=== PATIENT | female | born 1960 | race Caucasian/White ===

== ENCOUNTER 2024-05-11 17:15 | Emergency (ER) | payer OTHER, SELFPAY ==
[2024-05-11 17:25] VITALS: BP 200/100; PULSE 85; TEMP 36.8; O2SAT 99; BMI 28.8
--- NOTE | 2024-05-11 17:49 | ECG_ITS ---
[facility] Test Date: 2024-05-11 Pat Name: ALISON FERRELL Department: Room: - Gender: Female [employer]: : 1960 Requested By: [id number] Order Number: [id number] Reading MD: AMPARO MOSELEY Measurements Intervals Kennedy Rate: 79 P: 37 VT: 134 QRS: 75 QRSD: 88 T: 23 QT: 382 QTc: 416 Interpretive Statements 1100 Sinus rhythm 9110 normal ECG Compared to ECG 04/27/2022 09:40:12 No significant changes Electronically Signed On 05-12-2024 6:53:20 EST by AMPARO MOSELEY
--- NOTE | 2024-05-11 18:03 | PC.NURSE ---
pt placed on steroid and valacyclovir 1 week ago for possible shingles. pt states she never had a rash, just felt a burning sensation on L upper back and into shoulder/chest area. pt also feels it going down her arm and into her neck. pt states she took 1 dose of each medication and was out of it so she stopped them. 1 year ago she also stopped all of her other regular medications for unknown reason. today was found to have high BP at , so she was sent to [facility]. got bloodwork from [place] but was in [place] for 2 hrs so she left and came to this ER.
--- NOTE | 2024-05-11 18:27 | CT_ITS ---
The [address] [address] Patient Name: ALISON FERRELL MRN: [id number] date: 1960 Sex: F Assigned Patient Location: ED.MAIN Current Patient Location: ED.MAIN Accession/Order Number: [id number] Exam Date: 05/11/2024 18:46 Report Date: 05/11/2024 20:11 At the request of: KRYSTA CANADA Procedure: CT head/brain wo con EXAM: CT head/brain wo con HISTORY: confusion COMPARISON: Head CT 07/03/2015 TECHNIQUE: CT head noncontrast. Axial scans with reformatted coronal sagittal images. Individualized radiation dose reduction used for this exam FINDINGS: No hemorrhage mass or acute edema seen. 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 Normal-size ventricles stable without mass effect or shift. No fracture or suspicious bone lesion. No extra-axial collection or hematoma. Visualized mastoid, middle ear cavities and sinuses clear. CT/CT head/brain wo con IMPRESSION: Stable head CT without evidence of new or acute appearing abnormality. Electronically authenticated by: CHRISTIANA CLARKE Date: 05/11/2024 20:11
--- NOTE | 2024-05-11 18:37 | ED.GENADUL1 ---
HPI HPI - General Adult General Chief complaint: Chest Pain Stated complaint: blood pressure Time Seen by Provider: 05/11/24 17:38 Source: patient Mode of arrival: walk-in Limitations: no limitations History of Present Illness HPI narrative: Patient is a 63-year-old female who is presenting to with patient's daughter, granddaughter, and eventually son who has multiple concerns and complaints. Patient is complaining of left-sided shoulder, neck, left-sided headache pain for the past 3 weeks. Patient had this pain initially 3 weeks ago, patient went to go see Dr. Pacheco Olvera her PCP. The pain had only been for couple days at that time, patient was sent home with prednisone and Valtrex. Patient only took the medication 1 time, thought that she was having a side effect because she was confused and disoriented and did not feel like herself, so she stopped taking the medication. Patient just went into a group home approximately 2 to 3 weeks ago. Patient lives at home by herself. Patient has been having confusion going on for the past 4 to 6 months. Patient has been having intermittent left-sided chest pain. Patient blood pressure has been elevated since her is going into a group home. Patient did have a history of anxiety depression, she used to take medication for that but does not any longer. Patient was having some left-sided chest pain, she went to the urgent care today. Because of patient's blood pressure and chest pain they sent her to the ER. Patient then went to [facility] and checked in for chest pain and elevated blood pressure. Patient was taken to triage room, had EKG, lab work, and eventually had a chest x-ray done. Patient was uncertain of the results, waited a few hours in the ER waiting room, was upset by this, I called her children, and her children brought her to [facility]. Patient has no strokelike signs or symptoms. No significant headache. No syncope. Patient does not have any chest pain or shortness of breath at this time. No abdominal pain, nausea or vomiting. All systems are negative except as noted/marked. All systems reviewed and otherwise negative. Nurses note and vital signs reviewed and patient is not hypoxic. General: The patient appears well and in no apparent distress. Patient is resting comfortably on cart. Patient is not toxic, lethargic, or listless Skin: Warm, dry, no pallor noted. There is no rash noted. No petechiae, purpura. Head: Normocephalic, atraumatic; patient does have moderate tenderness to palpation to left upper trapezius muscles, left cervical muscle tissue. Patient has evidence of mild torticollis to the left. Patient has no meningeal signs or symptoms, no nuchal rigidity. Patient has limited range of motion of sidebending rotation secondary to left sided muscle skeletal pain. No abscess, no lymphadenopathy. No redness or signs of cellulitis or infection. Eye: Normal conjunctiva, no drainage, EOMI. PERRL Ears, Nose, Mouth, and Throat: oral mucosa is moist. Nares patent. Mouth without vesicles. Cardiovascular: Regular Rate and Rhythm, no murmur, gallop, rub Respiratory: Patient is in no distress, no accessory muscle use, lungs are clear to auscultation, no wheezing, rales or rhonchi Back: non-tender, no CVA tenderness bilaterally to percussion. No CT LS midline pain GI: no tenderness to palpation, no masses appreciated. No rebound, guarding, or rigidity noted. No distention Musculoskeletal: Patient has full range of motion of all of the extremities, no motor, sensory, or focal neurological deficits Neurological: A&O x4, normal speech Psychiatric: Cooperative; Patient is not suicidal homicidal. Related Data Previous Rx's ?Medication ?Instructions ?Recorded meclizine 25 mg chewable tablet 25 mg PO TID PRN dizziness or 05/11/24 (Antivert) vertigo; anxiety #7 tabs methocarbamol 500 mg tablet 500 mg PO Q8H PRN muscle pain #10 05/11/24 tabs Allergies Allergy/AdvReac Type Severity Reaction Status Date / Time acetaminophen (From Vicodin) Allergy Severe Hallucinati Verified 05/11/24 17:47 ng hydrocodone (From Vicodin) Allergy Severe Hallucinati Verified 05/11/24 17:47 ng oxycodone (From Percocet) Allergy Severe Hallucinati Verified 05/11/24 17:47 ng Penicillins AdvReac Intermediate Rash Verified 05/11/24 17:47 Opioid HPI Opioid Management Most Recent Opioid Data: No Data to Display PFSH PFSH Social History Little interest or pleasure in doing things: not at all Feeling down, depressed, or hopeless: not at all Exam Constitutional Vital Signs, click to edit/add: Last Vital Signs Temp 98.2 F 05/11/24 17:25 Pulse 85 05/11/24 17:25 Resp 18 05/11/24 17:25 BP 192/104 H 05/11/24 18:45 Pulse Ox 99 05/11/24 17:25 O2 Del Method Room Air 05/11/24 17:25 Course Vital Signs Vital signs: Vital Signs Temperature 98.2 F 05/11/24 17:25 Pulse Rate 85 05/11/24 17:25 Respiratory Rate 18 05/11/24 17:25 Blood Pressure 200/100 H 05/11/24 17:25 Pulse Oximetry 99 05/11/24 17:25 Oxygen Delivery Method Room Air 05/11/24 17:25 Temperature 98.2 F 05/11/24 17:25 Pulse Rate 85 05/11/24 17:25 Respiratory Rate 18 05/11/24 17:25 Blood Pressure 192/104 H 05/11/24 18:45 Pulse Oximetry 99 05/11/24 17:25 Oxygen Delivery Method Room Air 05/11/24 17:25 Medical Decision Making MDM Narrative Medical decision making narrative: Patient is lab work was reviewed from Don Ojeda from today. Patient white blood cell count was 8.5, H&H was 14/40, platelets 355. Patient's BMP shows no significant findings, patient's troponin was 9.6. Patient had repeat troponin, repeat EKG. Also a CT of the head was done as well. Patient daughter, granddaughter and son are at bedside. It is noted that patient has not taken any of her medication for over a year, including blood pressure medication, diabetic medication, anxiety depression medication, her cholesterol medication. Patient decided 1 year ago to stop taking all her medications. Patient is now agreeing that she will start taking her medications today. I spent 20 to 25 minutes during patient's HPI and physical exam speaking of all the social situation surrounding this patient. We discussed depression anxiety and stress. We discussed confusion for 6 months. We discussed elevated blood pressure and hypertension. We did not discuss initially the fact that she stopped taking her medication on her own 1 year ago of diabetes, cholesterol, blood pressure medication. After I found this out from triage nurse Shirley GRAY, I then went back and asked the patient and she did admit to stop taking the medication 1 year ago, and daughter and son at bedside were not exactly aware of this as well. Compliance with medication was discussed. We had discussed creating a blood pressure log, where she will check her blood pressure twice a day for the next 1 to 2 weeks and then show her blood pressure readings to Dr. Olvera. Patient will be sent home with a prescription for Vistaril to help with some mild insomnia along with some anxiety at home. Patient most likely will need daily medication for depression/anxiety/stress that will need to be prescribed from Dr. Olvera. Patient and daughter and son at bedside agree with this. Patient has had confusion in the past 6 months. We have discussed different etiologies of vascular dementia versus aging dementia versus alcohol dementia. Patient denies drinking alcohol daily at home. Patient will call Dr. Olvera tomorrow and make an appointment to follow-up. Patient daughter and granddaughter were extremely thankful for the lengthy time. 1900 Patient is transition to Dr. Lange to follow-up on CT reading and final disposition. Most of the patient's discharge has been done by myself. ECG Data Attestation: I personally reviewed and interpreted this ECG as follows: (EKG interpretation. Normal sinus rhythm at 79 beats a minute. Normal axis deviation. No acute ST elevation, no acute ectopy. Q waves noted diffusely. QTc of 416.) Discharge Plan Discharge Patient Disposition: Still a Patient
[2024-05-11] MEDS: KETOROLAC TROMETHAMINE 30 MG/ML VIAL 15 MG IVP (18:39)
[2024-05-11] MEDS: ORPHENADRINE 60 MG/ 2 ML VIAL IM (18:40)
[2024-05-11 18:45] VITALS: BP 192/104
[2024-05-11 19:40] LABS: Troponin I High Sensitivity 14.6 pg/mL (4.0-51.3)
--- NOTE | 2024-05-11 20:22 | ED_ITS ---
HPI HPI - General Adult General Chief complaint: Chest Pain Stated complaint: blood pressure Time Seen by Provider: 05/11/24 17:38 Source: patient Mode of arrival: walk-in Limitations: no limitations History of Present Illness HPI narrative: 63-year-old female presented to the emergency department and was initially seen by Dr. Sandoval and signed out to me after discussing the case with him thoroughly. Please see his full history and physical exam. Related Data Previous Rx's ?Medication ?Instructions ?Recorded meclizine 25 mg chewable tablet 25 mg PO TID PRN dizziness or 05/11/24 (Antivert) vertigo; anxiety #7 tabs methocarbamol 500 mg tablet 500 mg PO Q8H PRN muscle pain #10 05/11/24 tabs Allergies Allergy/AdvReac Type Severity Reaction Status Date / Time acetaminophen (From Vicodin) Allergy Severe Hallucinati Verified 05/11/24 17:47 ng hydrocodone (From Vicodin) Allergy Severe Hallucinati Verified 05/11/24 17:47 ng oxycodone (From Percocet) Allergy Severe Hallucinati Verified 05/11/24 17:47 ng Penicillins AdvReac Intermediate Rash Verified 05/11/24 17:47 Opioid HPI Opioid Management Most Recent Opioid Data: No Data to Display PFSH PFSH Social History Little interest or pleasure in doing things: not at all Feeling down, depressed, or hopeless: not at all Exam Constitutional Vital Signs, click to edit/add: Last Vital Signs Temp 98.2 F 05/11/24 17:25 Pulse 85 05/11/24 17:25 Resp 18 05/11/24 17:25 BP 192/104 H 05/11/24 18:45 Pulse Ox 99 05/11/24 17:25 O2 Del Method Room Air 05/11/24 17:25 Course Vital Signs Vital signs: Vital Signs Temperature 98.2 F 05/11/24 17:25 Pulse Rate 85 05/11/24 17:25 Respiratory Rate 18 05/11/24 17:25 Blood Pressure 200/100 H 05/11/24 17:25 Pulse Oximetry 99 05/11/24 17:25 Oxygen Delivery Method Room Air 05/11/24 17:25 Temperature 98.2 F 05/11/24 17:25 Pulse Rate 85 05/11/24 17:25 Respiratory Rate 18 05/11/24 17:25 Blood Pressure 192/104 H 05/11/24 18:45 Pulse Oximetry 99 05/11/24 17:25 Oxygen Delivery Method Room Air 05/11/24 17:25 Medical Decision Making MDM Narrative Medical decision making narrative: Her workup is negative including CT of the brain. She had blood testing performed at another hospital earlier today which was reviewed and found to be normal. She has her medications and will resume them and will call her family doctor for follow-up appointment. Treatment diagnosis and follow-up were discussed with the patient. Differential Diagnosis Differential Diagnosis: Hypertension, noncompliant Lab Data Labs: Lab Results 05/11/24 Range/Units 18:53 Troponin I High Sens 14.6 (4.0-51.3) pg/mL Discharge Plan Discharge Chief Complaint: Chest Pain Clinical Impression: Strain of cervical portion of left trapezius muscle, Hypertension, Medication refill, Headache, tension-type Patient Disposition: Home, Self-Care Time of Disposition Decision: 20:20 Condition: Good Mode of Transportation: Private Vehicle Prescriptions / Home Meds: New meclizine [Antivert] 25 mg tablet,chewable 25 mg PO TID PRN (Reason: dizziness or vertigo; anxiety) Qty: 7 0RF methocarbamol 500 mg tablet 500 mg PO Q8H PRN (Reason: muscle pain) Qty: 10 0RF Print Language: Danish Instructions: Cervical Strain (DC), Muscle Strain (ED), Tension Headache (ED), Hypertension (ED) Additional Instructions: Start use ice 20 minutes on, 20 minutes off. Perform the 8 cervical stretching exercises that I showed you, 3 sets of 10 each, 240 exercises. Do these 4-5 times a day. Start taking medication as prescribed. Start creating a blood pressure log, taking your blood pressure twice a day, record the date and time, and then show them to Dr. Pacheco Olvera for 1 to 2 weeks so we can adjust medication as needed. Start taking your medication as prescribed. You do not need to return back to the ER if your blood pressure is less than 200/100 if you are not having any significant headache, chest pain, shortness of breath, or any other significant or acute problems. Referrals: Physician,Non-Staff, MD [Primary Care Provider] - 1 week
[2024-05-11 20:39] VITALS: BP 188/77; PULSE 74; O2SAT 95
== END 2024-05-11 20:42 | disposition home or self-care (01) ==
PROVIDERS: Emergency Medicine; Emergency Provider Emergency Medicine
DX: S16.1XXA Strain of muscle, fascia and tendon at neck level, initial encounter (principal); I10 Essential (primary) hypertension; G44.209 Tension-type headache, unspecified, not intractable; Z76.0 Encounter for issue of repeat prescription; R07.9 Chest pain, unspecified; X58.XXXA Exposure to other specified factors, initial encounter; Z91.148 Patient's other noncompliance with medication regimen for other reason; G47.00 Insomnia, unspecified; R41.0 Disorientation, unspecified; T50.916A Underdosing of multiple unspecified drugs, medicaments and biological substances, initial encounter
CPT/HCPCS: 36415; 70450; 84484; 93005; 96372; 96374; 99285; J1885; J2360

== ENCOUNTER 2025-04-07 15:29 | Emergency (ER) | payer MEDICARE, SELFPAY ==
[2025-04-07 15:32] VITALS: BP 207/89; PULSE 77; TEMP 37; O2SAT 98; BMI 23.8
--- NOTE | 2025-04-07 15:49 | XR_ITS ---
The [address] [address] Patient Name: ALISON FERRELL MRN: [id number] date: 1960 Sex: F Assigned Patient Location: ER Current Patient Location: ER Accession/Order Number: [id number] Exam Date: 04/07/2025 16:19 Report Date: 04/07/2025 16:38 At the request of: MAYELIN LAGUNAS MD Procedure: XR chest 1V Plain film chest Single view HISTORY: Confusion COMPARISON: None FINDINGS: SUPPORT DEVICES: None POSTSURGICAL CHANGES: None HEART: Within normal limits PULMONARY COLEEN: Within normal limits MEDIASTINUM: Unremarkable LUNGS AND PLEURA: No acute lung process, pleural effusion or pneumothorax identified. BONY STRUCTURES: Intact ADDITIONAL FINDINGS None XR/XR chest 1V IMPRESSION: No acute process. Impression dictated by: Will Grey M.D. 04/07/2025 4:38 PM Dictation Location: [place] [address] Electronically authenticated by: [id number] Y Date: 04/07/2025 16:38
--- NOTE | 2025-04-07 15:49 | ED_ITS ---
HPI HPI - General Adult General Chief complaint: Altered Mental Status Stated complaint: UTI SYMPTOMS Time Seen by Provider: 04/07/25 15:37 Source: patient and family Mode of arrival: walk-in Limitations: no limitations History of Present Illness HPI narrative: 64-year-old female presents to the emergency department for confusion. Seems to be gone today and her granddaughters gives some of the history. They report that they were talking to her on the phone today and the patient seemed to stop midsentence and slurred some words. The patient does not want to be here and came only at their urging. She does not seem to have any complaints. Significantly, her on March 20, 2018 days ago. Related Data Home Medications ?Medication ?Instructions ?Recorded ?Confirmed duloxetine 60 mg capsule,delayed 60 mg PO DAILY 04/07/25 release lisinopril 20 mg tablet 20 mg PO DAILY 04/07/2503/20 Allergies Allergy/AdvReac Type Severity Reaction Status Date / Time acetaminophen (From Vicodin) Allergy Severe Hallucinati Verified 04/07/25 15:32 ng hydrocodone (From Vicodin) Allergy Severe Hallucinati Verified 04/07/25 15:32 ng oxycodone (From Percocet) Allergy Severe Hallucinati Verified 04/07/25 15:32 ng Penicillins AdvReac Intermediate Rash Verified 04/07/25 15:32 Review of Systems ROS Narrative A ten point review of systems is negative except as noted above. PFSH PFSH Social History Little interest or pleasure in doing things: not at all Feeling down, depressed, or hopeless: not at all Exam Narrative Exam Narrative: Nurses note and vital signs reviewed General:The patient appears in no apparent distress. Patient is resting comfortably on cart. Skin:Warm, dry, no pallor noted.There is no rash noted. Head:Normocephalic, atraumatic Eye: Normal conjunctiva, no drainage, EOMI. PERRL Ears, Nose, Mouth, and Throat: oral mucosa is moist. Nares patent. Cardiovascular:Regular Rate and Rhythm Respiratory:Patient is in no distress, no accessory muscle use, lungs are clear to auscultation, no wheezing, rales or rhonchi Back:non-tender GI: Soft and nontender Musculoskeletal: The patient has no evidence of calf tenderness, no pitting edema, symmetrical pulses noted bilaterally Neurological:A&O x4, normal speech; upper lower extremity strength 5 out of 5 and symmetric Psychiatric:Cooperative Constitutional Vital Signs, click to edit/add: Last Vital Signs Temp 98.6 F 04/07/25 15:32 Pulse 77 04/07/25 15:32 Resp 18 04/07/25 15:32 BP 190/90 H 04/07/25 16:02 Pulse Ox 98 04/07/25 15:32 O2 Del Method Room Air 04/07/25 15:32 Course Vital Signs Vital signs: Vital Signs Temperature 98.6 F 04/07/25 15:32 Pulse Rate 77 04/07/25 15:32 Respiratory Rate 18 04/07/25 15:32 Blood Pressure 207/89 H 04/07/25 15:32 Pulse Oximetry 98 04/07/25 15:32 Oxygen Delivery Method Room Air 04/07/25 15:32 Temperature 98.6 F 04/07/25 15:32 Pulse Rate 77 04/07/25 15:32 Respiratory Rate 18 04/07/25 15:32 Blood Pressure 190/90 H 04/07/25 16:02 Pulse Oximetry 98 04/07/25 15:32 Oxygen Delivery Method Room Air 04/07/25 15:32 Medical Decision Making MDM Narrative Medical decision making narrative: Her workup here is negative. I suspect that her symptoms are due to situational anxiety second to her passing away less than 3 weeks ago. At this point I do not clinically suspect a stroke and she is able to be discharged home. Treatment diagnosis and follow-up were discussed with the patient and her family. Differential Diagnosis Differential Diagnosis: Situational anxiety, stroke, UTI, dehydration Lab Data Lab results reviewed: Yes I reviewed the patient's lab results Labs: Lab Results 04/07/25 04/07/25 Range/Units 16:15 16:40 WBC 7.7 (4.0-11.0) 10^3/uL RBC 4.19 L (4.20-5.40) 10^6/uL Hgb 12.7 (12.0-16.0) g/dL Hct 38.8 (36.0-48.0) % MCV 92.6 (81.0-99.0) fL MCH 30.3 (26.7-34.0) pg MCHC 32.7 (29.9-35.2) g/dL RDW 12.8 (11.0-15.0) % Plt Count 307 (150-450) 10^3/uL MPV 9.2 L (9.5-13.5) fL Neut % (Auto) 60.1 (43.0-75.0) % Lymph % (Auto) 28.0 (20.5-60.0) % [place] % (Auto) 10.0 (1.7-12.0) % Eos % (Auto) 1.0 (0.9-7.0) % Baso % (Auto) 0.5 (0.2-2.0) % Neut # (Auto) 4.6 (1.4-6.5) 10^3/uL Lymph # (Auto) 2.2 (1.2-3.8) 10^3/uL [place] # (Auto) 0.8 (0.3-0.8) 10^3/uL Eos # (Auto) 0.1 (0.0-0.7) 10^3/uL Baso # (Auto) 0.0 (0.0-0.1) 10^3/uL Abs Immat Gran (auto) 0.03 (0.00-0.03) 10^3/uL Imm/Tot Granulo (auto) 0.4 (0.0-0.5) % Sodium 140 (136-145) mmol/L Potassium 3.9 (3.5-5.1) mmol/L Chloride 104 (98-107) mmol/L Carbon Dioxide 31.2 (21.0-32.0) mmol/L Anion Gap 8.7 BUN 18.0 (7.0-18.0) mg/dL Creatinine 1.03 H (0.55-1.02) mg/dL Est GFR ( Amer) >60 (>=60 mL/min/1.73m^2) Est GFR (Non-Af Amer) 54 L (>=60 mL/min/1.73m^2) BUN/Creatinine Ratio 17.5 Glucose 111 H (74-106) mg/dL Calcium 9.3 (8.5-10.1) mg/dL Urine Color Lt. yellow (YELLOW) Urine Clarity Clear (CLEAR) Urine pH 6.5 (5.0-9.0) Ur Specific [place] 1.015 (1.005-1.025) Urine Protein Negative (NEG/TRACE) mg/dL Urine Glucose (UA) Negative (NEGATIVE) mg/dL Urine Ketones Negative (NEGATIVE) mg/dL Urine Occult Blood Trace-i (NEGATIVE) Urine Nitrite Negative (NEGATIVE) Urine Bilirubin Negative (NEGATIVE) Urine Urobilinogen 0.2 (0.2-1.0) EU/dL Ur Leukocyte Esterase Small A (NEGATIVE) Urine RBC 2-5 A (0-2) #/HPF Urine WBC 2-5 A (NONE SEEN) #/HPF Ur Squamous Epith Cells Rare (NONE/RARE) #/LPF Ur Transition Epith Cell Rare A (NONE SEEN) #/LPF Urine Crystals None seen (None Seen) #/HPF Urine Bacteria Trace A (NONE SEEN) #/HPF Urine Casts None seen (NONE SEEN) #/LPF Urine Mucus None seen (NONE SEEN) Ur Culture Indicated? [place] [place] scan - head: Radiologist's impression: ITS Impressions Chest X-Ray 04/07/25 15:49 IMPRESSION: No acute process. Impression dictated by: Will Grey M.D. 04/07/2025 4:38 PM Dictation Location: [employer] Electronically authenticated by: [id number] Y Date: 04/07/2025 16:[address] 04/07/25 15:49 IMPRESSION: No acute findings. Impression dictated by: Will Grey M.D. 04/07/2025 4:39 PM Dictation Location: [employer] Electronically authenticated by: [id number] Y Date: 04/07/2025 16:39 ECG Data Attestation: I personally reviewed and interpreted this ECG as follows: (EKG on my interpretation shows sinus rhythm with a rate of 77 and no acute change) Discharge Plan Discharge Chief Complaint: Altered Mental Status Clinical Impression: Situational anxiety, Altered mental status Patient Disposition: Home, Self-Care Time of Disposition Decision: 17:25 Condition: Good Mode of Transportation: Private Vehicle Prescriptions / Home Meds: No Action duloxetine 60 mg capsule,delayed release(DR/EC) 60 mg PO DAILY lisinopril 20 mg tablet 20 mg PO DAILY Print Language: Setswana Instructions: Altered Mental Status (ED), Anxiety (ED) Referrals: Physician,Non-Staff, MD [Primary Care Provider] - 1 week
--- NOTE | 2025-04-07 15:49 | ECG_ITS ---
The [facility] Test Date: 2025-04-07 Pat Name: ALISON FERRELL Department: Room: - Gender: Female Rn Recruitment: : 1960 Requested By: Order Number: [id number] Reading MD: ROXANA MARIO M.D. Measurements Intervals [place] Rate: 77 P: 52 CO: 148 QRS: 59 QRSD: 82 T: 54 QT: 376 QTc: 407 Interpretive Statements 1100 Sinus rhythm 9110 normal ECG Compared to ECG 05/11/2024 17:49:07 No significant changes Electronically Signed On 04-08-2025 6:03:47 EST by ROXANA MARIO M.D.
--- NOTE | 2025-04-07 15:49 | CT_ITS ---
The [address] [address] Patient Name: ALISON FERRELL MRN: [id number] date: 1960 Sex: F Assigned Patient Location: ER Current Patient Location: ER Accession/Order Number: [id number] Exam Date: 04/07/2025 16:19 Report Date: 04/07/2025 16:39 At the request of: MAYELIN LAGUNAS MD Procedure: CT head/brain wo con Unenhanced head CT TECHNIQUE: Contiguous axial imaging of the head. The CT exam was performed using one or more the following dose reduction techniques: Automated exposure control, adjustment of the MA and/or Kv according to patient size, or use of the iterative reconstruction technique. COMPARISON: 05/11/2024 HISTORY: Confusion VENTRICLES: Within normal limits ATROPHY: Similar mild atrophy BRAIN PARENCHYMA: Decreased density of the white matter is most consistent with chronic small vessel disease. HEMORRHAGE: None HERNIATION: No mass effect or herniation INFARCTION: No recent vascular distribution infarction is seen. EXTRA-AXIAL FLUID COLLECTIONS None MIDBRAIN: Unremarkable TRINY: Unremarkable MEDULLA: Unremarkable SINUSES: Unremarkable ORBITS: Grossly unremarkable MASTOIDS: Unremarkable BONY STRUCTURES Intact ADDITIONAL FINDINGS: CT/CT head/brain wo con IMPRESSION: No acute findings. Impression dictated by: Will Grey M.D. 04/07/2025 4:39 PM Dictation Location: [place] [address] Electronically authenticated by: [id number] Y Date: 04/07/2025 16:39
--- OUTSIDE RECORDS SUMMARY | 2025-04-07 15:49 | XMS_ITS | Clinical Summary ---
Author Organization [facility] Address [address], [address] [place] [address] Care Team Providers Care Screen Handler Name Role Phone Stacie Olvera MD Primary Care Provider Allergies Active AllergyReactionsCriticalityNoted DhunZtzbbuorNmnrbngjzuog35/14/2016 Povidone Fucydl9607/03/20151712[place]baica17/14/6567Irxbkxgn89/14/2016Penicillins 07/03/2015Sulfa Dgjmehajlts00/14/2016Adhesive Tape07/03/2015 Medications MedicationSigDispense QuantityRefillsLast FilledStart DateEnd DateStatus lisinopril (PRINIVIL;ZESTRIL) 20 MG tablet Take 20 mg by mouth dailyActive nadolol (CORGARD) 40 MG tablet Take 20 mg by mouth dailyActive gabapentin (NEURONTIN) 100 MG capsule Take 100 mg by mouth dailyActive Glatiramer Acetate 40 MG/ML SOSY Inject 40 mg into the skin three times a weekActive metFORMIN (GLUCOPHAGE) 1000 MG tablet Take 1,000 mg by mouth dailyActive pravastatin (PRAVACHOL) 80 MG tablet Take 80 mg by mouth dailyActive gabapentin (NEURONTIN) 300 MG capsule Take 300 mg by mouth nightlyActive Social History Tobacco UseTypesPacks/DayYears UsedDateSmoking Tobacco: NeverCommentsNo Sex and Gender InformationValueDate RecordedSex Assigned at BirthNot on file Legal WctRynhfw95/11/2013 10:08 PM ESTGender IdentityNot on fileSexual OrientationNot on file Last Filed Vital Signs Vital SignReadingTime TakenCommentsBlood Ekoggukm638/76006/20/2019 8:06 AM EST Dttcp5619 8:06 AM NCAQldpbdgahqh28.7 ??C (98.1 ??F)07/03/2015 9:26 PM ESTRespiratory Gqwv389307/03/2015 11:47 PM ESTOxygen Crnqhcovcy60%07/03/2015 11:47 PM ESTInhaled Oxygen Concentration--Weight--Height--Body Mass Index-- Plan of Treatment Not on file Insurance Care Teams Team MemberRelationshipSpecialtyStart DateEnd Date Stacie Olvera MD [facility] - [facility]
--- OUTSIDE RECORDS SUMMARY | 2025-04-07 15:49 | XMS_ITS | Clinical Summary ---
Author Organization [facility] Address [address] [place] [address] Care Team Providers Care Farm Operations Manager Name Role Phone Stacie Olvera MD Primary Care Provider + [phone] Allergies Active AllergyReactionsCriticalityNoted DateCommentsPovidone-Uwvzhe6903/09/2008 Dpxtynj7503/09/20081952Hwxlobgi82/27/9340WedxndkvkmtEszk01/21/2008Sulfa (Sulfonamide Antibiotics)Rash03/09/2008 Medications MedicationSigDispense QuantityRefillsLast FilledStart DateEnd DateStatus aspirin(ECOTRIN LOW STRENGTH 81 MG TAB) Take one(1) tablet daily. 0 ctive NADOLOL 20 MG TAB 1/2 po qd 0 ctive HYDROCHLOROTHIAZIDE 25 MG TAB Take one(1) tablet daily. 0 ctive AMANTADINE 100 MG TAB Take 1/2 tablet twice daily. 0 ctive gabapentin(NEURONTIN 100 MG CAP) Take one(1) capsule bid 0 ctive glatiramer acetate(COPAXONE 20 MG SUB-Q KIT) Inject one syringe under the skin daily.ctive lisinopril 20 mg ORAL tablet Take one(1) tablet daily.ctive Family History Medical HistoryRelationCommentsCancerOtherDiabetesOtherHeartOthermultiple sclerosis [Other]No Family HistoryRelationStatusCommentsOther Social History Tobacco UseTypesPacks/DayYears UsedDateSmoking Tobacco: NeverAlcohol UseStandard Drinks/WeekCommentsNo0 (1 standard drink = 0.6 oz pure alcohol)Area Deprivation IndexAnswerDate RecordedNational Score (1-100), lower number is lower riskNot on file04/25/2020State Score (1-10), lower number is lower riskNot on file 12/07/2020Data from: https://www.[email or web address].[email or web address]/. Last address used for calculationNot on file04/25/2020CommentsNoSex and Gender InformationValueDate RecordedSex Assigned at BirthNot on fileLegal Sex Jgfqkd9004/20/2012 8:16 AM ESTGender IdentityNot on fileSexual OrientationNot on file Last Filed Vital Signs Vital SignReadingTime TakenCommentsBlood Ijytbizt029/7408 4:09 PM EDT Bpqix196101/17/2010 4:09 PM EDTTemperature--Respiratory Tgro6004 4:09 PM EDTOxygen Saturation--Inhaled Oxygen Concentration--Wwguxz38.8 kg (165 lb) 03/09/2010 1:07 PM IUTUauxff984.5 cm (5' 2 )03/09/2010 1:07 PM EDTBody Mass Index30.181 1:07 PM EDT Plan of Treatment Health MaintenanceDue DateLast DoneCommentsAnxiety Rlscxhzre62/21/1977Depression Nwnyfueoa96/21/1977Hepatitis C Adeqmmgpq84/21/1977DTaP,Tdap,Td Vaccine (1 - Tdap)1977Mammogram Rgmcwjcko60/21/1999CT Ofwvyowjpzwz75/21/2004Cologuard (FIT-DNA)10/08/20031219Mrfzrspysdw00/21/2004Colorectal Cancer Vwlnznayi38/21/2004 Fecal Occult Blood10/08/2003Lipid Zzxntwxpk80/21/5646Ycxcysyehyhzj95/21/2004 Pneumococcal Vaccine: 50+ (1 of 1 - PCV)2008Shingrix Vaccine (1 of 2) 2008Diabetes Thctheytq47one Density Mmrehbnfm43/21/2024 Advance Directive Gopyhsgjmn93/01/2025ovid-19 Vaccine (1 - 2024- season) 2025Influenza Vaccine (#1)2025RSV Vaccine (1 - 1-dose 75+ series) 2033 Procedures Procedure NamePriorityDate/TimeAssociated DiagnosisCommentsCOMPREHENSIVE METABOLIC YSYNGYxmebep16/22/2009 4:35 PM EDT Industrial Plant Custodian Demyelination Nos from Last 3 Months or Most Recently Relevant to Health Maintenance Results * (ABNORMAL) COMP METABOLIC PANEL (09/08/2008 4:35 PM EDT)ComponentValueRef RangeTest MethodAnalysis TimePerformed AtPathologist SignatureProtein, Total 8.16.0 - 8.4 g/dLUNIVERSITY [facility]ALS [facility] LABORATORYAlbumin4.73.5 - 5.0 g/dL [facility] CVQHFKMSNOAmlljyf50.58.5 - 10.5 mg/dLUNIVERSITY HOSPITALS [facility] LABORATORYBilirubin, Total0.60.0 - 1.5 mg/dLUNIVERSITY HOSPITALS AHU[facility] LABORATORYAlkaline Vvsbzybwpup4110 - 150 U/LC[facility]ORY FOZ676 - 40 U/LC[facility]PP[facility] QJYOMOMWZKUkvmjbk022(H)65 - 100 mg/dL [facility] MRUGDXIDNYYTP740 - 25 mg/dLUNIVERSITY HOS[facility]ITALS [facility] LABORATORYCreatinine0.710.70 - 1.40 mg/dLUNIVERSITY [facility]ITALS [facility] LABORATORY Gmzptr287068 - 148 mmol/LCUPPER VALLEY [facility] LABORATORYPotassium4.53.5 - 5.0 mmol/LCUNIVERSITY [facility] MAIN AHMXYHZPTOBcdbshnc34(L)98 - 110 mmol/LCUPPER VALLEY [facility] GFYEGGDJMCJF50857 - 32 mmol/LCUNIVERSITY [facility]ALS [facility] MAIN LABORATORYAnion Lub138 - 15 mmol/LCUNIVERSITY [facility]ALS [facility] KKOJSNXYCDOMH559 - 45 U/LCUPPER VALLEY [facility] LABORATORYeGFR->60[facility] eGFR-All Other Races>60[facility] LABORATORYComment: eGFR (Estimated GFR) Units of measure: mL/min/1.73 meters squared eGFR is derived from the reexpressed MDRD Study equation using the following parameters: serum creatinine, age, gender and race. The creatinine assay has been calibrated to be traceable to IDMS. An eGFR <60 mL/min/1.73m2 for >3 months is consistent with chronic kidney disease. Refer to KDOQI guidelines for clinical interpretation. Specimen (Source)Anatomical Location / LateralityCollection Method / Volume Collection TimeReceived TimeBlood specimen (specimen)BLOOD SPECIMEN / Unknown 09/08/2008 4:35 PM EDT Narrative Authorizing ProviderResult TypeResult StatusRobrashida Vincent MDLABORATORYFinal ResultPerforming OrganizationAddressCity/State/ZIP CodePhone Number [facility] [address] [place] [address] from Last 3 Months or Most Recently Relevant to Health Maintenance Insurance Care Teams Team MemberRelationshipSpecialtyStart DateEnd Date Stacie Olvera MD PCP - Bvtpowx15/8/08
--- OUTSIDE RECORDS SUMMARY | 2025-04-07 15:49 | XMS_ITS | Clinical Summary ---
Author Organization [facility] Address [address] [place] [address] Phone Care Team Providers Care Auditor Supervisor Name Role Phone Unavailable Primary Care Provider Unavailabl e Social History Tobacco UseTypesPacks/DayYears UsedDateSmoking Tobacco: Never Assessed CommentsUnknownSex and Gender InformationValueDate RecordedSex Assigned at Not on fileLegal DhhHsldyg32/26/2022 7:32 AM ESTGender IdentityNot on fileSexual OrientationNot on file Plan of Treatment Not on file
--- OUTSIDE RECORDS SUMMARY | 2025-04-07 15:49 | XMS_ITS | Clinical Summary ---
Author Organization [facility] Address [address] [place] [address] Care Team Providers Care Third Helper Name Role Phone Unavailable Primary Care Provider Unavailabl e Social History Tobacco UseTypesPacks/DayYears UsedDateSmoking Tobacco: Never Assessed CommentsUnknownSex and Gender InformationValueDate RecordedSex Assigned at Not on fileLegal RquXffgoe08/01/2023 8:35 PM EDTGender IdentityNot on fileSexual OrientationNot on file Last Filed Vital Signs Vital SignReadingTime TakenCommentsBlood Cyjiufkb008/7602 12:00 PM EST Pulse--Temperature--Respiratory Rate--Oxygen Saturation--Inhaled Oxygen Concentration--Zxnteh77.8 kg (164 lb 12.8 oz)02/13/2021 12:00 PM JNRUvbqyh742.5 cm (5' 2 )02/13/2021 12:00 PM EDTBody Mass Index30.1409 12:00 PM EDT Plan of Treatment Not on file
--- OUTSIDE RECORDS SUMMARY | 2025-04-07 15:50 | XMS_ITS | CCD ---
Author Organization [facility] Care Team Providers Care Quality Assurance Technician Name Role Phone Stacie Roberts Primary Care Provider CRISTOPHER SHAW Referring Unavailable STACIE ROBERTS Primary Care Unavailable Stacie ROBERTS Primary Care Physician [phone] Kyleigh Mcadams Unavailable Unavailable Carlene Bates Unavailable Unavailable MD Stacie Roberts Primary Care Provider [phone] GEORGE Pandey Attending Provider SHMUEL, DR STARK Consulting Unavailable MISC, DR GUADARRAMA Primary Care Unavailable SHMUEL, DR STARK Attending Unavailable SHMUEL, DR STARK Admitting Unavailable EVON JOHNSON Consulting Unavailable TOMAS SULLIVAN Consulting Unavaila paul ROBERTS, DR STACIE Lau Consulting Unavailable ARMANDO, DR STACIE Lau Primary Care Unavailable SHMUEL, DR STARK Attending Unavailable SHMUEL, DR STARK Admitting Unavailable SHMUEL, DR STARK Consulting Unavailable ELIZALDEJOANNA ACOSTA Consulting Unavailable SHMUEL, DR STARK Consulting Unavailable MIGUEL, DR GUADARRAMA Primary Care Unavailable SHMUEL, DR STARK Attending Unavailable SHMUEL, DR STARK Admitting Unavailable ARMANDO, DR STACIE Lau Consulting Unavailable MISC, DR GUADARRAMA Primary Care Unavailable SHMUEL, DR STARK Consulting Unavailable SHMUEL, DR STARK Attending Unavailable SHMUEL, DR STARK Admandrea Unavailable ARMANDO, DR STACIE Lau Consulting Unavailable ARMANDO, DR STACIE Lau Primary Care Unavailable SHMUEL, DR STARK Attending Unavailable SHMUEL, DR STARK Admitting Unavailable SHMUEL, DR STARK Consulting Unavailable HALLE FERRELL Consulting Unavailable JOSE HENDERSON Consulting Unavailable Rosa Canseco. Primary Care Physician [facility] [place] [facility] Primary Care Physician UnavailAlon Kraus Attending Unavailable Sam ROBERTS Primary Care Physician [phone] Mi MI Attending Unavailable Mi MI Admitting Unavailable MI, Mi R Attending Unavailable MI, Mi R Attending Unavailable MI, Mi R Admitting Unavailable MI, Mi R Admitting Unavailable MI, Mi R Attending Unavailable Ajith, Rosa L. Admitting Unavailable Ajith, Rosa L. Attending Unavailable Ajith, Rosa L. Attending Unavailable MI, Mi R Attending Unavailable BROWN, Christopher Admitting Unavailable BROWN, Christopher Attending Unavailable BROWN, Christopher Referring Unavailable Alon Payne Attending Unavailable Miguelangel Mg Attending Unavailable Gt Haro Attending Unavailable Ajith, Rosa L. Attending Unavailable BROWN, Christopher Attending Unavailable MI, Mi R Attending Unavailable MI, Mi R Admitting Unavailable BROWN, Christopher Attending Unavailable BROWN, Christopher Attending Unavailable Ajith, Rosa L. Attending Unavailable Ajith, Rosa L. Admitting Unavailable Allergies Allergy ClassificationReported Allergen(s)Allergy TypeDate of OnsetReaction(s) Facility (4 sources)Adhesive Tape; Translations: [Adhesive tape]Propensity to adverse reactions to [id number] [facility] Phone: (20 sources)Azithromycin; Translations: [azithromycin]Drug [id number] Dyspnea (finding), Intermittent tremor (finding), Nausea present (context- dependent category), Nausea (finding)[employer] Phone: (20 sources)Codeine; Translations: [codeine]Drug Dvxkspr21-19-7981Tyfkse (finding)[employer] Phone: (20 sources)Morphine; Translations: [morphine]Drug Ybucfez91-32-3991Bfxshs (finding)[employer] Phone: (3 sources)PenicillinsPropensity to adverse reactions to bcpd90-62-7305Dizqvso [facility] Phone: (20 sources)Povidone-Iodine; Translations: [povidone iodine topical]Drug Allergy 62-41-6883Rupdnnseu eruption (morphologic abnormality)[employer] Phone: (1 source)Sulfonamides (Antibiotic)Propensity to adverse reactions to drug 96-75-3965Knqsi [employer] Phone: (20 sources)celecoxib; Translations: [celecoxib]Drug AllergyNausea (finding) [facility] (20 sources)Ciprofloxacin; Translations: [ciprofloxacin]Drug AllergyNausea (finding)[facility] (20 sources)Desonide; Translations: [desonide topical]Drug AllergyUnknown (qualifier value)[facility] (20 sources)Desvenlafaxine; Translations: [desvenlafaxine]Drug AllergyNausea (finding)[facility] (20 sources)Penicillin; Translations: [penicillin]Drug AllergyCutaneous eruption (morphologic abnormality)[facility] (20 sources)Sulfonamides (Antibiotic); Translations: [sulfa drugs]Propensity to adverse reactions to substanceCutaneous eruption (morphologic abnormality)[facility] (20 sources)Tape 1Drug allergyDiley Ridge Medical CenterComment on above: adhesive (2 sources)Povidone-IodineDrug Crvvcce57-65-4084Bflatbx ReactionMagruder Memorial Hospital (2 sources)Sulfonamides (Antibiotic)Allergy to icbclvmin99-78-5568Pfoiyak ReactionMagruder Memorial Hospital (2 sources)soapAllergy to atkdmiyiq27-28-4446SuqmauwC[facility] (7 sources)Azithromycin; Translations: [Zithromax]Drug AllergyThe [facility] (1 source)celecoxibDrug AllergyThe [facility] (1 source)CiprofloxacinDrug AllergyThe [facility] (1 source)CodeineDrug AllergyThe [facility] (7 sources)Desvenlafaxine; Translations: [Pristiq]Drug AllergyThe [facility] (1 source)MorphineDrug AllergyThe [facility] (7 sources)Povidone-Iodine; Translations: [Betadine]Drug AllergyThe [facility] (1 source)Sulfonamides (Antibiotic)Drug allergy (disorder)[facility] (6 sources)Adhesive Tape; Translations: [Tape]Propensity to adverse reactions (disorder)[facility] Rep[facility] Medications Current Medications MedicationDrug Class(es)DatesSig (Normalized)Sig (Original)acetaminophen 325 mg / HYDROcodone bitartrate 5 mg oral tablet (8 sources)Opioid AgonistStart: 96-08-8751usxt 1 tablet by mouth every six hours for painNorco 325 mg-5 mg oral tablet 1 tab(s), Oral, q6hr for pain, 15 tab(s), Refill(s) 0, [facility], 160, cm, 09/08/21 6:25:00 EDT, Height/Length Dosing, 69.8, kg, 09/08/21 6:25:00 EDT, WeightDosing Start Date: 09/12/21 Status: OrderedAlbuterol (Eqv-ProAir HFA) 90 mcg/inh inhalation aerosol (10 sources)Start: 67-00-3730rxnk 2 puff(s) by inhalation once dailyAlbuterol (Eqv-ProAir HFA) 90 mcg/inh inhalation aerosol 2 puff(s), Inhalation, Daily, Refill(s) 0 Start Date: 03/25/20 Status: Orderedatorvastatin 40 mg oral tablet (20 sources)HMG-CoA Reductase InhibitorStart: 16-53-4841bvyjcktirwlf 40 mg Tab Refills(s) 0 Start Date: 08/03/24 Status: Ordered Repeat number: 1Start: 53-29-4793ffrbrmvfkbtg 40 mg Tab Refills(s) 0 Start Date: 06/05/24 Status: OrderedStart: 61-24-6626xykq 1 tablet by mouth at bedtimeatorvastatin 40 mg Tab See Instructions, TAKE 1 TABLET BY MOUTH AT BEDTIME, # 90 tab(s), Refills(s)0, Pharmacy: [facility], 158, cm, 02/03/24 15:51:00 EDT, Height/Length Dosing, 60.7, kg,02/03/24 15:51:00 EDT, Weight Dosing Start Date: 04/20/24 Status: OrderedStart: 21-84-1989agtg 1 tablet by mouth at bedtimeatorvastatin 40 mg Tab 40 mg = 1 tab(s), Oral, Bedtime, # 90 tab(s), Refills(s) 1, Pharmacy: [facility], 157, cm, 04/29/23 16:32:00 EST, Height/Length Dosing, 61.5, kg, 12/11/23 16:32:00 EST, Weight Dosing Start Date: 10/25/23 Status: OrderedStart: 82-99-4963guhg 1 tablet by mouth at bedtimeatorvastatin 40 mg Tab 40 mg = 1 tab(s), Oral, Bedtime, # 90 tab(s), Refills(s) 1, Pharmacy: [facility], 157, cm, 10/23/22 11:36:00 EDT, Height/Length Dosing, 64, kg, 10/23/22 11:36:00 EDT, Weight Dosing Start Date: 11/01/22 Status: OrderedStart: 48-33-1792srqg 1 tablet by mouth at bedtimeatorvastatin 40 mg Tab 40 mg = 1 tab(s), Oral, Bedtime, # 90 tab(s), Refills(s) 1, Pharmacy: [facility], 157.5, cm, 03/19/22 18:05:00 EDT, Height/Length Dosing, 67.3, kg, 03/19/22 18:05:00EDT, Weight Dosing Start Date: 03/19/22 Status: OrderedStart: 49-32-3420vatl 1 tablet by mouth at bedtimeatorvastatin 40 mg Tab 40 mg = 1 tab(s), Oral, Bedtime, # 90 tab(s), Refills(s) 1, Pharmacy: [facility], 157, cm, 08/21/21 15:52:00 EDT, Height/Length Dosing, 72, kg, 08/21/21 15:52:00 EDT, Weight Dosing Start Date: 08/22/21 Status: OrderedBetamethasone (20 sources)CorticosteroidStart: 82-03-8093jlhlaxzighqvf dipropionate topical 0.05% cream 1 bryan, Topical, BID, 30 gram, Refill(s) 0, to affected area, [facility], 158, cm, 03/09/21 14:22:00 EDT, Height/Length Dosing, 71.8, kg, 03/09/21 14:22:00 EDT, Weight Dosing Start Date: 03/09/21 Status: OrderedStart: 77-30-3936yaexfjuvjwudb dipropionate topical 0.05% cream 1 bryan, Topical, BID, 30 gram, Refill(s) 0, to affected area, [facility], 158, cm, 03/09/21 14:22:00 EDT, Height/Length Dosing, 71.8, kg, 03/09/21 14:22:00 EDT, Weight Dosing Start Date: 03/09/21 Status: Orderedcephalexin 500 mg oral capsule (2 sources)Cephalosporin AntibacterialStart: 04-16-2022 End: 54-80-2209hfhk 1 capsule by mouth every twelve hourscephalexin 500 mg Cap 500 mg = 1 cap(s), Oral, q12hr, X 7 day(s), # 14 cap(s), Refills(s) 0, Pharmacy: [facility], 157.7, cm, 04/16/22 10:19:00 EST, Height/Length Dosing, 65.3, kg, 04/16/22 10:19:00 EST, Weight Dosing Start Date: 04/16/22 Stop Date: 04/23/22 Status: Ordereddoxycycline hyclate 100 mg oral capsule (1 source)Tetracycline-class DrugStart: 12-12-2021 End: 37-12-7043hxjg 1 capsule by mouth twice dailydoxycycline hyclate 100 mg Cap 100 mg = 1 cap(s), Oral, BID, X 7 day(s), # 14 cap(s), Refills(s) 0,Pharmacy: [facility], 157.5, cm, 12/12/21 15:45:00 EDT, Height/Length Dosing, 66.6, kg, 12/12/21 15:45:00 EDT, Weight Dosing Start Date: 12/12/21 Stop Date: 12/19/21 Status: OrderedDULoxetine 60 mg delayed release oral capsule (20 sources)Serotonin and Norepinephrine Reuptake InhibitorStart: 12-67-8108qogh 1 capsule by mouth once dailyduloxetine 60 mg oral delayed release capsule 60 mg = 1 cap(s), Oral, Daily, # 90 cap(s), Refills(s) 4, Pharmacy: [facility], 157, cm, 02/15/25 11:22:00 EDT, Height/Length Dosing, 60.4, kg, 02/15/25 11:22:00 EDT, Weight Dosing Start Date: 02/15/25 Status: Ordered Quantity: 90.0 Unit: cap(s) Repeat number: 5Start: 70-19-2905qjaf 1 capsule by mouth once dailyduloxetine 30 mg oral delayed release capsule See Instructions, TAKE 1 CAPSULE BY MOUTH ONCE DAILY WITH 60 MG CAPSULE, # 90 cap(s), Refills(s) 0, Pharmacy: [facility], 157, cm, 08/03/24 14:06:00 EDT, Height/Length Dosing, 61.1, kg, 08/03/24 14:06:00 EDT, Weight Dosing Start Date: 01/20/25 Status: Ordered Quantity: 90.0 Unit: cap(s) Repeat number: 1Start: 36-59-4452fmax 1 capsule by mouth once dailyduloxetine 30 mg oral delayed release capsule See Instructions, TAKE 1 CAPSULE BY MOUTH ONCE DAILY WITH 60 MG CAPSULE, # 90 cap(s), Refills(s) 0, Pharmacy: [facility], 157, cm, 08/03/24 14:06:00 EDT, Height/Length Dosing, 61.1, kg, 08/03/24 14:06:00 EDT, Weight Dosing Start Date: 08/03/24Status: Ordered Quantity: 90.0 Unit: cap(s) Repeat number: 1Start: 62-90-7519rxzr 1 capsule by mouth once dailyduloxetine 30 mg oral delayed release capsule See Instructions, TAKE 1 CAPSULE BY MOUTH ONCE DAILY WITH 60 MG CAPSULE, # 90 cap(s), Refills(s) 0, Pharmacy: [facility], 158, cm, 02/03/24 15:51:00 EDT, Height/Length Dosing, 60.7, kg, 02/03/24 15:51:00 EDT, Weight Dosing Start Date: 03/09/24 Status: OrderedStart: 20-99-0263mspqdqostd 30 mg oral delayed release capsule 30 mg = 1 cap(s), Oral, Daily, taken with 60mg, # 90 cap(s), Refills(s) 0, Pharmacy: [facility], 157, cm, 04/29/23 16:32:00 EST, Height/LengthDosing, 61.5, kg, 04/29/23 16:32:00 EST, Weight Dosing Start Date: 11/28/23 Status: OrderedStart: 09-11-2023 take 1 capsule by mouth once dailyduloxetine 60 mg oral delayed release capsule 60 mg = 1 cap(s), Oral, Daily, # 90 cap(s), Refills(s) 1, Pharmacy: [facility], 157, cm, 04/29/23 16:32:00 EST, Height/Length Dosing, 61.5, kg, 04/29/23 16:32:00 EST, Weight Dosing Start Date: 09/11/23 Status: OrderedStart: 96-60-4597pycibjnbhr 30 mg oral delayed release capsule 30 mg = 1 cap(s), Oral, Daily, taken with 60mg, # 90 cap(s), Refills(s) 1, Pharmacy: [facility], 157, cm, 03/25/23 18:05:00 EST, Height/LengthDosing, 62, kg, 03/25/23 18:05:00 EST, Weight Dosing Start Date: 04/22/23 Status: OrderedStart: 09-17-2022 take 1 capsule by mouth once dailyduloxetine 60 mg oral delayed release capsule 60 mg = 1 cap(s), Oral, Daily, # 90 cap(s), Refills(s) 1, Pharmacy: [facility], 157, cm, 09/17/22 18:19:00 EDT, Height/Length Dosing, 64, kg, 0 09/17/22 18:19:00 EDT, Weight Dosing Start Date: 09/17/22 Status: OrderedStart: 89-25-5884fvgjhtkeab 30 mg oral delayed release capsule 30 mg = 1 cap(s), Oral, Daily, taken with 60mg, # 90 cap(s), Refills(s) 1, Pharmacy: [facility], 157, cm, 09/17/22 18:19:00 EDT, Height/LengthDosing, 64, kg, 09/17/22 18:19:00 EDT, Weight Dosing Start Date: 09/17/22 Status: OrderedStart: 07-25-2021 take 1 capsule by mouth once dailyDULoxetine 60 mg Cap-EC 60 mg = 1 cap(s), Oral, Daily, (do not crush or chew), # 90 cap(s), Refills(s) 1, Pharmacy: [facility], 158, cm, 05/15/21 16:30:00 EST, Height/Length Dosing, 71.5, kg, 05/15/21 16:30:00 EST, Weight Dosing Start Date: 07/25/21 Status: OrderedStart: 33-57-2008fdwg 1 capsule by mouth once dailyDULoxetine 30 mg Cap- EC 30 mg = 1 cap(s), Oral, Daily, (do not crush or chew), # 90 cap(s), Refills( s) 1, Pharmacy: [facility], 158, cm, 05/15/21 16:30:00 EST, Height/Length Dosing, 71.5, kg, 05/15/21 16:30:00 EST, Weight Dosing Start Date: 07/03/21 Status: OrderedStart: 52-12-9042wbjp 90 mg by mouth once daily Duloxetine Active 90 MG PO Daily September 10, 2018 12:00amStart: 09-08-2018 End: 12-77-2389jhgt 1 capsule by mouth once dailyDuloxetine (Cymbalta) 60 mg capsule,delayed release(DR/EC) Discontinued 60 MG PO Daily September 08, 2018 12:00am September 10, 2018 10:31amDULoxetine 30 mg Cap-EC (16 sources)Start: 83-97-7216wckv 1 capsule by mouth once dailyDULoxetine 30 mg Cap-EC 30 mg = 1 cap(s), Oral, Daily, (do not crush or chew), # 90 cap(s), Refills(s) 1, Pharmacy: [facility], 157.5, cm, 12/12/21 15:45:00 EDT, Height/Length Dosing, 66.6, kg, 12/12/21 15:45:00 EDT, Weight Dosing Start Date: 03/09/22 Status: OrderedStart: 64-47-8247vjcw 1 capsule by mouth once dailyDULoxetine 30 mg Cap-EC 30 mg = 1 cap(s), Oral, Daily, (do not crush or chew), # 90 cap(s), Refills(s) 1, Pharmacy: [facility], 158, cm, 05/15/21 16:30:00 EST, Height/Length Dosing, 71.5, kg, 05/15/21 16:30:00 EST, Weight Dosing Start Date: 07/03/21 Status: OrderedDULoxetine 60 mg Cap-EC (16 sources)Start: 65-20-4362kcpm 1 capsule by mouth once dailyDULoxetine 60 mg Cap-EC 60 mg = 1 cap(s), Oral, Daily, (do not crush or chew), # 90 cap(s), Refills(s) 1, Pharmacy: [facility], 157.5, cm, 12/12/21 15:45:00 EDT, Height/Length Dosing, 66.6, kg, 12/12/21 15:45:00 EDT, Weight Dosing Start Date: 02/26/22 Status: OrderedStart: 41-23-2766qvdl 1 capsule by mouth once dailyDULoxetine 60 mg Cap-EC 60 mg = 1 cap(s), Oral, Daily, (do not crush or chew), # 90 cap(s), Refills(s) 1, Pharmacy: [facility], 158, cm, 05/15/21 16:30:00 EST, Height/Length Dosing, 71.5, kg, 05/15/21 16:30:00 EST, Weight Dosing Start Date: 07/25/21 Status: Orderedestradiol 0.1 mg/ml vaginal cream (2 sources)EstrogenStart: 96-39-0354vxasanlzu 0.1 mg/g vaginal cream 1 gram, Vaginal, MonFri, # 42.5 gram, Refills(s) 3, Pharmacy: [facility], 157.23, cm, 10/20/19 12:33:00 EDT, Height/Length Measured, 68.7, kg, 10/05/19 19:04:00 EDT, Weight Measured Start Date: 10/27/19 Status: Orderedestradiol 0.1 mg/g vaginal cream (10 sources)Start: 63-69-0683ehxrsqdfu 0.1 mg/g vaginal cream 1 gram, Vaginal, MonFri, # 42.5 gram, Refills(s) 3, Pharmacy: [facility], 157.23, cm, 10/20/19 12:33:00 EDT, Height/Length Measured, 68.7, kg, 10/05/19 19:04:00 EDT, Weight Measured Start Date: 10/27/19 Status: Orderedgabapentin 100 mg oral capsule (20 sources)Anti-epileptic AgentStart: 12-34-8415oxsk 2 capsules by mouth twice dailygabapentin 100 mg Cap = 2 cap(s), Oral, BID, Refills(s) 0 Start Date: 08/03/24 Status: Ordered Repeat number: 1Start: 98-46-9672nthx 2 capsules by mouth twice dailygabapentin 100 mg Cap = 2 cap(s), Oral, BID, Refills(s) 0 Start Date: 06/05/24 Status: OrderedStart: 88-22-0360jwjq 2 capsules by mouth twice dailygabapentin 100 mg Cap 200 mg = 2 cap(s), Oral, BID, # 360 cap(s), Refills(s) 1, Pharmacy: [facility], 157, cm, 04/29/23 16:32:00 EST, Height/Length Dosing, 61.5, kg, 04/29/23 16:32:00 EST,Weight Dosing Start Date: 05/30/23 Status: OrderedStart: 94-70-1806cvoh 2 capsules by mouth twice daily gabapentin 100 mg Cap 200 mg = 2 cap(s), Oral, BID, # 360 cap(s), Refills(s) 1, Pharmacy: [facility], 157, cm, 10/23/22 11:36:00 EDT, Height/Length Dosing, 64, kg, 10/23/22 11:36:00 EDT, Weight Dosing Start Date: 10/31/22 Status: OrderedStart: 24-69-2785dowc 2 capsules by mouth twice dailygabapentin 100 mg Cap 200 mg = 2 cap(s), Oral, BID, # 360 cap(s), Refills(s) 1, Pharmacy: [facility], 157.5, cm, 03/19/22 18:05:00 EDT, Height/Length Dosing, 67.3, kg, 03/19/22 18:05:00 EDT, Weight Dosing Start Date: 03/19/22 Status: OrderedStart: 15-23-7663twnf 2 capsules by mouth twice dailygabapentin 100 mg Cap 200 mg = 2 cap(s), Oral, BID, # 360 cap(s), Refills(s) 1, Pharmacy: [facility], 157.5, cm, 09/18/21 16:48:00 EDT, Height/Length Dosing, 65.9, kg, 09/18/21 16:48:00 EDT, Weight Dosing Start Date: 09/18/21 Status: OrderedStart: 06-05-2021 take 2 capsules by mouth twice dailygabapentin 100 mg Cap 200 mg = 2 cap(s), Oral, BID, # 360 cap(s), Refills(s) 0, Pharmacy: [facility], 158, cm, 05/15/21 16:30:00 EST, Height/Length Dosing, 71.5, kg, 05/15/21 16:30:00 EST, Weight Dosing Start Date: 06/05/21 Status: OrderedStart: 49-14-2426rzzj 200 mg by mouth three times dailyGabapentin Active 200 MG PO Three times daily 180 September 10, 2018 12:00amStart: 09-08-2018 End: 00-80-5890leuz 1 capsule by mouth once dailyGabapentin (Neurontin) 100 mg capsule Discontinued 100 MG PO Daily September 08, 2018 12:00am September 10, 2018 10:31amtake 1 capsule by mouth once dailygabapentin (NEURONTIN) 300 MG capsule Take 300 mg by mouth nightly 0 Active1 ml glatiramer acetate 40 mg/ml prefilled syringe (9 sources)Start: 75-85-1556Zdrcvsipfa Active 40 MG SUBCUT Every 48 hours September 08, 2018 12:00amStart: 80-68-7593Bsfvhwvs 40 mg/mL subcutaneous solution 40 mg, SubCutaneous, MonWedFri, 3 x a week for MS, Refills(s) 0 Start Date: 07/08/17 Status: OrderedGlatiramer Acetate 40 MG/ML SOSY Inject 40 mg into the skin three times a week 0 ActivehydroCHLOROthiazide 25 mg oral tablet (20 sources)Thiazide DiureticStart: 05-49-7133knzmzrbooovqazudnjz 25 mg Tab 12.5 mg = 0.5 tab(s), Oral, Daily, # 45 tab(s), Refills(s) 1, Pharmacy: [facility], 157, cm, 10/23/22 11:36:00 EDT, Height/Length Dosing, 64, kg, 10/23/22 11:36:00 EDT, Weight Dosing Start Date: 11/01/22 Status: OrderedStart: 76-47-0209xdnaruhppntfboxzcho 25 mg Tab 12.5 mg = 0.5 tab(s), Oral, Daily, # 45 tab(s), Refills(s) 1, Pharmacy: [facility], 157, cm, 04/23/22 13:10:00 EST, Height/Length Dosing, 65.9, kg, 04/23/22 13:10:00 EST, Weight Dosing Start Date: 05/16/22 Status: OrderedStart: 39-81-3405mhkqkiktdhivswwvvxh 25 mg oral tablet 12.5 mg = 0.5 tab(s), Oral, Daily, # 45 tab(s), Refills(s) 1, Pharmacy: [facility], 158, cm, 03/09/21 14:22:00 EDT, Height/Length Dosing, 71.8, kg, 03/09/21 14:22:00 EDT, Weight Dosing Start Date: 04/21/21 Status: OrderedStart: 81-44-1402jzjm 12.5 mg by mouth once daily Hydrochlorothiazide Active 12.5 MG PO Daily September 08, 2018 12:00am hydrocortisone 25 mg/ml topical cream (20 sources)CorticosteroidStart: 50-29-6043pupjxnoscahhem Top 2.5% Crm 1 bryan, Topical, Daily, Refill(s) 0 Start Date: 08/03/24 Status: Ordered Repeat number: 1 Start: 43-57-4867lwmdplwkpxqecr Top 2.5% Crm 1 bryan, Topical, Daily, Refill(s) 0 Start Date: 06/05/24 Status: OrderedStart: 36-41-3568hkxeosrojmahgl Top 2.5% Crm 1 bryan, Topical, Daily, 20 gram, Refill(s) 0, [facility], 157, cm, 08/06/22 11:49:00 EDT, Height/Length Dosing, 63.8, kg, 08/06/22 11:49:00 EDT, Weight Dosing Start Date: 08/06/22 Status: OrderedStart: 04-04-8529ltrqihbwppafxc Top 2.5% Crm 1 bryan, Topical, Daily, 20 gram, Refill(s) 0, [facility], 157, cm, 08/06/22 11:49:00 EDT, Height/Length Dosing, 63.8, kg, 08/06/22 11:49:00 EDT, Weight Dosing Start Date: 08/06/22 Status: OrderedStart: 09-08-2018 End: 78-48-0271Iwvoztcstlqgyd Discontinued 1 APPLIC TOPICAL Daily September 08, 2018 12:00am September 10, 2018 10:31am to facelidocaine Top 5% film Patch (1 source)Start: 85-56-8469cghsdmtga Top 5% film Patch 1 patch(es), TransDermal, Daily, 30 EA, Refill(s) 0, [facility], 160, cm, 09/08/21 6:25:00 EDT, Height/Length Dosing, 69.8, kg, 09/08/21 6:25:00 EDT, Weight Dosing Start Date: 09/12/21 Status: Orderedlisinopril 20 mg oral tablet (20 sources)Angiotensin Converting Enzyme InhibitorStart: 69-49-3231ubgh 1 tablet by mouth once dailylisinopril 20 mg Tab 20 mg = 1 tab(s), Oral, Daily, # 90 tab(s), Refills(s) 3, Pharmacy: [facility], 157, cm, 08/03/24 14:06:00 EDT, Height/Length Dosing, 61.1, kg, 08/03/24 14:06:00 EDT, Weight Dosing Start Date: 08/03/24 Status: Ordered Quantity: 90.0 Unit: tab(s) Repeat number: 4Start: 39-82-3160eppb 0.5 tablet by mouth once dailylisinopril 40 mg Tab 0.5 tab, Oral, Daily, # 45 tab(s), Refills(s) 1, Pharmacy: [facility], 157, cm, 06/05/24 10:48:00 EST, Height/Length Dosing, 61, kg, 06/05/24 10:48:00 EST, Weight Dosing Start Date: 07/09/24 Status: OrderedStart: 09-09-2023 take 0.5 tablet by mouth once dailylisinopril 40 mg Tab 0.5 tab, Oral, Daily, # 45 tab(s), Refills(s) 1, Pharmacy: [facility] 1986, 157, cm, 04/29/23 16:32:00 EST, Height/Length Dosing, 61.5, kg, 04/29/23 16:32:00 EST, Weight Dos ing Start Date: 09/09/23 Status: OrderedStart: 10-10-0448nyor 0.5 tablet by mouth once dailylisinopril 40 mg Tab 0.5 tab, Oral, Daily, # 45 tab(s), Refills(s) 1, Pharmacy: [facility], 157, cm, 10/23/22 11:36:00 EDT, Height/Length Dosing, 64, kg, 10/23/22 11:36:00 EDT, Weight Dosing Start Date: 03/13/23 Status: OrderedStart: 28-70-7133cefh 0.5 tablet by mouth once dailylisinopril 40 mg Tab 0.5 tab, Oral, Daily, # 45 tab(s), Refills(s) 1, Pharmacy: [facility] 1986, 157.5, cm, 12/12/21 15:45:00 EDT, Height/Length Dosing, 66.6, kg, 12/12/21 15:45:00 EDT, Weight Dosing Start Date: 01/23/22 Status: OrderedStart: 09-13-2021 End: [id number] 20 mg Tab 40 mg = 2 tab(s), Tab, Oral, Start date 09/13/21 9:00:00 EDT, 09/11/21 8:31:00EDT Start Date: 09/13/21 Stop Date: 09/13/21 Status: CompletedStart: [id number] 0.5 tablet by mouth once dailylisinopril 40 mg Tab 0.5 tab, Oral, Daily, # 45 tab(s), Refills(s) 1, Pharmacy: [facility], 158, cm, 05/15/21 16:30:00 EST, Height/Length Dosing, 71.5, kg, 05/15/21 16:30:00 EST, Weight Dosing Start Date: 07/03/21 Status: OrderedStart: [id number] 20 mg by mouth once dailyLisinopril Active 20 MG PO Daily September 08, 2018 12:00amtake 1 tablet by mouth once dailylisinopril (PRINIVIL;ZESTRIL) 20 MG tablet Take 20 mg by mouth daily 0 Activemeclizine hydrochloride 12.5 mg oral tablet (19 sources)AntiemeticStart: 75-29-4023nqsk 1 tablet by mouth three times daily as needed for dizzinessmeclizine 12.5 mg Tab 12.5 mg = 1 tab(s), Oral, TID, PRN for dizziness, # 30 tab(s), Refills(s) 0, Pharmacy: [facility], 157, cm, 02/09/20 22:09:00 EDT, Height/Length Dosing, 67.6, kg, 02/09/20 22:09:00 EDT, Weight Dosing Start Date: 02/10/20 Status: OrderedmetFORMIN hydrochloride 1000 mg oral tablet (20 sources)BiguanideStart: 11-95-5004ukty 1 tablet by mouth once dailymetformin 1000 mg Tab = 1 tab(s), Oral, Daily, Refills(s) 0 Start Date: 08/03/24 Status: Ordered Repeat number: 1Start: 73-31-1253zdqf 1 tablet by mouth once daily metformin 1000 mg Tab = 1 tab(s), Oral, Daily, Refills(s) 0 Start Date: 06/05/24 Status: OrderedStart: 24-69-3889sajv 1 tablet by mouth once dailymetformin 1000 mg Tab 1,000 mg = 1 tab(s), Oral, Daily, # 90 tab(s), Refills(s) 1, Pharmacy: [facility], 157, cm, 04/29/23 16:32:00 EST, Height/Length Dosing, 61.5, kg, 04/29/23 16:32:00 EST, Weight Dosing Start Date: 07/31/23 Status: OrderedStart: 25-45-2528xwrh 1 tablet by mouth once dailymetformin 1000 mg Tab 1,000 mg = 1 tab(s), Oral, Daily, # 90 tab(s), Refills(s) 1, Pharmacy: [facility], 157, cm, 10/23/22 11:36:00 EDT, Height/Length Dosing, 64, kg, 10/23/22 11:36:00 EDT, Weight Dosing Start Date: 12/24/22 Status: OrderedStart: 43-11-1953tlya 1 tablet by mouth once dailymetformin 1000 mg Tab 1,000 mg = 1 tab(s), Oral, Daily, # 90 tab(s), Refills(s) 1, Pharmacy: [facility], 157, cm, 04/23/22 13:10:00 EST, Height/Length Dosing, 65.9, kg, 04/23/22 13:10:00 EST, Weight Dosing Start Date: 06/11/22 Status: OrderedStart: 11-21-2021 take 1 tablet by mouth once dailymetformin 1000 mg Tab 1,000 mg = 1 tab(s), Oral, Daily, # 90 tab(s), Refills(s) 1, Pharmacy: [facility], 157.5, cm, 10/20/21 11:23:00 EDT, Height/Length Dosing, 65.9, kg, 10/20/21 11:23:00EDT, Weight Dosing Start Date: 11/21/21 Status: OrderedStart: 85-09-7973pmsz 1 tablet by mouth once dailymetformin 1000 mg Tab 1,000 mg = 1 tab(s), Oral, Daily, # 90 tab(s), Refills(s) 1, Pharmacy: [facility], 158, cm, 03/09/21 14:22:00 EDT, Height/Length Dosing, 71.8, kg, 03/09/21 14:22:00 EDT, Weight Dosing Start Date: 04/21/21 Status: OrderedStart: 58-66-0027Bifvjkldw (Glucophage) 1,000 mg tablet Active 500 MG PO Twice daily September 08, 2018 12:00amtake 1 tablet by mouth once dailymetFORMIN (GLUCOPHAGE) 1000 MG tablet Take 1,000 mg by mouth daily 0 ActivemethylPREDNISolone 4 mg oral tablet (4 sources)CorticosteroidStart: 03-18-2023 End: 92-80-0551Nejrbj Dosepack 4 mg Tab = 1 packet(s), Oral, As Directed, as directed on package labeling, X 6 day(s), # 21 tab(s), Refills(s) 0, Pharmacy: [facility] 1986, 157, cm, 03/18/23 11:58:00 EDT, Height/Length Dosing, 60, kg, 03/18/23 11:58:00 EDT, Weight Dosing Start Date: 03/18/23 Stop Date: Status: Orderednadolol 20 mg oral tablet (20 sources)beta-Adrenergic BlockerStart: 60-07-8978xvvb 0.5 tablet by mouth once daily at bedtimenadolol 20 mg Tab = 0.5 tab(s), Oral, Once a day (at bedtime), Refills(s) 0 Start Date: 08/03/24 Status: Ordered Repeat number: 1 Start: 92-61-3683yxsz 0.5 tablet by mouth once daily at bedtimenadolol 20 mg Tab = 0.5 tab(s), Oral, Once a day (at bedtime), Refills(s) 0 Start Date: 06/05/24 Status: OrderedStart: 12-03-9543dsib 10 mg by mouth at bedtimenadolol 20 mg Tab 10 mg = 0.5 tab(s), Oral, Bedtime, # 45 tab(s), Refills(s) 1, Pharmacy: [facility], 157, cm, 04/29/23 16:32:00 EST, Height/Length Dosing, 61.5, kg, 04/29/23 16:32:00 EST,Weight Dosing Start Date: 05/06/23 Status: OrderedStart: 05-57-1711hkzo 10 mg by mouth at bedtimenadolol 20 mg Tab 10 mg = 0.5 tab(s), Oral, Bedtime, # 45 tab(s), Refills(s) 1, Pharmacy: [facility], 157, cm, 04/23/22 13:10:00 EST, Height/Length Dosing, 65.9, kg, 04/23/22 13:10:00 EST,Weight Dosing Start Date: 07/13/22 Status: OrderedStart: 96-25-6629bnbm 10 mg by mouth at bedtimenadolol 20 mg Tab 10 mg = 0.5 tab(s), Oral, Bedtime, # 45 tab(s), Refills(s) 1, Pharmacy: [facility], 157.5, cm, 12/12/21 15:45:00 EDT, Height/Length Dosing, 66.6, kg, 12/12/21 15:45:00 EDT, Weight Dosing Start Date: 12/27/21 Status: OrderedStart: 58-08-5115iaqv 10 mg by mouth at bedtimenadolol 20 mg Tab 10 mg = 0.5 tab(s), Oral, Bedtime, # 45 tab(s), Refills(s) 1, Pharmacy: [facility] 1986, 158, cm, 05/15/21 16:30:00 EST, Height/Length Dosing, 71.5, kg, 05/15/21 16:30:00 EST,Weight Dosing Start Date: 05/31/21 Status: OrderedStart: 77-42-6252keqi 1 tablet by mouth once dailyNadolol (Corgard) 20 mg tablet Active 10 MG PO Daily September 08, 2018 12:00amnadolol (CORGARD) 40 MG tablet Take 20 mg by mouth daily 0 Activeomeprazole 20 mg delayed release oral capsule (20 sources)Proton Pump InhibitorStart: 44-66-7960mnyk 1 capsule by mouth once dailyomeprazole 20 mg Cap-DR 20 mg = 1 cap(s), Oral, Daily Start Date: 09/08/21 Status: Ordered Repeat number: 1omeprazole 20 mg Cap-DR (6 sources)Start: 05-12-5215mxbm 1 capsule by mouth once dailyomeprazole 20 mg Cap-DR 20 mg = 1 cap(s), Oral, Daily Start Date: 09/08/21 Status: Ordered potassium citrate 10 meq extended release oral tablet (5 sources)Start: 10-23-2022 End: 46-41-7888mvln 2 tablets by mouth twice dailypotassium CITRATE 10 mEq ER Tab 20 mEq, 2 tab(s), Oral, BID for 30 day(s), 120 tab(s), Refill(s) 11, [facility], 157, cm, 10/23/22 11:36:00 EDT, Height/Length Dosing, 64, kg, 10/23/22 11:36:00 EDT, Weight Dosing Start Date: 10/23/22 Stop Date: 10/18/23 Status: OrderedStart: 08-21-2021 End: 72-64-4614idhc 2 tablets by mouth twice dailypotassium CITRATE 10 mEq ER Tab 20 mEq, 2 tab(s), Oral, BID for 30 day(s), 120 tab(s), Refill(s) 0,[facility], 157, cm, 08/21/21 15:52:00 EDT, Height/Length Dosing, 72, kg, 08/21/21 15:52:00 EDT, Weight Dosing Start Date: 08/21/21 Stop Date: 09/20/21 Status: Orderedpravastatin sodium 80 mg oral tablet (1 source)HMG-CoA Reductase Inhibitortake 1 tablet by mouth once daily pravastatin (PRAVACHOL) 80 MG tablet Take 80 mg by mouth daily 0 Active predniSONE 20 mg oral tablet (6 sources)Start: 67-70-5914bnxprjNREF 20 mg Tab Refills(s) 0 Start Date: 08/03/24 Status: Ordered Repeat number: 1Start: 11-78-9859ufznnsJXHQ 20 mg Tab Refills(s) 0 Start Date: 06/05/24 Status: OrderedStart: 52-21-6772qexx 3 tablets by mouth once daily, then take 2 tablets by mouth once daily, then take 1 tablet by mouth once daily, then take 0.5 tablet by mouth once dailypredniSONE 20 mg Tab See Instructions, 3 po qd for 2 d, then 2 po qd for 2 d then 1 po qd for 4 d then 1/2 qd for 4 d, # 16 tab(s), Refills(s) 0, Pharmacy: [facility], 158, cm, 05/06/24 16:16:00 EST, Height/Length Dosing, 61, kg, 05/06/24 16:16:00 EST, Weight Dosing Start Date: 05/06/24 Status: OrderedPromethazine (4 sources)PhenothiazineStart: 03-18-2023 End: 37-68-4701lcga 5 mL by mouth every six hours for coughPromethazine DM oral syrup 5 mL, Oral, q6hr for cough for 5 day(s), 100 mL, Refill(s) 0, [facility], 157, cm, 03/18/23 11:58:00 EDT, Height/Length Dosing, 60, kg, 03/18/23 11:58:00 EDT, Weight Dosing Start Date: 03/18/23 Stop Date: 03/23/23 Status: OrderedSymbicort 80/4.5 inhalation aerosol with adapter (12 sources)Start: 08-14-1476iptw 2 puff(s) by inhalation twice dailySymbicort 80/4.5 inhalation aerosol with adapter 2 puff(s), Inhalation, BID Wheezing, Refill(s) 0, SOB Start Date: 03/25/20 Status: Orderedtamsulosin hydrochloride 0.4 mg oral capsule (6 sources)alpha-Adrenergic BlockerStart: 11-14-7689uhtk 1 capsule by mouth twice dailytamsulosin 0.4 mg Cap 0.4 mg = 1 cap(s), Oral, BID, # 30 cap(s), Refills(s) 0, Pharmacy: [facility], 157, cm, 04/23/22 13:10:00 EST, Height/Length Dosing, 65.9, kg, 04/23/22 13:10:00 EST, Weight Dosing Start Date: 04/23/22 Status: OrderedvalACYclovir 1000 mg oral tablet (6 sources)Herpesvirus Nucleoside Analog DNA Polymerase Inhibitor, Herpes Simplex Virus Nucleoside Analog DNA Polymerase Inhibitor, Herpes Zoster Virus Nucleoside Analog DNA Polymerase InhibitorStart: 51-37-0332xrtj 1 tablet by mouth twice dailyValtrex 1 g Tab = 1 tab(s), Oral, BID, Refills(s) 0 Start Date: 08/03/24 Status: Ordered Repeat number: 1Start: 81-81-5860rnsc 1 tablet by mouth twice dailyValtrex 1 g Tab = 1 tab(s), Oral, BID, Refills(s) 0 Start Date: 06/05/24 Status: OrderedStart: 19-37-3468bmtv 1 tablet by mouth twice daily Valtrex 1 g Tab 1 gm = 1 tab(s), Oral, BID, # 20 tab(s), Refills(s) 0, Pharmacy: [facility], 158, cm, 05/06/24 16:16:00 EST, Height/Length Dosing, 61, kg, 05/06/24 16:16:00 EST, Weight Dosing Start Date: 05/06/24 Status: OrderedZofran ODT 4 mg Tab-Dis (10 sources)Start: 85-09-3771wwcd 1 tablet by mouth every eight hoursZofran ODT 4 mg Tab-Dis 4 mg = 1 tab(s), Oral, q8hr, # 12 tab(s), Refills(s) 0, Pharmacy: [facility], 157, cm, 03/21/23 16:31:00 EDT, Height/Length Dosing, 61.6, kg, 03/21/23 16:31:00 EDT,Weight Dosing Start Date: 03/21/23 Status: Ordered Completed/Discontinued Medications MedicationDrug Class(es)DatesSig (Normalized)Sig (Original)aspirin 81 mg oral tablet (1 source)Platelet Aggregation Inhibitor, Nonsteroidal Anti-inflammatory Drug End: 49-28-4011pzdh 1 tablet by mouth once dailyaspirin 81 MG tablet Take 81 mg by mouth daily 0 06/20/2019 Discontinued (Therapy completed)Copaxone 40 mg/mL subcutaneous solution (6 sources)Start: 79-39-4895Lzjpmllk 40 mg/mL subcutaneous solution 40 mg, SubCutaneous, MonWedFri, 3 x a week for MS, Refills(s) 0 Start Date: 07/08/17 Status: OrderedInsulin Lispro (3 sources)Insulin AnalogStart: 09-12-2021 End: 97-99-0623Etlgayx Lispro Sliding Scale 0-10 Units, Injection-Insulin, SubCutaneous, Start date 09/12/21 21:00:00 EDT Start Date: 09/12/21 Stop Date: 09/12/21 Status: CompletedStart: 09-11-2021 End: 87-79-8686Eqqazib Lispro Sliding Scale 0-10 Units, Injection-Insulin, SubCutaneous, Start date 09/11/21 21:00:00 EDT Start Date: 09/11/21 Stop Date: 09/11/21 Status: CompletedStart: 09-11-2021 End: 86-13-4892Jmtmdte Lispro Sliding Scale 0-10 Units, Injection-Insulin, SubCutaneous, Start date 09/11/21 11:30:00 EDT Start Date: 09/11/21 Stop Date: 09/11/21 Status: Completediopamidol (ISOVUE-370) 76 % injection 100 mL (1 source)Start: 06-20-2019 End: 49-79-3917gsagkpowf (ISOVUE-370) 76 % injection 100 mLplacard (1 source)Start: 61-53-0037jxvgfmn placard, See Instructions, 1 EA, 0, handicap placard exp 08/17/2028, Supply Start Date: 07/24/24 Status: Orderedtriamcinolone acetonide 0.001 mg/mg topical ointment (2 sources)CorticosteroidStart: 09-08-2018 End: 72-88-4960Peycpayzpjnrd Acetonide Discontinued 1 APPLIC TOPICAL Daily September 08, 2018 12:00am September 10, 2018 10:31am to trunk Problems Active Problems Problem ClassificationProblemDateDocumented DateEpisodic/ChronicAbdominal pain (1 source)Abdominal pain; Translations: [Unspecified abdominal pain]Onset: 37-17-8363EihsoyrqXldcjwek reactions (7 sources)Allergic yqwuqsacx71-56-6630IjoinizjEadahbc disorders (20 sources)Anxiety disorder; Translations: [Other specified anxiety disorders] Onset: 888035-71-9942JngcdodMavffydx of urinary tract (20 sources)Kidney stone; Translations: [Ureteric stone]Onset: 09-18-2021 50-98-5808EnmhjprdJvidtec kidney disease (4 sources)Chronic kidney disease stage 3A ; Translations: [Chronic kidney disease, stage 3a]Onset: 91-50-3899IwndzufOxccgzpbxdmlr of surgical procedures or medical care (1 source)Complication of procedure; Translations: [Unspecified adverse effect of drug or medicament, initialencounter]Onset: 12-98-3982PecqjjarHswyexgd injury or internal injury (4 sources)Contusion of kidney; Translations: [Minor contusion of left kidney, initial encounter]Onset: 44-03-1989PtecbhsiQfynqunaao and other anemia (16 sources)Anemia; Translations: [Other specified anemias]Onset: 03-24-2023 EpisodicDiabetes mellitus with complications (8 sources)Chronic kidney disease due to type 2 diabetes mellitus; Translations: [Type 2 diabetes mellitus with diabetic chronic kidney disease]Onset: 02-06-2025 ChronicComment on above:Linked per outpatient CDI policyDiabetes mellitus without complication (20 sources)Type 2 diabetes mellitus without complication; Translations: [Type 2 diabetes mellitus without complications]Onset: 96-49-5414QgzxcqwDumqztglr of lipid metabolism (20 sources)Mixed hyperlipidemia; Translations: [Mixed hyperlipidemia]Onset: 948732-43-4718CgwrexjNowmetaqpvomoa and diverticulitis (20 sources)Diverticulosis of large intestine without diverticulitis; Translations: [Diverticulitis] Resolved: 308997-39-1054LtnmgvmI Codes: Natural/environment (1 source)Bite of nonvenomous arthropod; Translations: [Bitten or stung by nonvenomous insect and other nonvenomous arthropods, initial encounter]Onset: 77-53-2627DcopgzryJlyyosjtme disorders (20 sources)Gastroesophageal reflux disease; Translations: [Obstruction of esophagus]Onset: 334677-52-3738TjkglejDtloftvoa hypertension (20 sources)Essential hypertension; Translations: [Essential (primary) hypertension]Onset: 35-52-1687KszmxwtXkdzf and electrolyte disorders (1 source)Dehydration; Translations: [Dehydration]Onset: 01-68-8052Uxwayfwv Genitourinary congenital anomalies (3 sources)Medullary sponge kidney; Translations: [Medullary cystic disease of the kidney]Onset: 823230-30-5042VcgshxdOhpqawsdevysx symptoms and ill- defined conditions (20 sources)Genuine stress incontinence; Translations: [Incontinence]Onset: 946611-16-3593SvpmzlhBehrtqgsxabob symptoms and ill-defined conditions (20 sources)Increased frequency of urination; Translations: [Microscopic hematuria]Onset: 858287-06-1563WccaxqiaNzxwzvxwakwbi and screening for infectious disease (2 sources)Viral screening status; Translations: [Encounter for screening for other viral diseases]Onset: 25-02-5450LcncdatzTayrnsrdwm disorders (1 source)Primary ovarian failure; Translations: [Other primary ovarian failure] Onset: 29-51-0605HqgepeiIwdi disorders (9 sources)Recurrent major depressive episodes, moderate ; Translations: [Moderate recurrent major depression]Onset: 868883-22-5065FweaflbZuwp disorders (1 source)Mood disorders; Translations: [DEPRESSION UNSPECIFIED]Onset: 42-66-0541Kjywgook sclerosis (20 sources)Multiple sclerosis; Translations: [Multiple sclerosis]Onset: 739402-14-1845FvitxzjJtbhsobzzun chest pain (1 source)Chest pain; Translations: [Chest pain, unspecified]Onset: 05-11-2024 EpisodicNutritional deficiencies (20 sources)Decreased vitamin P40-67-1737BhphasfDayxj aftercare (2 sources)Long-term current use of drug therapy; Translations: [Other laborer marine terminal (current) drug therapy]Onset: 60-43-9183LsfhoqgzRtuyb aftercare (1 source)regional intermodal truck driver (current) use of oral hypoglycemic drugs; Translations: [BEVERAGE STEWARD USE ORAL HYPOGLYCEMIC DX]Onset: 74-65-2016YyjbfgebCiama aftercare (1 source)[facility]FP (current) use of anticoagulants; Translations: [SNF CURRNT USE ANTICOAGULANTS]Onset: 93-56-8710TxhsibscUvkch aftercare (1 source)Other laborer marine terminal (current) drug therapy; Translations: [OTH SNF CURRENT DRUG THERAPY]Onset: 38-79-2524BwjyisfwUdbph circulatory disease (2 sources)Bleeding; Translations: [Hemorrhage, not elsewhere classified]Onset: 22-35-2658NvoahsxlPxebm circulatory disease (6 sources)Retroperitoneal mthsamhbyo55-05-5039JhtkefoyIdlnt circulatory disease (1 source)Personal history of transient ischemic attack (TIA), and cerebral infarction without residual deficits; Translations: [PERS HX TIA AND CI NO RESID DEFICIT]Onset: 73-22-4631ByvmpcitVwsbw circulatory disease (16 sources)Syncope due to orthostatic csjmwfhkpez99-61-4797BxzpcqwoKfrqv circulatory disease (1 source)Orthostatic hypotension; Translations: [Orthostatic hypotension]Onset: 91-59-5774QgmrmqshTpfov connective tissue disease (20 sources)Lateral epicondylitis of left mulxyqo23-86-3269SrnqiceaTatzt connective tissue disease (6 sources)Ogymzpll69-83-6377EzrejevbXbmxy diseases of bladder and urethra (20 sources)Urethral stricture; Translations: [Other urethral stricture, female] Onset: 709552-78-2121BkkdhkpqWaykl diseases of kidney and ureters (20 sources)Hematoma of -44-2935WraedleUxark ear and sense organ disorders (20 sources)Eczema of external auditory -21-0746PeuvfzgqQjsja gastrointestinal disorders (1 source)Dysphagia; Translations: [Dysphagia, unspecified]Onset: 09-12-2021 EpisodicOther gastrointestinal disorders (8 sources)Esophageal gnrniwckd76-75-7530PtylbsncTgeqp injuries and conditions due to external causes (1 source)Insect bite - -41-2941NseclaygTuqmy nervous system disorders (20 sources)Carpal tunnel owcefsyr87-87-7356XvxuopjWiccc nervous system disorders (1 source)Skin sensation disturbance; Translations: [Unspecified disturbances of skin sensation]Onset: 75-57-8139UiavathuSquqp nutritional; endocrine; and metabolic disorders (1 source)Simple -18-4863LbwrzctHsexz nutritional; endocrine; and metabolic disorders (8 sources)Body mass index 25-29 - yfqrwikefu43-09-6071CvfdnymkAslpj nutritional; endocrine; and metabolic disorders (20 sources)Overweight in adulthood with body mass index of 25 or more but less than 30; Translations: [Body mass index (BMI) 26.0-26.9, adult]Onset: 09-18-2021 EpisodicOther nutritional; endocrine; and metabolic disorders (20 sources)Overweight; Translations: [Overweight]Onset: 667262-36-4658 EpisodicOther screening for suspected conditions (not mental disorders or infectious disease) (7 sources)Screening for malignant neoplasm of colon done; Translations: [Encounter for screening for malignant neoplasm of colon]Onset: 01-07-2022 EpisodicOther skin disorders (20 sources)Actinic funnzlsho13-27-1786WeoqlfnhLhgtf upper respiratory infections (5 sources)Acute pharyngitis; Translations: [Acute pharyngitis, unspecified] Onset: 57-14-7207WvilbsolJiwgqzut codes; unclassified (20 sources)Obstructive sleep apnea syndrome; Translations: [Obstructive sleep apnea (adult) (pediatric)]Onset: 003592-01-2836DckpxptWgdjsvtj codes; unclassified (1 source)Obstructive sleep apnea (adult) (pediatric); Translations: [OBSTRUCTIVE SLEEP APNEA]Onset: 12-37-3576LdogueyFffokmea codes; unclassified (1 source)Sleep apnea, unspecified; Translations: [SLEEP APNEA UNSPECIFIED] Onset: 73-67-9918XrkuieuMyltcfxb codes; unclassified (2 sources)Procedure carried out on subject; Translations: [Encounter for prophylactic measures, unspecified]Onset: 72-08-7043ZbousrnwCeeiobqm codes; unclassified (20 sources)Insomnia; Translations: [Insomnia, unspecified]Onset: 02-03-2024 47-58-6724JjrijwweSniaxeyj codes; unclassified (1 source)Acquired absence of other specified parts of digestive tract; Translations: [ACQ ABSENCE OTH PART DIGESTV TRACT]Onset: 47-41-0240Ieajcmvw Residual codes; unclassified (1 source)Body mass index 20-24 - normal; Translations: [Body mass index (BMI) 24.0-24.9, adult]Onset: 49-41-0848FchbovfvAlcrrhle codes; unclassified (1 source)Left against medical advice; Translations: [Procedure and treatment not carried out due to patient leaving prior to being seen by health care provider]Onset: 56-68-6613VzsavokrPscpzmbtpqh failure; insufficiency; arrest (adult) (8 sources)Acute respiratory failure; Translations: [Acute respiratory failure with hypoxia]Onset: 81-49-5485FxipqcvcTbgvityce and history of mental health and substance abuse codes (20 sources)Tobacco use and exposure - uqgvgmr82-37-4730EkuuvhiCjpknvdmzrt; intervertebral disc disorders; other back problems (20 sources)Displacement of cervical intervertebral glzd56-02-5506Oqyegmb Spondylosis; intervertebral disc disorders; other back problems (20 sources)Neck gseb31-96-1370ZkrwdxsgFnztcou (1 source)Syncope and collapse; Translations: [Syncope and collapse]Onset: 11-97-7666EtkalonsDyimylaxg cerebral ischemia (8 sources)Transient cerebral -00-5240CzrfispBqfmkgylydfa (1 source)Personal history of digestive diseaseUnclassified (20 sources)Patient encounter ubwtjt95-38-9194Gsmcwmxtcbtb (1 source)CONTACT W/AND (SUSP) EXPOS COVID-19; Translations: [CONTACT W/AND (SUSP) EXPOS COVID-19]Onset: 57-55-7243Ctcfwaxqumvg (14 sources)Body mass index 20-24 - uhadzf85-03-4030Ofqekjydvdgs (2 sources)Drug therapy tchlivd37-94-6559Tvqrrfrsckwx (13 sources)Urine -68-8446Zqyobet tract infections (1 source)Acute hemorrhagic cystitis; Translations: [Acute cystitis with hematuria]Onset: 15-80-4294LjwsvoxkDixtt infection (1 source)Enteroviral vesicular stomatitis with exanthem; Translations: [Enteroviral vesicular stomatitis with exanthem]Onset: 01-61-9752Nouigzsw Past or Other Problems Problem ClassificationProblemDateDocumented DateEpisodic/ChronicOther diseases of bladder and urethra (1 source)Other urethral stricture, female; Translations: [OTHER URETHRAL STRICTURE FEMALE]Onset: 13-61-4600Iteuwzov Results Test NameValueInterpretationReference RangeFacilityAmbulatory Visit Summaryon 45-26-4513Naieottwht Visit SummaryAmbulatory Visit Summary GHASSANALISON Xander :1960 Visit Date:02/15/2025 Ambulatory Visit Instructions Your Diagnosis DM type 2 with diabetic mixed hyperlipidemia Chronic renal impairment associated with type 2 diabetes mellitus Generalized multiple sclerosis Medullary sponge kidney Essential hypertension Chronic renal impairment, stage 3a Hyperlipidemia, mixed, Mixed hyperlipidemia CARMEL on CPAP Recurrent major depressive episodes, moderate Mixed stress and urge incontinence Breast cancer screening by mammogram Encounter for immunization Your Care Team Attending Physician - ARMANDO LOZANO, Sam Primary Care Physician - Ajith MSN, GROUND CONTROL APPROACH TECHNICIAN-MINE PROMOTOR, Rosa Terrell. This Is Your Medications List duloxetine (duloxetine 60 mg oral delayed release capsule) Contact prescribing physician if questions or concerns atorvastatin (atorvastatin 40 mg Tab) lisinopril (lisinopril 20 mg Tab) omeprazole (omeprazole 20 mg Cap-DR) Procedures Performed Cystoscopic removal of ureteric stent (05/29/2022), Lithotripsy (05/03/2022), Esophagogastroduodenoscopy (09/12/2021), Lithotripsy (09/07/2021), ESWL of kidney (11/19/2019), Cystoscopy (11/06/2018), Sling procedure of bladder neck (2009), Tubal ..... (05/20/1979), Appendectomy, Cholecystectomy, History of elbow surgery, Hysterectomy, Stone retrieval basket. Discharge Vitals Heart Rate (Peripheral) 79 Respiratory Rate 16 Blood Pressure 128/78 Height 62 in Height 157 cm Weight 133.159 lb Weight 60.4 kg BMI 24.5 What to do next Scheduled Follow-Up Appointments Saturday2025 9:45 AM EST With: SHMUEL LOZANO, Mi Morel Where: [facility] [address] [id number]- [id number] 2:30 PM EDT With: Where: [facility] [address] [place] [address]- You Need to Schedule the Following Appointments Follow Up with ARMANDO LOZANO, HERACLIO Vargas When: Within 6 months Comments: please change primary6 provider back to Rosa Canseco, see her in 6 months Where: [address] [place] [address]- You Need to Complete the Following HgbA1c, Blood, Routine collect, *Est. 02/15/25 due within 2 months, Order for future visit, Lab Collect, DM type 2 with diabetic mixed hyperlipidemia Chronic renal impairment associated with type 2diabetes mellitus Generalized multiple sclerosis Medull... Medications What How Much When Instructions Changed duloxetine (duloxetine 60 mg oral delayed release capsule) 1 Capsules By Mouth Every day Pickup at [facility] Unchanged atorvastatin (atorvastatin 40 mg Tab) Contact prescribing physician if questions or concerns Unchanged lisinopril (lisinopril 20 mg Tab) 1 Tablets By Mouth Every day Contact prescribing physician if questions or concerns Unchanged omeprazole (omeprazole 20 mg Cap-DR) 1 Capsules By Mouth Every day Contact prescribing physician if questions or concerns Pharmacy Information [facility]: [address] [place], [place] [id number] [phone] Medications and Immunizations Administered Given Prevnar 20, 0.5 mL, IntraMuscular. For: Encounter for immunization pneumococcal 20-valent conjugate vaccine, IntraMuscular Allergies CeleBREX (Nausea) Cipro (Nausea) Pristiq (Nausea) Zithromax (Nausea) azithromycin (SOB - Shortness of breath, Occasional tremors., Nausea present) Betadine (Rash) Tape codeine (Nausea) desonide topical (Unknown) desvenlafaxine (Nausea) morphine (Nausea) penicillin (Rash) sulfa drugs (Rash) Problems Ongoing - Any problem that you are currently receiving treatment for. Actinic keratosis BMI 24.0-24.9, adult Breast cancer screening by mammogram Carpal tunnel syndrome Cervical herniation Cervicalgia Chronic renal impairment associated with type 2 diabetes mellitus Chronic renal impairment, stage 3a Colon, diverticulosis DM type 2 with diabetic mixed hyperlipidemia Eczematoid otitis externa of both ears Encounter for hepatitis C screening test for low risk patient Encounter for long-term (current) use of medications Essential hypertension Generalized multiple sclerosis Hyperlipidemia, mixed Hypocitraturia Insomnia Low vitamin D level Medullary sponge kidney Microscopic hematuria Mixed stress and urge incontinence Multiple sclerosis NOS Nephrolithiasis Non-tobacco user Orthostatic syncope CARMEL on CPAP Other specified anemias Other specified anxiety disorders Other urethral stricture, female Recurrent major depressive episodes, moderate Transient cerebral ischemia Historical - Any problem that you are no longer receiving treatment for. Diverticulitis GERD - Gastro-esophageal reflux disease Hematoma of left kidney Left tennis elbow Schatzki's ring of (more content not included)...[facility] Medicine Office/Clinic Noteon [id number] Medicine Office/Clinic NoteFami Medicine Office/Clinic Note Chief Complaint 6mo chk up, not fasting, no rfs, failed PHQ9 f/u, declines vaccs History of Present Illness Presents for general health maintenance and checkup. I am not familiar particular with this patientother than through her who I have provided care for over many years. Chronic history of multiple sclerosis but not on any current therapeutic regimen. Has been a long time since she has had any acute exacerbation necessitating steroids. Does not follow with neurology at this time. Mood is her primary concern. Very frustrated with her 's care although he is enrolled in hospice and does get respite visits to a halfway periodically which is a saving elpidio for her. Generally sleeps okay at night. Has some good friends that are very supportive and help her out when she needs it. Patient is due for laboratories soon. Also a mammogram. Mood has been more problematic since her 's health fluctuates. She had stopped most of her medicines several months ago but restarted currently only taking duloxetine at 30 mg daily. Blood pressures are usually not followed but she is compliant with RICHARD inhibitor. She started back to her atorvastatin recently but admits labs are probably not at goal. Reflux has been fairly quiet she is agreeable to pneumonia shot today would like to get a flu shot later in the season Review of Systems PHQ Score Initial Depression Screen Score: 4 SCORE See HPI otherwise negative Physical Exam Vitals & Measurements HR: 79(Peripheral) RR: 16 BP: 128/78 SpO2: 99% HT: 157 cm HT: 62 in WT: 60.4 kg WT: 133.159 lb BMI: 24.5 Well-groomed adequately hydrated making good eye contact wears corrective lenses grossly normal hearing neck is thin. No palpable thyromegaly no adenopathy. Lungs are clear bilaterally cardiac regular rate rhythm distant S1-S2 no murmur gallop or rub. Belly is soft and nontender no organomegaly. Skin is pale. Adequate turgor not demonstrating any tremors. Does have a depressed mood but is pleasant fair insight. Assessment/Plan 1. DM type 2 with diabetic mixed hyperlipidemia (E11.69: Type 2 diabetes mellitus with other specified complication) Patient is a diet-controlled diabetic. Recommending update labs soon. Continue with the atorvastatin to prevent cardiovascular disease risk progression. Ordered: pneumococcal 20-valent conjugate vaccine, 0.5 mL, Injection, IntraMuscular, Once, Stop date 02/15/25 13:00:00 EDT, Routine, Start date 02/15/25 13:00:00 EDT Administration pneumococcal vaccine G0009 HgbA1c 2. Chronic renal impairment associated with type 2 diabetes mellitus (E11.22: Type 2 diabetes mellitus with diabetic chronic kidney disease) Importance of avoiding nephrotoxic substances such as anti-inflammatories reviewed. Screening labs are due soon be well-hydrated. Ordered: pneumococcal 20-valent conjugate vaccine, 0.5 mL, Injection, IntraMuscular, Once, Stop date 02/15/25 13:00:00 EDT, Routine, Start date 02/15/25 13:00:00 EDT Administration pneumococcal vaccine G0009 HgbA1c 3. Generalized multiple sclerosis (G35: Multiple sclerosis) Chronic in nature asking her to always be vigilant for any acute setback for neurologic changes. She has not been seen by neurology in quite some time. I did encourage her to consider updating immunizations because of general process that places her at greater risk if she becomes acutely ill. Ordered: pneumococcal 20-valent conjugate vaccine, 0.5 mL, Injection, IntraMuscular, Once, Stop date 02/15/25 13:00:00 EDT, Routine, Start date 02/15/25 13:00:00 EDT Administration pneumococcal vaccine G0009 HgbA1c 4. Medullary sponge kidney (Q61.5: Medullary cystic kidney) Understands that this also can increase the risk of bone renal insufficiency. Importance of maintaining good fluid hydration always with water discussed Ordered: pneumococcal 20-valent conjugate vaccine, 0.5 mL, Injection, IntraMuscular, Once, Stop date 02/15/25 13:00:00 EDT, Routine, Start date 02/15/25 13:00:00 EDT Administration pneumococcal vaccine G0009 HgbA1c 5. Essential hypertension (I10: Essential (primary) hypertension) The importance of the following were all reviewed with the patient: -Take Rx(s )as prescribed. There are simple Lifestyle Modifications that you can do to reduce your blood pressure. -Weight Reduction -Follow the DASH eating plan. More information about this eating plan can be found here: https://www.nhlbi.nih.gov/health/health-topics/topics/dash -Reduce Sodium (Salt) Intake to 2000mg per day. -Use Moderation when consuming alcohol. - To improve your health we recommend increasing your level of moderate exercise to at least 2.5 hrs per week. For more information, please visit the CDC Exercise and Fitness Recommendations at www.cd c.gov/physicalactivity/basics/index.htm Ordered: Administration pneumococcal vaccine G0009 HgbA1c 6. Chronic renal impairment, stage 3a (N18.31: Chronic kidney disease, s (more content not included)...[facility]:Result Comment: Electronically Signed By: ARMANDO LOZANO, Sam\.br\Date and Time Signed: 02/15/25 15:41 EDTReminderson [id number] From: Brandi Ramey To: FMW - Administrative; Sent: 02/15/2025 12:11:54 EDT Show up: 07/18/2025 08:00:00 EST Subject: Ambulatory Reminder Reminder/Recall Please call pt to schedule 6 mo follow up for the end of July with [facility] Summaryon [id number] Visit SummaryAmbulatory Visit Summary ALISON FERRELL :1960 Visit Date:02/02/2025 Ambulatory Visit Instructions Your Diagnosis Annual visit for general adult medical examination without abnormal findings Controlled type 2 diabetes mellitus Generalized multiple sclerosis Recurrent major depressive episodes, moderate CARMEL on CPAP Other specified anemias Low vitamin D level Insomnia Essential hypertension Hyperlipidemia, mixed Immunization declined Your Care Team Attending Physician - Ajith MSN, GROUND CONTROL APPROACH TECHNICIAN-MINE PROMOTOR, Rosa York Primary Care Physician - Sam ROBERTS MD This Is Your Medications List atorvastatin (atorvastatin 40 mg Tab) duloxetine (duloxetine 30 mg oral delayed release capsule) lisinopril (lisinopril 20 mg Tab) omeprazole (omeprazole 20 mg Cap-DR) [Image Removed: STOP]Stop taking these medications allopurinol (allopurinol 300 mg Tab) gabapentin (gabapentin 100 mg Cap) hydrocortisone topical (hydrocortisone Top 2.5% Crm) metformin (metformin 1000 mg Tab) nadolol (nadolol 20 mg Tab) predniSONE (predniSONE 20 mg Tab) valacyclovir (Valtrex 1 g Tab) Procedures Performed Cystoscopic removal of ureteric stent (05/29/2022), Lithotripsy (05/03/2022), Esophagogastroduodenoscopy (09/12/2021), Lithotripsy (09/07/2021), ESWL of kidney (11/19/2019), Cystoscopy (11/06/2018), Sling procedure of bladder neck (2009), Tubal ..... (05/20/1979), Appendectomy, Cholecystectomy, History of elbow surgery, Hysterectomy, Stone retrieval basket. Discharge Vitals Heart Rate (Peripheral) 69 Respiratory Rate 18 Blood Pressure 132/80 Height 157 cm Height 62 in Weight 60.1 kg Weight 132.498 lb BMI 24.38 What to do next Scheduled Follow-Up Appointments Saturday 9:40 AM EDT With: Sam ROBERTS MD Where: [facility] [address] [place] [address]- Saturday2025 9:45 AM EST With: Mi MI MD Where: [facility] [address] [address]- Saturday2025 2:30 PM EDT With: Where: [facility] [address] [place] [address]- Medications What How Much When Instructions Unchanged atorvastatin (atorvastatin 40 mg Tab) Unchanged duloxetine (duloxetine 30 mg oral delayed release capsule) See instructions TAKE 1 CAPSULE BY MOUTH ONCE DAILY WITH 60 MG CAPSULE Unchanged lisinopril (lisinopril 20 mg Tab) 1 Tablets By Mouth Every day Unchanged omeprazole (omeprazole 20 mg Cap-DR) 1 Capsules By Mouth Every day What How Much When Comments Stop Taking allopurinol (allopurinol 300 mg Tab) 0.5 Tablets By Mouth Every day Stop Taking gabapentin (gabapentin 100 mg Cap) 2 Capsules By Mouth 2 times a day Stop Taking hydrocortisone topical (hydrocortisone Top 2.5% Crm) 1 Application Topical Every day Stop Taking metformin (metformin 1000 mg Tab) 1 Tablets By Mouth Every day Stop Taking nadolol (nadolol 20 mg Tab) 0.5 Tablets By Mouth Once a day (at bedtime) Stop Taking predniSONE (predniSONE 20 mg Tab) Stop Taking valacyclovir (Valtrex 1 g Tab) 1 Tablets By Mouth 2 times a day Medications and Immunizations Administered Not Given influenza virus vaccine, inactivated, Patient Refuses pneumococcal 13-valent vaccine, Postpone due to refusal pneumococcal 23-valent vaccine, Patient Refuses Allergies CeleBREX (Nausea) Cipro (Nausea) Pristiq (Nausea) Zithromax (Nausea) azithromycin (SOB - Shortness of breath, Occasional tremors., Nausea present) Betadine (Rash) Tape codeine (Nausea) desonide topical (Unknown) desvenlafaxine (Nausea) morphine (Nausea) penicillin (Rash) sulfa drugs (Rash) Problems Ongoing - Any problem that you are currently receiving treatment for. Actinic keratosis BMI 24.0-24.9, adult Carpal tunnel syndrome Cervical herniation Cervicalgia Colon, diverticulosis Controlled type 2 diabetes mellitus Eczematoid otitis externa of both ears Encounter for long-term (current) use of medications Essential hypertension Generalized multiple sclerosis Hyperlipidemia, mixed Hypocitraturia Insomnia Left tennis elbow Low vitamin D level Medullary sponge kidney Microscopic hematuria Mixed stress and urge incontinence Multiple sclerosis NOS Nephrolithiasis Non-tobacco user Orthostatic syncope CARMEL on CPAP Other specified anemias Other specified anxiety disorders Other urethral stricture, female Recurrent major depressive episodes, moderate Transient cerebral ischemia Historical - Any problem that you are no longer receiving treatment for. Breast cancer screening by mammogram Diverticulitis GERD - Gastro-esophageal reflux disease Hematoma of left kidney Schatzki's ring of distal esophagus Screen for colon cancer Patient Survey You may (more content not included)...[facility] Ambulatory Visit SummaryAmbulatory Visit Summary ALISON FERRELL Xander :1960 Visit Date:02/02/2025 Ambulatory Visit Instructions Your Diagnosis Annual visit for general adult medical examination without abnormal findings Controlled type 2 diabetes mellitus Generalized multiple sclerosis Recurrent major depressive episodes, moderate CARMEL on CPAP Other specified anemias Low vitamin D level Insomnia Essential hypertension Hyperlipidemia, mixed Immunization declined Your Care Team Attending Physician - Ajith MSN, GROUND CONTROL APPROACH TECHNICIAN-MINE PROMOTOR, Rosa York Primary Care Physician - Sam ROBERTS MD This Is Your Medications List atorvastatin (atorvastatin 40 mg Tab) duloxetine (duloxetine 30 mg oral delayed release capsule) lisinopril (lisinopril 20 mg Tab) omeprazole (omeprazole 20 mg Cap-DR) [Image Removed: STOP]Stop taking these medications allopurinol (allopurinol 300 mg Tab) gabapentin (gabapentin 100 mg Cap) hydrocortisone topical (hydrocortisone Top 2.5% Crm) metformin (metformin 1000 mg Tab) nadolol (nadolol 20 mg Tab) predniSONE (predniSONE 20 mg Tab) valacyclovir (Valtrex 1 g Tab) Procedures Performed Cystoscopic removal of ureteric stent (05/29/2022), Lithotripsy (05/03/2022), Esophagogastroduodenoscopy (09/12/2021), Lithotripsy (09/07/2021), ESWL of kidney (11/19/2019), Cystoscopy (11/06/2018), Sling procedure of bladder neck (2009), Tubal ..... (05/20/1979), Appendectomy, Cholecystectomy, History of elbow surgery, Hysterectomy, Stone retrieval basket. Discharge Vitals Heart Rate (Peripheral) 69 Respiratory Rate 18 Blood Pressure 132/80 Height 157 cm Height 62 in Weight 60.1 kg Weight 132.498 lb BMI 24.38 What to do next Scheduled Follow-Up Appointments Saturday 9:40 AM EDT With: Sam ROBERTS MD Where: [facility] [address] [place] [address]- Saturday2025 9:45 AM EST With: Mi MI MD Where: [facility] [address] [address]- Saturday2025 2:30 PM EDT With: Where: [facility] [address] [place] [address]- Medications What How Much When Instructions Unchanged atorvastatin (atorvastatin 40 mg Tab) Unchanged duloxetine (duloxetine 30 mg oral delayed release capsule) See instructions TAKE 1 CAPSULE BY MOUTH ONCE DAILY WITH 60 MG CAPSULE Unchanged lisinopril (lisinopril 20 mg Tab) 1 Tablets By Mouth Every day Unchanged omeprazole (omeprazole 20 mg Cap-DR) 1 Capsules By Mouth Every day What How Much When Comments Stop Taking allopurinol (allopurinol 300 mg Tab) 0.5 Tablets By Mouth Every day Stop Taking gabapentin (gabapentin 100 mg Cap) 2 Capsules By Mouth 2 times a day Stop Taking hydrocortisone topical (hydrocortisone Top 2.5% Crm) 1 Application Topical Every day Stop Taking metformin (metformin 1000 mg Tab) 1 Tablets By Mouth Every day Stop Taking nadolol (nadolol 20 mg Tab) 0.5 Tablets By Mouth Once a day (at bedtime) Stop Taking predniSONE (predniSONE 20 mg Tab) Stop Taking valacyclovir (Valtrex 1 g Tab) 1 Tablets By Mouth 2 times a day Medications and Immunizations Administered Not Given influenza virus vaccine, inactivated, Patient Refuses pneumococcal 13-valent vaccine, Postpone due to refusal pneumococcal 23-valent vaccine, Patient Refuses Allergies CeleBREX (Nausea) Cipro (Nausea) Pristiq (Nausea) Zithromax (Nausea) azithromycin (SOB - Shortness of breath, Occasional tremors., Nausea present) Betadine (Rash) Tape codeine (Nausea) desonide topical (Unknown) desvenlafaxine (Nausea) morphine (Nausea) penicillin (Rash) sulfa drugs (Rash) Problems Ongoing - Any problem that you are currently receiving treatment for. Actinic keratosis BMI 24.0-24.9, adult Carpal tunnel syndrome Cervical herniation Cervicalgia Colon, diverticulosis Controlled type 2 diabetes mellitus Eczematoid otitis externa of both ears Encounter for long-term (current) use of medications Essential hypertension Generalized multiple sclerosis Hyperlipidemia, mixed Hypocitraturia Insomnia Left tennis elbow Low vitamin D level Medullary sponge kidney Microscopic hematuria Mixed stress and urge incontinence Multiple sclerosis NOS Nephrolithiasis Non-tobacco user Orthostatic syncope CARMEL on CPAP Other specified anemias Other specified anxiety disorders Other urethral stricture, female Recurrent major depressive episodes, moderate Transient cerebral ischemia Historical - Any problem that you are no longer receiving treatment for. Breast cancer screening by mammogram Diverticulitis GERD - Gastro-esophageal reflux disease Hematoma of left kidney Schatzki's ring of distal esophagus Screen for colon cancer Patient Survey You may (more content not included)...[facility] Medicine Office/Clinic Noteon [id number] Chief Complaint Medicare wellness Visit Review of Systems PHQ Score Initial Depression Screen Score: 2 SCORE Physical Exam Vitals & Measurements HR: 69(Peripheral) RR: 18 BP: 132/80 SpO2: 97% HT: 157 cm HT: 62 in WT: 60.1 kg WT: 132.498 lb BMI: 24.38 Assessment/Plan I was in the office and available for consultation and to provide direct supervision at the time ofthis visit. I have provided supervision of the care team and have reviewed this chart and office note and agree with the plan of care. 1. Annual visit for general adult medical examination without abnormal findings (Z00.00: Encounter for general adult medical examination without abnormal findings) The patient was given a customized and personalized print out of all the current AHRQ USPSTF???s recommendations for preventative services and all current CDC recommended immunizations, relevant riskrecommendations and the following patient brochures were given. Reviewed Medicare Prevention Services checklist. [facility]-Falls Prevention and home safety screening reviewed. Patient denies any falls in last 12 months, voices no worry about falling. Exhibits no problems with sitting, standing or ambulation. Patient aware with keeping walk way area free of clutter to prevent tripping and/or falling. [place] Advance Directives reviewed. Documents in chart. Patient denies any problems with ADL???s and Instrumental ADL???s. Cognitive screening completed with memory and clock face drawing. No deficits noted. Immunization record reviewed, discussed Shingrix vaccine with refusal. COVID vaccines have been declined. Allergies and medications reviewed and up to date. No concerns with taking medication as prescribed. Reviewed OTC medications, medication list up to date. Blood tests were reviewed: Discussed what tests need to be updated. Labs were up to date. No concerns with bowel/ bladder. Cologuard last completed 04/29/23, repeat in 3 years. Reviewed pain symptoms : denies pain, no pain medications taken. Reviewed all outside providers that patient follows. Last visit summary notes available in chart and/or have been requested. Patient has some signs or symptoms of depression at this time. 15 minutes spent with screening and documentation. PHQ9 screening score 5. Patient never drinks alcohol, denies concerns. 3 minutes spent with screening and documentation. Audit score 0. Follow up scheduled with PCP, 02/09/25. AWV has been scheduled, 02/02/26 @2:30pm. 2. Controlled type 2 diabetes mellitus (E11.9: Type 2 diabetes mellitus without complications) DM stoplight handout reviewed with signs and symptoms to monitor for and report to PCP. Discussed ADA dietary recommendations with handouts provided. Encouraged to increase daily physical activity, adequate water intake, monitor carbs/chol and fats. Patient not monitoring BS at home. Follows up yearly with DM foot check, reminded patient to perform at home foot checks to prevent future complications. Patient has completed DM education. Complete DM eye exams completed yearly with visit summary notes available in chart. 3. Generalized multiple sclerosis (G35: Multiple sclerosis) No longer follows with neurology. Follows with Dr. Roberts, PCP. 4. Recurrent major depressive episodes, moderate (F33.1: Major depressive disorder, recurrent, moderate) PHQ-9 completed with score 5. Voices no suicidal ideations. Taking Cymbalta daily, patient voices effectiveness with this medication. Educational handouts reviewed with signs and symptoms to monitor for and report to PCP. Medications managed with office visits, OPIOD risk with OARRS completed with PCP. 5. CARMEL on CPAP (G47.33: Obstructive sleep apnea (adult) (pediatric)) Patient non-compliant with wearing CPAP nightly with CARMEL. 6. Other specified anemias (D64.89: Other specified anemias) Patient denies any fatigue, weakness or cold hands and feet. Diet with iron rich nutrients encouraged : beans, beets, dark green leafy vegetables. Will continue labs with PCP as needed. 7. Low vitamin D level (R79.89: Other specified abnormal findings of blood chemistry) Reviewed importance with getting enough Vitamin D to keep your body functioning, promote strong bones and does help to prevent some cancers. Reviewed educational handout symptoms of Vitamin D deficiency to monitor and report to their provider: muscle weakness, pain, fatigue and depression. Follows up with recommended DEXA scans to monitor for bone density. Will have labs ordered and follow up with PCP visit. 8. Insomnia (G47.00: Insomnia, unspecified) Patient follows with PCP. Handout provided on getting a better nights sleep. 9. Essential hypertension (I10: Essential (primary) hypertension) Patient taking medications daily as directed. Patient does voice understanding with signs and symptoms to monitor for. HTN stoplight handout reviewed with importance of keeping BP <140/90 to prevent increased cardiovascular risks. DASH diet (more content not included)...[facility] CenterComment on above:Result Comment: Electronically Signed By: Sam ROBERTS MD\.br\Date and Time Signed: 02/02/25 16:27 EDT\.br\Electronically Co-Signed By: Herminia GRAY, Savannah Chavez\.br\Date and Time Co-Signed: 02/02/25 15:39 EDT\.br\Electronically Co-Signed By: Sam ROBERTS MD\.br\Date and Time Co-Signed: 02/02/25 16:27 EDTBili Directon [id number].direct [Mass/Vol]0.1 mg/dLNormal0.0-0.4 [facility] HospitalComment on above:Order Comment: Order Added by Discern Expert.Performed By: #### [id number] #### [facility] [address] [place] [id number] w/ Auto Diffon [id number]/100 WBC (Bld)0.8 %Normal 0.0-2.0[facility] HospitalComment on above:Performed By: #### [id number] #### [facility] [address] [place] [address] 27280Qgkugckis/Leukocytes Auto (Bld) [Pure # fraction]0.1 E9/LNormal 0.0-0.2FThe Surgical Hospital at SouthwoodsComment on above:Performed By: #### [id number] #### [facility] [address] [place] [id number] (Bld) [#/Vol]0.1 E9/LNormal0.0-0.5FThe Surgical Hospital at SouthwoodsComment on above:Performed By: #### [id number] #### [facility] [address] [place] [address]64[address]Wixrpcbtuky/100 WBC (Bld)1.8 %Normal0.0-8.0[facility] HospitalComment on above:Performed By: #### [id number] #### [facility] [address] [place] [address] 33034Tpjuexzpmvg distribution width (RBC) [Ratio]13.5 %Normal 10.9-14.2FThe Surgical Hospital at SouthwoodsComment on above:Performed By: #### [id number] #### [facility] [address] [place] [address] 15770Oejzpcalxv (Bld) [Volume fraction]41.8 %Ftnqiw36.0-46.0[facility] HospitalComment on above:Performed By: #### [id number] #### [facility] [address] [place] [address] 92465Hkxjqjsmvy (Bld) [Mass/Vol]14.2 g/fXMeuoeq05.0-16.0[facility] HospitalComment on above:Performed By: #### [id number] #### [facility] [address] [place] [address] [id number] (Bld) [#/Vol]2.0 E9/LNormal1.0-4.0[facility] HospitalComment on above:Performed By: #### [id number] #### [facility] [address] [place] [address]64Yhgzvqpewsf/100 WBC (Bld)27.6 %Rdfavf43.0-50.0[facility] HospitalComment on above:Performed By: #### [id number] #### [facility] [address] [place] [address] 53063SLU (RBC) [Entitic mass]29.9 cfGhsesn15.0-34.0[facility] HospitalComment on above:Performed By: #### [id number] #### [facility] [address] [place] [address] 60219LKGE (RBC) [Mass/Vol]34.0 g/jPIimagp28.4-36.0[facility] HospitalComment on above:Performed By: #### [id number] #### [facility] [address] [place] [address] 78229MLX (RBC) [Entitic vol]88.1 nTKjqjbd30.0-100.0[facility] HospitalComment on above:Performed By: #### [id number] #### [facility] [address] [place] [address] 39639Dtybbkagc (Bld) [#/Vol]0.5 E9/LNormal0.2-1.0[facility] HospitalComment on above:Performed By: #### [id number] #### [facility] [address] [place] [address] 72329Mgsfvrfuntx (Bld) [#/Vol]4.4 E9/LNormal2.0-7.5FThe Surgical Hospital at SouthwoodsComment on above:Performed By: #### [id number] #### [facility] [address] [place], [place] [address]Txacdblkrxx/100 WBC (Bld)62.2 %Qzqpaf24.0-75.0[facility] HospitalComment on above:Performed By: #### [id number] #### [facility] [address] [place], [place] [address]Hvfwxvwb714.0 E9/XIhlpeb517.0-500.0[facility] Comment on above:Performed By: #### [id number] #### [facility] [address] [place], [place] [address]Ufgnyzlb mean volume (Bld) [Entitic vol]7.7 fLNormal6.4-10.8 [facility] HospitalComment on above:Performed By: #### [id number] #### [facility] [address] [place] [address] 92980OOL (Bld) [#/Vol]4.7 E12/LNormal4.3-5.9[facility] HospitalComment on above:Performed By: #### [id number] #### [facility] [address] [place] [address] 32415QQP corrected for nucl RBC Auto (Bld) [#/Vol]7.1 E9/LNormal 4.0-11.0[facility] HospitalComment on above:Performed By: #### [id number] #### [facility] [address] [place] [address] 63997SGMKBLZVPBhzomeh By: SYSTEM SYSTEM on 57-07-1175Mdpfanl DL <= 20 mg/L (U) [Mass/Vol]16.2 mg/dLHigh0.0 - 1.9 mg/dLRemisol Chem Albumin/Creatinine DL <= 20 mg/L (U) [Mass ratio]100.0 mg/gm CrHigh0.0 - 30.0 mg/gm CrRemisol ChemComment on above:Interpretive Data: 30-300 mg/g Cr indicates an increased risk for diabetic nephropathy. >300 mg/g Cr is consistent with clinical nephropathy.U Fvzdunqnvg215.0 mg/dL Invalid Interpretation CodeRemisol ChemAlbumin [Mass/Vol]4.6 g/dLNormal3.3 - 5.0 gm/dLRemisol ChemAlbumin/Globulin [Mass ratio]1.5 {ratio}Normal1.1 - 2.2Remisol ChemALP [Catalytic activity/Vol]86 [iU]/hXcwqbx55 - 98 Int._Unit/LRemisol Chem ALT No additional P-5'-P [Catalytic activity/Vol]13 [iU]/dNormal6 - 46 Int._Unit/LRemisol ChemAnion gap [Moles/Vol]11 mmol/LNormal6 - 16 mEq/LRemisol ChemAST [Catalytic activity/Vol]16 [iU]/dNormal5 - 43 Int._Unit/LRemisol Chem Bilirubin [Mass/Vol]0.6 mg/dLNormal0.0 - 1.1 mg/dLRemisol ChemBilirubin.direct [Mass/Vol]0.1 mg/dLNormal0.0 - 0.4 mg/dLRemisol ChemCalcium [Mass/Vol]10.1 mg/dL Normal8.9 - 11.1 mg/dLRemisol ChemChloride [Moles/Vol]103 mmol/KOxwjzl869 - 111 mmol/LRemisol ChemCholesterol [Mass/Vol]264 mg/xTWrni661 - 200 mg/dLRemisol Chem Cholesterol in HDL [Mass/Vol]59 mg/dLInvalid Interpretation CodeRemisol Chem Comment on above:Result Comment: '>= 60 LOW RISK' '<= 40 HIGH RISK'Cholesterol in LDL [Mass/Vol]199 mg/dLHigh<=129mg/dLRemisol ChemCholesterol in VLDL [Mass/Vol]49 mg/dLHigh7 - 40 mg/dLRemisol ChemCO2 [Moles/Vol]32 mmol/LHigh21 - 31 mmol/LRemisol ChemCreatinine [Mass/Vol]1.2 mg/dL Normal0.5 - 1.3 mg/dLRemisol KsdogLFM89 mL/min/1.73 m2Low>=59mL/min/1.73 m2 Remisol ChemGlobulin (S) [Mass/Vol]3.0 g/dLNormal1.4 - 4.0 gm/dLRemisol Chem Glucose [Mass/Vol]120 mg/iXSxelsp11 - 199 mg/dLRemisol ChemPotassium [Moles/Vol] 4.5 mmol/LNormal3.5 - 5.3 mmol/LRemisol ChemProtein [Mass/Vol]7.6 g/dLNormal6.0 - 7.8 gm/dLRemisol ChemSodium [Moles/Vol]141 mmol/PYvyhnl481 - 145 mmol/LRemisol ChemTriglyceride [Mass/Vol]247 mg/dLHigh<=149mg/dLRemisol ChemUrea nitrogen [Mass/Vol]23 mg/dLHigh5 - 21 mg/dLRemisol ChemUrea nitrogen/Creatinine [Mass ratio]19 mg/uhSulryj44 - 20Remisol ChemCHEMISTRYOrdered By: Maira Doe on 11-26-5484RbQ6v (Bld) [Mass fraction]6.2 %High<=5.9%[facility] ChemAutoSSCMPon 31-03-2563Gyqsvql [Mass/Vol]4.6 g/dLNormal3.3-5.0[facility] Comment on above:Performed By: #### [id number] #### [facility] [address] [place], [place] [address]Dimugdw/Globulin (S) [Mass conc ratio]1.1Jislpv5.1-2.2FThe Surgical Hospital at SouthwoodsComment on above:Performed By: #### [id number] #### [facility] [address] [place], [place] [address]IGU [Catalytic activity/Vol]86 Int._Unit/AIexzwf61-15TbhlnfAvita Health System Bucyrus HospitalComment on above:Performed By: #### [id number] #### [facility] [address] [place], [place] [address]QCC No additional P-5'-P [Catalytic activity/Vol]13 Int._Unit/L Normal6-46[facility] HospitalComment on above:Performed By: #### [id number] #### [facility] [address] [place], [place] [address]Mbnig gap [Moles/Vol]11 mmol/LNormal6-16[facility] HospitalComment on above:Performed By: #### [id number] #### [facility] [address] [place], [place] [address]JEZ [Catalytic activity/Vol]16 Int._Unit/LNormal5-43[facility] HospitalComment on above:Performed By: #### [id number] #### [facility] [address] [place], [place] [address]Yfhlezvyb [Mass/Vol]0.6 mg/dLNormal0.0-1.1FThe Surgical Hospital at SouthwoodsComment on above:Performed By: #### [id number] #### [facility] [address] [place], [place] [address]Plkvqyc [Mass/Vol]10.1 mg/dLNormal8.9-11.1FThe Surgical Hospital at SouthwoodsComment on above:Performed By: #### [id number] #### [facility] [address] [place], [place] [address]Eusdxabc [Moles/Vol]103 mmol/DMmfmir009-067JfmljdAvita Health System Bucyrus HospitalComment on above:Performed By: #### [id number] #### [facility] [address] [place], [place] [address]HB3 [Moles/Vol]32 mmol/OKlhu41-05BqallpAvita Health System Bucyrus Hospital Comment on above:Performed By: #### [id number] #### [facility] [address] [place], [place] [address]Anhmneuail [Mass/Vol]1.2 mg/dLNormal0.5-1.3FThe Surgical Hospital at SouthwoodsComment on above:Performed By: #### [id number] #### [facility] [address] [place], [place] [address]Husdtfyg (S) [Mass/Vol]3.0 g/dLNormal1.4-4.0[facility] HospitalComment on above:Performed By: #### [id number] #### [facility] [address] [place], [place] [address]Ptfmjor [Mass/Vol]120 mg/nATimdun62-522HqacccAvita Health System Bucyrus HospitalComment on above:Performed By: #### [id number] #### [facility] [address] [place], [place] [address]Vrqxrnbbs [Moles/Vol]4.5 mmol/LNormal3.5-5.3FThe Surgical Hospital at SouthwoodsComment on above:Performed By: #### [id number] #### [facility] [address] [place], [place] [address]Xkxpqdn [Mass/Vol]7.6 g/dLNormal6.0-7.8[facility] HospitalComment on above:Performed By: #### [id number] #### [facility] [address] [place] [address]Ixgpou [Moles/Vol]141 mmol/WNrsqcw387-964BdmzfcAvita Health System Bucyrus HospitalComment on above:Performed By: #### [id number] #### [facility] [address] [place] [address]Ymkp nitrogen [Mass/Vol]23 mg/dLHigh5-21[facility] HospitalComment on above:Performed By: #### [id number] #### [facility] [address] [place] [address] 46[address]Fzik nitrogen/Creatinine [Mass ratio]19 No DpfbfRyfuvq84-18 [facility] HospitalComment on above:Performed By: #### [id number] #### [facility] [address] [place], [place] [address]OSVRKMMFAYXcxmhjv By: SYSTEM SYSTEM on 48-85-1678Umuzbtjqq/100 WBC (Bld)0.8 %Normal0.0 - 2.0 %Remisol HemeBasophils/Leukocytes Auto (Bld) [Pure # fraction]0.1 E9/LNormal0.0 - 0.2 E9/LRemisol HemeEosinophils (Bld) [#/Vol]0.1 E9/LNormal0.0 - 0.5 E9/LRemisol HemeEosinophils/100 WBC (Bld)1.8 %Normal0.0 - 8.0 %Remisol HemeErythrocyte distribution width (RBC) [Ratio]13.5 %Zhikcw12.9 - 14.2 %Remisol HemeHematocrit (Bld) [Volume fraction]41.8 %Ujlnym27.0 - 46.0 % Remisol HemeHemoglobin (Bld) [Mass/Vol]14.2 g/pOZlbjwi01.0 - 16.0 gm/dLRemisol HemeLymphocytes (Bld) [#/Vol]2.0 E9/LNormal1.0 - 4.0 E9/LRemisol Heme Lymphocytes/100 WBC (Bld)27.6 %Uzbyxd28.0 - 50.0 %Remisol HemeMCH (RBC) [Entitic mass]29.9 odRsrfee51.0 - 34.0 pgRemisol HemeMCHC (RBC) [Mass/Vol]34.0 g/dL Qyhdmb17.4 - 36.0 gm/dLRemisol HemeMCV (RBC) [Entitic vol]88.1 zYKeobor74.0 - 100.0 fLRemisol HemeMonocytes (Bld) [#/Vol]0.5 E9/LNormal0.2 - 1.0 E9/LRemisol HemeMonocytes/100 WBC (Bld)7.6 %Normal4.0 - 14.0 %Remisol HemeNeutrophils (Bld) [#/Vol]4.4 E9/LNormal2.0 - 7.5 E9/LRemisol HemeNeutrophils/100 WBC (Bld)62.2 % Kqdyqq80.0 - 75.0 %Remisol IsjiPlnvolsg619.0 E9/SQommll238.0 - 500.0 E9/LRemisol HemePlatelet mean volume (Bld) [Entitic vol]7.7 fLNormal6.4 - 10.8 fLRemisol HemeRBC (Bld) [#/Vol]4.7 E12/LNormal4.3 - 5.9 E12/LRemisol HemeWBC corrected for nucl RBC Auto (Bld) [#/Vol]7.1 E9/LNormal4.0 - 11.0 E9/LRemisol RdpcNckU9qzt 27-27-3889HvD4s (Bld) [Mass fraction]6.2 %High<=5.9[facility] Comment on above:Performed By: #### [id number] #### [facility] [address] [place], [place] [address]Wvbba Panelon 63-49-9249Ggwrojsslgg [Mass/Vol]264 mg/dLHigh 120-200[facility] HospitalComment on above:Performed By: #### [id number] #### [facility] [address] [place], [place] [address]Nntskrktdea in HDL [Mass/Vol]59 mg/dLInvalid Interpretation CodeAvita Health System Bucyrus HospitalComment on above:Result Comment: '>= 60 LOW RISK' '<= 40 HIGH RISK'Performed By: #### [id number] #### [facility] [address] [place], [place] [address]Prksyxmitlp in LDL [Mass/Vol]199 mg/dLHigh<=129[facility] HospitalComment on above:Performed By: #### [id number] #### [facility] [address] [place], [place] [address]Stfgspndifx in VLDL [Mass/Vol]49 mg/dLHigh7-40[facility] HospitalComment on above:Performed By: #### [id number] #### [facility] [address] [place], [place] [address]Gksijfgmtles [Mass/Vol]247 mg/dLHigh<=149[facility] HospitalComment on above:Performed By: #### [id number] #### [facility] [address] [place], [place] [address]P MA/Cr Ratioon 44-76-7349Zgfxxqa DL <= 20 mg/L (U) [Mass/Vol] 16.2 mg/dLHigh0.0-1.9[facility] HospitalComment on above:Performed By: #### [id number] #### [facility] [address] [place], [place] [address]Vtgckng/Creatinine DL <= 20 mg/L (U) [Mass ratio]100.0 mg/gm Cr High.0-30.0[facility] HospitalComment on above:Result Comment: 30-300 mg/g Cr indicates an increased risk for diabetic nephropathy. >300 mg/g Cr is consistent with clinical nephropathy.Performed By: #### [id number] #### [facility] [address] [place], [place] [address]Q Gnkabownsr440.0 mg/dLInvalid Interpretation CodeAvita Health System Bucyrus HospitalComment on above:Performed By: #### [id number] #### [facility] [address] [place], [place] [address]nFFAwn 04-40-4845jDHQ75 mL/min/1.73 m2Low>=59[facility] HospitalComment on above:Performed By: #### [id number] #### [facility] [address] [place], [place] [address] Calciumon 66-72-0207Acsyaqx (24H U) [Mass/Time]303 mg/24hr Invalid Interpretation Code0-320[facility] HospitalComment on above: Result Comment: Performed at: Lab[address] [id number] PhD Tiffany Chandformed By: #### [id number] #### [facility] [address] [place], [place] [address]Axrnkvp (24H U) [Mass/Vol]10.1 mg/dLInvalid Interpretation Code Not Estab.[facility] HospitalComment on above:Performed By: #### [id number] #### [facility] [address] [place], [place] [address]I91 Citrateon 53-56-5061Wzawukn (24H U) [Mass/Time]657 mg/24hr Invalid Interpretation Ofil158-7925WlgzbrAvita Health System Bucyrus HospitalComment on above: Result Comment: Performed at: [address] [id number] MD Reuben Moserformed By: #### [id number] #### [facility] [address] [place], [place] [address]Ovrinat (24H U) [Mass/Vol]219 mg/LInvalid Interpretation Code UndefinedAvita Health System Bucyrus HospitalComment on above:Result Comment: This test was developed and its performance characteristics determined by [facility]. It has not been cleared or approved by the Food and Drug Administration.Performed By: #### [id number] #### [facility] [address] [place], [place] [address]B74 Magnesiumon 28-53-4321Cmegpstgj (24H U) [Mass/Time]165.0 mg/24hrInvalid Interpretation Code12.0-293.0[facility] HospitalComment on above:Result Comment: Performed at: [address] [id number] PhD Tiffany Chandformed By: #### [id number] #### [facility] [address] [place], [place] [address]Hscesbjng (U) [Mass/Vol]5.5 mg/dLInvalid Interpretation CodeNot Estab.[facility] HospitalComment on above:Performed By: #### [id number] #### [facility] [address] [place], [place] [address]F66 Oxalateon 47-45-1983Gvfusou (24H U) [Mass/Time]33 mg/24hr High4-31[facility] HospitalComment on above:Result Comment: Performed at: [address] [id number] MD Reuben Moserformed By: #### [id number] #### [facility] [address] [place], [place] [address]Kzsnoef (U) [Mass/Vol]11 mg/LInvalid Interpretation Code UndefinedAvita Health System Bucyrus HospitalComment on above:Performed By: #### [id number] #### [facility] [address] [place], [place] [address] Phosphoruson 11-97-1603Ayygrddxq (24H U) [Mass/Time]1470 mg/03uxWvpt382-0083Acpgid [facility] CenterComment on above:Result Comment: Performed at: [address] [id number] PhD iTffany Chandformed By: #### [id number] #### [facility] [address] [place], [place] [address]Udufikggk (U) [Mass/Vol]49.0 mg/dLInvalid Interpretation Code Not Estab.[facility] HospitalComment on above:Performed By: #### [id number] #### [facility] [address] [place], [place] [address]R34 Uric Acidon 74-66-9682Wksqp (24H U) [Mass/Time]804.0 mg/62mmIhkv155.3-713.2Fisher [facility] CenterComment on above:Result Comment: Performed at: [facility] [address] [place], [place] [id number] PhD Tiffany Chandformed By: #### [id number] #### [facility] [address] [place], [place] [address]Dwvfj (U) [Mass/Vol]26.8 mg/dLInvalid Interpretation CodeNot Estab.[facility] HospitalComment on above:Performed By: #### [id number] #### [facility] [address] [place], [place] [address]Wwamyfnlef Visit Summaryon 87-60-0533Swymamjhvv Visit Summary Ambulatory Visit Summary ALISON FERRELL :1960 Visit Date:08/03/2024 Ambulatory Visit Instructions Your Diagnosis Controlled type 2 diabetes mellitus Essential hypertension Hyperlipidemia, mixed Recurrent major depressive episodes, moderate Generalized multiple sclerosis BMI 24.0-24.9, adult Medication management Encounter for screening for cardiovascular disorders Your Care Team Attending Physician - Ajith MSN, GROUND CONTROL APPROACH TECHNICIAN-MAGDALENE, Rosa York Primary Care Physician - Sam ROBERTS MD This Is Your Medications List duloxetine (duloxetine 30 mg oral delayed release capsule) lisinopril (lisinopril 20 mg Tab) Contact prescribing physician if questions or concerns atorvastatin (atorvastatin 40 mg Tab) gabapentin (gabapentin 100 mg Cap) hydrocortisone topical (hydrocortisone Top 2.5% Crm) metformin (metformin 1000 mg Tab) nadolol (nadolol 20 mg Tab) omeprazole (omeprazole 20 mg Cap-DR) predniSONE (predniSONE 20 mg Tab) valacyclovir (Valtrex 1 g Tab) Procedures Performed Cystoscopic removal of ureteric stent (05/29/2022), Lithotripsy (05/03/2022), Esophagogastroduodenoscopy (09/12/2021), Lithotripsy (09/07/2021), ESWL of kidney (11/19/2019), Cystoscopy (11/06/2018), Sling procedure of bladder neck (2009), Tubal ..... (05/20/1979), Appendectomy, Cholecystectomy, History of elbow surgery, Hysterectomy, Stone retrieval basket. Discharge Vitals Temperature (Temporal Artery) 36.7 ???C Heart Rate (Peripheral) 68 Respiratory Rate 16 Blood Pressure 116/78 Height 157 cm Height 62 in Weight 61.1 kg Weight 134.702 lb BMI 24.79 What to do next Scheduled Follow-Up Appointments Saturday 2:30 PM EDT With: Where: [facility] [address] [place] [address]- Saturday 9:40 AM EDT With: Sam ROBERTS MD Where: [facility] [address] [place] [address]- Saturday2025 9:45 AM EST With: Mi MI MD Where: [facility] [address] [facility] [place] [address] [place] [address]- You Need to Schedule the Following Appointments Follow Up with Ajith MSN, GROUND CONTROL APPROACH TECHNICIAN-MINE PROMOTOR, Rosa York When: In 6 months Comments: chronic care Where: [address] [place] [phone] You Need to Complete the Following CBC w/ Auto Diff, Blood, Routine collect, 08/03/24, Order for future visit, Lab Collect, Controlledtype 2 diabetes mellitus Essential hypertension Hyperlipidemia, mixed Recurrent major depressive episodes, moderate Generalized multiple sclerosis BMI 24.0-24.... Glucose Fasting, Blood, Routine collect, 08/03/24, Order for future visit, Lab Collect, Controlled type 2 diabetes mellitus Essential hypertension Hyperlipidemia, mixed Recurrent major depressive episodes, moderate Generalized multiple sclerosis BMI 24.0-24.... Hepatic Function Panel, Blood, Routine collect, 08/03/24, Order for future visit, Lab Collect, Controlled type 2 diabetes mellitus Essential hypertension Hyperlipidemia, mixed Recurrent major depressive episodes, moderate Generalized multiple sclerosis BMI 24.0-24.... HgbA1c, Blood, Routine collect, 08/03/24, Order for future visit, Lab Collect, Controlled type 2 diabetes mellitus Essential hypertension Hyperlipidemia, mixed Recurrent major depressive episodes, moderate Generalized multiple sclerosis BMI 24.0-24.... Lipid Panel, Blood, Routine collect, 08/03/24, Order for future visit, Lab Collect, Controlled type2 diabetes mellitus Essential hypertension Hyperlipidemia, mixed Recurrent major depressive episodes, moderate Generalized multiple sclerosis BMI 24.0-24.... Urine Microalbumin/Creatinine Ratio, Urine, Routine collect, 08/03/24, Order for future visit, Nurse collect, Controlled type 2 diabetes mellitus Essential hypertension Hyperlipidemia, mixed Recurrent major depressive episodes, moderate Generalized multiple sclerosis BMI 24.0-2... Medications What How Much When Instructions Changed lisinopril (lisinopril 20 mg Tab) 1 Tablets By Mouth Every day Pickup at [facility] 1985 Unchanged duloxetine (duloxetine 30 mg oral delayed release capsule) See instructions TAKE 1 CAPSULE BY MOUTH ONCE DAILY WITH 60 MG CAPSULE Pickup at [facility] 1985 Unchanged atorvastatin (atorvastatin 40 mg Tab) Contact prescribing physician if questions or concerns Unchanged gabapentin (gabapentin 100 mg Cap) 2 Capsules By Mouth 2 times a day Contact prescribing physician if questions or concerns Unchanged hydrocortisone topical (hydrocortisone Top 2.5% Crm) 1 Application Topical Every day Contact prescribing physician if questions or concerns Unchanged metformin (metformin 1000 mg Tab) 1 Tablets By Mouth Every day Contact prescribing physician if questions or rc (more content not included)...Normal [facility] Medicine Office/Clinic Noteon [phone] Medicine Office/Clinic NoteFami Medicine Office/Clinic Note Chief Complaint The patient presented to address medication management and monitor health parameters for existing chronic conditions. HPI Staff Patient is here for follow up on Diabetes. How often are you checking your blood sugars? 0 times per day What are your average readings? Do you have low blood sugar readings/symptoms? Denies Do you have high blood sugar readings/symptoms? Denies Are you compliant with your diet? yes Do you exercise? no Are you compliant with your medications? Yes Having difficulty affording your medications? No Do you have any of the following symptoms? Vision problems? Denies GI-Nausea/committing/bloating? Denies Lightheadedness? Denies Paresthesias, Ulcerations or sores? Denies Patient is here for follow up on hypertension. HLD How often are you checking your blood pressure? Not checking What are your average readings? Are you compliant with your diet? yes Do you exercise? no Are you compliant with your medications? yes Are you having difficulty affording your medications? no Do you have side effects from the medication? no Do you have any of the following symptoms? Chest Pain? no Palpitations? no JUNG/SOB? no Headache? no Peripheral Edema? no Light Headedness? no History of Present Illness 63 Years old Female here for 6 month follow up - chronic care, accompanied by her HPI staff / Chief Complaint confirmed with the patient Screening: Colon Cancer screenin04/2023 COLOGUARD negative with a 3 year f/u recommended; this patient doesNOT have family history of colon cancer Breast cancer screenin04/28/2022 ; this patient does NOT have a family history of breast cancer Pap smear: RANDALL DEXA: scheduled Labs: 04/06/2023 Diabetes/ prediabetes: Eye exam: 06/10/[address] Ivan Solares Foot exam: 09/17/[address] Stacie Roberts A1c: Hgb A1C %: 6.4 % High (04/06/23 10:26:00) Hgb A1c POC: 6.9 % (09/17/22 18:30:00) List of Providers: Urologist: Dr Shmuel APPIAH Cr/eGFR: eGFR: 42 mL/min/1.73 m2 Low (07/28/24 14:39:00) Creatinine: 1.4 mg/dL High (07/28/24 14:39:00) A1c: Hgb A1C %: 6.4 % High (04/06/23 10:26:00) Hgb A1c POC: 6.9 % (09/17/22 18:30:00) TSH: No qualifying data available. Vit D: No qualifying data available. LDL: LDL Direct: 83 mg/dL (04/06/23 10:26:00) Lipids: Chol: 163 mg/dL (04/06/23 10:26:00) HDL: 48 mg/dL (04/06/23 10:26:00) LDL Direct: 83 mg/dL (04/06/23 10:26:00) Tri mg/dL High (04/06/23 10:26:00) VLDL: 30 mg/dL (04/06/23 10:26:00) Future Appointments [facility] BRANDO Arshad Appt. Date: 02/02/2025 2:30 PM Scheduled Provider: BRANDO Arshad [employer] Phone: -- Fax: -- [facility] CÉSAR AlvarezSouthbridge Appt. Date: 06/11/2025 9:45 AM Scheduled Provider: Mi Mi MD [facility] [employer] [address] [place] [address], [phone] Fax: -- The patient is presenting for medication management and checkups for her chronic conditions: type 2diabetes mellitus without complications, essential hypertension, generalized multiple sclerosis, mixed hyperlipidemia, and moderate recurrent major depressive episodes. She recently saw Dr. Mi for a 24-hour urine test to evaluate renal function and underwent an x-ray for kidney assessment. The patient's hypertension is currently well-managed with lisinopril, despite a brief lapse in April due to high stress, during which medication noncompliance contributed to poor blood pressure control. Her diabetes management continues under oversight, though she does not frequently monitor blood glucose at home. Hyperlipidemia management includes planned cholesterol checks, with fasting required for accurate assessment. Duloxetine is effective for managing her depression, with arrangements made for continued therapy. Lifestyle includes familial support, as the patient discusses social engagements such as a family wedding. Her condition involves forthcoming preventative measures, including labs for metabolic control and diet considerations, that were previously underscored for health maintenance. Review of Systems PHQ Score Initial Depression Screen Score: 2 SCORE - Cardiovascular: Reports well-controlled blood pressure measurements at home. - Endocrine: Denies regular home blood sugar monitoring but acknowledges potential to do so. - Muscoskeletal: Denies any tingling or numbness in extremities. - Skin: Reports dryness, particularly on feet. - Neurological: Denies any new symptoms or exacerbations related to multiple sclerosis. - Psychiatric: Describes current depression management as adequate with duloxetine; no significant mood changes noted. Physical Exam Vitals & Measurements T: 36.7 ???C(Temporal Artery) HR: 68(Peripheral) RR: 16 BP: 116/78 SpO2: 98% HT: 62 in HT: 157 cm WT: 61.1 kg WT: 134.702 lb BMI: 24.79 Constitutional: Well-groomed, well-nourished, no signs of acute distress. HEENT: Head normocephalic, sc (more content not included)...NormalAvita Health System Bucyrus HospitalComment on above:Result Comment: Electronically Signed By: Ajith SNIDER, GROUND CONTROL APPROACH TECHNICIAN-MAGDALENE, Rosa York\.br\Date and Time Signed: 08/03/24 15:22 EDTU24 Creatinineon 35-75-4060J32 Ysnrmfuntr3336.0 mg/95zoQrycse0346.0-2000.0[facility] HospitalComment on above:Performed By: #### [id number] #### [facility] [address] [place], [place] [address]Hnegwtkdki [Mass/Vol]67.0 mg/dLNormal>=10.0[facility] HospitalComment on above:Performed By: #### [id number] #### [facility] [address] [place], [place] [address] Sodiumon 86-26-2960K27 Btwggm203 mmol/43kiSxohpi67-191 [facility] HospitalComment on above:Performed By: #### [id number] #### [facility] [address] [place], [place] [address]Xxykzg [Moles/Vol]106 mmol/LNormal>=10[facility] HospitalComment on above:Performed By: #### [id number] #### [facility] [address] [place], [place] [address]E58 Total Volon 60-30-6373Rmw Xhgo13Dfxmzfk Interpretation Code [facility] HospitalComment on above:Performed By: #### [id number] #### [facility] [address] [place], [place] [address]Cbmtz Quzitk8012 mLInvalid Interpretation [facility] HospitalComment on above:Performed By: #### [id number] #### [facility] [address] [place], [place] [address]Drbxh Vol/Per Ref Labon 19-13-4155Vjn Esequiel Ref Lab24 hour(s) Invalid Interpretation [facility] HospitalComment on above:Order Comment: Order added by Arun ExpertPerformed By: #### [id number] #### [facility] [address] [place] [address]Vqljsezb volume Unsp time (U)1500 mLInvalid Interpretation Code [facility] HospitalComment on above:Order Comment: Order added by Arun ExpertPerformed By: #### [id number] #### [facility] [address] [place] [address]EQP [place] 09-74-4991Wfjznqkkdc.intact [Mass/Vol]50 pg/mL Invalid Interpretation Bwrc13-00PghykuAvita Health System Bucyrus HospitalComment on above: Result Comment: Performed at: [facility] [address] [id number] PhD Tiffany ZamarripaPerformed By: #### [id number] #### [facility] [address] [place] [address]XN Abdomen 1 Viewon 28-83-5824UY Abdomen 1 ViewExam Date/Time: 07/28/2024 14:53 EDT Reason for Exam: N20.0 calculus of kidney;Kidney stone Report IMPRESSION: LEFT RENAL CALCULI. CLINICAL HISTORY: Kidney stone, N20.0 calculus of kidney COMPARISON: 03/12/2023 FINDINGS: 7 mm calculus overlies lower pole left kidney with calculi measuring approximately 1.5-2 mm also found overlying lower pole left kidney. No calculi identified overlying region right kidney. Surgical clips gallbladder fossa. Gas and stool in colon. No focal or diffuse small bowel dilatation. No mass effect. Phleboliths in pelvis unchanged. Technical Comments: Radiation Dose: na Ordering Provider: Mi MI FINAL REPORT Dictated: 07/29/2024 12:30 pm Vasu Shaffer MD Signed (Electronic Signature): 07/29/2024 12:30 pm Signed by: Vasu Shaffer MD Transcribed by: NI Technologist: [facility] PrebleBUNon 99-61-7709Bwgo nitrogen [Mass/Vol]23 mg/dLHigh5-21[facility] Comment on above:Performed By: #### [id number] #### [facility] [address] [place], [place] [address]GVFEBZQRGOnfnpwz By: SYSTEM SYSTEM on 37-75-1163Tujktxb [Mass/Vol]9.9 mg/dLNormal8.9 - 11.1 mg/dLRemisol ChemChloride [Moles/Vol]99 mmol/JZpb982 - 111 mmol/LRemisol ChemCO2 [Moles/Vol]33 mmol/LHigh21 - 31 mmol/L Remisol ChemCreatinine [Mass/Vol]1.4 mg/dLHigh0.5 - 1.3 mg/dLRemisol AhyxvUHP92 mL/min/1.73 m2Low>=59mL/min/1.73 t2Dlkzeyj ChemPhosphate [Mass/Vol]4.8 mg/dLHigh 1.9 - 4.6 mg/dLRemisol ChemSodium [Moles/Vol]140 mmol/GEubvob509 - 145 mmol/L Remisol ChemUrate [Mass/Vol]5.8 mg/dLNormal2.2 - 7.4 mg/dLRemisol ChemUrea nitrogen [Mass/Vol]23 mg/dLHigh5 - 21 mg/dLRemisol QlsjOH8ba 99-71-0711XD9 [Moles/Vol]33 mmol/FStoy04-90IwcekpAvita Health System Bucyrus HospitalComment on above: Performed By: #### [id number] #### [facility] [address] [place], [place] [address]Qzbohrlnv 31-43-9060Tuthkuu [Mass/Vol]9.9 mg/dLNormal8.9-11.1 [facility] HospitalComment on above:Performed By: #### [id number] #### [facility] [address] [place], [place] [address]Ilehigsxlx 08-85-9108Rxuyylnc [Moles/Vol]99 mmol/NGnx432-167 [facility] HospitalComment on above:Performed By: #### [id number] #### [facility] [address] [place], [place] [address]Epzyhxrtwkzz 69-00-9087Zbipsubwbb [Mass/Vol]1.4 mg/dLHigh 0.5-1.3FThe Surgical Hospital at SouthwoodsComment on above:Performed By: #### [id number] #### [facility] [address] [place], [place] [address]Yxprryfyerne 05-33-2797Jaayyxaii [Mass/Vol]4.8 mg/dLHigh1.9-4.6 [facility] HospitalComment on above:Performed By: #### [id number] #### [facility] [address] [place], [place] [address]Zwtsvgaq 03-52-9750Qekuzc [Moles/Vol]140 mmol/AUsxqno692-165 [facility] HospitalComment on above:Performed By: #### [id number] #### [facility] [address] [place], [place] [address]Lnoc Acidon 74-78-4212Iunbv [Mass/Vol]5.8 mg/dLNormal2.2-7.4 [facility] HospitalComment on above:Performed By: #### [id number] #### [facility] [address] [place], [place] [address]xRMTvu 11-83-7009eMPJ18 mL/min/1.73 m2Low>=59FishKennedy Krieger InstituteComment on above:Performed By: #### [id number] #### [facility] [address] [place], [place] [address]Diykyfrhxy Visit Summaryon 33-23-7044Zdmoeyyvzf Visit Summary Ambulatory Visit Summary ALISON FERRELL :1960 Visit Date:11/11/2018 Ambulatory Visit Instructions Your Care Team Primary Care Physician - Sam ROBERTS MD This Is Your Medications List atorvastatin (atorvastatin 40 mg Tab) duloxetine (duloxetine 30 mg oral delayed release capsule) gabapentin (gabapentin 100 mg Cap) hydrocortisone topical (hydrocortisone Top 2.5% Crm) lisinopril (lisinopril 40 mg Tab) metformin (metformin 1000 mg Tab) nadolol (nadolol 20 mg Tab) omeprazole (omeprazole 20 mg Cap-DR) predniSONE (predniSONE 20 mg Tab) valacyclovir (Valtrex 1 g Tab) [Image Removed: STOP]Stop taking these medications acetaminophen (acetaminophen 325 mg Tab) hydrochlorothiazide (hydrochlorothiazide 25 mg oral tablet) Procedures Performed Cystoscopic removal of ureteric stent (05/29/2022), Lithotripsy (05/03/2022), Esophagogastroduodenoscopy (09/12/2021), Lithotripsy (09/07/2021), ESWL of kidney (11/19/2019), Cystoscopy (11/06/2018), Sling procedure of bladder neck (2009), Tubal ..... (05/20/1979), Appendectomy, Cholecystectomy, History of elbow surgery, Hysterectomy, Stone retrieval basket. What to do next Scheduled Follow-Up Appointments Saturday 2:00 PM EDT With: Ajith MSN, GROUND CONTROL APPROACH TECHNICIAN-MINE PROMOTOR, Rosa York Where: [facility] [address] [place] [address]- Saturday 2:30 PM EDT With: Where: [facility] [address] [place] [address]- Saturday2025 9:45 AM EST With: Mi MI MD Where: [facility] [address] [place] [address]- You Need to Complete the Following CBC w/ Auto Diff, Blood, Routine collect, 02/03/24, Order for future visit, Lab Collect, Controlledtype 2 diabetes mellitus Essential hypertension Hyperlipidemia, mixed Generalized multiple sclerosis Recurrent major depressive episodes, moderate CARMEL on CPAP... Comprehensive Metabolic Panel, Blood, Routine collect, 02/03/24, Order for future visit, Lab Collect, Controlled type 2 diabetes mellitus Essential hypertension Hyperlipidemia, mixed Generalized multiple sclerosis Recurrent major depressive episodes, moderate CARMEL on CPAP... HgbA1c, Blood, Routine collect, 02/03/24, Order for future visit, Lab Collect, Controlled type 2 diabetes mellitus Essential hypertension Hyperlipidemia, mixed Generalized multiple sclerosis Recurrent major depressive episodes, moderate CARMEL on CPAP... Lipid Panel, Blood, Routine collect, 02/03/24, Order for future visit, Lab Collect, Controlled type2 diabetes mellitus Essential hypertension Hyperlipidemia, mixed Generalized multiple sclerosis Recurrent major depressive episodes, moderate CARMEL on CPAP... Microalbumin Level Urine, Urine, Routine collect, 02/03/24, Order for future visit, Nurse collect, Controlled type 2 diabetes mellitus Essential hypertension Hyperlipidemia, mixed Generalized multiple sclerosis Recurrent major depressive episodes, moderate CARMEL on CPA... Urine Microalbumin/Creatinine Ratio, Urine, Routine collect, 02/03/24, Order for future visit, Nurse collect, Controlled type 2 diabetes mellitus Essential hypertension Hyperlipidemia, mixed Generalized multiple sclerosis Recurrent major depressive episodes, moderate CARMEL on CPA... XR Abdomen 1 View, *Est. 04/02/24 due within 78 day(s), Routine, Order for future visit, Transport Mode: Ambulatory, Reason: Kidney stone, No, Kidney stone, pp_set_radiology_subspecialty, Not Required, [facility] XR Abdomen 1 View, 06/05/24, Routine, Order for future visit, Transport Mode: Ambulatory, Reason: Kidney stone, No, Nephrolithiasis, pp_set_radiology_subspecialty, Not Required, [facility] [place] XR Abdomen 1 View, 04/19/25, Routine, Order for future visit, Transport Mode: Ambulatory, Reason: Kidney stone, No, Nephrolithiasis, pp_set_radiology_subspecialty, Not Required, [facility] XR Abdomen 1 View, *Est. 04/29/24 +/- 40 day(s), Routine, Order for future visit, Transport Mode: Ambulatory, Reason: Kidney stone, No, Nephrolithiasis, pp_set_radiology_subspecialty, [facility] [place] Someone Will Contact You Regarding These Appointments [facility] Ambulatory Referral, Internal, Gastroenterology, [facility], 04/06/19 19:56:00 EST [facility] External Ambulatory Referral, Patient choice/referral by family/friend, Pulmonology, has seen Dr Stratton in [place], 11/25/19 16:53:00 EDT [facility] External Ambulatory Referral, Service not offered at [facility], Orthopaedics, [facility], 02/06/21 17:07:00 EDT Medications What How Much When Instructions Changed atorvastatin (atorvastatin 40 mg Tab) Changed duloxetine (duloxetine 30 mg oral delayed release capsule) See instructions TAKE 1 CAPSULE BY MOUTH ONCE DAILY WITH 60 MG CAPSULE Changed gabapentin (gabapen (more content not included)...[facility] CenterU[facility] Office/Clinic Noteon 25-85-3362Bxmojgv Office/Clinic Note Urology Office/Clinic Note Chief Complaint 1 year follow up, did not do KUB HPI Staff 63yr old female pt here for 1yr f/u with KUB. KUB was not done. S/p ESWL done 10/20/19, S/p litho done 09/07/21, S/p Cysto/UD done 10/27/19 Previous Dx: nephrolithiasis, hypocitraturia, mixed stress and urge incontinence Dysuria: denies Incomplete bladder emptying: denies Hematuria: denies visible blood Frequency: denies Urgency: denies Nocturia: once a night every 2-3 nights Stream: denies hesitancy, has a steady stream Leaking: denies Post void dripping: denies Wearing pads/ Depends: denies Urge incontinence: denies Stress incontinence: sometimes when coughing, sneezing, laughing Incontinence without Sensory Awareness: denies Abdominal pain: denies Flank pain: denies Sexual complaints: _ History of Present Illness Tests reviewed: reviewed UA. I have reviewed the previous health record information and history for this patient from Dr. Mi I have reviewed and verified the staff HPI to be accurate for this encounter. There have been no associated fever, chills, flank pain, or blood in the urine. Denies any urinary infections since last encounter. Review of Systems PHQ Score Initial Depression Screen Score: 0 SCORE ROS - Provider Constitutional: denies weight loss, denies hot flashes. Eyes: denies eye problems. Gastrointestinal: denies nausea, denies vomiting. Cardiovascular: denies chest pain or angina. Integumentary: no dryness Musculoskeletal: denies musculoskeletal symptoms. ENMT: denies otolaryngeal symptoms. Respiratory: no shortness of breath. Heme/Lymph: denies easy bleeding tendency, denies easy bruising tendency. Psychiatric: no confusion, no anxiety. Genitourinary: See HPI. Physical Exam Vitals & Measurements HR: 83(Peripheral) RR: 16 BP: 153/88 HT: 62 in HT: 157 cm WT: 61 kg WT: 134.482 lb BMI: 24.75 General Appearance: alert , no acute distress, well nourished, well developed female. Assessment/Plan 1. Nephrolithiasis (N20.0: Calculus of kidney) S/p ESWL 10/20/19 (hx of hematoma following ESWL) S/p lithotripsy 09/07/21. OLAMIDE 04/06/22 - 1.7 x 2.4 x 2.0 cm parapelvic left kidney cyst KUB 04/06/22 - persistent multiple calcifications in the lower pole region of the left kidney. The largest stone measuring ~8mm. KUB 10/16/22 - cluster of small calcs in lower pole L, 2-3mm largest. KUB 03/12/23 - a cluster of tiny Lt renal stones again identified and measured approx 11 mm. Pt did go to [facility] ER and was diagnosed with dehydration. Reports she has occasional flank pain. Denies stone passage since last visit. Reports she forgot tohave KUB done prior to appt. Pt to have KUB done soon. -KUB now, pt to be called with results -Repeat met w/up, pt to be called with results Follow up in 1 year w/ KUB. 2. Hypocitraturia (R82.991: Hypocitraturia) Metabolic workup 05/29/22 - shows low volume (<1L) and low urine 24h citrate. Experienced a stomach ache while taking Potassium Citrate 20 mEq 2 tabs BID. Pt states she tried the fizzy tab, she states those were disgusting . Pt shares she does not like the taste of water. Pt states it takes her all day to drink 16oz of water. Recommended pt. to increase fluid intake to ten to twelve 16oz bottles a day; preferably water, clear pop, and sugar free lemonade. -Fluids -Repeat met w/up 3. Other urethral stricture, female (N35.82: Other urethral stricture, female) S/p Cysto/UD 10/27/19. No issues with stream or emptying, denies straining. Denies infections. 4. Microscopic hematuria (R31.29: Other microscopic hematuria) UA today shows small blood. Denies gross hematuria. Stopped using Estradiol cream therapy due to running out and not having refills left. 5. Mixed stress and urge incontinence (N39.46: Mixed incontinence) Mainly UUI during the night, has noticed an improvement if she voids right before bedtime. Has limited what she drinks prior to bedtime. Also experiences DOMENIC with coughing, sneezing, laughing. Discussed med mgmt for UUI. Pt feels symptoms have improved since last visit. Will consider med mgmt if symptoms worsen. -Limit fluids 2 hrs prior to bedtime -May consider anticholinergic or beta-3 agonist Follow-up With When Contact Information SHMUEL LOZANO, Mi Morel, URL [facility] [place] [id number]- Additional Instructions: 1 year w/ KUB Patient Education Dietary Guidelines to Help Prevent Kidney Stones I, Ashleigh Araiza, personally scribed for Dr. Mi on 06/05/2024 11:41:59. . Documentation recorded by the scribe, Ashliegh Araiza, accurately reflects the services(s) I performed and decisions made by me. Authenticated by Dr. Mi on 06/05/2024 11:44:29. Problem List/Past Medical History Ongoing Actinic keratosis BMI 24.0-24.9, adult Carpal tunnel syndrome Cervical herniation Cervicalgia Colon, diver (more content not included)...[facility] Comment on above:Result Comment: Electronically Signed By: Mi MI MD\.br\Date and Time Signed: 06/05/24 11:44 EST\.br\Electronically Co-Signed By: Ashleigh Araiza.br\Date and Time Co-Signed: 06/05/2510:42 ESTBMPon 76-67-3386Jbxxt gap [Moles/Vol]13 mmol/LNormal6-16[facility] Comment on above:Performed By: #### [id number] #### [facility] [address] [place], [place] [address]Bzxpdzd [Mass/Vol]10.2 mg/dLNormal8.9-11.1FThe Surgical Hospital at SouthwoodsComment on above:Performed By: #### [id number] #### [facility] [address] [place], [place] [address]Ksvxlzed [Moles/Vol]100 mmol/XGmz607-526RbontcAvita Health System Bucyrus HospitalComment on above:Performed By: #### [id number] #### [facility] [address] [place], [place] [address]DD3 [Moles/Vol]31 mmol/MSytfci71-30RclbewAvita Health System Bu[facility]rus Hospital Comment on above:Performed By: #### [id number] #### [facility] [address] [place], [place] [address]Wymurlkoiu [Mass/Vol]1.1 mg/dLNormal0.5-1.3FThe Surgical Hospital at SouthwoodsComment on above:Performed By: #### [id number] #### [facility] [address] [place], [place] [address]Ohhpiuf [Mass/Vol]100 mg/yNHwczmc14-047AigttyAvita Health System Bucyrus HospitalComment on above:Performed By: #### [id number] #### [facility] [address] [place], [place] [address]Ijsdyxjbq [Moles/Vol]3.8 mmol/LNormal3.5-5.3FThe Surgical Hospital at SouthwoodsComment on above:Performed By: #### [id number] #### [facility] [address] [place], [place] [address]Azhcsr [Moles/Vol]140 mmol/MYzleln425-544GnlhndAvita Health System Bucyrus HospitalComment on above:Performed By: #### [id number] #### [facility] [address] [place], [place] [address]Mdbu nitrogen [Mass/Vol]19 mg/dLNormal5-21[facility] HospitalComment on above:Performed By: #### [id number] #### [facility] [address] [place] [address]Qojd nitrogen/Creatinine [Mass ratio]17 No JgylvOggmdv93-93 [facility] HospitalComment on above:Performed By: #### [id number] #### [facility] [address] [place] [address]OGQ w/ Auto Diffon 10-87-6390Ywoqdadsr/100 WBC (Bld)0.7 %Normal 0.0-2.0[facility] HospitalComment on above:Performed By: #### [id number] #### [facility] [address] [place] [address]Zlrfnhbke/Leukocytes Auto (Bld) [Pure # fraction]0.1 E9/LNormal 0.0-0.2FThe Surgical Hospital at SouthwoodsComment on above:Performed By: #### [id number] #### [facility] [address] [place] [address]Xpbvefvpqku (Bld) [#/Vol]0.1 E9/LNormal0.0-0.5FThe Surgical Hospital at SouthwoodsComment on above:Performed By: #### [id number] #### [facility] [address] [place] [address]Arxjbaqcvmm/100 WBC (Bld)1.7 %Normal0.0-8.0[facility] HospitalComment on above:Performed By: #### [id number] #### [facility] [address] [place] [address]Gesgxbvlqwy distribution width (RBC) [Ratio]13.3 %Normal 10.9-14.2FThe Surgical Hospital at SouthwoodsComment on above:Performed By: #### [id number] #### [facility] [address] [place] [address]Enltmtktkl (Bld) [Volume fraction]40.1 %Vuctyo23.0-46.0[facility] HospitalComment on above:Performed By: #### [id number] #### [facility] [address] [place] [address]Knajkarozb (Bld) [Mass/Vol]14.0 g/sFIwuioe83.0-16.0[facility] HospitalComment on above:Performed By: #### [id number] #### [facility] [address] [place] [address]Toakbinhczm (Bld) [#/Vol]1.9 E9/LNormal1.0-4.0[facility] HospitalComment on above:Performed By: #### [id number] #### [facility] [address] [place] [address]Crkveluimsh/100 WBC (Bld)22.8 %Ssdfcd30.0-50.0[facility] HospitalComment on above:Performed By: #### [id number] #### [facility] [address] [place] [address]YWS (RBC) [Entitic mass]31.2 ysPamnou05.0-34.0[facility] HospitalComment on above:Performed By: #### [id number] #### [facility] [address] [place] [address]PDAQ (RBC) [Mass/Vol]35.0 g/eEYgzwra87.4-36.0[facility] HospitalComment on above:Performed By: #### [id number] #### [facility] [address] [place] [address]1292HIH (RBC) [Entitic vol]89.2 rILxyjcu84.0-100.0[facility] HospitalComment on above:Performed By: #### [id number] #### [facility] [address] [place] [address]Pjwzitdje (Bld) [#/Vol]0.9 E9/LNormal0.2-1.0[facility] HospitalComment on above:Performed By: #### [id number] #### [facility] [address] [place] [address] 926[address]Uepqtrruyuj (Bld) [#/Vol]5.5 E9/LNormal2.0-7.5FThe Surgical Hospital at SouthwoodsComment on above:Performed By: #### [id number] #### [facility] [address] [place] [address]Rlmdeloexnb/100 WBC (Bld)64.6 %Ehluzk86.0-75.0[facility] HospitalComment on above:Performed By: #### [id number] #### [facility] [address] [place] [address]Oedbvofs889.0 E9/LTrislf139.0-500.0[facility] Comment on above:Performed By: #### [id number] #### [facility] [address] [place] [address]Jlqtopmp mean volume (Bld) [Entitic vol]7.1 fLNormal6.4-10.8 [facility] HospitalComment on above:Performed By: #### [id number] #### [facility] [address] [place] [address] 269[address]XWN (Bld) [#/Vol]4.5 E12/LNormal4.3-5.9[facility] HospitalComment on above:Performed By: #### [id number] #### [facility] [address] [place] [address] 03[address]LVF corrected for nucl RBC Auto (Bld) [#/Vol]8.5 E9/LNormal 4.0-11.0[facility] HospitalComment on above:Performed By: #### [id number] #### [facility] [address] [place] [address]IUXKFZFTSEwiofqx By: SYSTEM SYSTEM on 93-29-2367Bowfrrso HS9.60 pg/mLLow10.10 - 27.10 pg/mLRemisol ChemComment on above:Interpretive Data: The 95% CI (Confidence Interval) PPV (Positive Predictive Value) for myocardial i nfarction in females is 38 pg/mL, in males 51 pg/mL. The results should be used in conjunction withclinical conditions of myocardial infarction. (Access High Sensitivity Troponin I Instructions For Use, [employer], December 2017)Anion gap [Moles/Vol]13 mmol/LNormal6 - 16 mEq/LRemisol ChemCalcium [Mass/Vol]10.2 mg/dLNormal8.9 - 11.1 mg/dLRemisol ChemChloride [Moles/Vol]100 mmol/VCuu764 - 111 mmol/LRemisol ChemCO2 [Moles/Vol]31 mmol/RWgflzy26 - 31 mmol/LRemisol ChemCreatinine [Mass/Vol]1.1 mg/dLNormal0.5 - 1.3 mg/dLRemisol GbwunUKO64 mL/min/1.73 m2Low>=59mL/min/1.73 s5Ucdmvbt ChemGlucose [Mass/Vol]100 mg/fPJxxnpb95 - 199 mg/dLRemisol ChemPotassium [Moles/Vol]3.8 mmol/LNormal3.5 - 5.3 mmol/LRemisol ChemSodium [Moles/Vol]140 mmol/QMyfgpn623 - 145 mmol/LRemisol ChemTroponin HS9.00 pg/mLLow10.10 - 27.10 pg/mLRemisol ChemComment on above: Interpretive Data: The 95% CI (Confidence Interval) PPV (Positive Predictive Value) for myocardial infarction in females is 38 pg/mL, in males 51 pg/mL. The results should be used in conjunction withclinical conditions of myocardial infarction. (Access High Sensitivity Troponin I Instructions For Use, [employer], December 2017)Urea nitrogen [Mass/Vol]19 mg/dLNormal5 - 21 mg/dLRemisol ChemUrea nitrogen/Creatinine [Mass ratio]17 mg/ejDrstdh40 - 20Remisol ChemCOAGULATION Ordered By: Mesha Hartmann on [id number] Coag (PPP) [Time]36.9 sHigh25.1 - 36.5 second(s)[facility] Auto CoagComment on above:Interpretive Data: Parameter 15 days - 4 weeks 1 - 5 months 6 - 11 months 1 - 5 years 6 - 10 years 11 - 17 years PTT Mean: 35.4 (27.6-45.6) Mean: 33.5 (24.8-40.7) Mean: 32.4 (25.1-40.7) Mean: 31.6 (24.0-39.2) Mean: 31.6 (26.9-38.7) Mean: 31.0 (24.6-38.4) Pediatric Reference ranges were obtained from a study by lia Izquierdo al. prepared from 1437 samples obtained at 7 different centers using the same coagulation reagent and instrumentation as [facility]. Currently there are no coagulation studies available worldwide for children to 14 days, andno normal ranges. Heparin therapeutic range (represented by Anti-Factor Xa activity of 0.2 - 0.4 U/mL) corresponds to PTT of 56.6 - 109.0 sec.INR Coag (PPP) [Relative time]0.86 {INR}Invalid Interpretation CodeROGER [facility]ILL[facility] [place] Auto CoagComment on above:Interpretive Data: INR results are specifically intended to assess patients stabilized on long-term Anticoagulation therapy suggested INR s Less Intensive Anticoagulation 2.0 3.0 Conventional Range 3.0 4.5PT Coag (PPP) [Time]9.6 sNormal9.4 - 12.5 second(s) [facility] Auto CoagComment on above:Interpretive Data: 15 days - 4 weeks 1 - 5 months 6 -11 months 1 5 years 6 10 years 11 -17 years Mean: 11.2 (9.5 12.6) Mean: 11.0 (9.7 12.8) Mean: 11.0 (9.8 13.0) Mean: 11.3 (9.9 13.4) Mean: 11.7 (10.0 14.6) Mean: 11.8 (10.0 - 14.1) Pediatric Reference ranges were obtained from a study by kaela Izquierdo prepared from 1437 samples obtained at 7 different centers using the same coagulation reagent and instrumentation as [facility]. Currently there are no coagulation studies available worldwide for children to 14 days, andno normal ranges.ED Clinical Summaryon [id number] Clinical SummaryED Clinical Summary [facility] [address] [place], [place] [address] ED Clinical Summary Person Information Name: ALISON FERRELL [place] Age: 63 Years : 1960 Sex: Female Language: Azeri PCP: DAX LOPEZ Marital Status: Visit Id: Visit Reason: Hypertension; Jaw pain; Chest pain; CP, JAW PAIN, HIGH BP Speciality: Acuity: 2 Enc Type: Emergency Med Service: Emergency Arrival: 05/11/2024 14:17:25 Discharge: 05/11/2024 16:52:38 LOS: 000 02:35 Checkin: 05/11/2024 14:17:25 Checkout: 05/11/2024 16:52:38 Dispo Type: Left Without Being Seen EVENTS: Event Name Event Status Request Date/Time Start Date/Time Complete Date/Time Arrive Complete 05/11/2024 14:17:25 05/11/2024 14:17:25 05/11/2024 14:17:25 Document Home Meds Request 05/11/2024 14:17:25 Triage Complete 05/11/2024 14:17:25 05/11/2024 14:27:24 05/11/2024 14:27:24 EKG Complete 05/11/2024 14:19:19 05/11/2024 14:28:52 Bed Assign Complete 05/11/2024 14:21:42 05/11/2024 14:21:42 05/11/2024 14:21:42 Dr Exam Request 05/11/2024 14:21:42 RN Exam Request 05/11/2024 14:21:42 Registration Complete 05/11/2024 14:27:29 05/11/2024 14:27:29 05/11/2024 14:27:29 Reg Complete Request 05/11/2024 14:27:29 Reg Bed Request Complete 05/11/2024 14:27:29 05/11/2024 14:27:29 05/11/2024 14:27:29 Pending Labs Inlab 05/11/2024 14:28:02 Lab Complete 05/11/2024 14:28:02 05/11/2024 15:38:03 X-Ray Complete 05/11/2024 14:28:02 05/11/2024 15:57:55 05/11/2024 16:02:46 Pending Labs Complete 05/11/2024 15:07:36 05/11/2024 15:07:36 05/11/2024 15:38:03 Lab Complete 05/11/2024 15:07:36 05/11/2024 15:07:36 05/11/2024 15:38:03 Pending Labs Complete 05/11/2024 15:15:18 05/11/2024 15:15:18 05/11/2024 15:15:18 Wet Read Request 05/11/2024 16:02:46 Discharge Complete 05/11/2024 16:53:12 05/11/2024 16:53:12 05/11/2024 16:53:12 Transfer Complete 05/11/2024 16:53:12 05/11/2024 16:53:12 05/11/2024 16:53:12 ADDRESS: [address] [place] [phone] PHYS DOC NOTES: MEDICAL INFORMATION: Prescriptions Given: Medications to Continue with No Changes Other Medications atorvastatin (atorvastatin 40 mg Tab) TAKE 1 TABLET BY MOUTH AT BEDTIME. Refills: 0. duloxetine (duloxetine 30 mg oral delayed release capsule) TAKE 1 CAPSULE BY MOUTH ONCE DAILY WITH 60 MG CAPSULE. Refills: 0. gabapentin (gabapentin 100 mg Cap) 2 Capsules By Mouth 2 times a day. Refills: 1. hydrocortisone topical (hydrocortisone Top 2.5% Crm) 1 Application Topical every day. Refills: 0. lisinopril (lisinopril 40 mg Tab) 0.5 tab By Mouth every day. Refills: 1. metformin (metformin 1000 mg Tab) 1 Tablets By Mouth every day. Refills: 1. nadolol (nadolol 20 mg Tab) 0.5 Tablets By Mouth at bedtime. Refills: 1. omeprazole (omeprazole 20 mg Cap-DR) 1 Capsules By Mouth every day. ondansetron (Zofran ODT 4 mg Tab-Dis) 1 Tablets By Mouth every 8 hours. Refills: 0. predniSONE (predniSONE 20 mg Tab) 3 po qd for 2 d, then 2 po qd for 2 d then 1 po qd for 4 d then 1/2 qd for 4 d. Refills: 0. valacyclovir (Valtrex 1 g Tab) 1 Tablets By Mouth 2 times a day. Refills: 0. PATIENT EDUCATION INFORMATION: Instructions: Follow up: DIAGNOSIS:[facility]icianon [id number] Note-PhysicianED Note-Physician Basic Information No qualifying data available. Chief Complaint patient presents with hypertension, chest pain and jaw pain x 3 days. does not take medication for hypertension. denies SANTIAGO Medical Decision Making Cardiac workup was ordered in triage. Patient left without being seen. Workup was reviewed. 2 negative troponins. Chest x-ray without acute findings. EKG without obvious ischemia. There were no acute findings in the workup that necessitate callback of the patient at this time for notification. Assessment/Plan Patient left without being seen (Z53.21: Procedure and treatment not carried out due to patient leaving prior to being seen by health care provider) Orders: Basic Metabolic Panel CBC w/ Auto Diff ECG 12 Lead Adult eGFR Extra SST Tube PT & PTT Troponin 0 Hr. Troponin 1 Hr. XR Chest Single View Disposition Plan Discharge Prescription List Prescriptions No active prescription medications Follow-up No qualifying data available Problem List/Past Medical History Ongoing Actinic keratosis BMI 24.0-24.9, adult Carpal tunnel syndrome Cervical herniation Cervicalgia Colon, diverticulosis Controlled type 2 diabetes mellitus Eczematoid otitis externa of both ears Encounter for long-term (current) use of medications Essential hypertension Generalized multiple sclerosis Hyperlipidemia, mixed Hypocitraturia Insomnia Left tennis elbow Low vitamin D level Medullary sponge kidney Microscopic hematuria Mixed stress and urge incontinence Multiple sclerosis NOS Nephrolithiasis Non-tobacco user Orthostatic syncope CARMEL on CPAP Other specified anemias Other specified anxiety disorders Other urethral stricture, female Recurrent major depressive episodes, moderate Transient cerebral ischemia Historical Breast cancer screening by mammogram Diverticulitis GERD - Gastro-esophageal reflux disease Hematoma of left kidney Schatzki's ring of distal esophagus Screen for colon cancer Procedure/Surgical History Cystoscopic removal of ureteric stent (05/29/2022), Lithotripsy (05/03/2022), Esophagogastroduodenoscopy (09/12/2021), Lithotripsy (09/07/2021), ESWL of kidney (11/19/2019), Cystoscopy (11/06/2018), Sling procedure of bladder neck (2009), Tubal ..... (05/20/1979), Appendectomy, Cholecystectomy, History of elbow surgery, Hysterectomy, Stone retrieval basket. Medications Inpatient No active inpatient medications Home atorvastatin 40 mg Tab, See Instructions, Not taking duloxetine 30 mg oral delayed release capsule, See Instructions, Not taking gabapentin 100 mg Cap, 200 mg= 2 cap(s), Oral, BID, 1 refills, Not taking hydrocortisone Top 2.5% Crm, 1 bryan, Topical, Daily, Not taking lisinopril 40 mg Tab, 0.5 tab, Oral, Daily, 1 refills, Not taking metformin 1000 mg Tab, 1000 mg= 1 tab(s), Oral, Daily, 1 refills, Not taking nadolol 20 mg Tab, 10 mg= 0.5 tab(s), Oral, Bedtime, 1 refills, Not taking omeprazole 20 mg Cap-DR, 20 mg= 1 cap(s), Oral, Daily, Not taking predniSONE 20 mg Tab, See Instructions, Not taking Valtrex 1 g Tab, 1 gm= 1 tab(s), Oral, BID, Not taking Zofran ODT 4 mg Tab-Dis, 4 mg= 1 tab(s), Oral, q8hr, Not taking Allergies CeleBREX (Nausea) Cipro (Nausea) Pristiq (Nausea) Zithromax (Nausea) azithromycin (SOB - Shortness of breath, Occasional tremors., Nausea present) Betadine (Rash) Tape codeine (Nausea) desonide topical (Unknown) desvenlafaxine (Nausea) morphine (Nausea) penicillin (Rash) sulfa drugs (Rash) Social History Alcohol - Denies Alcohol Use, 10/13/2009 Current, Household alcohol concerns: No., 02/03/2024 Substance Abuse - Denies Substance Abuse, 10/13/2009 Current, Household substance abuse concerns: No., 02/03/2024 Tobacco - Denies Tobacco Use, 10/13/2009 Never (less than 100 in lifetime) Tobacco Use:. Never Smokeless Tobacco Use:. Household tobacco concerns: No., 05/11/2024 Family History Acute myocardial infarction: Father. Alzheimer's disease: Mother. Cataract: Mother and Father. Diabetes mellitus type 2: Mother, Father and Sister. Heart failure: Father. Hypertension: Mother. Metastatic cancer: Father. Peripheral vascular disease: Mother. Stroke: Father. Lab Results WBC: 8.5 E9/L (05/11/24 14:59:00) RBC: 4.5 E12/L (05/11/24 14:59:00) HGB: 14 gm/dL (05/11/24 14:59:00) Hct: 40.1 % (05/11/24 14:59:00) MCV: 89.2 fL (05/11/24 14:59:00) MCH: 31.2 pg (05/11/24 14:59:00) MCHC: 35 gm/dL (05/11/24 14:59:00) RDW: 13.3 % (05/11/24 14:59:00) Platelet: 335 E9/L (05/11/24 14:59:00) MPV: 7.1 fL (05/11/24 14:59:00) Neutro Auto: 64.6 % (05/11/24 14:59:00) Lymph Auto: 22.8 % (05/11/24 14:59:00) Cuming Auto: 10.2 % (05/11/24 14:59:00) Eos Auto: 1.7 % (05/11/24 14:59:00) Basophil Auto: 0.7 % (05/11/24 14:59:00) Neutro Absolute: 5.5 E9/L (05/11/24 14:59:00) Lymph Absolute: 1.9 E9/L (05/11/24 14:59:00) Cuming Absolute: 0.9 E9/L (05/11/24 14:59:00 (more content not included)...Normal [facility] HospitalComment on above:Result Comment: Electronically Signed By: Alon Payne DO.terri\Date and Time Signed: 05/11/24 17:05 [place] Patient Education Noteon [id number] Patient Education NoteED Patient Education NoteNormalPremier Health [facility] Patient Summaryon [id number] Patient SummaryED Patient Summary [place] [id number] Patient Discharge Instructions Person Information Name: ALISON FERRELL Age: 63 Years Arrival Date: 05/11/2024 14:17:25 Discharge Diagnosis: Primary Care Physician: DAX LOPEZ Provider Information Primary Provider: [employer] Back Tender:Darryl The exam and treatment you received in the Emergency Department were for an urgent problem and are not intended as complete care. It is important that you follow up with a doctor, nurse practitioner,or physician???s administrative assistant data entry for ongoing care. If your symptoms become worse or you do not improve asexpected and you are unable to reach your usual health care provider, you should return to the Emergency Department. We are available 24 hours a day. ALISON FERRELL has been given the following list of patient education materials, prescriptions andfollow-up instructions: Follow-up Instructions: In the event that this physician does not participate in your insurance network, please consult with your insurance company to find a nearby participating provider. Patient Education Materials: A MESSAGE TO ALL PATIENTS REGARDING OPIOIDS PRESCRIPTION OPIOIDS: WHAT YOU NEED TO KNOW Prescription opioids can be used to help relieve ibqwfigv-ci-kwroqy pain and are often prescribed following a surgery or injury, or for certain health conditions. These medications can be an important part of the treatment but also come with serious risks. It is important to work with your healthcare provider to make sure you are getting the safest, most effective care. WHAT ARE THE RISKS AND SIDE EFFECTS OF OPIOID USE? Prescription opioids carry serious risks of addiction and overdose, especially with prolonged use. An opioid overdose, often marked by slowed breathing, can cause sudden . The use of prescription opioids can have a number of side effects as well, even when taken as directed: ??? Tolerance???meaning you might need to take more of the medication for the same pain relief ??? Physical dependence???meaning you have symptoms of withdrawal when a medication is stopped ??? Increased sensitivity to pain ??? Constipation ??? Nausea, vomiting, and dry mouth ??? Sleepiness and dizziness ??? Confusion ??? Depression ??? Low levels of testosterone that can result in lower sex drive, energy, and strength ??? Itching and sweating RISKS ARE GREATER WITH: ??? History of drug misuse, substance use disorder, or overdose ??? Mental health conditions (such as depression or anxiety) ??? Sleep apnea ??? Older age (65 years and older) ??? Avoid alcohol while taking prescription opioids. Also, unless specifically advised by your health care provider, medications to avoid include: ??? Benzodiazepines (such as Xanax or Valium) ??? Muscle relaxants (such as Soma or Flexeril) ??? Hypnotics (such as Ambien or Lunesta) ??? Other prescription opioids KNOW YOUR OPTIONS Talk to your health care provider about ways to manage your pain that don???t involve prescription opioids. Some of these options may actually work better and have fewer risks and side effects. Options may include: ??? Pain relievers such as acetaminophen, ibuprofen, and naproxen ??? Some medication that are also used for depression or seizures ??? Physical therapy and exercise ??? Cognitive behavioral therapy, a psychological, goal-directed approach, in which patients learn how to modify physical, behavioral, and emotional triggers of pain and stress. IF YOU ARE PRESCRIBED OPIOIDS FOR PAIN: ??? Never take opioids in greater amounts or more often than prescribed. ??? Follow up with your primary health care provider. o Work together to create a plan on how to manage your pain. o Talk about ways to help manage your pain that don???t involve prescription opioids. o Talk about any and all concerns and side effects. ??? Help prevent misuse and abuse o Never sell or share prescription opioids. o Never use another person???s prescription opioids. ??? Store prescription opioids in a secure place and out of reach of others (this may include visitors, children, friends, and family). ??? Safely dispose of unused prescription opioids: Find your community drug take-back program or your pharmacy mail-back program, or flush them down the toilet, following guidance from the Food and Drug Administration (www.fda.gov/Drugs/ResourcesForYou). ??? Visit www.cdc.gov/drugoverdose to learn about the risks of opioids abuse and overdose. ??? If you believe you may be struggling with addiction, tell your health health care assistant and askfor guidance or call [facility]???S National Helpline at 3-105-152-HELP. v Source: [place] Department of Health and Human Services/Center for Disease Control & Prevention [facility] Medications (more content not included)...Normal[facility] Office/Clinic Noteon [id number] Medicine Office/Clinic NoteFasaints [facility] Medicine Office/Clinic Note Chief Complaint left shoulder/arm pain, high BP HPI Staff 63 year old female presents for pain in her left shoulder, left arm and up to her neck. Pt states that it feels like muscle pain. Pt states that she does not seem to be SOB at this time. Onset- first part of March History of Present Illness I have reviewed and verified the staff HPI to be accurate for this encounter. Portions of this record have been created with voice recognition software. Occasional wrong-word or???luguj-x-iflj??? substitutions may have occurred due to the inherent limitations of voice recognition software. 63-year-old female with history of carpal tunnel syndrome, cervicalgia, history of herniated disc in the neck, type 2 diabetes which is controlled, hypertension, MS, hyperlipidemia presents today with chief complaint of high blood pressure in addition to left shoulder and arm pain which radiates upthe left side of her neck. Patient states she was seen by her primary care provider approximately 5days ago. Patient states she was seen at that time in regards to left shoulder pain and discomfort.She states prior to she had bumped the left shoulder on a door frame. States she does have a history of disc herniations in her neck but states this felt different denies any neck pain. S tates that the pain started in the left shoulder, radiated down into the left arm she denied any chest pain shortness of breath or difficulty breathing at that time stated it felt like sgxe-gkg-xjebheq on the surface of the skin in which PCP had concern for possible developing shingles and started patient on valacyclovir. Patient states that she only took the first dose that day and states after that she noticed a significant elevation in her blood pressure. Patient states she had contacted herPCP to let them know that her blood pressure was elevated at 200/100 at home. She states that the left shoulder pain has not improved if anything it may have gotten worse. She states that today she de veloped some left-sided anterior chest wall discomfort and while sitting and convening care on the exam table complained of some left-sided jaw discomfort. When asking about the left-sided jaw discomfort she stated that that would come and go. Patient does state history of hypertension type 2 diabetes but states that she has lost approximately 40 pounds and had discontinued all of her medicationsas she felt she did not need them anymore. States that her primary care provider Dr. Roberts had retired and she was feeling great after her weight loss of discontinued all of her medications. She is not currently taking any medications. Previously had been on lisinopril and another blood pressure pill. Patient has not restarted any of those medications in regards to elevation of her blood pressureshe denies any significant headache blurred vision double vision or change in vision. She denies any weakness numbness or tingling of the extremities. She denies any shortness of breath or difficultybreathing she would rate the left anterior chest discomfort as a 4 out of 10 the pain scale states that it hurts to touch but also feels deep. She does feel that the left anterior chest discomfort isassociated with the left shoulder and left arm pain. She denies any history of coronary artery disease, DE or stent placement. States she is been under a consider amount of stress as her 's care provider as on April 27 he had a fall and stroke. States he had a brain bleed in which she now is in a care center in [place] until at least May until they figure out their insurance for long-term placement. Patient denies any history of asthma or COPD. Denies smoking. She denies any runny stuffy nose cough or cold-like symptoms. Denies any nausea or upset stomach or abdominal pain. She hasno other concerns at this time. Review of Systems PHQ Score Initial Depression Screen Score: 0 SCORE ROS negative unless otherwise stated in HPI. Physical Exam Vitals & Measurements HR: 96(Peripheral) RR: 18 BP: 200/120 SpO2: 97% HT: 62 in HT: 158 cm WT: 61 kg WT: 134.482 lb BMI: 24.44 General: Pleasant elderly female, no acute distress sitting upright on the exam table Eyes: Bilateral conjunctiva within normal limits no injection Ears: not assessed Nose: not addressed Mouth: not assessed Neck: not assessed Lungs: Bilateral lung sounds are clear bilaterally no wheezing rhonchi or crackles on exam. Cardio: S1, S2, regular rhythm. No murmurs gallops or rubs. Chest: Pt has reproducible left anterior chest wall pain Abdomen: not assessed Musculoskeletal: not assessed Extremity: not assessed Neurologic: not assessed Skin: not assessed Mental Status: Alert and oriented x3. Normal mood and affect Assessment/Plan Patient's repeat blood pressure in office was 200/120. I discussed with patient that despite her history of hypertension and discontinuing all of her medications as well as initial (more content not included)...[facility] CenterComment on above:Result Comment: Electronically Signed By: Saurav VAZQUEZ, Miguelangel Riley.br\Date and Time Signed: 05/11/2414:32 ESTHEMATOLOGYOrdered By: SYSTEM SYSTEM on 12-66-4329Jlwazblkh/100 WBC (Bld)0.7 %Normal0.0 - 2.0 %Remisol HemeBasophils/Leukocytes Auto (Bld) [Pure # fraction]0.1 E9/LNormal0.0 - 0.2 E9/LRemisol HemeEosinophils (Bld) [#/Vol]0.1 E9/LNormal0.0 - 0.5 E9/LRemisol HemeEosinophils/100 WBC (Bld)1.7 %Normal0.0 - 8.0 %Remisol HemeErythrocyte distribution width (RBC) [Ratio]13.3 %Vptrku48.9 - 14.2 %Remisol HemeHematocrit (Bld) [Volume fraction]40.1 %Abucjr81.0 - 46.0 %Remisol HemeHemoglobin (Bld) [Mass/Vol]14.0 g/lUHiknqn28.0 - 16.0 gm/dLRemisol HemeLymphocytes (Bld) [#/Vol] 1.9 E9/LNormal1.0 - 4.0 E9/LRemisol HemeLymphocytes/100 WBC (Bld)22.8 %Normal 14.0 - 50.0 %Remisol HemeMCH (RBC) [Entitic mass]31.2 pmXmzeuh13.0 - 34.0 pg Remisol HemeMCHC (RBC) [Mass/Vol]35.0 g/qBQhrgnw64.4 - 36.0 gm/dLRemisol HemeMCV (RBC) [Entitic vol]89.2 hBWxrafk34.0 - 100.0 fLRemisol HemeMonocytes (Bld) [#/Vol]0.9 E9/LNormal0.2 - 1.0 E9/LRemisol HemeMonocytes/100 WBC (Bld)10.2 % Normal4.0 - 14.0 %Remisol HemeNeutrophils (Bld) [#/Vol]5.5 E9/LNormal2.0 - 7.5 E9/LRemisol HemeNeutrophils/100 WBC (Bld)64.6 %Vdmwmm02.0 - 75.0 %Remisol Heme Qnawhtnx043.0 E9/MFgkvok568.0 - 500.0 E9/LRemisol HemePlatelet mean volume (Bld) [Entitic vol]7.1 fLNormal6.4 - 10.8 fLRemisol HemeRBC (Bld) [#/Vol]4.5 E12/L Normal4.3 - 5.9 E12/LRemisol HemeWBC corrected for nucl RBC Auto (Bld) [#/Vol] 8.5 E9/LNormal4.0 - 11.0 E9/LRemisol HemePT & PTTon 56-23-8121fJFZ Coag (PPP) [Time]36.9 second(s)High25.1-36.5Fisher Thomas [facility]. Finan CenterComment on above: Result Comment: Parameter 15 days - 4 weeks 1 - 5 months 6 - 11 months 1 - 5 years 6 - 10 years 11 - 17 years PTT Mean: 35.4 (27.6-45.6) Mean: 33.5 (24.8-40.7) Mean: 32.4 (25.1-40.7) Mean: 31.6 (24.0-39.2) Mean: 31.6 (26.9-38.7) Mean: 31.0 (24.6-38.4) Pediatric Reference ranges were obtained from a study by Clark Barrera et al. prepared from 1437 samples obtained at 7 different centers using the same coagulation reagent and instrumentation as [facility]. Currently there are no coagulation studies available worldwide for children to 14 days, andno normal ranges. Heparin therapeutic range (represented by Anti-Factor Xa activity of 0.2 - 0.4 U/mL) corresponds to PTT of 56.6 - 109.0 sec.Performed By: #### [id number] #### [facility] [address] [place], [place] [address]FHN Coag (PPP) [Relative time]0.86 {INR}Invalid Interpretation [facility]. Finan CenterComment on above:Result Comment: INR results are specifically intended to assess patients stabilized on long-term Anticoagulation therapy suggested INR???s ???Less Intensive Anticoagulation??? 2.0 ??? 3.0 Conventional Range 3.0 ??? 4.5Performed By: #### [id number] #### [facility] [address], [place] [address]LB Coag (PPP) [Time]9.6 second(s)Normal9.4-12.5FThe Surgical Hospital at SouthwoodsComment on above:Result Comment: 15 days - 4 weeks 1 - 5 months 6 -11 months 1 ??? 5 years 6 ??? 10 years 11 -17 years Mean: 11.2 (9.5 ??? 12.6) Mean: 11.0 (9.7 ??? 12.8) Mean: 11.0 (9.8 ??? 13.0) Mean: 11.3 (9.9 ??? 13.4) Mean: 11.7 (10.0 ??? 14.6) Mean: 11.8 (10.0 - 14.1) Pediatric Reference ranges were obtained from a study by Clark Barrera et al. prepared from 1437 samples obtained at 7 different centers using the same coagulation reagent and instrumentation as [facility]. Currently there are no coagulation studies available worldwide for children to 14 days, andno normal ranges.Performed By: #### [id number] #### [facility] [address], [place] [address]Dxeoyojx 0 Hr.on [id number] HS9.00 pg/mLLow10.10-27.10 [facility] HospitalComment on above:Result Comment: The 95% CI (Confidence Interval) PPV (Positive Predictive Value) for myocardial infarction in females is 38 pg/mL, in males 51 pg/mL. The results should be used in conjunction with clinical conditions of myocardial infarction. (Access High Sensitivity Troponin I Instructions For Use, Dorothy Freddie, December 2017)Performed By: #### [id number] #### [facility] [address], [place] [address]Mytiijgj 1 Hr.on [id number] HS9.60 pg/mLLow10.10-27.10 [facility] HospitalComment on above:Result Comment: The 95% CI (Confidence Interval) PPV (Positive Predictive Value) for myocardial infarction in females is 38 pg/mL, in males 51 pg/mL. The results should be used in conjunction with clinical conditions of myocardial infarction. (Access High Sensitivity Troponin I Instructions For Use, [employer], December 2017)Performed By: #### [id number] #### [facility] [address], [place] [address]XU Chest Single Viewon [id number] Chest Single ViewExam Date/Time: 05/11/2024 16:02 EST Reason for Exam: Chest pain Report IMPRESSION: NO ACUTE CARDIOPULMONARY DISEASE. CLINICAL HISTORY: Chest pain COMPARISON: March 31, 2023. FINDINGS: Osseous structures intact. Cardiopericardial silhouette normal. Pulmonary vasculature normal. Lungs clear. Ordering Provider: Alon Payne FINAL REPORT Dictated: 05/11/2024 4:09 pm Vasu Shaffer MD Signed (Electronic Signature): 05/11/2024 4:09 pm Signed by: Vasu Shaffer MD Transcribed by: NI Technologist: RACQUEL Technical Comments Radiation Dose: Ka,r in mGy = na DAP = naNormalAvita Health System Bu[facility] HospitaleGFRon [id number] mL/min/1.73 m2 Low>=59[facility] HospitalComment on above:Performed By: #### [id number] #### [facility] [address], [place] [address]Ffjeghaodm Visit Summaryon [id number] Visit Summary Ambulatory Visit Summary ALISON FERRELL :1960 Visit Date:05/06/2024 Ambulatory Visit Instructions Your Care Team Attending Physician - Estrellita LOZANO, Gt Enrique Primary Care Physician - Ajith MSN, GROUND CONTROL APPROACH TECHNICIAN-MINE PROMOTOR, Rosa L. This Is Your Medications List atorvastatin (atorvastatin 40 mg Tab) duloxetine (duloxetine 30 mg oral delayed release capsule) gabapentin (gabapentin 100 mg Cap) hydrocortisone topical (hydrocortisone Top 2.5% Crm) lisinopril (lisinopril 40 mg Tab) metformin (metformin 1000 mg Tab) nadolol (nadolol 20 mg Tab) omeprazole (omeprazole 20 mg Cap-DR) ondansetron (Zofran ODT 4 mg Tab-Dis) predniSONE (predniSONE 20 mg Tab) valacyclovir (Valtrex 1 g Tab) Procedures Performed Cystoscopic removal of ureteric stent (05/29/2022), Lithotripsy (05/03/2022), Esophagogastroduodenoscopy (09/12/2021), Lithotripsy (09/07/2021), ESWL of kidney (11/19/2019), Cystoscopy (11/06/2018), Sling procedure of bladder neck (2009), Tubal ..... (05/20/1979), Appendectomy, Cholecystectomy, History of elbow surgery, Hysterectomy, Stone retrieval basket. Discharge Vitals Heart Rate (Peripheral) 83 Respiratory Rate 16 Blood Pressure 150/90 Height 158 cm Height 62 in Weight 61.0 kg Weight 134.482 lb BMI 24.44 What to do next Scheduled Follow-Up Appointments Saturday 10:15 AM EST With: SHMUEL LOZANO, Mi Morel Where: [facility] [address] [address]- Saturday 2:00 PM EDT With: Ajith SNIDER, GROUND CONTROL APPROACH TECHNICIAN-MINE PROMOTOR, Rosa York Where: [facility] [address] [place] [address]- Saturday 2:30 PM EDT With: Where: [facility] [address] [place] [address]- Medications What How Much When Why Instructions New predniSONE (predniSONE 20 mg Tab) See instructions 3 po qd for 2 d, then 2 po qd for 2 d then 1po qd for 4 d then 1/ 2 qd for 4 d Pickup at [facility] New valacyclovir (Valtrex 1 g Tab) 1 Tablets By Mouth 2 times a day Pickup at [facility] Unchanged atorvastatin (atorvastatin 40 mg Tab) See instructions TAKE 1 TABLET BY MOUTH AT BEDTIME Unchanged duloxetine (duloxetine 30 mg oral delayed release capsule) See instructions TAKE 1 CAPSULE BY MOUTH ONCE DAILY WITH 60 MG CAPSULE Unchanged gabapentin (gabapentin 100 mg Cap) 2 Capsules By Mouth 2 times a day Paresthesias/numbness Unchanged hydrocortisone topical (hydrocortisone Top 2.5% Crm) 1 Application Topical Every day Unchanged lisinopril (lisinopril 40 mg Tab) 0.5 tab By Mouth Every day Unchanged metformin (metformin 1000 mg Tab) 1 Tablets By Mouth Every day Unchanged nadolol (nadolol 20 mg Tab) 0.5 Tablets By Mouth At bedtime Unchanged omeprazole (omeprazole 20 mg Cap-DR) 1 Capsules By Mouth Every day Unchanged ondansetron (Zofran ODT 4 mg Tab-Dis) 1 Tablets By Mouth Every 8 hours Pharmacy Information [facility]: [address] [place], [place] [id number] [phone] Allergies CeleBREX (Nausea) Cipro (Nausea) Pristiq (Nausea) Zithromax (Nausea) azithromycin (SOB - Shortness of breath, Occasional tremors., Nausea present) Betadine (Rash) Tape codeine (Nausea) desonide topical (Unknown) desvenlafaxine (Nausea) morphine (Nausea) penicillin (Rash) sulfa drugs (Rash) Problems Ongoing - Any problem that you are currently receiving treatment for. Actinic keratosis BMI 24.0-24.9, adult Carpal tunnel syndrome Cervical herniation Cervicalgia Colon, diverticulosis Controlled type 2 diabetes mellitus Eczematoid otitis externa of both ears Encounter for long-term (current) use of medications Essential hypertension Generalized multiple sclerosis Hyperlipidemia, mixed Hypocitraturia Insomnia Left tennis elbow Low vitamin D level Medullary sponge kidney Microscopic hematuria Mixed stress and urge incontinence Multiple sclerosis NOS Nephrolithiasis Non-tobacco user Orthostatic syncope CARMEL on CPAP Other specified anemias Other specified anxiety disorders Other urethral stricture, female Recurrent major depressive episodes, moderate Transient cerebral ischemia Historical - Any problem that you are no longer receiving treatment for. Breast cancer screening by mammogram Diverticulitis GERD - Gastro-esophageal reflux disease Hematoma of left kidney Schatzki's ring of distal esophagus Screen for colon cancer Patient Survey You may receive a survey via text or e-mail asking about your office visit. Please share your experience with us by completing your survey. We appreciate your feedback and thank you for choosing us for your care. [facility] Medicine Office/Clinic Noteon [id number] Medicine Office/Clinic NoteFasaints medical center Medicine Office/Clinic Note Chief Complaint left shoulder pain, towards the back over a week Patient presents with shoulder discomfort exacerbating over recent weeks. HPI Staff Patient presents today with Pain Pain location: Shoulder Laterality: Left Onset:over a week Quality: Sharp Radiation: Yes Injury: Denies Time Pattern: Acute Constant Intensity: 5/10 OTC: Tylenol History of Present Illness The patient is a 63-year-old female presenting with right shoulder discomfort. The discomfort has been intermittent for a while but recently worsened. It is aggravated by specific movements like arm elevation and lateral movements, suggesting musculoskeletal involvement. She described a burning sensation and increased sensitivity in the shoulder and upper arm region, with referral to the neck. There is a sensation of lumps and increased skin sensitivity. No prior shoulder injuries or surgeries were reported. The pain does not seem to be cardiac-related as it does not worsen with exertion likeclimbing stairs. Stress is a significant factor, as she is also the primary caregiver for her , who recently suffered a stroke and has ongoing brain cancer. She has tried ice and heat for relief but found them ineffective, with heat increasing discomfort. The possibility of Herpes Zoster without rash is considered owing to the hyperesthesia and burning quality of the pain described. Review of Systems PHQ Score Initial Depression Screen Score: 0 SCORE - Musculoskeletal: Reports shoulder pain. - Dermatological: Reports increased skin sensitivity. - Neurological: Denies weakness or numbness. - Cardiovascular: Denies exertional chest pain. Physical Exam Vitals & Measurements HR: 83(Peripheral) RR: 16 BP: 150/90 SpO2: 99% HT: 62 in HT: 158 cm WT: 61.0 kg WT: 134.482 lb BMI: 24.44 General: alert, no acute distress Skin: warm, dry, sensitive to light touch, discomfort noted Head: no trauma, normocephalic Neck: Trachea midline, no adenopathy, tenderness noted Eye: normal conjunctiva, sclera clear Cardiovascular: regular rate and rhythm, normal peripheral perfusion Respiratory: Lungs CTA, respirations non labored Gastrointestinal: soft, non distended, no tenderness, no guarding. Back: Tenderness noted, Normal ROM, Normal alignment. Extremities: no deformity, no trauma. diffuse tenderness along posterior scaupla medial and extending lateral to upper tricep area. sensative to even light tough to skin, some tregger point in the lower trap and medial to scapula Neurological: oriented x 4, LOC appropriate for age, CN II-XII intact, motor strength equal & normal bilaterally, sensation equal & normal bilaterally, speech normal Psychiatric: cooperative, affect appropriate for age, normal judgement, normal psychiatric thoughts. Assessment/Plan 1. Stress-Related Fatigue (Z63.79) Recognize significant psychosocial stressors contributing to fatigue and potentially exacerbating physical symptoms. Recommend stress management strategies. Monitor the impact of stress on overall well-being. 2. Musculoskeletal Shoulder Pain (M25.512) Address suspected musculoskeletal component with activity modification, potential physical therapy,and adjunct use of topical lidocaine or capsaicin. Discuss the importance of avoiding actions that exacerbate the pain. Consider ice therapy as an initial conservative measure. could be trigger pointwith regional pain. steroids and ice and pressure and trigger point release should help. 3. Herpes Zoster Without Rash (B02.9) Initiate antiviral therapy to address possible shingles pain. Prednisone is prescribed to target inflammation, which addresses both potential Herpes Zoster and musculoskeletal pain. has dermatomal distribution and pain similar to herpes but no rash. will treat for zoster also discussed topical medsOTC Orders: predniSONE, See Instructions, 3 po qd for 2 d, then 2 po qd for 2 d then 1 po qd for 4 d then 1/2 qd for 4 d, # 16 tab(s), Refills(s) 0, Pharmacy: [facility], 158, cm, 05/06/24 16:16:00 EST, Height/Length Dosing, 61, kg, 05/06/24 16:16:00 EST, Weight D... valacyclovir, 1 gm = 1 tab(s), Oral, BID, # 20 tab(s), Refills(s) 0, Pharmacy: [facility], 158, cm, 05/06/24 16:16:00 EST, Height/Length Dosing, 61, kg, 05/06/24 16:16:00 EST, Weight Dosing During the visit, I discussed with the patient the likelihood of Herpes Zoster (shingles) without rash and its management with antiviral medication and prednisone, emphasizing the benefits of early treatment to reduce symptoms, even if a rash does not develop. Pain management options, including topical agents such as lidocaine and capsaicin, were explored. The patient was advised on the application of ice and to avoid heat to reduce nerve irritation. I explained that should a rash develop, it could be contagious if blisters break, especially around unvaccinated individuals, but no current sores were observed. Stress may be a cont (more content not included)...[facility] Medical CenterComment on above:Result Comment: Electronically Signed By: Estrellita LOZANO, Gt Enrique\.br\Date and Time Signed: 05/06/24 17:03 ESTMA Mamm Screen w/CAD if perf and 3D Bilon [id number] Mamm Screen w/CAD if perf and 3D BilExam Date/Time: 02/13/2024 12:31 EDT Reason for Exam: Z12.31;Screening Report IMPRESSION: BIRADS 1 NEGATIVE, NORMAL INTERVAL FOLLOW-UP Follow-up: 12 MONTH RECALL Density: Category A - Almost entirely fatty. Vascular calcifications: Absent. EXAM: MA Mamm Screen w/CAD if perf and 3D Frederic DATE: 02/13/2024 12:13 PM CLINICAL HISTORY: Screening, Z12.31. COMPARISONS: 04/28/2022 and 05/04/2020. TECHNIQUE: Routine full-field digital mammograms and 3D breast tomosynthesis were obtained of both breasts. FINDINGS: There are no developing densities, suspicious microcalcifications, or areas of architectural distortion identified on the current study. No significant changes are identified from the prior studies, given differences in technique and positioning. Dense Breast: No. CAD analysis was performed and used in the interpretation. Board Certified Radiologists. Accredited by the ACR and FDA. MAMMOGRAPHY IS VERY IMPORTANT TO YOUR HEALTH. THE CURRENT [employer] AND [employer] GUIDELINES RECOMMENDS ANNUAL MAMMOGRAPHY BEGINNING AT AGE 40. THIS FACILITY UTILIZES A REMINDER SYSTEM TO ENSURE ALL PATIENTS RECEIVE REMINDER NOTIFICATIONS AT THE APPROPRIATE TIME BASED ON THE RECOMMENDATIONS OF THIS EXAM. Report Ordering Provider: Sam ROBERTS FINAL REPORT Dictated: 02/17/2024 4:01 pm Alfredo Eller MD Signed (Electronic Signature): 02/17/2024 4:01 pm Signed by: Alfredo Eller MD Transcribed by: NI Technologist: RENNY Assessment: BI-RADS Category 1-Negative Recommendation: Normal interval follow-upBarney Children's Medical CenterBD Bone Density DEXAon [id number] Bone Density DEXAExam Date/Time: 02/13/2024 12:50 EDT Reason for Exam: E28.39;Menopausal Report IMPRESSION: OSTEOPENIA. The 10 year probability (FRAX) of a major osteoporotic fracture based on the femoral neck bone marrow density is: 8.5%, and hip fracture 0.8%. The NOF/ISD guideline recommend FRAX for postmenopausal patients (not on treatment) if the lowest T-score for Spine(L1-L4), Femur Neck or Femur Total indicates low bone density (T score -1.0 to -2.5, osteopenia). EXAM: BD Bone Density DEXA CLINICAL HISTORY: Menopausal, E28.39. COMPARISON: None available. COMMENTS: The lumbar spine and both hips were scanned. The mean bone mineral density from L1 to L4 is 1.415 g/cm2 and this value is 2.0 standard of deviation below the standard reference value for a young adult. Bone mineral density of the left femoral neck is 0.897 g/cm2 and this value is -1.0 standard of deviation below the standard reference value. Bone mineral density of the right femoral neck is 0.857 g/cm2 and this value is -1.3 standard of deviation below the standard reference value. The lowest value(s) meet WHO criteria for osteopenia. RECOMMENDATIONS: 1. All patients should optimize her calcium and vitamin D intake. 2. Consider FDA-approved medical therapies in postmenopausal women and minimal age 50 years and older, based on the following: - hip or vertebral (clinical or morphometric) fracture. - T-score less than or equal to -2.5 at the femoral neck or spine after the appropriate evaluation to exclude secondary causes. - Low bone density (T score between -1.0 and -2.5 at the femoral neck or spine) and a 10 year probability of hip fracture greater than or equal to 3% or a 10-year probability of a major osteoporosis-related fracture greater than or equal to 20% based on FRAX calculation. - Clinician judgment and/or patient preferences may indicate treatment for people with 10 year fracture probability above or below these levels. Report - Further guidance on treatment can be found at the National Osteoporosis Foundation's website: bonesource.org 3. Patients with diagnosis of osteoporosis or high risk for fracture should have regular bone mineral density tests. For patients eligible for Medicare, routine testing is allowed once every 2 years. Testing frequency can be increased to 1 year for patient's history of rapidly progressing disease, those who are receiving or discontinuing medical therapy to restore bone mass or have additional risk factors. Ordering Provider: Sam ROBERTS FINAL REPORT Dictated: 02/14/2024 3:21 pm Jose Haynes MD Signed (Electronic Signature): 02/14/2024 3:21 pm Signed by: Jose Haynes MD Transcribed by: NI Technologist: [facility] HospitalCHEMISTRY Ordered By: SYSTEM SYSTEM on [id number] [Mass/Vol]4.0 g/dLNormal3.3 - 5.0 gm/dLFTMC RemisolAlbumin/Globulin [Mass ratio]0.9 {ratio}Low1.1 - 2.2FT[facility] RemisolALP [Catalytic activity/Vol]69 [iU]/nFxhxyi53 - 98 Int._Unit/LFTMC RemisolALT No additional P-5'-P [Catalytic activity/Vol]14 [iU]/dNormal6 - 46 Int._Unit/LFTMC RemisolAnion gap [Moles/Vol]16 mmol/LNormal6 - 16 mEq/LFTMC RemisolAST [Catalytic activity/Vol]22 [iU]/dNormal5 - 43 Int._Unit/LFTMC Remisol Bilirubin [Mass/Vol]0.7 mg/dLNormal0.0 - 1.1 mg/dLFTMC RemisolBilirubin.direct [Mass/Vol]0.2 mg/dLNormal0.1 - 0.4 mg/dLFTMC RemisolBilirubin.indirect [Mass or moles/Vol]0.5 mg/dLNormal0.1 - 0.9 mg/dLFTMC RemisolCalcium [Mass/Vol]10.1 mg/dL Normal8.9 - 11.1 mg/dLFT RemisolChloride [Moles/Vol]97 mmol/ORmq050 - 111 mmol/LFTMC RemisolCO2 [Moles/Vol]30 mmol/LLpmsaz68 - 31 mmol/LFTMC Remisol Creatinine [Mass/Vol]1.8 mg/dLHigh0.5 - 1.3 mg/dLFT RemisolGFR/1.73 sq M.predicted among non-blacks MDRD (S/P/Bld) [Vol rate/Area]31 mL/min/1.73 m2Low >=59mL/min/1.73 m2[facility] Chem SComment on above:Interpretive Data: Chronic kidney disease could be indicated at eGFR's of less than 60 mL/min/1.73m2. Kidney failure is indicated at less than 15 mL/min/1.73m2.Globulin (S) [Mass/Vol]4.4 g/dLHigh1.4 - 4.0 gm/dLFT RemisolGlucose [Mass/Vol]138 mg/nSClsytk40 - 199 mg/dLFTMC RemisolComment on above:Interpretive Data: If this glucose result represents a fasting glucose, interpretation should referto the following reference range: 55-99 mg/dLPotassium [Moles/Vol]3.6 mmol/LNormal3.5 - 5.3 mmol/LFTMC RemisolProtein [Mass/Vol]8.4 g/dLHigh6.0 - 7.8 gm/dLFT Remisol Sodium [Moles/Vol]139 mmol/XCzdmbt798 - 145 mmol/LFTMC RemisolTroponin I.cardiac [Mass/Vol]7.30 pg/mLLow10.10 - 27.10 pg/mLFTMC RemisolComment on above: Interpretive Data: The 95% CI (Confidence Interval) PPV (Positive Predictive Value) for myocardial infarction in females is 38 pg/mL, in males 51 pg/mL. The results should be used in conjunction withclinical conditions of myocardial infarction. (Access High Sensitivity Troponin I Instructions For Use, Dorothy Lansford, December 2017)Urea nitrogen [Mass/Vol]30 mg/dLHigh5 - 21 mg/dLFT RemisolUrea nitrogen/Creatinine [Mass ratio]17 mg/snSszaux61 - 20[facility] RemisolCHEMISTRY Ordered By: Myranda David on 67-52-5302Lmyxqyy [Mass/Vol]121 mg/fAQyuq15 - 99 mg/dLROGER MILLS MEMORIAL [facility] POC SubsectionComment on above:Result Comment: Notified RN/KATIE UsernameNESUGARSilvino, AUGUSTITLINInvalid Interpretation CodeROGER MILLS [facility]ORIAL [facility] POC SubsectionSodium [Moles/Vol][id number] mmol/LInvalid Interpretation CodeROGER MILLS [facility]ORIAL [facility] POC Subsection Sodium [Moles/Vol][id number] mmol/LInvalid Interpretation CodeROGER MILLS [facility]ORIAL [facility] POC Subsection COAGULATIONOrdered By: Annabella Salas on [id number] Coag (PPP) [Time]37.1 s High25.1 - 36.5 second(s)[facility] Auto CoagComment on above:Interpretive Data: Parameter 15 days - 4 weeks 1 - 5 months 6 - 11 months 1 - 5 years 6 - 10 years 11 - 17 years PTT Mean: 35.4 (27.6-45.6) Mean: 33.5 (24.8-40.7) Mean: 32.4 (25.1-40.7) Mean: 31.6 (24.0-39.2) Mean: 31.6 (26.9-38.7) Mean: 31.0 (24.6-38.4) Pediatric Reference ranges were obtained from a study by Clark Barrera et al. prepared from 1437 samples obtained at 7 different centers using the same coagulation reagent and instrumentation as [facility]. Currently there are no coagulation studies available worldwide for children to 14 days, andno normal ranges. Heparin therapeutic range (represented by Anti-Factor Xa activity of 0.2 - 0.4 U/mL) corresponds to PTT of 56.6 - 109.0 sec.INR Coag (PPP) [Relative time]1.0 {INR}Invalid Interpretation CodeROGER MILLS MEMORIAL [facility] Auto CoagComment on above:Interpretive Data: INR results are specifically intended to assess patients stabilized on long-term Anticoagulation therapy suggested INR s Less Intensive Anticoagulation 2.0 3.0 Conventional Range 3.0 4.5PT Coag (PPP) [Time]11.0 sNormal9.4 - 12.5 second(s) [facility] Auto CoagComment on above:Interpretive Data: 15 days - 4 weeks 1 - 5 months 6 -11 months 1 5 years 6 10 years 11 -17 years Mean: 11.2 (9.5 12.6) Mean: 11.0 (9.7 12.8) Mean: 11.0 (9.8 13.0) Mean: 11.3 (9.9 13.4) Mean: 11.7 (10.0 14.6) Mean: 11.8 (10.0 - 14.1) Pediatric Reference ranges were obtained from a study by lia Izquierdo al. prepared from 1437 samples obtained at 7 different centers using the same coagulation reagent and instrumentation as [facility]. Currently there are no coagulation studies available worldwide for children to 14 days, andno normal ranges.HEMATOLOGYOrdered By: SYSTEM SYSTEM on 69-26-3478Mynaqequd/100 WBC (Bld)0.2 %Normal0.0 - 2.0 %[facility] HemeAutoSSBasophils/Leukocytes Auto (Bld) [Pure # fraction]0.0 E9/LNormal0.0 - 0.2 E9/LFTMC HemeAutoSSEosinophils/100 WBC (Bld) 0.0 %Normal0.0 - 8.0 %[facility] HemeAutoSSEosinophils/Leukocytes Auto (Bld) [Pure # fraction]0.0 E9/LNormal0.0 - 0.5 E9/LFTMC HemeAutoSSLymphocytes/100 WBC (Bld) 11.5 %Low14.0 - 50.0 %[facility] HemeAutoSSLymphocytes/Leukocytes Auto (Bld) [Pure # fraction]2.1 E9/LNormal1.0 - 4.0 E9/LFTMC HemeAutoSSMonocytes/100 WBC (Bld)5.9 % Normal4.0 - 14.0 %[facility] HemeAutoSSMonocytes/Leukocytes Auto (Bld) [Pure # fraction]1.1 E9/LHigh0.2 - 1.0 E9/LFTMC HemeAutoSSNeutrophils/100 WBC (Bld)82.4 %High36.0 - 75.0 %[facility] HemeAutoSSNeutrophils/Leukocytes Auto (Bld) [Pure # fraction]14.8 E9/LHigh2.0 - 7.5 E9/LFTMC HemeAutoSSHEMATOLOGYOrdered By: Latoya Hendricks on [id number] distribution width (RBC) [Ratio]13.2 %Mgprrj62.9 - 14.2 %[facility] HemeAutoSSHematocrit (Bld) [Volume fraction]30.6 %Low34.0 - 46.0 % [facility] HemeAutoSSHemoglobin (Bld) [Mass/Vol]10.1 g/dLLow12.0 - 16.0 gm/dLFTMC HemeAutoSSMCH (RBC) [Entitic mass]29.5 dpFrlfzo38.0 - 34.0 pgFTMC HemeAutoSSMCHC (RBC) [Mass/Vol]33.0 g/fASgwafd18.4 - 36.0 gm/dLFTMC HemeAutoSSMCV (RBC) [Entitic vol]89.3 aQHqgpga83.0 - 100.0 fLFTMC HemeAutoSSPlatelet mean volume (Bld) [Entitic vol]7.6 fLNormal6.4 - 10.8 fLFTMC HemeAutoSSPlatelets (Bld) [#/Vol]286.0 E9/ZChpovd480.0 - 500.0 E9/LFTMC HemeAutoSSRBC (Bld) [#/Vol]3.4 E12/LLow4.3 - 5.9 E12/LFTMC HemeAutoSSWBC corrected for nucl RBC Auto (Bld) [#/Vol]18.0 E9/LHigh4.0 - 11.0 E9/LFTMC HemeAutoSSComment on above:Result Comment: Slide reviewed by AG.MICRO OTHER TESTSOrdered By: Annabella Salas on [id number] COV Int NEG CtlPass (03/21/23 5:30 PM)NormalFT Man SeroRapid COV Int POS CtlPass (03/21/23 5:30 PM)NormalFT Man SeroSARS-CoV+SARS-CoV-2 (COVID-19) Ag IA.rapid Ql (Resp)Not Detected 9 (03/21/23 5:30 PM)NormalNot DetectedFT Man SeroComment on above:Interpretive Data: The FashionGuideitor System for Rapid Detection of SARS-CoV-2 is a chromatographic digital immunoassay intended for the direct and qualitative detection of SARS-CoV-2 nucleocapsid antigens in nasal swabs from individuals who are suspected of COVID-19 by their healthcare provider withinthe first five days of the onset of symptoms. Negative results should be treated as presumptive, do not rule out SARS-CoV-2 infection and should not be used as the sole basis for treatment or patient management decisions, including infection control decisions. Negative results should be considered in the context of a patient s recent exposures, history and the presence of clinical signs and symptoms consistent with COVID-19, and confirmed with a molecular assay, if necessary, for patient management. For in vitro diagnostic use. In the [place], only for use under an Emergency Use Authorization. In the [place], this test has not been FDA cleared or approved; this test has been authorized by FDA under an EUA for use by authorized laboratories; use by laboratories certified under the CLIA, 42 U.S.C. 263a, that meet requirements to perform moderate, high, or waived complexity tests and at the Point of Care (POC), i.e., in patient care settings operating under a CLIA Certificate of Waiver, Certificate of Compliance, or Certificate of Accreditation. This test has been authorized only for the detection of proteins from SARS-CoV-2, not for any otherviruses or pathogens; and, in the [place], this test is only authorized for the duration of the declaration that circumstances exist justifying the authorization of emergency use of in vitro diagnostics for detection and/or diagnosis of the virus that causes COVID-19 under Section 564(b)(1) of the Act,21 U.S.C. 360bbb-3(b)(1), unless the authorization is terminated or revoked sooner.URINALYSISOrdered By: Annabella Salas on 03-21-2023 Bacteria LM Ql (Urine sed)Trace /HPFNormalTrace/HPFROGER [facility] UA Auto SSBilirubin Ql (U)1+ *ABN* (03/21/23 5:30 PM)Invalid Interpretation CodeNegativeROGER MILLS [facility] [place] UA Auto SSClarity (U) Slightly Cloudy *ABN* (03/21/23 5:30 PM)Invalid Interpretation CodeClearFNORTHEASTERN [facility]ALTH [facility] UA Auto SSColor (U)Dark Yellow *ABN* (03/21/23 5:30 PM)Invalid Interpretation CodeYellowROGER MILLS [facility]OR[facility] [place] UA Auto SSCrystals LM Ql (Urine sed)Present (03/21/23 5:30 PM)NormalROGER MILLS [facility] [place] UA Auto SSEpithelial cells.squamous LM.HPF (Urine sed) [#/Area]0-2 /HPFNormal0-2/HPFROGER MILLS [facility] [place] UA Auto SSGlucose Test strip (U) [Mass/Vol]Negative (03/21/23 5:30 PM)NormalNegativeROGER MILLS [facility] UA Auto SSHemoglobin Ql (U)Negative (03/21/23 5:30 PM)NormalNegativeROGER [facility]ILLS [facility] [place] Auto SSKetones (U) [Mass/Vol]Trace *ABN* (03/21/23 5:30 PM)Invalid Interpretation CodeNegativeROGER [facility]ILLS [facility] [place] UA Auto SS Blanchard.plasma/Blanchard.RBC (Bld) [Mass ratio]0-3 /HPFNormal0-3/HPFROGER MILLS [facility] [place] UA Auto SSNitrite Ql (U)Negative (03/21/23 5:30 PM)NormalNegativeROGER [facility] Auto SSpH (U)5.0 *NA* (03/21/23 5:30 PM)Invalid Interpretation Code5.0 - 9.0[facility] UA Auto SSProtein (U) [Mass/Vol]Trace *ABN* (03/21/23 5:30 PM)Invalid Interpretation CodeNegativeROGER [facility] [place] UA Auto SSSpecific gravity (U) [Rel density]>=1.030 *NA* (03/21/23 5:30 PM)Invalid Interpretation Code1.005 - 1.030R[facility] UA Auto SSUA Spec DescClean Catch (03/21/23 5:30 PM)NormalROGER MILLS [facility] [place] U[facility] Auto SSUrobilinogen Qn (U)0.6888793 {Hanna'U}/dLNormal0.0 - 1.0 EU/dLROGER MILLS [facility]OR[facility] [place] UA Auto SSWBC Auto Ql (U)Negative (03/21/23 5:30 PM)NormalNegativeROGER [facility] [place] [facility] Auto SSWBC LM.HPF (Urine sed) [#/Area]0-5 /HPFNormal0-5/HPFROGER MILLS [facility] [place] U[facility] Auto SSCHEMISTRYOrdered By: SYSTEM SYSTEM on 70-42-5626Adfol gap [Moles/Vol]15 mmol/LNormal6 - 16 mEq/LFTMC RemisolChloride [Moles/Vol]98 mmol/OBti413 - 111 mmol/LFTMC RemisolCO2 [Moles/Vol]31 mmol/L Vhcyuo06 - 31 mmol/LFTMC RemisolPotassium [Moles/Vol]3.5 mmol/LNormal3.5 - 5.3 mmol/LFTMC RemisolSodium [Moles/Vol]140 mmol/PRuwydx889 - 145 mmol/LFTMC Remisol CHEMISTRYOrdered By: Bryan Barron on 20-46-2530Dwxatcuc (U) [Moles/Vol] 78.0 mg/dLNormal>=10.0mg/dLFT RemisolCreatinine (24H U) [Moles/Time]741.0 mg/31pvGwg6805.0 - 2000.0 mg/24hrFTMC Chem SHrs Coll24 hInvalid Interpretation CodeROGER MILLS [facility] Chem SSodium (24H U) [Mass/Vol]79 mmol/24 inVfomed93 - 220 mmol/24 hr [facility] Chem SSodium (U) [Moles/Vol]83 mmol/LNormal>=10mmol/LFTMC RemisolLaboratory - Specimen informationOrdered By: Urban Reynolds on 15-50-9888Yhjtmznz volume Unsp time (U)950 mLInvalid Interpretation CodeROGER MILLS [facility] SendOutsSSCHEMISTRY Ordered By: SYSTEM SYSTEM on 63-81-2134Hhmfuwi [Mass/Vol]9.4 mg/dLNormal8.9 - 11.1 mg/dLFTMC RemisolChloride [Moles/Vol]97 mmol/KReu215 - 111 mmol/LFTMC RemisolCO2 [Moles/Vol]33 mmol/LHigh21 - 31 mmol/LFTMC RemisolCreatinine [Mass/Vol]1.0 mg/dLNormal0.5 - 1.3 mg/dLFTMC RemisolGFR/1.73 sq M.predicted among blacks MDRD (S/P/Bld) [Vol rate/Area]mL/min/1.73 y3Nqjnlk>=59mL/min/1.73 m2FT Chem SGFR/1.73 sq M.predicted among non-blacks MDRD (S/P/Bld) [Vol rate/Area]56 mL/min/1.73 m2Low>=59mL/min/1.73 m2R[facility] Chem SPotassium [Moles/Vol] 3.3 mmol/LLow3.5 - 5.3 mmol/LFTMC RemisolSodium [Moles/Vol]139 mmol/LChvqhk660 - 145 mmol/LFTMC RemisolUrate [Mass/Vol]5.2 mg/dLNormal2.2 - 7.4 mg/dLROGER MILLS [facility] [place] RemisolUrea nitrogen [Mass/Vol]23 mg/dLHigh5 - 21 mg/dLROGER MILLS [facility]ORIAL [facility] [place] RemisolCALCULI, URINARYon ,8 DihydroxyadenineWVUMedicine Harrison Community HospitalComment on above:Performed By: #### CVDTBH #### [facility] [address] [place] [address] Dr. Cuca LinaresAmmonium Acid UrateNormalPremier HealthComment on above: Performed By: #### CVDTBH #### [facility] [address] [place] [address] Dr. Cuca LinaresBilirubin Ql (U)[facility]UM[facility] Community HospitalComment on above: Performed By: #### CVDTBH #### [facility] [address] [place] [address] Dr. Cuca Mack Oxalate DihydrateNGalion Community HospitalComment on above: Performed By: #### CVDTBH #### [facility] [address] [place] [address] Dr. Cuca MackHPO4 (Brushite)[facility]UM[facility] Harrison Community HospitalComment on above: Performed By: #### CVDTBH #### [facility] [address] [place] [address] Dr. Cuca LinaresCalcium BilirubinateNormalPremier HealthComment on above: Performed By: #### CVDTBH #### [facility] [address] [place] [address] Dr. Cuca Hernandezium CarbonateNoUC Medical CenterComment on above: Performed By: #### CVDTBH #### [facility] [address] [place] [address] Dr. Cuca LinaresCalcium Oxalate Hltfnslkftd693 %[facility] Comment on above:Performed By: #### CVDTBH #### [facility] [address] [address] [address] Cuca Hernandezium PalmitateWVUMedicine Harrison Community HospitalComment on above: Performed By: #### CVDTBH #### [facility] [address] [address] [address] Cuca LinaresCalcium PhosphateWVUMedicine Harrison Community HospitalComment on above: Performed By: #### CVDTBH #### [facility] [address] [address] [address] Cuca Bagley StearateNGalion Community HospitalComment on above: Performed By: #### CVDTBH #### [facility] [address] [address] [address] Cuca LinaresCarbonate ApatiteWVUMedicine Harrison Community HospitalComment on above: Performed By: #### CVDTBH #### [facility] [address] [address] [address] Cuca LinaresCellular MaterialWVUMedicine Harrison Community HospitalComascension river district hospital on above: Performed By: #### CVDTBH #### [facility] [address] [address] [address] Cuca LinaresCholesterolWVUMedicine Harrison Community HospitalComascension river district hospital on above:Performed By: #### CVDTBH #### [facility] [address] [address] [address] Cuca Estrella (U)TanNGalion Community HospitalComascension river district hospital on above:Performed By: #### CVDTBH #### [facility] [address] [address] [address] Cuca LinaresCommentWVUMedicine Harrison Community HospitalComascension river district hospital on above:Performed By: #### CVDTBH #### [facility] [address] [address] [address] Cuca TaomentComDayton Osteopathic Hospital on above:Result Comment: Calculus received wet. Wet calculi must be dried before analysis, which delays reporting of results. Leaving calculi wet (such as water, saline, blood, urine) may lead to changes in composition.Performed By: #### CVDTBH #### [facility] [address] [place] [address] Dr. Cuca Sow:CommentCleveland Clinic Akron General [facility]odi [facility] on above:Result Comment: Physician questions regarding Calculi Analysis contact [facility] at: [phone].Performed By: #### CVDTBH #### [facility] [address] [place] [address] Dr. Cuca LinaresCompositionCommentCleveland Clinic [facility] on above: Result Comment: Percentage (Represents the % composition)Performed By: #### CVDTBH #### [facility] [address] [place] [address] Dr. Cuca LinaresCystineWVUMedicine Harrison Community HospitalComment on above:Performed By: #### CVDTBH #### [facility] [address] [place] [address] Dr. Cuca Griffinmer:CommentCleveland Clinic [facility] on above: Result Comment: This test was developed and its performance characteristics determined by [facility]. It has not been cleared or approved by the Food and Drug Administration.Performed By: #### CVDTBH #### [facility] [address] [place] [address] Dr. Cuca LinaresDried BloodWVUMedicine Harrison Community HospitalComascension river district hospital on above:Performed By: #### CVDTBH #### [facility] [address] [place] [address] Dr. Cuca LinaresDrug or MetaboliteWVUMedicine Harrison Community HospitalComascension river district hospital on above: Performed By: #### CVDTBH #### [facility] [address] [place] [address] Dr. Cuca LinaresHydroxyapatiteWVUMedicine Harrison Community HospitalComment on above: Performed By: #### CVDTBH #### [facility] [address] [place] [address] Dr. Cuca LinaresMg NH4 PO4 (Struvite)NormalThe [facility] on above: Performed By: #### CVDTBH #### [facility] [address] [address] [address] Cuca Murphy ([facility] on above: Performed By: #### CVDTBH #### [facility] [address] [address] [address] Cuca Humphrey component(s)[facility] HospitalComascension river district hospital on above: Performed By: #### CVDTBH #### [facility] [address] [address] [address] Cuca Gaviria.[facility] on above:Performed By: #### CVDTBH #### [facility] [address] [address] [address] Cuca TempleCleveland Clinic [facility] on above:Result Comment: Photograph will follow under a separate coverPerformed By: #### CVDTBH #### [facility] [address] [address] [address] Cuca Doan note:CommentCleveland Clinic Ak[facility] General [facility] Hospital on above: Result Comment: Calculi report will follow via computer, mail or labor relations or personnel negotiator delivery.Performed By: #### CVDTBH #### [facility] [address] [address] [address] Cuca JosePxhaiHkoz6c7UfocknExhCleveland Clinic [facility] Hospital on above:Result Comment: Multiple pieces received. Dimensions of the largest piece reported.Performed By: #### CVDTBH #### [facility] [address] [address] [address] Cuca Negrete Acid UrateNMercy Health on above: Performed By: #### CVDTBH #### [facility] [address] [address] [address] Cuca QuiñonezomghazalaCleveland Clinic [facility] Hospital on above:Result Comment: Left KidneyPerformed By: #### CVDTBH #### [facility] [address] [address] [address] Cuca RoblesereSelect Medical Specialty Hospital - Boardman, IncComment on above:Performed By: #### CVDTBH #### [facility] [address] [place] [address] Dr. Cuca Avila AcidWVUMedicine Harrison Community HospitalComascension river district hospital on above:Performed By: #### CVDTBH #### [facility] [address] [address] [address] Cuca Avila Acid DihydrateNormalThe [place] [facility] HospitalComment on above: Performed By: #### CVDTBH #### [facility] [address] [address] [address] Cuca Calloway18 [facility] HospitalComasc[facility] river [facility] hospital on above:Performed By: #### CVDTBH #### [facility] [address] [place] [address] Dr. Cuca PayanhiSelect Medical Specialty Hospital - Boardman, IncComment on above:Performed By: #### CVDTBH #### [facility] [address] [place] [address] Dr. Cuca LinaresHAGERSTOWN OF CARE GLUCOSEon 09-54-9923Xsfsaoa [Mass/Vol]136 mg/dL Critically wuzo12-117LusTrinity Health System [facility] on above:Performed By: #### POCGLUC #### [facility] [address] [place] [address] Dr. Cuca Garcia AUTO DIFFon 74-70-9497PCLY #0.0 103/ulNormal0.0-0.1[facility] on above:Performed By: #### CBC #### [facility] [address] [place] [address] Dr. Cuca Batistaphils/100 WBC (Bld)0.6 %Normal0.2-2.0[facility] on above:Performed By: #### CBC #### [facility] [address] [place] [address] Dr. Thurman ChangEO #0.1 103/ulNormal0.0-0.7The [facility] on above: Performed By: #### CBC #### [facility] [address] [address] [address] Cuca Sowosinophils/100 WBC (Bld)1.4 %Normal0.9-7.0The [facility] Comment on above:Performed By: #### CBC #### [facility] [address] [place] [address] Dr. Cuca Sowrythrocyte distribution width (RBC) [Ratio]12.8 %Obktsp79.0-15.0 The [place] [facility] HospitalComment on above:Performed By: #### CBC #### [facility] [address] [place] [address] Dr. Cuca LinaresHematocrit (Bld) [Volume fraction]35.3 %Critically low36.0-48.0 The [place] [facility] HospitalComment on above:Performed By: #### CBC #### [facility] [address] [place] [address] Dr. Cuca LinaresHemoglobin (Bld) [Mass/Vol]11.7 g/dLCritically low12.0-16.0The [place] [facility] HospitalComment on above:Performed By: #### CBC #### [facility] [address] [place] [address] Dr. Cuca Fernandez #0.03 10e3/ulNormal0.00-0.03The [facility] Hospitalment on above:Performed By: #### CBC #### [facility] [address] [place] [address] Dr. Cuca Fernandez %0.5 %Normal0.0-0.5The [facility] Hospitalment on above: Performed By: #### CBC #### [facility] [address] [place] [address] Dr. Cuca ChristiansenH #1.9 103/ulNormal1.2-3.8The [facility] Hospitalment on above:Performed By: #### CBC #### [facility] [address] [place] [address] Dr. Cuca Bryantmphocytes/100 WBC (Bld)29.6 %Kijltx67.5-60.0The [place] [facility] HospitalComment on above:Performed By: #### CBC #### [facility] [address] [place] [address] Dr. Cuca Savage DIFF REQNONormalThe [place] [facility] HospitalComment on above: Performed By: #### CBC #### [facility] [address] [place] [address] Dr. Cuca Power (RBC) [Entitic mass]30.7 rtLctjer04.7-34.0The [facility] HospitalComment on above:Performed By: #### CBC #### [facility] [address] [place] [address] Dr. Cuca Power (RBC) [Mass/Vol]33.1 g/rUSwtquy41.9-35.2The [place] [facility] HospitalComment on above:Performed By: #### CBC #### [facility] [address] [place] [address] Dr. Cuca Power (RBC) [Entitic vol]92.7 cIAnexgv39.0-99.0The [place] [facility] HospitalComment on above:Performed By: #### CBC #### [facility] [address] [place] [address] Dr. Cuca Busch #0.6 103/ulNormal0.3-0.8The [place] [facility] HospitalComment on above:Performed By: #### CBC #### [facility] [address] [place] [address] Dr. Cuca Rousseauocytes/100 WBC (Bld)10.1 %Normal1.7-12.0The [facility] Comment on above:Performed By: #### CBC #### [facility] [address] [place] [address] Dr. Cuca Perry #3.6 103/ulNormal1.4-6.5The [place] [facility] HospitalComment on above:Performed By: #### CBC #### [facility] [address] [place] [address] Dr. Cuca Iglesiasutrophils/100 WBC (Bld)57.8 %Vpkxwg66.0-75.0The [place] [facility] HospitalComment on above:Performed By: #### CBC #### [facility] [address] [place] [address] Dr. Cuca LinaresPlatelet mean volume (Bld) [Entitic vol]9.3 fLCritically low 9.5-13.5The [place] [facility] HospitalComment on above:Performed By: #### CBC #### [facility] [address] [place] [address] Dr. Cuca LinaresPLT266 103/xePrnlqf464-875Sns [place] [facility] HospitalComment on above: Performed By: #### CBC #### [facility] [address] [place] [address] Dr. Cuca LinaresRBC3.81 106/ulCritically low4.20-5.40The [place] [facility] HospitalComment on above:Performed By: #### CBC #### [facility] [address] [place] [address] Dr. Cuca LinaresWBC6.3 103/ulNormal4.0-11.0The [place] [facility] HospitalComment on above: Performed By: #### CBC #### [facility] [address] [place] [address] Dr. Cuca LinaresCovid-19 PCR ([facility])on 31-86-3426DDSA-CoV-2 (COVID-19) RNA LEONEL+probe Ql (Unsp spec)Not detectedNormalNOT DETECTEDThe [place] [facility] Comment on above:Result Comment: This test is not yet approved or cleared by the [place] FDA. When there are no FDA-approved or cleared tests available, and other criteria are met, FDA can make tests available under an emergency access mechanism called an Emergency Use Authorization (EUA). The EUA for this test is supported by the Inspector Air Carrier of Health and Human Service's (HHS's) declaration that circumstances exist to justify the emergency use of in vitro diagnostics for the detection and/or diagnosis of the virus that causes COVID- 19. This EUA will remain in effect (meaning this test can be used) for the duration of the COVID-19 declaration justifying emergency of IVDs, unless it is terminated or revoked by FDA (after which the test may no longer be used). When diagnostic testing is negative, the possibility of a false negative should be considered in the context of a patient's recent exposures and the presence of clinical signs and symptoms consistent with SARS-CoV-2.Performed By: #### CVDTBH #### [facility] [address] [place] [address] Dr. Cuca LinaresPROF CHEM 8 (BAS METB)on 49-40-0599Duzcm gap [Moles/Vol]11.8 mmol/LNormalThe [place] [facility] HospitalComment on above:Performed By: #### CVDTBH #### [facility] [address] [place] [address] Dr. Cuca LinaresCalcium [Mass/Vol]9.3 mg/dLNormal8.5-10.1The [facility] Comment on above:Performed By: #### CVDTBH #### [facility] [address] [place] [address] Dr. Cuca LinaresChloride [Moles/Vol]102 mmol/MPwnkmz74-265Ssh [facility] Comment on above:Performed By: #### CVDTBH #### [facility] [address] [place] [address] Dr. Cuca LinaresCO2 [Moles/Vol]31.7 mmol/SNzldwq33.0-32.0[facility] Comment on above:Performed By: #### CVDTBH #### [facility] [address] [place] [address] Dr. Cuca LinaresCreatinine [Mass/Vol]0.94 mg/dLNormal0.55-1.02The [place] [facility] HospitalComment on above:Performed By: #### CVDTBH #### [facility] [address] [place] [address] Dr. Thurman ChangEGFR-AF HUNGARIAN>60Normal>=60The [place] [facility] HospitalComment on above:Performed By: #### CVDTBH #### [facility] [address] [place] [address] Dr. Cuca SowGFR-NON AF XJMUBKHK24 mL/min/1.61i9Eqacbv>=60Premier HealthComment on above:Performed By: #### CVDTBH #### [facility] [address] [place] [address] Dr. Cuca LinaresGlucose [Mass/Vol]81 mg/lZWolawy21-678UohPremier Health Comment on above:Performed By: #### CVDTBH #### [facility] [address] [place] [address] Dr. Cuca LinaresPotassium [Moles/Vol]3.5 mmol/LNormal3.5-5.1[facility] Comment on above:Performed By: #### CVDTBH #### [facility] [address] [place] [address] Dr. Cuca LinaresSodium [Moles/Vol]142 mmol/KQeioli793-593UagPremier Health Comment on above:Performed By: #### CVDTBH #### [facility] [address] [place] [address] Dr. Cuca LinaresUrea nitrogen [Mass/Vol]27.0 mg/dLCritically high7.0-18.0Premier HealthComment on above:Performed By: #### CVDTBH #### [facility] [address] [place] [address] Dr. Cuca Chen nitrogen/Creatinine [Mass ratio]28.7 mg/mgNoUC Medical CenterComment on above:Performed By: #### CVDTBH #### [facility] [address] [place] [address] Dr. Cuca LinaresPROTIMEbritany 19-71-3858DZU Coag (PPP) [Relative time]{INR}NormalPremier HealthComment on above:Performed By: #### PTT, PT #### [facility] [address] [place] [address] Dr. Cuca Ruiz GUIDELINESSEE BELOWWVUMedicine Harrison Community HospitalComment on above:Result Comment: DESIRED INR: 2.0 - 3.0 CONDITIONS NOT LISTED BELOW 2.5 - 3.5 FOR PROSTHETIC HEART VALVE REPLACEMENT 2.5 - 3.5 RECURRENT THROMBOSIS Performed By: #### PTT, PT #### [facility] [address] [place], [place] [address] Dr. Cuca LinaresPT Coag (PPP) [Time]9.9 sNormal9.0-11.6The [facility] Comment on above:Performed By: #### PTT, PT #### [facility] [address] [place], [place] [address] Dr. Cuca Gomes 05-17-6935wUBJ Coag (Bld) [Time]35.0 pXartdb48.3-36.2Premier HealthComment on above:Performed By: #### CVDTBH #### [facility] [address] [address] [address] Cuca LinaresCHEMISTRYOrdered By: SYSTEM SYSTEM on 72-39-9523Dsjjlmr [Mass/Vol]4.2 g/dLNormal3.3 - 5.0 gm/dLFTMC RemisolAlbumin/Globulin [Mass ratio] 1.3 {ratio}Normal1.1 - 2.2FTMC RemisolALP [Catalytic activity/Vol]67 [iU]/d Zyenle93 - 98 Int._Unit/LFTMC RemisolALT No additional P-5'-P [Catalytic activity/Vol]20 [iU]/dNormal6 - 46 Int._Unit/LFTMC RemisolAnion gap [Moles/Vol] 13 mmol/LNormal6 - 16 mEq/LFTMC RemisolAST [Catalytic activity/Vol]22 [iU]/d Normal5 - 43 Int._Unit/LFTMC RemisolBilirubin [Mass/Vol]0.8 mg/dLNormal0.0 - 1.1 mg/dLFTMC RemisolCalcium [Mass/Vol]9.6 mg/dLNormal8.9 - 11.1 mg/dLFTMC Remisol Chloride [Moles/Vol]97 mmol/HZpa281 - 111 mmol/LFTMC RemisolCholesterol [Mass/Vol]146 mg/gZLhblfb166 - 200 mg/dLFTMC RemisolCholesterol in HDL [Mass/Vol]44 mg/dLInvalid Interpretation CodeFTMC RemisolCholesterol in LDL [Mass/Vol]77 mg/dLNormal<=129mg/dLFTMC RemisolCholesterol in VLDL [Mass/Vol]22 mg/dLNormal7 - 40 mg/dLFTMC RemisolCO2 [Moles/Vol]31 mmol/UGvanyp60 - 31 mmol/L FT RemisolCreatinine [Mass/Vol]0.9 mg/dLNormal0.5 - 1.3 mg/dLFTMC Remisol GFR/1.73 sq M.predicted among blacks MDRD (S/P/Bld) [Vol rate/Area]mL/min/1.73 w1Eeizkf>=59mL/min/1.73 m2FT Chem SGFR/1.73 sq M.predicted among non-blacks MDRD (S/P/Bld) [Vol rate/Area]mL/min/1.73 h4Lwrnrs>=59mL/min/1.73 m2FT Chem S Globulin (S) [Mass/Vol]3.3 g/dLNormal1.4 - 4.0 gm/dLFTMC RemisolGlucose [Mass/Vol]123 mg/gIRccuhq72 - 199 mg/dLFTMC RemisolPotassium [Moles/Vol]3.7 mmol/LNormal3.5 - 5.3 mmol/LFTMC RemisolProtein [Mass/Vol]7.5 g/dLNormal6.0 - 7.8 gm/dLFTMC RemisolSodium [Moles/Vol]137 mmol/HSvmzyp088 - 145 mmol/LFTMC RemisolTriglyceride [Mass/Vol]108 mg/dLNormal<=149mg/dLFTMC RemisolTSH Qn1.64 m[IU]/LNormal0.34 - 5.60 mcIU/mLFTMC RemisolUrea nitrogen [Mass/Vol]26 mg/dLHigh 5 - 21 mg/dLFTMC RemisolUrea nitrogen/Creatinine [Mass ratio]29 mg/yzJvkf08 - 20 FT RemisolCHEMISTRYOrdered By: Inna Alicea on 55-02-1487YcB6u (Bld) [Mass fraction]6.6 %High<=5.9%[facility] ChemAutoSSMR head/brain wo/w conon 01-12-2022 MR head/brain wo/w [facility] [place] [address] [place] [address] MRI Report Signed Patient: Alison Ferrell MR#: [id number] 14 : 1960 Acct:[id number] Age/Sex: 61 / F ADM Date: 01/11/22 Loc: MR Room: Type: [facility] Attending Dr: Joanna Pandey PA-C Copies to: Joanna Pandey PA-C Ordering Provider: Joanna Pandey PA-C Date of Service: 01/11/22 MR/MR head/brain wo/w con: G35 MR head/brain wo/w con 01/11/2022 6:35 PM SIGN AND SYMPTOMS: History of multiple sclerosis, follow-up PROTOCOL: Multiplanar multisequence MR images of the brain were obtained with and without IV contrast CONTRAST: 13 mL of intravenous ProHance COMPARISON: 12/25/2019 FINDINGS: Extra axial spaces: Age appropriate. Hemorrhage: None. Ventricular system: Within normal limits. Basal cisterns: Within normal limits and not effaced. Cerebral parenchyma: T2 and T2 FLAIR hyperintense foci are noted in the periventricular and subcortical white matter similar to the prior exam. There is no diffusion restriction or abnormal postcontrast enhancement to suggest active demyelination. No definite disease progression. Midline shift: None.. Cerebellum: Within normal limits. Brainstem: T2 and FLAIR hyperintense foci are noted in the pontine white matter similar to the prior exam. OTHER: Calvarium: Normal marrow signal. Vascular system: Satisfactory flow voids within the anterior and posterior circulation. Visualized Paranasal sinuses: Within normal limits. Visualized Orbits: Within normal limits. Visualized upper cervical spine: Within normal limits. Sella and skull base: Within normal limits. MR/MR head/brain wo/w con IMPRESSION: Findings consistent with the history of multiple sclerosis without evidence of disease progression. No MR evidence of active demyelination. No acute intracranial pathology. Impression dictated by: Tommy Nelson M.D.01/12/2022 1:12 PM Dictation Location: [place] [address] Transcribed By: [facility] 01/12/22 1312 Dictated By: Tommy Nelson II, MD 01/12/22 1258 Signed By: 01/12/22 1312[facility] thoracic spine wo/w conon 35-86-0638HR thoracic spine wo/w [facility] [place] [address] [place], [place] [id number] MRI Report Signed Patient: Alison Ferrell MR#: [id number] 14 : 1960 Acct:[id number] Age/Sex: 61 / F ADM Date: 01/04/22 Loc: MR Room: Type: [facility] Attending Dr: Joanna Pandey PA-C Copies to: Joanna Pandey PA-C Ordering Provider: Joanna Pandey PA-C Date of Service: 01/04/22 MR/MR thoracic spine wo/w con: G35 ([id number]) MR/MR cervical spine wo/w con: G35 ([id number]) XR/XR pre/post mri xray: PRE MRI OF THE THORACIC AND CERVICAL ([id number]) XR/XR pre/post mri xray: CERV. PRE MR cervical spine wo/w con, XR pre/post mri xray, XR pre/post mri xray, MR thoracic spine wo/w con 01/04/2022 8:19 PM SIGNS AND SYMPTOMS: History of multiple sclerosis PROTOCOL: Multiplanar multisequence MR images of the cervical and thoracic spine were obtained with and without IV contrast. Lateral and bilateral oblique radiographs of the cervical spine were obtained. Frontal and lateral radiographs of the thoracic spine were obtained. CONTRAST: 13 mL of intravenous ProHance COMPARISON: None. FINDINGS: Radiographs of the cervical spine: There is straightening of the normal cervical lordosis. There is mild disc height loss at C5-C6 with moderate disc height loss at C6-C7. There is anterior osteophyte formation. Facet hypertrophy is present throughout with uncovertebral joint spurring at C6-C7. The vertebral bodies are preserved. There is no fracture or destructive lesion. MRI cervical spine: Disc height loss and alignment is as noted above. There is preservation of vertebral body heights. Facet degenerative changes are present bilaterally with mild bilateral neural foraminal narrowing, right greater than left. The marrow signal is within normal limits. The cord is normal in signal. No epidural or paraspinous fluid collection is appreciated. The visualized paraspinous soft tissues are within normal limits. The prevertebral soft tissues are within normal limits. There is no abnormal postcontrast. At C2-C3: Facet degenerative changes are present bilaterally contributing to mild bilateral neural foraminal narrowing without spinal canal. At C3-C4: Facet degenerative changes are present bilaterally. There is no significant stenosis. At C4-C5: There is a normal disc, central canal, and neural foramen. At C5-C6: There is a normal disc, central canal, and neural foramen. At C6-C7: There is a broad-based disc bulge with uncovertebral joint spurring. There is moderate bilateral neural foraminal narrowing with mild spinal canal narrowing. At C7-T1: There is a normal disc, central canal, and neural foramen. MR/MR cervical spine wo/w con IMPRESSION: No cord compression or cord signal abnormality. No abnormal postcontrast enhancement. Mild multilevel degenerative changes are detailed, as above. Radiographs of the thoracic spine: The bones are in anatomic alignment with preservation of vertebral body heights. There is mild/moderate disc height loss throughout with anterior osteophyte formation. No evidence of fracture or bony destructive lesion. Surgical clips are present in the right upper quadrant consistent with prior cholecystectomy. Suspected stones are noted in the left upper quadrant presumably within the left renal collecting system. MRI thoracic spine: The bones of the thoracic spine are in anatomic alignment. There is preservation of vertebral body heights. Disc height loss is as above. There is a benign-appearing hemangioma at T7. There is Schmorl's node formation in the superior endplate of the T11 vertebral body. This is seen to a lesser extent at the superior endplate of T12. No epidural or paraspinous fluid collection is appreciated. Thoracic cord is normal in signal. No abnormal postcontrast enhancement. The visualized paraspinous soft tissues are within normal limits. A simple cyst is noted in the right renal cortex requiring no further follow-up. At T1-T2: There is a normal disc, central canal, and neural foramen. At T2-T3: There is a normal disc, central canal, and neural foramen. At T3-T4: There is a normal disc, central canal, and neural foramen. At T4-T5: There is a normal disc, central canal, and neural foramen. At T5-T6: There is a normal disc, central canal, and neural foramen. At T6-T7: There is a normal disc, central canal, and neural foramen. At T7-T8: There is a left foraminal disc bulge contributing to mild left neural foraminal narrowing. No significant spinal canal narrowing. At T8-T9: There is a broad-based disc bulge with mild spinal canal narrowing. There is mild to moderate left neural foraminal narrowing. At T9-T10: There is a normal disc, central canal, and neural foramen. At T10-T11: There is a broad-based disc bulge with facet hype (more content not included)...NormalMagruder Memorial HospitalCreatinine (Bld) [Mass/Vol] Ordered By: Joanna Pandey on 76-49-6441Bwnxpuzlwr [Mass/Vol]0.9 mg/dL0.6-1.3 [facility] HospitalComment on above:ER/ESD physician is notified/shown all ISTAT results. Critical values may be confirmed by laboratory testing if deemed necessary by ER attending doctor.ISTAT XRay CREon 14-91-8778Hccarfahsh [Mass/Vol]0.9 mg/dLNormal0.6-1.3FOhioHealth Southeastern Medical CenterComment on above:Result Comment: ER/ESD physician is notified/shown all ISTAT results. Critical values may be confirmed by laboratory testing if deemed necessary by ER attending doctor.Performed By: #### ISCRE #### [address] Point of Care testing ,ISTAT GFR (> 60NormalMagruder Memorial HospitalComment on above:Result Comment: GFR estimated reference range: According to KDOQI guidelines, <60 ml/min/1.73m2 is sufficient to diagnose a patient with chronic kidney disease. PERFORMED BY: [place] [address] PATHOLOGIST [employer] SITE MANAGER KELLY JEAN BAPTISTE M.D.Performed By: #### ISCRE #### [address] Point of Care testing ,ISTAT GFR (Non- Am> 60NormalMagruder Memorial HospitalComment on above:Performed By: #### ISCRE #### [facility] [address] Point of Care testing ,No Panel InformationOrdered By: Joanna Pandey on 87-60-5714XHA Estimated GFR > 60[facility] HospitalComment on above:GFR estimated reference range: According to KDOQI guidelines, <60 ml/min/1.73m2 is sufficient todiagnose a patient with chronic kidney disease.POC Estimated GFR Non- Amer> 60[facility] HospitalCHEMISTRYOrdered By: SYSTEM SYSTEM on 73-92-2385Txtqd gap [Moles/Vol]14 mmol/LNormal6 - 16 mEq/LFTMC RemisolChloride [Moles/Vol]98 mmol/LFkk177 - 111 mmol/LFTMC RemisolCO2 [Moles/Vol]28 mmol/HPqhkeq08 - 31 mmol/LFTMC RemisolCreatinine [Mass/Vol]1.1 mg/dLNormal0.5 - 1.3 mg/dLFT RemisolGFR/1.73 sq M.predicted among blacks MDRD (S/P/Bld) [Vol rate/Area]mL/min/1.73 o9Xfaoir>=59mL/min/1.73 m2[facility] Chem S GFR/1.73 sq M.predicted among non-blacks MDRD (S/P/Bld) [Vol rate/Area]50 mL/min/1.73 m2Low>=59mL/min/1.73 m2[facility] Chem SPotassium [Moles/Vol]3.7 mmol/L Normal3.5 - 5.3 mmol/LFTMC RemisolSodium [Moles/Vol]136 mmol/QQddbsx755 - 145 mmol/LFTMC RemisolUrea nitrogen [Mass/Vol]24 mg/dLHigh5 - 21 mg/dLFT Remisol HEMATOLOGYOrdered By: SYSTEM SYSTEM on 18-41-5721Xzsolxpbz/100 WBC (Bld)1.2 % Normal0.0 - 2.0 %[facility] HemeAutoSSBasophils/Leukocytes Auto (Bld) [Pure # fraction]0.1 E9/LNormal0.0 - 0.2 E9/LFTMC HemeAutoSSEosinophils/100 WBC (Bld)1.4 %Normal0.0 - 8.0 %[facility] HemeAutoSSEosinophils/Leukocytes Auto (Bld) [Pure # fraction]0.1 E9/LNormal0.0 - 0.5 E9/LFTMC HemeAutoSSLymphocytes/100 WBC (Bld) 23.7 %Bcsdqo72.0 - 50.0 %[facility] HemeAutoSSLymphocytes/Leukocytes Auto (Bld) [Pure # fraction]1.9 E9/LNormal1.0 - 4.0 E9/LFTMC HemeAutoSSMonocytes/100 WBC (Bld)9.4 %Normal4.0 - 14.0 %[facility] HemeAutoSSMonocytes/Leukocytes Auto (Bld) [Pure # fraction]0.7 E9/LNormal0.2 - 1.0 E9/LFTMC HemeAutoSSNeutrophils/100 WBC (Bld) 64.3 %Kqbcrc38.0 - 75.0 %[facility] HemeAutoSSNeutrophils/Leukocytes Auto (Bld) [Pure # fraction]5.0 E9/LNormal2.0 - 7.5 E9/LFTMC HemeAutoSSHEMATOLOGYOrdered By: Linda Hernandez on 17-69-2380Sqpxjxsngcd distribution width (RBC) [Ratio]14.6 %High10.9 - 14.2 %[facility] HemeAutoSSHematocrit (Bld) [Volume fraction]34.5 %Normal 34.0 - 46.0 %[facility] HemeAutoSSHemoglobin (Bld) [Mass/Vol]11.8 g/dLLow12.0 - 16.0 gm/dLFTMC HemeAutoSSMCH (RBC) [Entitic mass]30.6 xxKjjcoa13.0 - 34.0 pgFTMC HemeAutoSSMCHC (RBC) [Mass/Vol]34.3 g/bOJiivno48.4 - 36.0 gm/dLFTMC HemeAutoSS MCV (RBC) [Entitic vol]89.3 cXVvuczt60.0 - 100.0 fLFTMC HemeAutoSSPlatelet mean volume (Bld) [Entitic vol]7.5 fLNormal6.4 - 10.8 fLFTMC HemeAutoSSPlatelets (Bld) [#/Vol]421.0 E9/KRdkrvr361.0 - 500.0 E9/LFTMC HemeAutoSSRBC (Bld) [#/Vol] 3.9 E12/LLow4.3 - 5.9 E12/LFTMC HemeAutoSSWBC corrected for nucl RBC Auto (Bld) [#/Vol]7.8 E9/LNormal4.0 - 11.0 E9/LFTMC HemeAutoSSCHEMISTRYOrdered By: Myranda Hernandez on 52-27-0624Gaftehi [Mass/Vol]133 mg/kPRojg83 - 99 mg/dLFTMC POC SubsectionComment on above:Result Comment: Notified RN/MDPOC Device SN [id number] Interpretation CodeFTMC POC SubsectionPOC User [id number] Invalid Interpretation CodeFTMC POC SubsectionPOC UsernameBiemler, Yandy Invalid Interpretation CodeFTMC POC SubsectionGlucose [Mass/Vol]130 mg/fCOant85 - 99 mg/dLFTMC POC SubsectionComment on above:Result Comment: Notified RN/MDPOC Device [id number] Interpretation CodeFTMC POC SubsectionPOC User ID [id number] Interpretation CodeFTMC POC SubsectionPOC UsernameBiemler, MelissaInvalid Interpretation CodeFTMC POC SubsectionGlucose [Mass/Vol]126 mg/dL High55 - 99 mg/dLFTMC POC SubsectionComment on above:Result Comment: Notified RN/MDPOC Device [id number] Interpretation CodeFTMC POC SubsectionPOC User [id number] Interpretation CodeFTMC POC SubsectionPOC Username Carsonler, MelissaInvalid Interpretation CodeFTMC POC SubsectionCHEMISTRYOrdered By: Letha Santillan on 70-76-8102Ugkoj gap [Moles/Vol]11 mmol/LNormal6 - 16 mEq/L [facility] RemisolCalcium [Mass/Vol]9.1 mg/dLNormal8.9 - 11.1 mg/dLFTMC Remisol Chloride [Moles/Vol]101 mmol/DPwslrx983 - 111 mmol/LFTMC RemisolCO2 [Moles/Vol] 31 mmol/ZCtspui11 - 31 mmol/LFTMC RemisolCreatinine [Mass/Vol]0.9 mg/dLNormal0.5 - 1.3 mg/dLFTMC RemisolGlucose [Mass/Vol]149 mg/zTTzaupt27 - 199 mg/dLFTMC RemisolMagnesium [Mass/Vol]1.8 mg/dLNormal1.3 - 2.4 mg/dLFTMC RemisolPotassium [Moles/Vol]3.8 mmol/LNormal3.5 - 5.3 mmol/LFTMC RemisolSodium [Moles/Vol]139 mmol/OSdgeay303 - 145 mmol/LFTMC RemisolUrea nitrogen [Mass/Vol]19 mg/dLNormal5 - 21 mg/dLFTMC RemisolUrea nitrogen/Creatinine [Mass ratio]21 mg/owPqlt34 - 20 FT RemisolCHEMISTRYOrdered By: SYSTEM SYSTEM on 39-81-4778XGN/1.73 sq M.predicted among blacks MDRD (S/P/Bld) [Vol rate/Area]mL/min/1.73 k8Mqzexm >=59mL/min/1.73 m2FT Chem SGFR/1.73 sq M.predicted among non-blacks MDRD (S/P/Bld) [Vol rate/Area]mL/min/1.73 a9Wdjnip>=59mL/min/1.73 m2FT Chem S HEMATOLOGYOrdered By: SYSTEM SYSTEM on 39-09-9478Xybcdtkft/100 WBC (Bld)0.3 % Normal0.0 - 2.0 %[facility] HemeAutoSSBasophils/Leukocytes Auto (Bld) [Pure # fraction]0.0 E9/LNormal0.0 - 0.2 E9/LFTMC HemeAutoSSEosinophils/100 WBC (Bld)4.0 %Normal0.0 - 8.0 %[facility] HemeAutoSSEosinophils/Leukocytes Auto (Bld) [Pure # fraction]0.2 E9/LNormal0.0 - 0.5 E9/LFTMC HemeAutoSSLymphocytes/100 WBC (Bld) 16.8 %Roolyx20.0 - 50.0 %[facility] HemeAutoSSLymphocytes/Leukocytes Auto (Bld) [Pure # fraction]1.0 E9/LNormal1.0 - 4.0 E9/LFTMC HemeAutoSSMonocytes/100 WBC (Bld) 13.2 %Normal4.0 - 14.0 %[facility] HemeAutoSSMonocytes/Leukocytes Auto (Bld) [Pure # fraction]0.8 E9/LNormal0.2 - 1.0 E9/LFTMC HemeAutoSSNeutrophils/100 WBC (Bld) 65.7 %Iwlqge06.0 - 75.0 %[facility] HemeAutoSSNeutrophils/Leukocytes Auto (Bld) [Pure # fraction]4.1 E9/LNormal2.0 - 7.5 E9/LFTMC HemeAutoSSHEMATOLOGYOrdered By: Latoya Hendricks on 13-33-6211Lmrkktqcola distribution width (RBC) [Ratio]14.5 %High 10.9 - 14.2 %[facility] HemeAutoSSHematocrit (Bld) [Volume fraction]30.5 %Low34.0 - 46.0 %[facility] HemeAutoSSHemoglobin (Bld) [Mass/Vol]10.6 g/dLLow12.0 - 16.0 gm/dL [facility] HemeAutoSSMCH (RBC) [Entitic mass]30.7 yqKfmdnb95.0 - 34.0 pgFTMC HemeAutoSSMCHC (RBC) [Mass/Vol]34.7 g/vTEwhvvp62.4 - 36.0 gm/dLFTMC HemeAutoSS MCV (RBC) [Entitic vol]88.4 oPQqlakn20.0 - 100.0 fLFTMC HemeAutoSSPlatelet mean volume (Bld) [Entitic vol]7.4 fLNormal6.4 - 10.8 fLFTMC HemeAutoSSPlatelets (Bld) [#/Vol]251.0 E9/NTcuzsh601.0 - 500.0 E9/LFTMC HemeAutoSSRBC (Bld) [#/Vol] 3.4 E12/LLow4.3 - 5.9 E12/LFTMC HemeAutoSSWBC corrected for nucl RBC Auto (Bld) [#/Vol]6.3 E9/LNormal4.0 - 11.0 E9/LFTMC HemeAutoSSCHEMISTRYOrdered By: SYSTEM SYSTEM on 70-12-5802Xyypu gap [Moles/Vol]13 mmol/LNormal6 - 16 mEq/LFTMC Remisol Calcium [Mass/Vol]9.1 mg/dLNormal8.9 - 11.1 mg/dLFTMC RemisolChloride [Moles/Vol]97 mmol/IBfa431 - 111 mmol/LFTMC RemisolCO2 [Moles/Vol]31 mmol/L Afphmk77 - 31 mmol/LFTMC RemisolCreatinine [Mass/Vol]1.0 mg/dLNormal0.5 - 1.3 mg/dLFTMC RemisolGFR/1.73 sq M.predicted among blacks MDRD (S/P/Bld) [Vol rate/Area]mL/min/1.73 b7Fghmlf>=59mL/min/1.73 m2FT[facility] Chem SGFR/1.73 sq M.predicted among non-blacks MDRD (S/P/Bld) [Vol rate/Area]56 mL/min/1.73 m2Low >=59mL/min/1.73 m2FT[facility] Chem SGlucose [Mass/Vol]133 mg/nHVimbwn92 - 199 mg/dLFTMC RemisolMagnesium [Mass/Vol]1.9 mg/dLNormal1.3 - 2.4 mg/dLFTMC RemisolPotassium [Moles/Vol]3.1 mmol/LLow3.5 - 5.3 mmol/LFTMC RemisolSodium [Moles/Vol]138 mmol/L Doomym108 - 145 mmol/LFTMC RemisolUrea nitrogen [Mass/Vol]23 mg/dLHigh5 - 21 mg/dLFTMC RemisolUrea nitrogen/Creatinine [Mass ratio]23 mg/qdYvgt84 - 20FTMC RemisolHEMATOLOGYOrdered By: SYSTEM SYSTEM on 78-22-0472Tcewsmvpv/100 WBC (Bld) 0.5 %Normal0.0 - 2.0 %[facility] HemeAutoSSBasophils/Leukocytes Auto (Bld) [Pure # fraction]0.0 E9/LNormal0.0 - 0.2 E9/LFTMC HemeAutoSSEosinophils/100 WBC (Bld)3.1 %Normal0.0 - 8.0 %[facility] HemeAutoSSEosinophils/Leukocytes Auto (Bld) [Pure # fraction]0.2 E9/LNormal0.0 - 0.5 E9/LFTMC HemeAutoSSLymphocytes/100 WBC (Bld) 17.2 %Hzniug62.0 - 50.0 %[facility] HemeAutoSSLymphocytes/Leukocytes Auto (Bld) [Pure # fraction]1.2 E9/LNormal1.0 - 4.0 E9/LFTMC HemeAutoSSMonocytes/100 WBC (Bld) 10.7 %Normal4.0 - 14.0 %[facility] HemeAutoSSMonocytes/Leukocytes Auto (Bld) [Pure # fraction]0.7 E9/LNormal0.2 - 1.0 E9/LFTMC HemeAutoSSNeutrophils/100 WBC (Bld) 68.5 %Hbenyq32.0 - 75.0 %[facility] HemeAutoSSNeutrophils/Leukocytes Auto (Bld) [Pure # fraction]4.6 E9/LNormal2.0 - 7.5 E9/LFTMC HemeAutoSSHEMATOLOGYOrdered By: Angela Machado on 84-55-1493Tsgbwquumhv distribution width (RBC) [Ratio]14.3 %High10.9 - 14.2 %[facility] HemeAutoSSHematocrit (Bld) [Volume fraction]31.7 %Low34.0 - 46.0 % [facility] HemeAutoSSHemoglobin (Bld) [Mass/Vol]10.9 g/dLLow12.0 - 16.0 gm/dLFTMC HemeAutoSSMCH (RBC) [Entitic mass]30.4 qbHcpqjz27.0 - 34.0 pgFTMC HemeAutoSSMCHC (RBC) [Mass/Vol]34.4 g/mOKecrfm44.4 - 36.0 gm/dLFTMC HemeAutoSSMCV (RBC) [Entitic vol]88.5 gDBjntbq36.0 - 100.0 fLFTMC HemeAutoSSPlatelet mean volume (Bld) [Entitic vol]7.9 fLNormal6.4 - 10.8 fLFT HemeAutoSSPlatelets (Bld) [#/Vol]228.0 E9/NYveitn161.0 - 500.0 E9/LFTMC HemeAutoSSRBC (Bld) [#/Vol]3.6 E12/LLow4.3 - 5.9 E12/LFTMC HemeAutoSSWBC corrected for nucl RBC Auto (Bld) [#/Vol]6.8 E9/LNormal4.0 - 11.0 E9/LFTMC HemeAutoSSCHEMISTRYOrdered By: SYSTEM SYSTEM on 49-59-0356Mgwsp gap [Moles/Vol]13 mmol/LNormal6 - 16 mEq/LFTMC Remisol Calcium [Mass/Vol]9.0 mg/dLNormal8.9 - 11.1 mg/dLFTMC RemisolChloride [Moles/Vol]99 mmol/IDrx911 - 111 mmol/LFTMC RemisolCO2 [Moles/Vol]27 mmol/L Wbskit96 - 31 mmol/LFTMC RemisolCreatinine [Mass/Vol]0.7 mg/dLNormal0.5 - 1.3 mg/dLFTMC RemisolGFR/1.73 sq M.predicted among blacks MDRD (S/P/Bld) [Vol rate/Area]mL/min/1.73 v5Irjmkz>=59mL/min/1.73 m2[facility] Chem SGFR/1.73 sq M.predicted among non-blacks MDRD (S/P/Bld) [Vol rate/Area]mL/min/1.73 n5Ccibrd >=59mL/min/1.73 m2FT Chem SGlucose [Mass/Vol]159 mg/kJBzztmm81 - 199 mg/dLFTMC RemisolMagnesium [Mass/Vol]1.8 mg/dLNormal1.3 - 2.4 mg/dLFTMC RemisolPotassium [Moles/Vol]3.7 mmol/LNormal3.5 - 5.3 mmol/LFTMC RemisolProcalcitonin0.15 ng/mL Normal0.00 - 0.50 ng/mLFTMC RemisolSodium [Moles/Vol]135 mmol/QLwzmye319 - 145 mmol/LFTMC RemisolUrea nitrogen [Mass/Vol]11 mg/dLNormal5 - 21 mg/dLFTMC Remisol Urea nitrogen/Creatinine [Mass ratio]16 mg/tyFissqg86 - 20FT[facility] RemisolCHEMISTRY Ordered By: Angela Machado on 86-01-0811Ajnqfvlboxa peptide B (Bld) [Mass/Vol]98 pg/mLHigh5 - 80 pg/mLFTMC HemeManSSHEMATOLOGYOrdered By: RIGID SYSTEM on 04-48-3228Zdhwzyory/100 WBC (Bld)0.3 %Normal0.0 - 2.0 %[facility] HemeAutoSS Basophils/Leukocytes Auto (Bld) [Pure # fraction]0.0 E9/LNormal0.0 - 0.2 E9/L [facility] HemeAutoSSEosinophils/100 WBC (Bld)0.5 %Normal0.0 - 8.0 %[facility] HemeAutoSS Eosinophils/Leukocytes Auto (Bld) [Pure # fraction]0.0 E9/LNormal0.0 - 0.5 E9/L [facility] HemeAutoSSLymphocytes/100 WBC (Bld)9.6 %Low14.0 - 50.0 %[facility] HemeAutoSS Lymphocytes/Leukocytes Auto (Bld) [Pure # fraction]1.0 E9/LNormal1.0 - 4.0 E9/L [facility] HemeAutoSSMonocytes/100 WBC (Bld)9.2 %Normal4.0 - 14.0 %[facility] HemeAutoSS Monocytes/Leukocytes Auto (Bld) [Pure # fraction]1.0 E9/LNormal0.2 - 1.0 E9/L [facility] HemeAutoSSNeutrophils/100 WBC (Bld)80.4 %High36.0 - 75.0 %[facility] HemeAutoSS Neutrophils/Leukocytes Auto (Bld) [Pure # fraction]8.3 E9/LHigh2.0 - 7.5 E9/L [facility] HemeAutoSSHEMATOLOGYOrdered By: Angela Machado on 22-88-8869Zrzrkmsiqog distribution width (RBC) [Ratio]14.5 %High10.9 - 14.2 %[facility] HemeAutoSSHematocrit (Bld) [Volume fraction]30.5 %Low34.0 - 46.0 %FT HemeAutoSSHemoglobin (Bld) [Mass/Vol]10.6 g/dLLow12.0 - 16.0 gm/dLFTMC HemeAutoSSMCH (RBC) [Entitic mass] 30.6 loCtmwvp77.0 - 34.0 pgFTMC HemeAutoSSMCHC (RBC) [Mass/Vol]34.9 g/dLNormal 31.4 - 36.0 gm/dLFTMC HemeAutoSSMCV (RBC) [Entitic vol]87.6 oCIljbbn79.0 - 100.0 fLFTMC HemeAutoSSPlatelet mean volume (Bld) [Entitic vol]7.2 fLNormal6.4 - 10.8 fLFTMC HemeAutoSSPlatelets (Bld) [#/Vol]192.0 E9/GYofbjo896.0 - 500.0 E9/LFTMC HemeAutoSSRBC (Bld) [#/Vol]3.5 E12/LLow4.3 - 5.9 E12/LFTMC HemeAutoSSWBC corrected for nucl RBC Auto (Bld) [#/Vol]10.3 E9/LNormal4.0 - 11.0 E9/LFTMC HemeAutoSSFT Blood GasesOrdered By: Samantha Anderson on 09-10-2021/A Ratio Art 30.80 %Normal>=0.80%[facility] Resp Auto SSAaDO2 Dgq846.2 mm[Hg]High5.0 - 15.0 mmHg [facility] Resp Auto SSAllens TestPositive (09/10/21 11:48 AM)NormalFTMC Resp Auto SSBase Excess Arterial6.0 mmol/LNormal >=2.8mmol/LFTMC Resp Auto SScCa2+ Art4.81 mg/dLNormal4.40 - 5.30 mg/dLFTMC Resp Auto SScCl- Gkf368.0 mmol/RYkp997.0 - 111.0 mmol/LFT[facility] Resp Auto SScGlu Mny799 mg/yRMnhj73 - 99 mg/dLFTMC Resp Auto SScK+ Art2.9 mmol/LLow3.5 - 5.3 mmol/LFT[facility] Resp Auto SScLac Art1.1 mmol/LLow5.0 - 14.0 mmol/LFT[facility] Resp Auto SScNa+ Rxi480.0 mmol/AJdgslf554.0 - 145.0 mmol/LFT[facility] Resp Auto SSDeviceCannula (09/10/21 11:48 AM)NormalFT[facility] Resp Auto SSDrawn byPadInvalid Interpretation Code [facility] Resp Auto SSFCOHb Art1.2 %Low1.5 - 4.9 %[facility] Resp Auto SSFIO2 BG44.0Invalid Interpretation CodeFTMC Resp Auto SSFMetHb Art0.7 %Normal0.0 - 1.9 %[facility] Resp Auto MFUX4Zv Art95.6 %Stdnjg39.0 - 100.0 %[facility] Resp Auto SSHCO3 (Bld) [Moles/Vol]29.8 mmol/LHigh22.0 - 26.0 mmol/LFT[facility] Resp Auto SSHemoglobin (Bld) [Mass/Vol]12.7 g/mMStyxrt86.0 - 16.0 gm/dLFTMC Resp Auto SSP CO2 Rsfznpdi19.9 mm[Hg]Rshccy06.0 - 45.0 [facility] [place] [facility] Auto SSP O2 Caathruk97.6 mm[Hg]Low80.0 - 100.0 mmHgFT Resp Auto SSpH Arterial7.874Qvae7.350 - 7.450[facility] [place] Resp Auto SS Sample SiteL Radial (09/10/21 11:48 AM)[facility] [place] Auto SSSample TypeArterial Draw (09/10/21 11:48 AM)NormalR[facility] [place] Resp Auto SSCHEMISTRYOrdered By: SYSTEM SYSTEM on [id number] [Mass/Vol]3.7 g/dLNormal3.3 - 5.0 gm/dLFT Remisol Albumin/Globulin [Mass ratio]1.3 {ratio}Normal1.1 - 2.2[facility] RemisolALP [Catalytic activity/Vol]70 [iU]/iYrajzs59 - 98 Int._Unit/LFTMC RemisolALT No additional P-5'-P [Catalytic activity/Vol]28 [iU]/dNormal6 - 46 Int._Unit/LFT[facility] RemisolAST [Catalytic activity/Vol]24 [iU]/dNormal5 - 43 Int._Unit/LFT[facility] Remisol Bilirubin [Mass/Vol]1.1 mg/dLNormal0.0 - 1.1 mg/dLFTMC RemisolBilirubin.direct [Mass/Vol]0.1 mg/dLNormal0.1 - 0.4 mg/dLFTMC RemisolGlobulin (S) [Mass/Vol]2.9 g/dLNormal1.4 - 4.0 gm/dLFTMC RemisolProtein [Mass/Vol]6.6 g/dLNormal6.0 - 7.8 gm/dLFTMC RemisolBLOOD BANKOrdered By: Radha Delgado on [id number]/Rh Interp NegativeInvalid Interpretation CodeFT BB SubsectionABSC Gel InterpNegative (09/08/21 9:22 AM)NormalR[facility] [place] BB SubsectionCHEMISTRYOrdered By: RIGID SYSTEM on [id number] [Mass/Vol]4.2 g/dLNormal3.3 - 5.0 gm/dLFTMC Remisol Albumin/Globulin [Mass ratio]1.3 {ratio}Normal1.1 - 2.2[facility] RemisolALP [Catalytic activity/Vol]78 [iU]/dEuskhy93 - 98 Int._Unit/LFTMC RemisolALT No additional P-5'-P [Catalytic activity/Vol]22 [iU]/dNormal6 - 46 Int._Unit/[facility] RemisolAST [Catalytic activity/Vol]24 [iU]/dNormal5 - 43 Int._Unit/[facility] Remisol Bilirubin [Mass/Vol]1.1 mg/dLNormal0.0 - 1.1 mg/dLFTMC RemisolBilirubin.direct [Mass/Vol]0.2 mg/dLNormal0.1 - 0.4 mg/dLFTMC RemisolBilirubin.indirect [Mass or moles/Vol]0.9 mg/dLNormal0.1 - 0.9 mg/dLFTMC RemisolGlobulin (S) [Mass/Vol]3.3 g/dLNormal1.4 - 4.0 gm/dLFTMC RemisolLipase [Catalytic activity/Vol]31 U/LNormal 13 - 58 unit/[facility] RemisolProtein [Mass/Vol]7.5 g/dLNormal6.0 - 7.8 gm/dLROGER [facility] RemisolURINALYSISOrdered By: Rianna Wu on 28-75-1233Fdgrbgysr Ql (U)Negative (09/08/21 10:10 AM)NormalNegativeROGER [facility] UA Auto SSClarity (U)Clear (09/08/21 10:10 AM)NormalClearFNORTHEASTERN [facility] UA Auto SSColor (U)Yellow (09/08/21 10:10 AM)NormalYellowROGER MILLS [facility] UA Auto SSEpithelial cells.squamous LM.HPF (Urine sed) [#/Area]3-4 /HPFNormal0-2/HPFROGER MILLS [facility]OR[facility] UA Auto SSGlucose Test strip (U) [Mass/Vol]2+ *ABN* (09/08/21 10:10 AM)Invalid Interpretation CodeNegativeROGER MILLS [facility] UA Auto SSHemoglobin Ql (U)3+ *ABN* (09/08/21 10:10 AM)Invalid Interpretation CodeNegativeROGER MILLS [facility] [place] UA Auto SSKetones (U) [Mass/Vol]Negative (09/08/21 10:10 AM)NormalNegativeROGER M[facility] UA Auto SSLithium.plasma/Blanchard.RBC (Bld) [Mass ratio]4-20 /HPFNormal0-3/HPFROGER MILLS [facility] [place] UA Auto SSNitrite Ql (U)Negative (09/08/21 10:10 AM)NormalNegativeROGER [facility] UA Auto SSpH (U)7.0 *NA* (09/08/21 10:10 AM)Invalid Interpretation Code5.0 - 9.0[facility] UA Auto SSProtein (U) [Mass/Vol]Negative (09/08/21 10:10 AM)NormalNegativeROGER [facility] UA Auto SSSpecific gravity (U) [Rel density]1.010 *NA* (09/08/21 10:10 AM)Invalid Interpretation Code1.005 - 1.030[facility] UA Auto SSUA Spec DescClean Catch (09/08/21 10:10 AM)NormalROGER MILLS [facility] [place] UA Auto SSUrobilinogen Qn (U)0.3804532 {Hanna'U}/dLNormal0.0 - 1.0 EU/dLROGER MILLS [facility] [place] UA Auto SSWBC Auto Ql (U)Negative (09/08/21 10:10 AM)NormalNegativeROGER [facility] [place] UA Auto SSWBC LM.HPF (Urine sed) [#/Area]0- 5 /HPFNormal0-5/HPFROGER MILLS [facility]OR[facility] [place] UA Auto SSXR KUB 1 VIEWon [id number] KUB 1 VIEWEXAM: XR KUB 1 VIEW 09/07/2021 HISTORY: Kidney stone COMPARISON: Previous x-ray from 11/19/2019 TECHNIQUE: Single AP view of the abdomen and pelvis. FINDINGS: Multiple punctate radiopaque densities are seen in the left kidney area ranging 3-6 mm in size, consistent with renal calculi. Moderate stool in the colon. No obvious radiopaque density in the right kidney area. Multiple rounded hypodensities in the pelvic region likely represent phleboliths. Postoperative clips right upper quadrant from cholecystectomy. IMPRESSION: Multiple small left renal calculi. Electronically authenticated by: JESUS HENDERSON Date: 2021-09-08 19:37NormJ.W. Ruby Memorial HospitalPOINT OF CARE GLUCOSEon [id number] [Mass/Vol]135 mg/dL Critically wzba74-402ArxPremier HealthComment on above:Performed By: #### POCGLUC #### [facility] [address] [address] [address] Cuca Marie-19 PCR ([facility])on [id number]-CoV-2 (COVID-19) RNA LEONEL+probe Ql (Unsp spec)Not detectedNormalNOT DETECTEDPremier Health Comment on above:Result Comment: This test is not yet approved or cleared by the [place] FDA. When there are no FDA-approved or cleared tests available, and other criteria are met, FDA can make tests available under an emergency access mechanism called an Emergency Use Authorization (EUA). The EUA for this test is supported by the Inspector Air Carrier of Health and Human Service's (HHS's) declaration that circumstances exist to justify the emergency use of in vitro diagnostics for the detection and/or diagnosis of the virus that causes COVID- 19. This EUA will remain in effect (meaning this test can be used) for the duration of the COVID-19 declaration justifying emergency of IVDs, unless it is terminated or revoked by FDA (after which the test may no longer be used). When diagnostic testing is negative, the possibility of a false negative should be considered in the context of a patient's recent exposures and the presence of clinical signs and symptoms consistent with SARS-CoV-2.Performed By: #### CVDTBH #### [facility] [address] [place] [address] Dr. Cuca Garcia AUTO DIFFon [id number] #0.0 103/ulNormal0.0-0.1The [facility] HospitalComment on above:Performed By: #### CBC #### [facility] [address] [place] [address] Dr. Cuca LinaresBasophils/100 WBC (Bld)0.6 %Normal0.2-2.0The [facility] Comment on above:Performed By: #### CBC #### [facility] [address] [place] [address] Dr. Cuca Marcano #0.1 103/ulNormal0.0-0.7The [facility] HospitalComment on above: Performed By: #### CBC #### [facility] [address] [place] [address] Dr. Cuca Sowosinophils/100 WBC (Bld)2.2 %Normal0.9-7.0The [facility] Comment on above:Performed By: #### CBC #### [facility] [address] [place] [address] Dr. Cuca Sowrythrocyte distribution width (RBC) [Ratio]13.1 %Toabur80.0-15.0 The [facility] HospitalComment on above:Performed By: #### CBC #### [facility] [address] [place] [address] Dr. Cuca LinaresHematocrit (Bld) [Volume fraction]39.4 %Ijsyli25.0-48.0The [facility] HospitalComment on above:Performed By: #### CBC #### [facility] [address] [place] [address] Dr. Cuca LinaresHemoglobin (Bld) [Mass/Vol]12.6 g/kAGuosyx20.0-16.0The [facility] HospitalComment on above:Performed By: #### CBC #### [facility] [address] [place] [address] Dr. Cuca Fernandez #0.02 10e3/ulNormal0.00-0.03The [facility] on above:Performed By: #### CBC #### [facility] [address] [place] [address] Dr. Cuca Fernandez %0.3 %Normal0.0-0.5The [facility] on above: Performed By: #### CBC #### [facility] [address] [place] [address] Dr. Cuca Vanegas #1.9 103/ulNormal1.2-3.8The [facility] on above:Performed By: #### CBC #### [facility] [address] [place] [address] Dr. Cuca Christiansenhocytes/100 WBC (Bld)29.0 %Ifvaor85.5-60.0The [facility] on above:Performed By: #### CBC #### [facility] [address] [place] [address] Dr. Cuca WashingtonUAL DIFF REQNONormalThe [facility] on above: Performed By: #### CBC #### [facility] [address] [place] [address] Dr. Cuca Power (RBC) [Entitic mass]30.1 srDhcqbj22.7-34.0The [facility] on above:Performed By: #### CBC #### [facility] [address] [place] [address] Dr. Ccua Power (RBC) [Mass/Vol]32.0 g/gSGgnscz77.9-35.2The [facility] on above:Performed By: #### CBC #### [facility] [address] [place] [address] Dr. Cuca Power (RBC) [Entitic vol]94.0 aEHijwkh91.0-99.0The [facility] Daniel HospitalComment on above:Performed By: #### CBC #### [facility] [address] [address] [address] Cuca Busch #0.6 103/ulNormal0.3-0.8The [facility] HospitalComment on above:Performed By: #### CBC #### [facility] [address] [address] [address] Cuca Rousseauocytes/100 WBC (Bld)9.9 %Normal1.7-12.0The [facility] Comment on above:Performed By: #### CBC #### [facility] [address] [place] [address] Dr. Cuca Perry #3.7 103/ulNormal1.4-6.5The [facility] HospitalComment on above:Performed By: #### CBC #### [facility] [address] [place] [address] Dr. Cuca Iglesiasutrophils/100 WBC (Bld)58.0 %Yiqsjt26.0-75.0The [facility] HospitalComment on above:Performed By: #### CBC #### [facility] [address] [place] [address] Dr. Cuca Glasslet mean volume (Bld) [Entitic vol]9.5 fLNormal9.5-13.5The [facility] HospitalComment on above:Performed By: #### CBC #### [facility] [address] [place] [address] Dr. Cuca LinaresPLT296 103/hnLkvkpr082-520Ppj [facility] HospitalComment on above: Performed By: #### CBC #### [facility] [address] [place] [address] Dr. Cuca LinaresRBC4.19 106/ulCritically low4.20-5.40The [facility] HospitalComment on above:Performed By: #### CBC #### [facility] [address] [place] [address] Dr. Cuca LinaresWBC6.4 103/ulNormal4.0-11.0The [facility] HospitalComment on above: Performed By: #### CBC #### [facility] [address] [address] [address] Cuca LinaresPROF CHEM 8 (BAS METB)on [id number] gap [Moles/Vol]11.0 mmol/LNormalThe [facility] HospitalComment on above:Performed By: #### BMP #### [facility] [address] [address] [address] Cuca LinaresCalcium [Mass/Vol]9.5 mg/dLNormal8.5-10.1The [facility] Comment on above:Performed By: #### BMP #### [facility] [address] [address] [address] Cuca LinaresChloride [Moles/Vol]101 mmol/FKuwndr75-031Yrf [facility] Comment on above:Performed By: #### BMP #### [facility] [address] [place] [address] Dr. Cuca LinaresCO2 [Moles/Vol]31.7 mmol/LCritically high22.0-30.0The [facility] HospitalComment on above:Performed By: #### BMP #### [facility] [address] [place] [address] Dr. Cuca LinaresCreatinine [Mass/Vol]0.91 mg/dLNormal0.52-1.04The [facility] HospitalComment on above:Performed By: #### BMP #### [facility] [address] [place] [address] Dr. Cuca SowGFR-AF HUNGARIAN>60Normal>=60The [facility] HospitalComment on above:Performed By: #### BMP #### [facility] [address] [address] [address] Cuca SowGFR-NON AF HUNGARIAN>60Normal>=60The [facility] HospitalComment on above:Performed By: #### BMP #### [facility] [address] [place] [address] Dr. Cuca LinaresGlucose [Mass/Vol]108 mg/dLCritically dcab99-521Owa [facility] HospitalComment on above:Performed By: #### BMP #### [facility] [address] [address] [address] Cuca LinaresPotassium [Moles/Vol]3.7 mmol/LNormal3.4-5.0[facility] Comment on above:Performed By: #### BMP #### [facility] [address] [address] [address] Cuca LinaresSodium [Moles/Vol]140 mmol/NLffsro999-878Ftg [facility] Comment on above:Performed By: #### BMP #### [facility] [address] [place] [address] Dr. Cuca LinarseUrea nitrogen [Mass/Vol]21.0 mg/dLCritically high7.0-18.0Premier HealthComment on above:Performed By: #### BMP #### [facility] [address] [place] [address] Dr. Cuca Chen nitrogen/Creatinine [Mass ratio]23.1 mg/mgNoUC Medical CenterComment on above:Performed By: #### BMP #### [facility] [address] [place] [address] Dr. Cuca Chu [id number] Coag (PPP) [Relative time]{INR}NormalPremier HealthComment on above:Performed By: #### PT, PTT #### [facility] [address] [place] [address] Dr. Cuca Ruiz GUIDELINESSEE BELOWWVUMedicine Harrison Community HospitalComment on above:Result Comment: DESIRED INR: 2.0 - 3.0 CONDITIONS NOT LISTED BELOW 2.5 - 3.5 FOR PROSTHETIC HEART VALVE REPLACEMENT 2.5 - 3.5 RECURRENT THROMBOSIS Performed By: #### PT, PTT #### [facility] [address] [place] [address] Dr. Cuca LinaresPT Coag (PPP) [Time]9.8 sNormal9.0-11.6ThTriHealth Good Samaritan Hospital Comment on above:Performed By: #### PT, PTT #### [facility] [address] [place] [address] Dr. Cuca Goems [id number] Coag (Bld) [Time]35.9 xGbgjqw64.3-36.2The [facility] HospitalComment on above:Performed By: #### PT, PTT #### [facility] [address] [place] [address] Dr. Cuca LinaresCT ABDOMEN W CONTRASTon [id number] ABDOMEN W CONTRASTCT of the abdomen with intravenous contrast medium History: Left flank pain. Left abdominal pain. Quadrant pain. Diverticulosis. Technical Factors: CT imaging of the abdomen were obtained and formatted as 5 mm contiguous axial images from the domes of the diaphragm to the pelvic brim. Sagittal and coronal reconstructions were also obtained. Oral contrast medium: None. Intravenous contrast medium: Isovue-370, 100 mL. Comparison: None. Findings: Lungs: Lung bases are clear. Liver: Normal in size, shape, and decreased in attenuation. Bile Ducts: Normal in caliber. Gallbladder: Surgically absent. Pancreas: Normal without masses, cysts, ductal dilatation or calcification. Spleen: Normal in size without masses or calcifications. No splenules. Kidneys: Normal in size and enhancement. No hydronephrosis, or stones. 3.4 cm left central parapelvic cyst. Adrenals: Normal. Small bowel: Normal in caliber. Appendix: Not visualized. Colon: Normal in caliber. Peritoneum: No ascites, free air, or fluid collections. Vessels: Aorta normal in course and caliber. Portal vein, splenic vein, superior mesenteric vein are patent. Lymph nodes: Retroperitoneal: No enlarged retroperitoneal lymph nodes. Mesenteric: No enlarged mesenteric lymph nodes. Ureters: Normal in course and caliber. Bones: No bone lesions. This space narrowing lower thoracic spine, L2-L3, L5-S1. No post operative changes. IMPRESSION: No acute findings. Hepatic steatosis. Cholecystectomy. All CT scans at this facility use dose modulation, iterative reconstruction, and/or weight based dosing when appropriate to reduce radiation dose to as low as reasonably achievable. Interpreted by: Vasu Shaffer MD Signed by: Vasu Shaffer MD 06/20/19 Final resultNoEating Recovery Center a Behavioral HospitalCT ABDOMEN W CONTRAST Additional Contrast? Noneon [id number] acute findings. Hepatic steatosis. Cholecystectomy. All CT scans at this facility use dose modulation, iterative reconstruction, and/or weight based dosing when appropriate to reduce radiation dose to as low as reasonably achievable.[employer] Phone: cT of the abdomen with intravenous contrast medium History: Left flank pain. Left abdominal pain. Quadrant pain. Diverticulosis. Technical Factors: CT imaging of the abdomen were obtained and formatted as 5 mm contiguous axial images from the domes of the diaphragm to the pelvic brim. Sagittal and coronal reconstructions were also obtained. Oral contrast medium: None. Intravenous contrast medium:Isovue-370, 100 mL. Comparison: None. Findings: Lungs: Lung bases are clear. Liver: Normal in size,shape, and decreased in attenuation. Bile Ducts: Normal in caliber. Gallbladder: Surgically absent.Pancreas: Normal without masses, cysts, ductal dilatation or calcification. Spleen: Normal in size without masses or calcifications. No splenules. Kidneys: Normal in size and enhancement. No hydronephrosis, or stones. 3.4 cm left central parapelvic cyst. Adrenals: Normal. Small bowel: Normal in caliber. Appendix: Not visualized. Colon: Normal in caliber. Peritoneum: No ascites, free air, or fluidcollections. Vessels: Aorta normal in course and caliber. Portal vein, splenic vein, superior mesenteric vein are patent. Lymph nodes: Retroperitoneal: No enlarged retroperitoneal lymph nodes. Mesenteric: No enlarged mesenteric lymph nodes. Ureters: Normal in course and caliber. Bones: No bone lesions. This space narrowing lower thoracic spine, L2- L3, L5-S1. No post operative changes.[employer] Phone: emimi, [facility] Incoming Radiant Results From [employer] - 06/20/2019 10:[address] of the abdomen with intravenous contrast medium History: Left flank pain. Left abdominal pain. Quadrant pain. Diverticulosis. Technical Factors: CT imaging of the abdomen were obtained and formatted as 5 mm contiguous axial images from the domes of the diaphragm to the pelvic brim. Sagittal and coronal reconstructions were also obtained. Oral contrast medium: None. Intravenous contrast medium: Isovue-370, 100 mL. Comparison: None. Findings: Lungs: Lung bases are clear. Liver: Normal in size, shape, and decreased in attenuation. Bile Ducts: Normal in caliber. Gallbladder: Surgically absent. Pancreas: Normal without masses, cysts, ductal dilatation or calcification. Spleen: Normal in size without masses or calcifications. No splenules. Kidneys: Normal in size and enhancement. No hydronephrosis, or stones. 3.4 cm left central parapelvic cyst. Adrenals: Normal. Small bowel: Normal in caliber. Appendix: Not visualized. Colon: Normal in caliber. Peritoneum: No ascites, free air, or fluid collections. Vessels: Aorta normal in course and caliber. Portal vein, splenic vein, superior mesenteric vein are patent. Lymph nodes: Retroperitoneal: No enlarged retroperitoneal lymph nodes. Mesenteric: No enlarged mesenteric lymph nodes. Ureters: Normal in course and caliber. Bones: No bone lesions. This space narrowing lower thoracic spine, L2-L3, L5-S1. No post operative changes. IMPRESSION: No acute findings. Hepatic steatosis. Cholecystectomy. All CT scans at this facility use dose modulation, iterative reconstruction, and/or weight based dosing when appropriate to reduce radiation dose to as low as reasonably achievable. [facility] [employer] Phone: pOCT Venouson [id number] [Mass/Vol]0.8 mg/dL Normal0.6-1.2MNorthern Colorado Rehabilitation HospitalComment on above:Performed By: #### PVEN #### [facility] [address] [place] [address] GRM/1.73 sq M predicted among blacks MDRD (S/P/Bld) [Vol rate/Area] mL/min/{1.73_m2}Normal>60[facility] SouthwestComment on above:Result Comment: >60 mL/min/1.73m2 EGFR, calc. for ages 18 and older using the MDRD formula (not corrected for weight), is valid for stable renal function.Performed By: #### PVEN #### [facility] [address] [facility] [address] GRP/1.73 sq M.predicted MDRD (S/P/Bld) [Vol rate/Area] mL/min/{1.73_m2}Normal>60[facility] SouthwestComment on above:Result Comment: >60 mL/min/1.73m2 EGFR, calc. for ages 18 and older using the MDRD formula (not corrected for weight), is valid for stable renal function.Performed By: #### PVEN #### [facility] [address] [place] [address] YNE Performed onSEE [facility] Medical CenterComment on above:Result Comment: Performed on POCPerformed By: #### PVEN #### [facility] [address] [place] [address] BTA Sample TypeVENEstes Park Medical CenterComment on above:Performed By: #### PVEN #### [facility] [address] [place] [address] Fgutohihgr [Mass/Vol]0.8 mg/dL0.6 - 1.2 mg/dLMercy Health Willard HospitalApangea Learning Phone: GFR >60>60[employer] Phone: comment on above:>60 mL/min/1.73m2 EGFR, calc. for ages 18 and older using the MDRD formula (not corrected for weight), is valid for stable renal function. GFR Non->60>60Mer[facility] Willard HospitalApangea Learning Phone: comment on above:>60 mL/min/1.73m2 EGFR, calc. for ages 18 and older using the MDRD formula (not corrected for weight), is valid for stable renal function. Performed onSEE BELOWMercy Health Willard HospitalApangea Learning Phone: comment on above:Performed on POCSample TypeBanner Del E Webb Medical CenterApangea Learning Phone: Vital Signs Date TimeVital SignValuePerforming [id number] 10:43-0500 Diastolic blood pfnarsxe31 mm[Hg]Mi IM [facility]01-17-2025 10:43-0500Heart rate83 /minPadeneen MI [facility]01-17-2025 10:43-0500Respiratory rate16 /minPatrichans [place] [facility]01-17-2025 10:43-0500Systolic blood sdskismp830 mm[Hg]Mi MI [facility]12-23-2024 14:29-0500Diastolic blood hrisbgdd23 mm[Hg]Alon Payne [address] [place], [place] 7770812-23-2024 14:29-0500 Systolic blood ermhjvzz167 mm[Hg]Alon Payne [address] [place], [place] 7770812-23-2024 14:22-0500Body .24 [degF]Alon Payne [address] [place], [place] 7770812-23-2024 14:22-0500 Diastolic blood mfylwnzb09 mm[Hg]Alon Payne [address] [place], [place] 7770812-23-2024 14:22-0500Heart rate92 /Ori Payne [address] [place], [place] 7770812-23-2024 14:22-0500 Respiratory rate16 /Ori Payne [address] [place], [place] 7770812-23-2024 14:22-6500BvE9% (BldA) [Mass fraction]98 %Alon Payne [address] [place], [place] 7770812-23-2024 14:22-0500 Systolic blood rwirsdxl983 mm[Hg]Alon Payne [address] [place], [place] 7770812-23-2024 13:58-0500 Diastolic blood zstvmybi235 mm[Hg]Miguelangel Mg [phone]-WenotAvita Health System12-23-2024 13:58-0500Mean blood makbmqeh430 mm[Hg]Miguelangel Mg 320-2349Mrftor-HiqdbOhio [facility] Pydh56-54-0718 13:58-0500Systolic blood mm[Hg]Miguelangel Mg 169-0630Awwndv-NkogrOhio Valley [facility] Hospital [facility] Ppdj63-09-9763 13:32-0500Blood Pressure LocationJamie Saurav 056-2555Jmayfl-XyuwkOhio [facility] Kozs57-68-1115 13:32-0500Diastolic blood atsgikpc716 mm[Hg]Miguelangel Mg 075-4823Tbtvfq-DzrhbOhio [facility] Hospital [facility] Ssfa21-43-9093 13:32-0500Heart rate96 /minJamie Saurav [phone]-HrewiOhio Valley [facility] Hospital [facility] Psmm81-63-0155 13:32-0500Respiratory rate18 /minJamie Saurav 106-4084Iciqjx-ZhgswOhio [facility] Zaqv52-87-0200 13:32-9075XgH9% (BldA) [Mass fraction]97 %Miguelangel Mg 368-2757Scrcta-ErgrnOhio Valley Surgical Hospital [facility] Jjaj19-24-9782 13:32-0500Systolic blood yozdyjwn427 mm[Hg]Miguelangel Mg 567-0214Mxigjs-FwunzOhio [facility] Lper66-27-7617 16:11-0500Blood Pressure LocationBrett Toward [phone]-DsvnrTwin City Hospital 05-06-2024 16:11-0500Diastolic blood svbyzfpr60 mm[Hg]Gt Toward [phone]-NmpyeTwin City Hospital 05-06-2024 16:11-0500Heart rate83 /minBrett Toward 435-9696Evjzpi-TergpTwin City Hospital 05-06-2024 16:11-0500Respiratory rate16 /minBrett Toward [phone]-Xwihi[address] 05-06-2024 16:11-2751RyC3% (BldA) [Mass fraction]99 %Gt Toward [phone]-Lxsly[address] [place] [address] 05-06-2024 16:11-0500Systolic blood mm[Hg]Gt Toward [phone]-Fvgwd[address] [place] [address] 02-03-2024 15:48-0400Blood Pressure LocationTammy Ajith [address] [place] [address] 02-03-2024 15:48-0400Body .06 [degF]Rosa Ajith [address] [place] [address] 02-03-2024 15:48-0400Diastolic blood huzeqdnb85 mm[Hg]Rosa Ajith [phone]-Zjztb[address] [place] [address] 02-03-2024 15:48-0400Heart rate77 /minTammy Ajith [phone]-Lorwt[address] [place] [address] 02-03-2024 15:48-0400Respiratory rate18 /minTammy Ajith [phone]-Nkfom[address] [place] [address] 02-03-2024 15:48-9443WwL6% (BldA) [Mass fraction]97 %Rosa Ajith [phone]-Kalul[address] [place] [address] 02-03-2024 15:48-0400Systolic blood fzjmoffg180 mm[Hg]Rosa Ajith [phone]-Azyna[address] [place] [address] 02-03-2024 14:28-0400Blood Pressure LocationTammy Ajith [phone]-Xccrf[address] [place] [address] 02-03-2024 14:28-0400Diastolic blood gwyfilvj66 mm[Hg]Rosa Ajith [phone]-BqesbTwin City Hospital 02-03-2024 14:28-0400Heart rate77 /minTammy Ajith 647-1282Ccoonm-XqhrxTwin City Hospital 02-03-2024 14:28-6353RiH3% (BldA) [Mass fraction]97 %Rosa Canseco [phone]-Hnbpe[address] [place] [address] 02-03-2024 14:28-0400Systolic blood rowrcqsl036 mm[Hg]Rosa Canseco 118-8515Wgrkoq-Eimmf[address] [place] [address] 04-29-2023 16:22-0500Blood Pressure LocationPadeneen MI [facility]12-11-2023 16:22-0500Diastolic blood muhyctsb31 mm[Hg]Mi MI [facility]12-11-2023 16:22-0500Heart rate73 /minPatrick MI [facility]12-11-2023 16:22-0500Respiratory rate16 /minPatrick MI [facility]12-11-2023 16:22-0500Systolic blood eakfcwli475 mm[Hg]Mi MI [facility]11-06-2023 17:59-0500Blood Pressure LocationStacie ROBERTS 001-8191Ryhayj-RxkbuTwin City Hospital 03-25-2023 17:59-0500Body pezguohwuwe97.24 [degF]Stacie ROBERTS 996-8937Mqvexh-Rwfvd[address] [place] [address] 03-25-2023 17:59-0500Diastolic blood iorwqcrj10 mm[Hg]Stacie ROBERTS 156-3823Jxphir-QsgokTwin City Hospital 03-25-2023 17:59-0500Heart rate77 /Génesis ROBERTS 701-6490Rmxfea-XruauTwin City Hospital 03-25-2023 17:59-0500Respiratory rate16 /Génesis ROBERTS 236-8013Obhnzp-Xpeyw[address] [place] [address] 03-25-2023 17:59-9628ZbK2% (BldA) [Mass fraction]95 %Stacie ARMANDO 996-9638Czcfug-KuuuvTwin City Hospital 03-25-2023 17:59-0500Systolic blood stxwtinx044 mm[Hg]Stacie ARMANDO 345-7990Fafwfz-Csxdo[address] [place] [address] 03-21-2023 20:41-0400Diastolic blood jmbxnukr21 mm[Hg]Alon Payne [address] [place], [place] 7770811-02-2023 20:41-0400Heart rate72 /Ori Payne [address] [place], [place] 7770811-02-2023 20:41-0400Mean blood bblzfoxr87 mm[Hg]Alon Payne [facility]11-02-2023 20:41-0400 Respiratory rate20 /minAlon Payne [address] [place], [place] 7770811-02-2023 20:41-3593IrL1% (BldA) [Mass fraction]96 %Alon Payne [facility]11-02-2023 20:41-0400 Systolic blood mm[Hg]Alon Payne [facility]11-02-2023 20:15-0400 Diastolic blood mm[Hg]Alon Payne [address]11-02-2023 20:15-0400Heart rate63 /minAlon Payne [address] [place], [place] 2171711-02-2023 20:15-0400 Hourly RoundingAlon Payne [address] [place], [place] 7770811-02-2023 20:15-0400Mean blood mqdrupum69 mm[Hg]Alon Elmer [address] [place], [place] 2171711-02-2023 20:15-0400 Promise to ReturnGregoryjames Payne [address] [place], [place] 2171711-02-2023 20:15-0400 Respiratory rate20 /minGregoryjames Payne [address] [place], [place] 2171711-02-2023 20:15-5207YfO0% (BldA) [Mass fraction]95 %Alon Payne [address] [place], [place] 2171711-02-2023 20:15-0400 Systolic blood lkxsqkwa902 mm[Hg]Alon Payne [address] [place], [place] 2171711-02-2023 19:15-0400 Diastolic blood ervinkzk18 mm[Hg]Alon Payne [address] [place], [place] 2171711-02-2023 19:15-0400Heart rate66 /minAlon Payne [address] [place], [place] 7770811-02-2023 19:15-0400 Hourly RoundingGregoryjames Payne [address] [place], [place] 7770811-02-2023 19:15-0400Mean blood vvviuurn15 mm[Hg]Alon Payne [address] [place], [place] 2171711-02-2023 19:15-0400 Promise to ReturnAlon Payne [address] [place], [place] 7770811-02-2023 19:15-0400 Respiratory rate17 /minKejames Elmer [address] [place], [place] 7770811-02-2023 19:15-8476GwP6% (BldA) [Mass fraction]94 %Alon Payne [address] [place], [place] 7770811-02-2023 19:15-0400 Systolic blood ahurjulb563 mm[Hg]Alon Payne [address] [place], [place] 7770811-02-2023 18:15-0400 Hourly RoundingAlon Payne [address] [place], [place] 7770811-02-2023 18:15-0400 Promise to ReturnAlon Payne [address] [place], [place] 7770811-02-2023 16:22-0400Body uaczjzclupq50.52 [degF]Alon Payne [address] [place], [place] 7770811-02-2023 16:22-0400Heart rate63 /minGregoryjames Elmer [address] [place], [place] 7770811-02-2023 16:22-0400 Respiratory rate18 /minAlon Payne [address] [place], [place] 7770811-02-2023 16:15-0400gluc 121 mg/dLAlon Payne [address] [place], [place] 7770811-02-2023 16:15-0400gluc Alon Payne [address] [place], [place] 7770811-02-2023 13:44-0400Blood Pressure LocationStacie ROBERTS [phone]-GvklnTwin City Hospital 03-21-2023 13:44-0400Body oozsnqcanlu28.24 [degF]Stacie ROBERTS 011-5853Rrotep-JkclsTwin City Hospital 03-21-2023 13:44-0400Heart rate68 /Génesis ROBERTS 965-2445Gxqcao-WiqmqTwin City Hospital 03-21-2023 13:44-0400Respiratory rate16 /minStacie ROBERTS 286-7395Seudmp-NnfnpTwin City Hospital 03-21-2023 13:44-1583GcH4% (BldA) [Mass fraction]97 %Stacie ROBERTS 600-3717Othgsm-CugdyTwin City Hospital 03-18-2023 11:56-0400Blood Pressure LocationJamie Saurav 953-5475Avkdgr-PzjdkOhio [facility] Zyav04-51-6944 11:56-0400Body efnrwyusbaz57.96 [degF]Miguelangel Mg 246-5190Evkazp-FzbjjOhio [facility] Kgmx97-27-3766 11:56-0400Diastolic blood qoteuqbv55 mm[Hg]Miguelangel Mg 500-8197Lekono-IuuexOhio Valley Surgical Hospital [facility] Yzkr27-83-0714 11:56-0400Heart rate72 /minJamie Saurav 415-6805Psdfgt-DvnqrOhio [facility] Mbxg42-03-8303 11:56-9218VnF9% (BldA) [Mass fraction]97 %Miguelangel Mg 091-2490Lnofuh-WqqnoOhio Valley Surgical [facility] Mvax00-15-1574 11:56-0400Systolic blood dygykyyv835 mm[Hg]Miguelangel Mg 403-7473Vmrbes-WsnktOhio Valley Surgical [facility] Qoye24-50-8807 11:33-0400Blood Pressure LocationJENNIFER MIGUEL [facility]06-06-2023 11:33-0400Diastolic blood vouxcpfk05 mm[Hg]MESHA RIVERA [facility]06-06-2023 11:33-0400Heart rate68 /minJENNIFER MIGUEL [facility]06-06-2023 11:33-0400Respiratory rate16 /minMESHA RIVERA [facility]06-06-2023 11:33-0400Systolic blood kmvfiefu214 mm[Hg]MESHA RIVERA [facility]03-20-2023 11:45-0400Blood Pressure LocationReena Whalen [phone]-Hiuhy[address] [place] [address] 08-06-2022 11:45-0400Diastolic blood qnblaiao02 mm[Hg]Reena Whalen 514-1109Qvszpd-Vmfhf[address] [place] [address] 08-06-2022 11:45-0400Heart rate71 /Rico Whalen 083-7784Ntnvro-Yggys[address] [place] [address] 08-06-2022 11:45-0400Respiratory rate20 /Rico Whalen 950-8270Pbxtvm-Llboc[address] [place] [address] 08-06-2022 11:45-3207UtJ8% (BldA) [Mass fraction]96 %Reena Whalen 274-8508Rmbjxi-Syqvz[address] [place] [address] 08-06-2022 11:45-0400Systolic blood otkzdwor952 mm[Hg]Reena Whalen 991-8732Zhhkrg-Pkxac[address] [place] [address] 04-16-2022 10:10-0500Blood Pressure LocationTashavon Canseco 511-2223Zbhyuq-RpapjTwin City Hospital 04-16-2022 10:10-0500Body radkvxzlgig86.6 [degF]Rosa Canseco 934-7496Pnuczo-Zwufb[address] [place] [address] 04-16-2022 10:10-0500Diastolic blood zonjxatv39 mm[Hg]Rosa Canseco 557-7673Heezfc-MxpbhTwin City Hospital 04-16-2022 10:10-0500Heart rate54 /minTammy Ajith 066-7594Jnnliu-VhjwaTwin City Hospital 04-16-2022 10:10-0500Respiratory rate18 /minTammy Ajith 203-8696Tbgbxd-DpeelTwin City Hospital 04-16-2022 10:10-4525BiD2% (BldA) [Mass fraction]100 %Rosa De Lunaant 306-2021Agxqmu-LlawkTwin City Hospital 04-16-2022 10:10-0500Systolic blood kurrlcjf903 mm[Hg]Rosa Canseco 945-3874Kyhzyt-PlivyTwin City Hospital 12-12-2021 15:41-0400[facility] 07-26-2022 15:41-0400Diastolic blood mxxakxcd71 mm[Hg] Blanquita [facility] Javier 07-26-2022 15:41-0400Heart rate78 /minDionemarshae Cynthia [facility] 07-26-2022 15:41-0400Respiratory rate20 /minDionee [facility] Clark 07-26-2022 15:41-0239IyJ2% (BldA) [Mass fraction]97 % Blanquita [facility] 07-26-2022 15:41-0400Systolic blood ikokrpzq736 mm[Hg] Blanquita [facility] Javier 06-03-2022 11:17-0400Blood Pressure LocationPatrick Cancer Genetics [facility] 06-03-2022 11:17-0400Diastolic blood waweajaa77 mm[Hg] Mi MI [facility] 06-03-2022 11:17-0400Heart rate72 /minPatrick MI [facility] 06-03-2022 11:17-0400Respiratory rate16 /minPatrick Cancer Genetics [facility] 06-03-2022 11:17-0400Systolic blood jlqioalz557 mm[Hg] Mi MI [facility] 05-02-2022 16:36-0400Blood Pressure LocationStacie Ripl 078-0720Qhowuj-ZpugoMount Carmel Health System [facility] 05-02-2022 16:36-0400Body pglzlcohtff54.08 [degF]Stacie Ripl 051-5742Xzvohw-TwkfdOhio Valley Surgical Hospital [facility]avier 05-02-2022 16:36-0400Diastolic blood efpdoekx01 mm[Hg] Stacie ROBERTS 344-3448Zunttm-AlojkOhio Valley Surgical Hospital [facility]avier 05-02-2022 16:36-0400Heart rate77 /minStacie ROBETRS 876-1260Zqzdco-CfyswTulsa [facility] 05-02-2022 16:36-0400Respiratory rate16 /minConstantinevivi ROBERTS 186-0259Qtsmjl-IulbzMount Carmel Health System Javier 05-02-2022 16:36-8997FoR3% (BldA) [Mass fraction]98 % Stacie ROBERTS 516-7317Kcdynd-NmjolMount Carmel Health System Javier 05-02-2022 16:36-0400Systolic blood mm[Hg] Stacie ROBERTS 283-0265Tmtwes-MmwqvMount Carmel Health System Javier 05-02-2022 12:40-0400Blood Pressure LocationPadeneen MI [facility] 05-02-2022 12:40-0400Diastolic blood majeinko43 mm[Hg] Mi MI [facility] 05-02-2022 12:40-0400Heart rate70 /minMi MI [facility] 05-02-2022 12:40-0400Systolic blood vuycrfve201 mm[Hg] Mi MI [facility] 04-27-2022 16:20-0400Blood Pressure LocationSabas Rajan [facility]04-27-2022 16:20-0400Body ktlgtegwvpx64.88 [degF]Sabas Rajan [facility]04-27-2022 16:20-0400 BP/Pulse Patient PositionSabas Mohini [address] [place], [place] 6282404-27-2022 16:20-0400 Diastolic blood mbzphabk66 mm[Hg]Sabas Mohini [address] [place], [place] 6282404-27-2022 16:20-0400Heart rate94 /minSabas Mohini [address] [place], [place] 6282404-27-2022 16:20-0400Mean blood tnyectko19 mm[Hg]Sabas Mohini [address] [place], [place] 6282404-27-2022 16:20-0400 Respiratory rate16 /minSabas Mhoini [address] [place], [place] 6282404-27-2022 16:20-0400 Systolic blood nhabqsrh431 mm[Hg]Sabas Mohini [address] [place], [place] 7802804-27-2022 14:00-0400 Hourly RoundingSabas Mohini [address] [place], [place] 6282404-27-2022 14:00-0400 Promise to ReturnMansharri Mohini [address] [place], [place] 6282404-27-2022 12:11-0400Body lnmplzkvwsi96.24 [degF]Sabas Mohini [address] [place], [place] 6282404-27-2022 12:11-0400 Diastolic blood yrdovezj97 mm[Hg]Sabas Mohini [address] [place], [place] 6282404-27-2022 12:11-0400Heart rate83 /minManinder Mohini [address] [place], [place] 6282404-27-2022 12:11-0400Mean blood iujjmrpl54 mm[Hg]Sabas Mohini [address] [place], [place] 6282404-27-2022 12:11-1839BgS1% (BldA) [Mass fraction]93 %Sabas Mohini [facility]04-27-2022 12:11-0400 Systolic blood mm[Hg]Sabas Mohini [facility]04-27-2022 09:31-0400 Diastolic blood mm[Hg]Sabas Mohini [facility]04-27-2022 09:31-0400 Systolic blood hgtrkaip287 mm[Hg]Sabas Mohini [address]04-27-2022 08:32-9504RnR2% (BldA) [Mass fraction]97 %Sabas Mohini [address]04-27-2022 07:31-0400Body xcbigfitttb56.24 [degF]Sabas Mohini [address]04-27-2022 07:31-0400Heart rate90 /minSabas Monacoer [facility]04-27-2022 07:31-0400Mean blood mm[Hg]Sabas Mohini [facility]04-27-2022 07:31-8959DrI4% (BldA) [Mass fraction]96 %Sabas Mohini [facility]04-27-2022 00:33-0400Blood Pressure LocationSabas Mohini [address] [place], [place] 6282404-27-2022 00:33-0400 BP/Pulse Patient PositionSabas Mohini [facility]04-27-2022 00:33-0400Mean blood soitlgpg34 mm[Hg]Sabas Mohini [facility]04-27-2022 00:33-0400 Respiratory rate16 /minSabas Mohini [address] [place], [place] 6282404-26-2022 21:07-0400gluc 146 mg/dLSabas Monacoer [address] [place], [place] 6282404-26-2022 16:00-0400Blood Pressure LocationSabas Monacoer [address] [place], [place] 7802804-26-2022 16:00-0400Body wbkxaaxeklf03.24 [degF]Sabas Mohini [address] [place], [place] 7802804-26-2022 16:00-0400 BP/Pulse Patient PositionSabas Monacoer [address] [place], [place] 7802804-26-2022 16:00-0400 Respiratory rate18 /minSabas Monacoer [address] [place], [place] 7802804-26-2022 13:25-0400Body jhbmwjhmkav20.16 [degF]Sabas Monacoer [address] [place], [place] 7802804-26-2022 13:25-0400 Respiratory rate20 /minSabas Mohini [address] [place], [place] 7802804-26-2022 13:10-0400 Respiratory rate14 /minSabas Mohini [address] [place], [place] 7802804-26-2022 13:05-0400 Respiratory rate13 /minSabas Mohini [address] [place], [place] 7802804-26-2022 13:03-0400Body llamadxmtnn86.8 [degF]Sabas Mohini [address] [place], [place] 7802804-26-2022 03:35-9901MAK4 28 %Sabas Mohini [address] [place], [place] 6282404-25-2022 23:00-8495SPM8 28 %Sabas Mohini [address] [place], [place] 7802804-25-2022 20:44-0400gluc 124 mg/dLSabas Mohini [facility]04-25-2022 11:23-0400gluc 124 mg/dLSabas Monacoer [facility]04-25-2022 08:05-5690DKF1 35 %Sabas Mohini [address] [place], [place] 6282404-25-2022 07:56-0400Mean blood mm[Hg]Sabassharri Monacoer [facility]04-24-2022 20:00-0400Mean blood pggezily721 mm[Hg][facility] Mohini [facility]04-24-2022 11:48-9071GoC8% (BldA) [Mass fraction]97.4 %Sabas Rare Pink [facility] Resp Auto MY04-22-6115 12:51-0400Heart rate81 /min Sabas Rajan [facility]04-23-2022 10:23-0400Heart rate81 /minSabas Mohini [facility]04-23-2022 10:18-0400Heart rate84 /minSabas Mohini [facility]02-01-2020 08:06-0500BP Mfqilqxlm93 mm[Hg]Adair 1Mst[facility] campusAPT Therapeutics Work Phone: 1(823) 659-979302-01-2020 08:06-0500BP Mvdcnwnv936 mm[Hg]Adair 1 [employer] Work Phone: 1(649) 388-929502-01-2020 08:06-0500Pulse (Heart Rate)68 /minLorain 1 Y'all Phone: Encounters Encounter DateEncounter TypeCare ProviderFacilityStart: 19-57-8973nnpimgopuh Mi Morel WATERSFacility:CÉSAR BellevueStart: 02-15-2025 End: 21-99-3680wffaqzjwsbDdhppswfxsm BROWNFacility: ardStart: 02-15-2025 End: 96-73-3861Teftgep encounter procedureChristopher ARMANDO [phone]-PszsoMount Carmel Health System Javier Start: 02-09-2025 End: 04-51-9686jlshwsyzubGktazcaojej BROWNFacility: WillardStart: 02-09-2025 End: 63-71-3936Joafrij encounter procedureChristopher ARMANDO [phone]-IqiypMount Carmel Health System Javier Start: 02-02-2025 End: 30-34-1110rlrgadylviIeodg L. BryantFacility: ardStart: 02-02-2025 End: 25-47-8334Esuqjri encounter procedureTashavon Canseco [phone]-TwsofMount Carmel Health System Javier Start: 02-02-2025 End: 94-04-3800Wekg adult monitoring check doneRosa Canseco [phone]-WobgdMount Carmel Health System Javier Start: 08-15-2024 End: 53-62-0648gnudmhvjocJqcgv L. BryantFacility:FTMCStart: 08-15-2024 End: 05-09-8499Gxojvyq encounter procedureTashavon Canseco [facility] Start: 08-03-2024 End: 97-35-8299puaskongubIoizb L. BryantFacility: ardStart: 07-30-2024 End: 05-67-9130zmgvvlnfkmLhjkywf Adriel WATERSFacility:FTMCStart: 07-28-2024 End: 56-93-4043ssylzkkmfeJzgzryz R WATERSFacility:FTMCStart: 07-28-2024 End: 81-81-5804Ukmrpck encounter procedureMi MI [facility] Start: 06-05-2024 End: 34-15-0020hgcbrlwbdyNopsryi R WATERSFacility:EU BellevueStart: 06-05-2024 End: 89-67-1553Egpcwgi encounter procedurePadeneen MI [facility] start: 05-11-2024 End: 26-15-7755Tltqhqcnm department patient visitAlon Payne [facility] Start: 05-11-2024 End: 58-29-1589jaxwlxjaykTllhs M. DempseyFacility:CC ErastokStart: 05-11-2024 End: 66-03-5446Ojeolbc encounter Jodie Mg 132-3180Jphjwj-ZxwldMercy Health [facility] Start: 05-06-2024 End: 39-60-3351hourywijvrCddxt E TowardFacility:FM ardStart: 05-06-2024 End: 16-03-8202Gfvqkil encounter procedureBrett E Toward [phone]-MwsvuOhio Valley Surgical Hospital [facility] [place]avier Start: 02-13-2024 End: 19-58-4540dujentrupuBesomyvadwn BROWNFacility:FTMCStart: 02-13-2024 End: 13-50-8629Qukbrhf encounter procedureChristopher ROBERTS [facility] Start: 02-03-2024 End: 79-26-2489Xukjgsv encounter procedureTashavon Canseco [phone]-RzeevOhio Valley Surgical Hospital [facility] [place] Start: 02-03-2024 End: 23-27-0413Mrdvyjm encounter procedureRosa Canseco [phone]-EjbcpAdena Regional [facility] Center [facility] Javier Start: 02-03-2024 End: 21-15-7495Ebzd adult monitoring check doneRosa Canseco [phone]-NcoqkMount Carmel Health System [facility]avier Start: 04-29-2023 End: 97-07-7602Giiomuk encounter procedureMi MI [facility] start: 03-25-2023 End: 38-96-0205Bkcnrfm encounter Jonah ROBERTS [phone]-YtvxxMount Carmel Health System [facility] Start: 03-21-2023 End: 04-52-0979Bubaneaav department patient Jay Payne [facility] Start: 03-21-2023 End: 70-52-9004Kwddmro encounter Jonah ROBERTS [phone]-CmelpMount Carmel Health System Javier Start: 03-18-2023 End: 55-40-7952Pmn Drop Ami Mg [facility] start: 03-18-2023 End: 50-22-6416Nnhojlz encounter Jodie Mg [phone]-ZfcrrOhio Valley Surgical Hospital [facility] Start: 03-12-2023 End: 88-45-9617Wpowinr encounter procedureJENNIFER Iva RIVERA [facility] Start: 10-23-2022 End: 18-24-4530Jfcmrgu encounter procedureJENNIFER Iva RIVERA [facility] start: 10-16-2022 End: 92-62-3433Wcaygwl encounter procedureMi Morel SHMUEL [facility] Start: 08-06-2022 End: 62-40-6257Beuoowk encounter Allen Whalen [phone]-AumqrOhio Valley Surgical Hospital [facility] [place] Start: 06-04-2022 End: 62-01-9217Qvx Drop offMi Morel SHMUEL [facility] Start: 05-29-2022 End: 68-05-4791Jwuzjle encounter procedureMi Morel SHMUEL [facility] Start: 05-29-2022 End: 61-14-8208Wxdjayk encounter procedurePadeneen Morel MI [facility] Start: 05-16-2022 End: 21-21-7879Pmzobzh encounter procedurePatrichans Morel MI [facility] Start: 05-03-2022 End: 34-82-7991wksrealhxcUS VICKI J BROWNFacility:W8Biuko: 55-81-7593Zpndxcoxl for preprocedural cardiovascular examinationDR MI [facility] HospitalStart: 31-94-8002Mrvgwxzxr for preprocedural laboratory examinationDR MI Ortega [facility] HospitalStart: 04-28-2022 End: 68-60-5605Yxptiiv encounter procedureStacie ROBERTS [facility] Start: 04-27-2022 End: 08-64-1390zloyzjtvkgUM STACIE ROBERTSFacility:D7Uacsd: 04-27-2022 End: 17-63-6787Gucjmnsaq for preprocedural cardiovascular examinationDR STACIE ROBERTSFacility:O4Nmtov: 04-16-2022 End: 33-09-5429Yfq Drop offRosa Canseco [facility] Start: 04-16-2022 End: 05-34-2203Hxiknnf encounter Julianna Canseco [phone]-RkqelMount Carmel Health System Javier Start: 04-06-2022 End: 73-07-4760Yxufsgy encounter procedureMi MI [facility] Start: 01-11-2022 End: 36-32-0468Arcqzia encounter procedureMD Stacie Roberts Work Phone: [facility] CampusStart: 01-08-2022 End: 16-50-6114Cjxnmbd encounter Jonah ROBERTS [phone]-JtrnpMount Carmel Health System Javier Start: 01-04-2022 End: 11-41-4596Ymxcsav encounter procedureMD Stacie Roberts Work Phone: [facility] CampusStart: 12-12-2021 End: 99-30-2565Wozjmza encounter procedureBlanquita CrawfordBethesda North Hospital [facility] [place] Start: 10-20-2021 End: 41-79-8187Blmxyyf encounter procedureMi MI [facility] start: 09-25-2021 End: 75-03-5635Agsajce encounter procedureMi MI [facility] Start: 09-20-2021 End: 70-05-3310Zhb-admission assessmentMi MI [facility] Start: 09-18-2021 End: 23-54-8853Gtmzhkk encounter procedureStacie ROBERTS [phone]-MxwbaMount Carmel Health System Javier Start: 09-18-2021 End: 67-40-6585Iqhzgvj encounter procedureMi MI [facility] start: 09-08-2021 End: 68-14-0787Spkqdpsiyd and management of inpatientSabas Rajan [facility] Start: 09-07-2021 End: 91-57-6854kzooghrcrdWS MI MIFacility:U9Imdzx: 37-87-1215Errqgvzux for preprocedural laboratory examinationDR MI MIPremier [facility] Start: 09-04-2021 End: 60-01-7576umpmprycexTS MI MIFacility:L4Imxsg: 09-04-2021 End: 21-09-8931Zkzvjzvfz for preprocedural laboratory examinationDR MI WATERSFacility:R5Hsofo: 08-30-2021 End: 66-72-0728mvsshsnivcGV DOCTOR MISCFacility:S3Abkya: 06-20-2019 End: 89-64-0935Kbepqps encounter procedureEvans Army Community Hospitaltart: 06-20-2019 End: 31-06-4136Ytfvfwuoyk hospital visit by physicianSan[facility] Sheldonjosie [address] [place] [address] CT ScanComment on above:Personal history of digestive disease; Diverticulosis of large intestine without diverticulitis Procedures DateProcedureProcedure DetailPerforming ClinicianStart: 12-88-5971Zrosrzc refused by patientTajeremiahsilvino Canseco Start: 17-54-5137Pjoklcjcvnu removal of ureteric stent MESHA LANDAVERDERY Start: 24-64-5466YugijpiwsopCCRNJLFM PERRY Start: 12-34-2563NEB of headMD [employer] Work Phone: Start: 86-70-0432DD pre/post mri xrayMD Stacie [facility] environment Work Phone: Start: 61-81-5315TG pre/post mri xrayMD [employer] Work Phone: Start: 55-72-8770ECX of cervical spine with contrastMD [employer] Work Phone: Start: 42-68-7391RWO of thoracic spine with contrastMD [employer] Work Phone: Start: 12-95-6619QsjnewckdtfdtwadpmscsqppyvSozprfif Mohini comment on above:schatzki's ring, dilatedStart: 34-87-4162TneoskydupkJgkbxbmc Mohini Start: 04-63-1877Xyzkgkhzxpnnzu shockwave lithotripsy of calculus of kidneyMESHA RIVERA Start: 53-38-0694Rbmlebgvmtfqga shockwave lithotripsy of the bile ductSabas [facility] Group Start: 17-76-3846Hh abdomen w/contrast materialMAHER SALAMStart: 57-93-9980WREZ VENOUSMAHER SALAMStart: 43-51-2723Qpwmhajhzy other sourceMAHER SALAMStart: 91-66-6046Fr abdomen w/contrast materialMaher Salam Work Phone: Start: 94-31-8671YZIA VENOUSUnknown Provider Result Start: 72-80-9946AtsjerkmjzDbzrskjb [employer] comment on above:CYSTOSCOPY URETEROSCOPY basket removal left ureteral stoneStart: 08-09-9732Gwsfyq of stress incontinence by suprapubic slingSabas Black Chair Group Start: 94-77-1629Ecuuj (disorder)[facility] [employer] [facility] appendectomyS[facility]as [facility] Group cholecystectomyCuponomia History of operative procedure on elbowSabas Black Chair Group HysterectomyCuponomia Stone retrieval basket, device (physical object) [facility] [employer] [facility] Plan of Treatment DateCare ActivityDetailAuthorStart: 38-83-9224aczfqqsuzmHuluxcqmodHsgzdbcg: WillardStart: 71-19-4239HXZ of headMR head/brain wo/w [facility] Centertart: 01-11-2022 End: 24-56-5041Tvkjbli encounter procedureDeparted [facility] CampusStart: 32-57-2933Fddmbxoaq vaccinationFlu vaccine (#1)[employer] Work Phone: start: 93-87-2044Gqzyzlqlme monitoringCreatinine monitoringMercy Health Work Phone: start: 43-13-3506Jrbpiwmpv monitoringPotassium monitoringMercy Health Work Phone: start: 22-16-5225Tvhzcy cancer screenBreast cancer screenMercy Health Willard HospitalApangea Learning Phone: start: 84-01-6295Wmuja cancer screen colonoscopyColon cancer screen colonoscopyOhiohealth [facility] Phone: start: 66-87-4072Eijczxqp Vaccine (1 of 2)Shingles Vaccine (1 of 2)[employer] Work Phone: start: 24-29-1038Gpidmvgp cancer screenCervical cancer screenMer[facility] HospitalApangea Learning Phone: start: [phone] screenHIV screenMercy Health Willard HospitalApangea Learning Phone: start: [phone]/Tdap/Td vaccine (1 - Tdap) DTaP/Tdap/Td vaccine (1 - Tdap)[employer] Phone: start: 02-20-5540Cdcua screenLipid screenMercy Health Willard HospitalApangea Learning Phone: start: [phone] C screenHepatitis C screen [employer] Phone: End: [phone] CreatininePOCT Creatinine Point of Care Testing Routine One Time for 1 Occurrences starting 06/20/2019 until 06/20/2019[facility] Phone: comment on above:One Time for 1 Occurrences starting 06/20/2019 until 06/20/2019 Immunizations Immunization DateImmunizationNotesCare UpidzahmPvlkjmiw88-49-0884Ttvlyqxaykbw conjugate PCV20, polysaccharide GAL450 conjugate, adjuvant, PF; Translations: [[id number]]Sam ROBERTS [phone]-GgrjlAdena [facility] Javier 72-38-8620bywfpsgachac polysaccharide vaccine, 23 valentMi [place] [phone]-BcfzrMount [facility]el [facility] Javier NEGATED: Highlighted row has not occurred!96-12-8886parpytpgy virus vaccine, unspecified formulationTammy Ajith [phone]-KffjzMount Carmel Health System [facility] NEGATED: Highlighted row has not occurred!27-88-6806hmeyzrtehqbk conjugate vaccine, 13 valentTammy Ajith [phone]-OldmuMount Carmel Health System [facility] NEGATED: Highlighted row has not occurred!99-43-7839abnywrgzpadt polysaccharide vaccine, 23 valentTammy Ajith [phone]-XryijMount Carmel Health System [facility] NEGATED: Highlighted row has not occurred!51-77-8530kwhlpscmi virus vaccine, unspecified formulationJapae Saurav [phone]-HghphOhio Valley Surgical Hospital Convenient CareNEGATED: Highlighted row has not occurred!80-77-7902LFHN-CoV-2 mRNA (tozinameran 5y-11y) vaccineJapae Saurav [phone]-DnjanOhio Valley Surgical Hospital Convenient CareNEGATED: Highlighted row has not occurred!97-29-2128YYRS-CoV-2 mRNA (tozinameran 5y-11y) vaccinePatrick Cancer Genetics [phone]-PbbjpMount Carmel Health System [facility] NEGATED: Highlighted row has not occurred!23-56-1039ikpeuifit virus vaccine, unspecified formulationTammy Ajith [phone]-WaozwMount Carmel Health System [facility] NEGATED: Highlighted row has not occurred!67-70-5639EMKT-CoV-2 mRNA (tozinameran 5y-11y) vaccineTammy Ajith [phone]-GbkjeMount Carmel Health System Javier NEGATED: Highlighted row has not occurred!43-66-9517gcnlsoxfs virus vaccine, unspecified formulationPatrick [place] [phone]-YzmrpMount Carmel Health System [facility] NEGATED: Highlighted row has not occurred!43-82-0789ISGW-CoV-2 mRNA (tozinameran 5y-11y) vaccinePatrichans [place] [phone]-MhndxMount Carmel Health System Javier NEGATED: Highlighted row has not occurred!83-81-5319ruaegrbec virus vaccine, unspecified formulationStacie ROBERTS [phone]-VsmorTwin City Hospital NEGATED: Highlighted row has not occurred!09-18-2021 SARS-CoV-2 (COVID-19) Ad26 vaccine, recombinantHighland Springs Surgical Centerivvi Ripl [phone]-RwgnvTwin City Hospital NEGATED: Highlighted row has not occurred!03-09-2021 influenza virus vaccine, unspecified formulationSabas Rajan [facility] CenterNEGATED: Highlighted row has not occurred!84-77-4159gtdxpjpnm virus vaccine, unspecified formulation Sabas Rajan [facility] CenterNEGATED: Highlighted row has not occurred!21-60-7594oontbknrw virus vaccine, live, attenuated, for intranasal useSabas Rajan [facility] Payers DatePayer CategoryPayerPolicy [id number] [id number] Health Insurance [id number] Health Insurance [id number] [employer] [address] xxxxxxxxxxxx 2018-Present [phone] [address] [place] [address] xxxxxxxxxxxx [id number]76Ghvhrll [id number] 2.16.840.1.697852.3.579.2.53731-31-6135 [id number] 2.16.840.1.185703.3.57[id number] 2.16.840.1.346243.3.57[id number] 2.16.840.1.247147.3.57[id number] 2.16.840.1.806496.3.57[id number] 2.16.840.1.322377.3.57[id number] 2.16840.1.216652.3.57[id number] 2.16.840.1.193775.3.57[id number] 2.840.1.558671.3.57[id number] 2.16840.1.588621.3.57[id number] 2.16840.1.997921.3.57[id number] 2.16.840.1.054897.3.57[id number] 2.16.840.1.320484.3.57[id number] 2.16.840.1.820638.3.57[id number] 2.16.840.1.560999.3.57[id number] 2.16.840.1.733988.3.57[id number] 2.16.840.1.027752.3.57[id number] 2.16.840.1.188502.3.57[id number] 2.16.840.1.225571.3.57[id number] 2..840.1.428626.3.57[id number] 2.16.840.1.319589.3.579.2.727Private Health InsuranceCigna Health Claims [id number] Pay [id number] Social History DateTypeDetailFacilityStart: 06-20-2019 End: 48-91-0650Cyzgadi smoking status NHISNever [facility] Phone: comment on above:Denies use.Sex Assigned At BirthNot on [facility] Centere[facility] Work Phone: sex [facility]igned At [facility] smoking statusNeMiddlet[facility] comment on above:Denies use.Start: 78-97-3491Pqq Assigned At [facility] Start: 78-10-7267RtqMjcmlx ([facility] Functional Status KdrdLpyyehmzbvXdrdxhPapqrvos25-74-8989Btvkknmgtc StatusN/AExec[facility]12-23-2024Functional StatusN/[facility] Mnte37-93-8679Prfasvtgfc StatusN/[facility] Hcfytvd48-64-1908Fwvfjwdlda StatusN/[facility] Vduqcdx61-22-3883Ldqjnfxwfj StatusN/[facility] Wrdgoyb42-89-8362Txcxlflybv StatusN/AExec[facility]11-06-2023Functional StatusN/[facility] Shcnalc07-46-4904Mytvmrcnop StatusN/[facility]11-02-2023Functional StatusN/[facility] Diynpfz10-01-7168Levztmraph StatusN/[facility] Uxkl94-83-0567Gzbrkxyfvl StatusN/A[facility]03-20-2023Functional StatusN/[facility] Iqiuvaw72-76-5102Arcwwqgcuy StatusN/[facility] Rbvpjrn90-81-5827Nvgnvwazpt StatusN/[facility] Javier Clinical Notes 09-13-2021 to 02-10-2025 Note Date & PvbcKjbyMoeiuhwg80-92-5445 Hospital Discharge instructions Patient Education 02/10/2025 13:57:42 Diabetes Mellitus and Exercise Diabetes Mellitus and Exercise Regular exercise is important for your health, especially if you have diabetes mellitus. Exercise is not just about losing weight. It can also help you increase muscle strength and bone density and reduce body fat and stress. This can help your level of endurance and make you more fit and flexible. Why should I exercise if I have diabetes? Exercise has many benefits for people with diabetes. It can: Help lower and control your blood sugar (glucose). Help your body respond better and become more sensitive to the hormone insulin. Reduce how much insulin your body needs. Lower your risk for heart disease by: ?Lowering how much bad cholesterol and triglycerides you have in your body. ?Increasing how much good cholesterol you have in your body. ?Lowering your blood pressure. ?Lowering your blood glucose levels. What is my activity plan? Your health care provider or an expert trained in diabetes care (certified drug counselor) can help you make an activity plan. This plan can help you find the type of exercise that works for you. It may also tell you how often to exercise and for how long. Be sure to: Get at least 150 minutes of medium-intensity or high-intensity exercise each week. This may involvebrisk walking, biking, or water aerobics. Do stretching and strengthening exercises at least 2 times a week. This may involve yoga or weight lifting. Spread out your activity over at least 3 days of the week. Get some form of physical activity each day. ?Do not go more than 2 days in a row without some kind of activity. ?Avoid being inactive for more than 30 minutes at a time. Take frequent breaks to walk or stretch. Choose activities that you enjoy. Set goals that you know you can accomplish. Start slowly and increase the intensity of your exercise over time. How do I manage my diabetes during exercise? Monitor your blood glucose Check your blood glucose before and after you exercise. ?If your blood glucose is 240 mg/dL (13.3 mmol/L) or higher before you exercise, check your urine for ketones. These are chemicals created by the liver. If you have ketones in your urine, do not exercise until your blood glucose returns to normal. ?If your blood glucose is 100 mg/dL (5.6 mmol/L) or lower, eat a snack that has 15 20 grams of carbohydrate in it. Check your blood glucose 15 minutes after the snack to make sure that your level is above 100 mg/dL (5.6 mmol/L) before you start to exercise. Your risk for low blood glucose (hypoglycemia) goes up during and after exercise. Know the symptomsof this condition and how to treat it. Follow these instructions at home: Keep a carbohydrate snack on hand for use before, during, and after exercise. This can help preventor treat hypoglycemia. Avoid injecting insulin into parts of your body that are going to be used during exercise. This mayinclude: ?Your arms, when you are going to play tennis. ?Your legs, when you are about to go jogging. Keep track of your exercise habits. This can help you and your health care provider watch and adjust your activity plan. Write down: ?What you eat before and after you exercise. ?Blood glucose levels before and after you exercise. ?The type and amount of exercise you do. Talk to your health care provider before you start a new activity. They may need to: ?Make sure that the activity is safe for you. ?Adjust your insulin, other medicines, and food that you eat. Drink water while you exercise. This can stop you from losing too much water (dehydration). It can also prevent problems caused by having a lot of heat in your body (heat stroke). Where to find more information [place] Diabetes Association: diabetes.org Association of Diabetes Care & Education Specialists: diabeteseducator.org This information is not intended to replace advice given to you by your health care provider. Make sure you discuss any questions you have with your health care provider. Document Revised: 10/24/2022 Document Reviewed: 10/24/2022 [employer] Patient Education 2023 [employer]. Follow Up Care 02/08/2025 16:42:48 With:ARMANDO LOZANO, HERACLIO Vargas Address: [address] [place] [address]- When:6 months Comments:please change primary6 provider back to Rosa Canseco, see her in 6 months [facility] 09-24-2025 NotePatient Education Endocrinology Diabetes Mellitus and Exercise Regular exercise is important for your health, especially if you have diabetes mellitus. Exercise is not just about losing weight. It can also help you increase muscle strength and bone density and reduce body fat and stress. This can help your level of endurance and make you more fit and flexible. Why should I exercise if I have diabetes? Exercise has many benefits for people with diabetes. It can: ??? Help lower and control your blood sugar (glucose). ??? Help your body respond better and become more sensitive to the hormone insulin. ??? Reduce how much insulin your body needs. ??? Lower your risk for heart disease by: ? Lowering how much bad cholesterol and triglycerides you have in your body. ? Increasing how much good cholesterol you have in your body. ? Lowering your blood pressure. ? Lowering your blood glucose levels. What is my activity plan? Your health care provider or an expert trained in diabetes care (certified drug counselor) can help you make an activity plan. This plan can help you find the type of exercise that works for you. It may also tell you how often to exercise and for how long. Be sure to: ??? Get at least 150 minutes of medium-intensity or high-intensity exercise each week. This may involve brisk walking, biking, or water aerobics. ??? Do stretching and strengthening exercises at least 2 times a week. This may involve yoga or weight lifting. ??? Spread out your activity over at least 3 days of the week. ??? Get some form of physical activity each day. ? Do not go more than 2 days in a row without some kind of activity. ? Avoid being inactive for more than 30 minutes at a time. Take frequent breaks to walk or stretch. ??? Choose activities that you enjoy. Set goals that you know you can accomplish. ??? Start slowly and increase the intensity of your exercise over time. How do I manage my diabetes during exercise? Monitor your blood glucose ??? Check your blood glucose before and after you exercise. ? If your blood glucose is 240 mg/dL (13.3 mmol/L) or higher before you exercise, check your urine for ketones. These are chemicals created by the liver. If you have ketones in your urine, do not exercise until your blood glucose returns to normal. ? If your blood glucose is 100 mg/dL (5.6 mmol/L) or lower, eat a snack that has 15?20 grams of carbohydrate in it. Check your blood glucose 15 minutes after the snack to make sure that your level isabove 100 mg/dL (5.6 mmol/L) before you start to exercise. ??? Your risk for low blood glucose (hypoglycemia) goes up during and after exercise. Know the symptoms of this condition and how to treat it. Follow these instructions at home: ??? Keep a carbohydrate snack on hand for use before, during, and after exercise. This can help prevent or treat hypoglycemia. ??? Avoid injecting insulin into parts of your body that are going to be used during exercise. Thismay include: ? Your arms, when you are going to play tennis. ? Your legs, when you are about to go jogging. ??? Keep track of your exercise habits. This can help you and your health care provider watch and adjust your activity plan. Write down: ? What you eat before and after you exercise. ? Blood glucose levels before and after you exercise. ? The type and amount of exercise you do. ??? Talk to your health care provider before you start a new activity. They may need to: ? Make sure that the activity is safe for you. ? Adjust your insulin, other medicines, and food that you eat. ??? Drink water while you exercise. This can stop you from losing too much water (dehydration). It can also prevent problems caused by having a lot of heat in your body (heat stroke). Where to find more information ??? [place] Diabetes Association: diabetes.org ??? Association of Diabetes Care & Education Specialists: diabeteseducator.org This information is not intended to replace advice given to you by your health care provider. Make sure you discuss any questions you have with your health care provider. Document Revised: 10/24/2022 Document Reviewed: 10/24/2022 [employer] Patient Education ? 2023 [employer].[facility] 02-06-2025 Hospital Discharge instructions Patient Education 02/06/2025 08:55:23 Diabetes Mellitus and Exercise Diabetes Mellitus and Exercise Regular exercise is important for your health, especially if you have diabetes mellitus. Exercise is not just about losing weight. It can also help you increase muscle strength and bone density and reduce body fat and stress. This can help your level of endurance and make you more fit and flexible. Why should I exercise if I have diabetes? Exercise has many benefits for people with diabetes. It can: Help lower and control your blood sugar (glucose). Help your body respond better and become more sensitive to the hormone insulin. Reduce how much insulin your body needs. Lower your risk for heart disease by: ?Lowering how much bad cholesterol and triglycerides you have in your body. ?Increasing how much good cholesterol you have in your body. ?Lowering your blood pressure. ?Lowering your blood glucose levels. What is my activity plan? Your health care provider or an expert trained in diabetes care (certified drug counselor) can help you make an activity plan. This plan can help you find the type of exercise that works for you. It may also tell you how often to exercise and for how long. Be sure to: Get at least 150 minutes of medium-intensity or high-intensity exercise each week. This may involvebrisk walking, biking, or water aerobics. Do stretching and strengthening exercises at least 2 times a week. This may involve yoga or weight lifting. Spread out your activity over at least 3 days of the week. Get some form of physical activity each day. ?Do not go more than 2 days in a row without some kind of activity. ?Avoid being inactive for more than 30 minutes at a time. Take frequent breaks to walk or stretch. Choose activities that you enjoy. Set goals that you know you can accomplish. Start slowly and increase the intensity of your exercise over time. How do I manage my diabetes during exercise? Monitor your blood glucose Check your blood glucose before and after you exercise. ?If your blood glucose is 240 mg/dL (13.3 mmol/L) or higher before you exercise, check your urine for ketones. These are chemicals created by the liver. If you have ketones in your urine, do not exercise until your blood glucose returns to normal. ?If your blood glucose is 100 mg/dL (5.6 mmol/L) or lower, eat a snack that has 15 20 grams of carbohydrate in it. Check your blood glucose 15 minutes after the snack to make sure that your level is above 100 mg/dL (5.6 mmol/L) before you start to exercise. Your risk for low blood glucose (hypoglycemia) goes up during and after exercise. Know the symptomsof this condition and how to treat it. Follow these instructions at home: Keep a carbohydrate snack on hand for use before, during, and after exercise. This can help preventor treat hypoglycemia. Avoid injecting insulin into parts of your body that are going to be used during exercise. This mayinclude: ?Your arms, when you are going to play tennis. ?Your legs, when you are about to go jogging. Keep track of your exercise habits. This can help you and your health care provider watch and adjust your activity plan. Write down: ?What you eat before and after you exercise. ?Blood glucose levels before and after you exercise. ?The type and amount of exercise you do. Talk to your health care provider before you start a new activity. They may need to: ?Make sure that the activity is safe for you. ?Adjust your insulin, other medicines, and food that you eat. Drink water while you exercise. This can stop you from losing too much water (dehydration). It can also prevent problems caused by having a lot of heat in your body (heat stroke). Where to find more information [place] Diabetes Association: diabetes.org Association of Diabetes Care & Education Specialists: diabeteseducator.org This information is not intended to replace advice given to you by your health care provider. Make sure you discuss any questions you have with your health care provider. Document Revised: 10/24/2022 Document Reviewed: 10/24/2022 [employer] Patient Education 2023 [employer]. [facility] Javier 09-20-2025 NotePatient Education Endocrinology Diabetes Mellitus and Exercise Regular exercise is important for your health, especially if you have diabetes mellitus. Exercise is not just about losing weight. It can also help you increase muscle strength and bone density and reduce body fat and stress. This can help your level of endurance and make you more fit and flexible. Why should I exercise if I have diabetes? Exercise has many benefits for people with diabetes. It can: ??? Help lower and control your blood sugar (glucose). ??? Help your body respond better and become more sensitive to the hormone insulin. ??? Reduce how much insulin your body needs. ??? Lower your risk for heart disease by: ? Lowering how much bad cholesterol and triglycerides you have in your body. ? Increasing how much good cholesterol you have in your body. ? Lowering your blood pressure. ? Lowering your blood glucose levels. What is my activity plan? Your health care provider or an expert trained in diabetes care (certified drug counselor) can help you make an activity plan. This plan can help you find the type of exercise that works for you. It may also tell you how often to exercise and for how long. Be sure to: ??? Get at least 150 minutes of medium-intensity or high-intensity exercise each week. This may involve brisk walking, biking, or water aerobics. ??? Do stretching and strengthening exercises at least 2 times a week. This may involve yoga or weight lifting. ??? Spread out your activity over at least 3 days of the week. ??? Get some form of physical activity each day. ? Do not go more than 2 days in a row without some kind of activity. ? Avoid being inactive for more than 30 minutes at a time. Take frequent breaks to walk or stretch. ??? Choose activities that you enjoy. Set goals that you know you can accomplish. ??? Start slowly and increase the intensity of your exercise over time. How do I manage my diabetes during exercise? Monitor your blood glucose ??? Check your blood glucose before and after you exercise. ? If your blood glucose is 240 mg/dL (13.3 mmol/L) or higher before you exercise, check your urine for ketones. These are chemicals created by the liver. If you have ketones in your urine, do not exercise until your blood glucose returns to normal. ? If your blood glucose is 100 mg/dL (5.6 mmol/L) or lower, eat a snack that has 15?20 grams of carbohydrate in it. Check your blood glucose 15 minutes after the snack to make sure that your level isabove 100 mg/dL (5.6 mmol/L) before you start to exercise. ??? Your risk for low blood glucose (hypoglycemia) goes up during and after exercise. Know the symptoms of this condition and how to treat it. Follow these instructions at home: ??? Keep a carbohydrate snack on hand for use before, during, and after exercise. This can help prevent or treat hypoglycemia. ??? Avoid injecting insulin into parts of your body that are going to be used during exercise. Thismay include: ? Your arms, when you are going to play tennis. ? Your legs, when you are about to go jogging. ??? Keep track of your exercise habits. This can help you and your health care provider watch and adjust your activity plan. Write down: ? What you eat before and after you exercise. ? Blood glucose levels before and after you exercise. ? The type and amount of exercise you do. ??? Talk to your health care provider before you start a new activity. They may need to: ? Make sure that the activity is safe for you. ? Adjust your insulin, other medicines, and food that you eat. ??? Drink water while you exercise. This can stop you from losing too much water (dehydration). It can also prevent problems caused by having a lot of heat in your body (heat stroke). Where to find more information ??? [place] Diabetes Association: diabetes.org ??? Association of Diabetes Care & Education Specialists: diabeteseducator.org This information is not intended to replace advice given to you by your health care provider. Make sure you discuss any questions you have with your health care provider. Document Revised: 10/24/2022 Document Reviewed: 10/24/2022 [employer] Patient Education ? 2023 convoy therapeuticsAsafAv[facility] 02-[facility] Hospital Discharge instructions Patient Education 02/02/2025 15:27:47 Dyslipidemia Dyslipidemia Dyslipidemia is an imbalance of waxy, fat-like substances (lipids) in the blood. The body needs lipids in small amounts. Dyslipidemia often involves a high level of cholesterol or triglycerides, which are types of lipids. Common forms of dyslipidemia include: High levels of LDL cholesterol. LDL is the type of cholesterol that causes fatty deposits (plaques)to build up in the blood vessels that carry blood away from the heart (arteries). Low levels of HDL cholesterol. HDL cholesterol is the type of cholesterol that protects against heart disease. High levels of HDL remove the LDL buildup from arteries. High levels of triglycerides. Triglycerides are a fatty substance in the blood that is linked to a buildup of plaques in the arteries. What are the causes? There are two main types of dyslipidemia: primary and secondary. Primary dyslipidemia is caused by changes (mutations) in genes that are passed down through families (inherited). These mutations cause several types of dyslipidemia. Secondary dyslipidemia may be caused by various risk factors that can lead to the disease, such as lifestyle choices and certain medical conditions. What increases the risk? You are more likely to develop this condition if you are an older man or if you are a woman who hasgone through menopause. Other risk factors include: Having a family history of dyslipidemia. Taking certain medicines, including control pills, steroids, some diuretics, and beta-blockers. Eating a diet high in saturated fat. Smoking cigarettes or excessive alcohol intake. Having certain medical conditions such as diabetes, polycystic ovary syndrome (PCOS), kidney disease, liver disease, or hypothyroidism. Not exercising regularly. Being overweight or obese with too much belly fat. What are the signs or symptoms? In most cases, dyslipidemia does not usually cause any symptoms. In severe cases, very high lipid levels can cause: Fatty bumps under the skin (xanthomas). A white or escamilla ring around the black center (pupil) of the eye. Very high triglyceride levels can cause inflammation of the pancreas (pancreatitis). How is this diagnosed? Your health care provider may diagnose dyslipidemia based on a routine blood test (fasting blood test). Because most people do not have symptoms of the condition, this blood testing (lipid profile) is done on adults age 20 and older and is repeated every 4-6 years. This test checks: Total cholesterol. This measures the total amount of cholesterol in your blood, including LDL cholesterol, HDL cholesterol, and triglycerides. A healthy number is below 200 mg/dL (5.17 mmol/L). LDL cholesterol. The target number for LDL cholesterol is different for each person, depending on individual risk factors. A healthy number is usually below 100 mg/dL (2.59 mmol/L). Ask your health care provider what your LDL cholesterol should be. HDL cholesterol. An HDL level of 60 mg/dL (1.55 mmol/L) or higher is best because it helps to protect against heart disease. A number below 40 mg/dL (1.03 mmol/L) for men or below 50 mg/dL (1.29 mmol/L) for women increases the risk for heart disease. Triglycerides. A healthy triglyceride number is below 150 mg/dL (1.69 mmol/L). If your lipid profile is abnormal, your health care provider may do other blood tests. How is this treated? Treatment depends on the type of dyslipidemia that you have and your other risk factors for heart disease and stroke. Your health care provider will have a target range for your lipid levels based onthis information. Treatment for dyslipidemia starts with lifestyle changes, such as diet and exercise. Your health care provider may recommend that you: Get regular exercise. Make changes to your diet. Quit smoking if you smoke. Limit your alcohol intake. If diet changes and exercise do not help you reach your goals, your health care provider may also prescribe medicine to lower lipids. The most commonly prescribed type of medicine lowers your LDL cholesterol (statin drug). If you have a high triglyceride level, your provider may prescribe another type of drug (fibrate) or an omega-3 fish oil supplement, or both. Follow these instructions at home: Eating and drinking Follow instructions from your health care provider or dietitian about eating or drinking restrictions. Eat a healthy diet as told by your health care provider. This can help you reach and maintain a healthy weight, lower your LDL cholesterol, and raise your HDL cholesterol. This may include: ?Limiting your calories, if you are overweight. ?Eating more fruits, vegetables, whole grains, fish, and lean meats. ?Limiting saturated fat, trans fat, and cholesterol. Do not drink alcohol if: ?Your health care provider tells you not to drink. ?You are , may be , or are planning to become . If you drink alcohol: ?Limit how much you have to: ?0 1 drink a day for women. ? 0 2 drinks a day for men. ?Know how much alcohol is in your drink. In the [place] one drink equals one 12 oz bottle of beer (355 mL), one 5 oz glass of wine (148 mL), or one 1 oz glass of hard liquor (44 mL). Activity Get regular exercise. Start an exercise and strength training program as told by your health care provider. Ask your health care provider what activities are safe for you. Your health care provider may recommend: ?30 minutes of aerobic activity 4 6 days a week. Brisk walking is an example of aerobic activity. ?Strength training 2 days a week. General instructions Do not use any products that contain nicotine or tobacco. These products include cigarettes, chewing tobacco, and vaping devices, such as e-cigarettes. If you need help quitting, ask your health careprovider. Take pyfj-jmr-afqbptc and prescription medicines only as told by your health care provider. This includes supplements. Keep all follow-up visits. This is important. Contact a health care provider if: You are having trouble sticking to your exercise or diet plan. You are struggling to quit smoking or to control your use of alcohol. Summary Dyslipidemia often involves a high level of cholesterol or triglycerides, which are types of lipids. Treatment depends on the type of dyslipidemia that you have and your other risk factors for heart disease and stroke. Treatment for dyslipidemia starts with lifestyle changes, such as diet and exercise. Your health care provider may prescribe medicine to lower lipids. This information is not intended to replace advice given to you by your health care provider. Make sure you discuss any questions you have with your health care provider. Document Revised: 12/07/2022 Document Reviewed: 07/10/2021 [employer] Patient Education 2023 [employer]. 02/02/2025 15:27:44 DASH Eating Plan DASH Eating Plan DASH stands for Dietary Approaches to Stop Hypertension. The DASH eating plan is a healthy eating plan that has been shown to: Lower high blood pressure (hypertension). Reduce your risk for type 2 diabetes, heart disease, and stroke. Help with weight loss. What are tips for following this plan? Reading food labels Check food labels for the amount of salt (sodium) per serving. Choose foods with less than 5 percent of the Daily Value (DV) of sodium. In general, foods with less than 300 milligrams (mg) of sodium per serving fit into this eating plan. To find whole grains, look for the word whole as the first word in the ingredient list. Shopping Buy products labeled as low-sodium or no salt added. Buy fresh foods. Avoid canned foods and pre-made or frozen meals. Cooking Try not to add salt when you cook. Use salt-free seasonings or herbs instead of table salt or sea salt. Check with your health care provider or pharmacist before using salt substitutes. Do not christina foods. Cook foods in healthy ways, such as baking, boiling, grilling, roasting, or broiling. Cook using oils that are good for your heart. These include olive, canola, avocado, soybean, and sunflower oil. Meal planning Eat a balanced diet. This should include: ?4 or more servings of fruits and 4 or more servings of vegetables each day. Try to fill half of your plate with fruits and vegetables. ?6 8 servings of whole grains each day. ?6 or less servings of lean meat, poultry, or fish each day. 1 oz is 1 serving. A 3 oz (85 g) serving of meat is about the same size as the palm of your hand. One egg is 1 oz (28 g). ?2 3 servings of low-fat dairy each day. One serving is 1 cup (237 mL). ?1 serving of nuts, seeds, or beans 5 times each week. ?2 3 servings of heart-healthy fats. Healthy fats called omega-3 fatty acids are found in foods such as walnuts, flaxseeds, fortified milks, and eggs. These fats are also found in cold-water fish, such as sardines, salmon, and mackerel. Limit how much you eat of: ?Canned or prepackaged foods. ?Food that is high in trans fat, such as fried foods. ?Food that is high in saturated fat, such as fatty meat. ?Desserts and other sweets, sugary drinks, and other foods with added sugar. ?Full-fat dairy products. Do not salt foods before eating. Do not eat more than 4 egg yolks a week. Try to eat at least 2 vegetarian meals a week. Eat more home-cooked food and less restaurant, buffet, and fast food. Lifestyle When eating at a restaurant, ask if your food can be made with less salt or no salt. If you drink alcohol: ?Limit how much you have to: ?0 1 drink a day if you are female. ?0 2 drinks a day if you are male. ?Know how much alcohol is in your drink. In the [place] one drink is one 12 oz bottle of beer (355 mL), one 5 oz glass of wine (148 mL), or one 1 oz glass of hard liquor (44 mL). General information Avoid eating more than 2,300 mg of salt a day. If you have hypertension, you may need to reduce your sodium intake to 1,500 mg a day. Work with your provider to stay at a healthy body weight or lose weight. Ask what the best weight range is for you. On most days of the week, get at least 30 minutes of exercise that causes your heart to beat faster. This may include walking, swimming, or biking. Work with your provider or dietitian to adjust your eating plan to meet your specific calorie needs. What foods should I eat? Fruits All fresh, dried, or frozen fruit. Canned fruits that are in their natural juice and do not have sugar added to them. Vegetables Fresh or frozen vegetables that are raw, steamed, roasted, or grilled. Low- sodium or reduced-sodiumtomato and vegetable juice. Low-sodium or reduced-sodium tomato sauce and tomato paste. Low-sodium or reduced-sodium canned vegetables. Grains Whole-grain or whole-wheat bread. Whole-grain or whole-wheat pasta. Brown rice. Oatmeal. Quinoa. Bulgur. Whole-grain and low-sodium cereals. Yasemin bread. Low- fat, low-sodium crackers. Whole-wheat flour tortillas. Meats and other proteins Skinless chicken or turkey. Ground chicken or turkey. Pork with fat trimmed off. Fish and seafood. Egg whites. Dried beans, peas, or lentils. Unsalted nuts, nut butters, and seeds. Unsalted canned beans. Lean cuts of beef with fat trimmed off. Low-sodium, lean precooked or cured meat, such as sausages or meat loaves. Dairy Low-fat (1%) or fat-free (skim) milk. Reduced-fat, low-fat, or fat-free cheeses. Nonfat, low-sodiumricotta or cottage cheese. Low-fat or nonfat yogurt. Low-fat, low-sodium cheese. Fats and oils Soft margarine without trans fats. Vegetable oil. Reduced-fat, low-fat, or light mayonnaise and salad dressings (reduced-sodium). Canola, safflower, olive, avocado, soybean, and sunflower oils. Avocado. Seasonings and condiments Herbs. Spices. Seasoning mixes without salt. Other foods Unsalted popcorn and pretzels. Fat-free sweets. The items listed above may not be all the foods and drinks you can have. Talk to a dietitian to learn more. What foods should I avoid? Fruits Canned fruit in a light or heavy syrup. Fried fruit. Fruit in cream or butter sauce. Vegetables Creamed or fried vegetables. Vegetables in a cheese sauce. Regular canned vegetables that are not marked as low-sodium or reduced-sodium. Regular canned tomato sauce and paste that are not marked as low-sodium or reduced-sodium. Regular tomato and vegetable juices that are not marked as low-sodium or reduced-sodium. Pickles. Olives. Grains Baked goods made with fat, such as croissants, muffins, or some breads. Dry pasta or rice meal packs. Meats and other proteins Fatty cuts of meat. Ribs. Fried meat. Lopez. Bologna, salami, and other precooked or cured meats, such as sausages or meat loaves, that are not lean and low in sodium. Fat from the back of a pig (fatback). Bratwurst. Salted nuts and seeds. Canned beans with added salt. Canned or smoked fish. Whole eggs or egg yolks. Chicken or turkey with skin. Dairy Whole or 2% milk, cream, and txcc-dcv-xddy. Whole or full-fat cream cheese. Whole-fat or sweetened yogurt. Full-fat cheese. Nondairy creamers. Whipped toppings. Processed cheese and cheese spreads. Fats and oils Butter. Stick margarine. Lard. Shortening. Ghee. Lopez fat. Tropical oils, such as coconut, palm kernel, or palm oil. Seasonings and condiments Onion salt, garlic salt, seasoned salt, table salt, and sea salt. Worcestershire sauce. Tartar sauce. Barbecue sauce. Teriyaki sauce. Soy sauce, including reduced-sodium soy sauce. Steak sauce. Canned and packaged gravies. Fish sauce. Oyster sauce. Cocktail sauce. Store-bought horseradish. Ketchup.Mustard. Meat flavorings and tenderizers. Bouillon cubes. Hot sauces. Pre-made or packaged marinades. Pre-made or packaged taco seasonings. Relishes. Regular salad dressings. Other foods Salted popcorn and pretzels. The items listed above may not be all the foods and drinks you should avoid. Talk to a dietitian didier more. Where to find more information National Heart, Lung, and Blood [place] (NHLBI): nhlbi.nih.gov [place] [employer] (AHA): heart.org Academy of Nutrition and Dietetics: eatright.org National Kidney Foundation (NKF): kidney.org This information is not intended to replace advice given to you by your health care provider. Make sure you discuss any questions you have with your health care provider. Document Revised: 05/23/2023 Document Reviewed: 05/23/2023 [employer] Patient Education 2023 [employer]. 02/02/2025 15:27:41 Anemia Anemia Anemia is a condition in which there are not enough red blood cells or hemoglobin in the blood. Hemoglobin is a substance in red blood cells that carries oxygen. When you do not have enough red blood cells or hemoglobin (are anemic), your body cannot get enoughoxygen, and your organs may not work properly. As a result, you may feel very tired or have other problems. What are the causes? Common causes of anemia include: Excessive bleeding. Anemia can be caused by excessive bleeding inside or outside the body, including bleeding from the intestines or from heavy menstrual periods in females. Poor nutrition. Long-lasting (chronic) kidney, thyroid, and liver disease. Bone marrow disorders, spleen problems, and blood disorders. Cancer and treatments for cancer. Human immunodeficiency virus (HIV) and acquired immunodeficiency syndrome (AIDS). Infections, medicines, and autoimmune disorders that destroy red blood cells. What are the signs or symptoms? Symptoms of this condition include: Minor weakness. Dizziness. Headache, or difficulties concentrating and sleeping. Heartbeats that feel irregular or faster than normal (palpitations). Shortness of breath, especially with exercise. Pale skin, lips, and nails, or cold hands and feet. Upset stomach (indigestion) and nausea. Symptoms may occur suddenly or develop slowly. If your anemia is mild, you may not have symptoms. How is this diagnosed? This condition is diagnosed based on blood tests, your medical history, and a physical exam. In some cases, a test may be needed in which cells are removed from the soft tissue inside of a bone and looked at under a microscope (bone marrow biopsy). Your health care provider may also check your stool (feces) for blood and may do more testing to look for the cause of your bleeding. Other tests may include: Imaging tests, such as a CT scan or MRI. A procedure to see inside your esophagus and stomach (endoscopy). The esophagus is the part of the body that moves food from your mouth to your stomach. A procedure to see inside your colon and rectum (colonoscopy). How is this treated? Treatment for this condition depends on the cause. If you continue to lose a lot of blood, you may need to be treated at a hospital. Treatment may include: Taking supplements of iron, vitamin B12, or folic acid. Taking a hormone medicine (erythropoietin) that can help to stimulate red blood cell growth. Receiving donated blood through an IV (blood transfusion). This may be needed if you lose a lot of blood. Making changes to your diet. Having surgery to remove your spleen. Follow these instructions at home: Take qrbq-gnq-hlsqcxl and prescription medicines only as told by your health care provider. Take supplements only as told by your health care provider. Follow any diet instructions that you were given by your health care provider. Keep all follow-up visits. Your health care provider will want to recheck your blood tests. Contact a health care provider if: You develop new bleeding anywhere in the body. You are very weak. Get help right away if: You are short of breath. You have pain in your abdomen or chest. You are dizzy or feel faint. You have trouble concentrating. You have bloody stools, black stools, or tarry stools. You vomit repeatedly or you vomit up blood. These symptoms may be an emergency. Get help right away. Call 911. Do not wait to see if the symptoms will go away. Do not drive yourself to the hospital. Summary Anemia is a condition in which you do not have enough red blood cells or enough of a substance in your red blood cells that carries oxygen. Symptoms may occur suddenly or develop slowly. If your anemia is mild, you may not have symptoms. This condition is diagnosed with blood tests, a medical history, and a physical exam. Other tests may be needed. Treatment for this condition depends on the cause of the anemia. This information is not intended to replace advice given to you by your health care provider. Make sure you discuss any questions you have with your health care provider. Document Revised: 07/30/2022 Document Reviewed: 07/30/2022 [employer] Patient Education 2023 [employer]. 02/02/2025 15:27:39 Living With Sleep Apnea Living With Sleep Apnea Sleep apnea is a condition in which breathing pauses or becomes shallow during sleep. Sleep apnea is most commonly caused by a collapsed or blocked airway. People with sleep apnea usually snore loudly. They may have times when they gasp and stop breathing for 10 seconds or more during sleep. This may happen many times during the night. The breaks in breathing also interrupt the deep sleep that you need to feel rested. Even if you do not completely wake up from the gaps in breathing, your sleep may not be restful and you feel tired during the day. You may also have a headache in the morning and low energy during the day, and you may feel anxious or depressed. How can sleep apnea affect me? Sleep apnea increases your chances of extreme tiredness during the day (daytime fatigue). It can also increase your risk for health conditions, such as: Heart attack. Stroke. Obesity. Type 2 diabetes. Heart failure. Irregular heartbeat. High blood pressure. If you have daytime fatigue as a result of sleep apnea, you may be more likely to: Perform poorly at school or work. Fall asleep while driving. Have difficulty with attention. Develop depression or anxiety. Have sexual dysfunction. What actions can I take to manage sleep apnea? Sleep apnea treatment If you were given a device to open your airway while you sleep, use it only as told by your health care provider. You may be given: ?An oral appliance. This is a custom-made mouthpiece that shifts your lower jaw forward. ?A continuous positive airway pressure (CPAP) device. This device blows air through a mask when youbreathe out (exhale). ?A nasal expiratory positive airway pressure (EPAP) device. This device has valves that you put into each nostril. ?A bi-level positive airway pressure (BIPAP) device. This device blows air through a mask when you breathe in (inhale) and breathe out (exhale). You may need surgery if other treatments do not work for you. Sleep habits Go to sleep and wake up at the same time every day. This helps set your internal clock (circadian rhythm) for sleeping. ?If you stay up later than usual, such as on weekends, try to get up in the morning within 2 hours of your normal wake time. Try to get at least 7 9 hours of sleep each night. Stop using a computer, tablet, and mobile phone a few hours before bedtime. Do not take long naps during the day. If you nap, limit it to 30 minutes. Have a relaxing bedtime routine. Reading or listening to music may relax you and help you sleep. Use your bedroom only for sleep. ?Keep your television and computer out of your bedroom. ?Keep your bedroom cool, dark, and quiet. ?Use a supportive mattress and pillows. Follow your health care provider's instructions for other changes to sleep habits. Nutrition Do not eat heavy meals in the evening. Do not have caffeine in the later part of the day. The effects of caffeine can last for more than 5hours. Follow your health care provider's or dietitian's instructions for any diet changes. Lifestyle Do not drink alcohol before bedtime. Alcohol can cause you to fall asleep at first, but then it cancause you to wake up in the middle of the night and have trouble getting back to sleep. Do not use any products that contain nicotine or tobacco. These products include cigarettes, chewing tobacco, and vaping devices, such as e-cigarettes. If you need help quitting, ask your health careprovider. Medicines Take rkjd-wtd-ixewipa and prescription medicines only as told by your health care provider. Do not use qdtf-lby-njczuay sleep medicine. You can become dependent on this medicine, and it can make sleep apnea worse. Do not use medicines, such as sedatives and narcotics, unless told by your health care provider. Activity Exercise on most days, but avoid exercising in the evening. Exercising near bedtime can interfere with sleeping. If possible, spend time outside every day. Natural light helps regulate your circadian rhythm. General information Lose weight if you need to, and maintain a healthy weight. Keep all follow-up visits. This is important. If you are having surgery, make sure to tell your health care provider that you have sleep apnea. You may need to bring your device with you. Where to find more information Learn more about sleep apnea and daytime fatigue from: [place] Sleep Association: sleepassociation.org National Sleep Foundation: sleepfoundation.org National Heart, Lung, and Blood [place]: nhlbi.nih.gov Summary Sleep apnea is a condition in which breathing pauses or becomes shallow during sleep. Sleep apnea can cause daytime fatigue and other serious health conditions. You may need to wear a device while sleeping to help keep your airway open. If you are having surgery, make sure to tell your health care provider that you have sleep apnea. You may need to bring your device with you. Making changes to sleep habits, diet, lifestyle, and activity can help you manage sleep apnea. This information is not intended to replace advice given to you by your health care provider. Make sure you discuss any questions you have with your health care provider. Document Revised: 12/13/2021 Document Reviewed: 04/14/2021 [employer] Patient Education 2022 [employer]. 02/02/2025 15:27:35 Major Depressive Disorder, Adult Major Depressive Disorder, Adult Major depressive disorder (MDD) is a mental health condition. It may also be called clinical depression or unipolar depression. MDD causes symptoms of sadness, hopelessness, and loss of interest in things. These symptoms last most of the day, almost every day, for 2 weeks. MDD can also cause physical symptoms. It can interfere with relationships and activities, such as work, school, and activities that are usually pleasant. MDD may be mild, moderate, or severe. It may be single-episode MDD, which happens once, or recurrent MDD, which may occur many times. What are the causes? The exact cause of this condition is not known. What increases the risk? The following factors may make someone more likely to develop MDD: A family history of depression. Being female. Long-term (chronic) stress, physical illness, other mental health disorders, or substance misuse. Trauma, including: ?Family problems. ?Violence or abuse. ?Loss of a parent or close family member. ?Experiencing discrimination. What are the signs or symptoms? The main symptoms of MDD usually include: Constant depressed or irritable mood. A loss of interest in activities. Sleeping or eating too much or too little. Tiredness or low energy. Other symptoms include: Unexplained weight gain or weight loss. Being agitated, restless, or weak. Feeling hopeless, worthless, or guilty. Trouble thinking clearly or making decisions. Thoughts of suicide or harming others. Spending a lot of time alone. Not being able to complete daily tasks or work. Severe symptoms of this condition may include: Psychotic depression.This may include false beliefs or delusions. It may also include seeing, hearing, tasting, smelling, or feeling things that are not real (hallucinations). Chronic depression or persistent depressive disorder. This is low-level depression that lasts for at least 2 years. Melancholic depression, or feeling extremely sad and hopeless. Catatonic depression, which includes trouble speaking and trouble moving. Seasonal depression, which is caused by changes in the seasons. How is this diagnosed? This condition may be diagnosed based on: Your symptoms. Your medical and mental health history. A physical exam. Blood tests to rule out other conditions. MDD is confirmed if you have either a depressed mood or loss of interest and at least four other MDD symptoms, most of the day, nearly every day, in a 2-week period. How is this treated? This condition is usually treated by mental health professionals, such as psychologists, psychiatrists, and clinical social workers. You may need more than one type of treatment. Treatment may include: Psychotherapy, also called talk therapy or counseling. Types of psychotherapy include: ?Cognitive behavioral therapy (CBT). This teaches you to recognize unhealthy feelings, thoughts, and behaviors, and replace them with positive thoughts and actions. ?Interpersonal therapy (IPT). This helps you to improve the way you communicate with others or relate to them. ?Family therapy. This treatment includes members of your family. Medicines to treat anxiety and depression. These medicines help to balance the brain chemicals thataffect your emotions. Lifestyle changes. You may be asked to: ?Limit alcohol use and avoid drug use. ?Get regular exercise. ?Get plenty of sleep. ?Make healthy eating choices. ?Spend more time outdoors. Brain stimulation. This may be done if symptoms are very severe and other treatments have not worked. Examples of this treatment are electroconvulsive therapy and transcranial magnetic stimulation. Follow these instructions at home: Alcohol use Do not drink alcohol if: ?Your health care provider tells you not to drink. ?You are , may be , or are planning to become . If you drink alcohol: ?Limit how much you have to: ?0 1 drink a day for women ?0 2 drinks a day for men. ?Know how much alcohol is in your drink. In the [place] one drink equals one 12 oz bottle of beer (355 mL), one 5 oz glass of wine (148 mL), or one 1 oz glass of hard liquor (44 mL). Activity Exercise regularly and spend time outdoors. Find activities that you enjoy and make time to do them. Find healthy ways to manage stress, such as: ?Meditation or deep breathing. ?Spending time in nature. ?Journaling. Return to your normal activities as told by your health care provider. Ask your health care provider what activities are safe for you. General instructions Take nczk-tln-[id number] and prescription medicines only as told by your health care provider. Discuss alcohol use with your health care provider. Alcohol can affect any antidepressant medicinesyou are taking. Discuss any drug use with your health care provider. Eat a healthy diet and get enough sleep. Consider joining a support group. Your health care provider may be able to recommend one. Keep all follow-up visits. It is important for your health care provider to check on your mood, behavior, and medicines. Your health care provider will make changes to your treatment as needed. Where to find more information National [place] on Mental Illness: maricruz.org National [place] of Mental Health: nimh.nih.gov [place] [employer]: psychiatry.org Contact a health care provider if: Your symptoms get worse. You develop new symptoms. Get help right away if: You hurt yourself on purpose (self-harm). You have thoughts about hurting yourself or others. You have hallucinations. Get help right away if you feel like you may hurt yourself or others, or have thoughts about takingyour own life. Go to your nearest emergency room or: Call 911. Call the National Suicide Prevention Lifeline at or 846. This is open 24 hours a day. Text the Crisis Text Line at 847074. This information is not intended to replace advice given to you by your health care provider. Make sure you discuss any questions you have with your health care provider. Document Revised: 09/11/2022 Document Reviewed: 09/11/2022 [employer] Patient Education 2023 [employer]. 02/02/2025 15:27:28 Carbohydrate Counting for Diabetes Mellitus, Adult Carbohydrate Counting for Diabetes Mellitus, Adult Carbohydrate counting is a method of keeping track of how many carbohydrates you eat. Eating carbohydrates increases the amount of sugar (glucose) in the blood. Counting how many carbohydrates you eat improves how well you manage your blood glucose. This, in turn, helps you manage your diabetes. Carbohydrates are measured in grams (g) per serving. It is important to know how many carbohydrates(in grams or by serving size) you can have in each meal. This is different for every person. A dietitian can help you make a meal plan and calculate how many carbohydrates you should have at each meal and snack. What foods contain carbohydrates? Carbohydrates are found in the following foods: Grains, such as breads and cereals. Dried beans and soy products. Starchy vegetables, such as potatoes, peas, and corn. Fruit and fruit juices. Milk and yogurt. Sweets and snack foods, such as cake, cookies, candy, chips, and soft drinks. How do I count carbohydrates in foods? There are two ways to count carbohydrates in food. You can read food labels or learn standard serving sizes of foods. You can use either of these methods or a combination of both. Using the Nutrition Facts label The Nutrition Facts list is included on the labels of almost all packaged foods and beverages in the [place]. It includes: The serving size. Information about nutrients in each serving, including the grams of carbohydrate per serving. To use the Nutrition Facts, decide how many servings you will have. Then, multiply the number of servings by the number of carbohydrates per serving. The resulting number is the total grams of carbohydrates that you will be having. Learning the standard serving sizes of foods When you eat carbohydrate foods that are not packaged or do not include Nutrition Facts on the label, you need to measure the servings in order to count the grams of carbohydrates. Measure the foods that you will eat with a food scale or measuring cup, if needed. Decide how many standard-size servings you will eat. Multiply the number of servings by 15. For foods that contain carbohydrates, one serving equals 15 g of carbohydrates. ?For example, if you eat 2 cups or 10 oz (300 g) of strawberries, you will have eaten 2 servings and 30 g of carbohydrates (2 servings x 15 g = 30 g). For foods that have more than one food mixed, such as soups and casseroles, you must count the carbohydrates in each food that is included. The following list contains standard serving sizes of common carbohydrate-rich foods. Each of theseservings has about 15 g of carbohydrates: 1 slice of bread. 1 six-inch (15 cm) tortilla. ? cup or 2 oz (53 g) cooked rice or pasta. cup or 3 oz (85 g) cooked or canned, drained and rinsed beans or lentils. cup or 3 oz (85 g) starchy vegetable, such as peas, corn, or squash. cup or 4 oz (120 g) hot cereal. cup or 3 oz (85 g) boiled or mashed potatoes, or or 3 oz (85 g) of a large baked potato. cup or 4 fl oz (118 mL) fruit juice. 1 cup or 8 fl oz (237 mL) milk. 1 small or 4 oz (106 g) apple. or 2 oz (63 g) of a medium banana. 1 cup or 5 oz (150 g) strawberries. 3 cups or 1 oz (28.3 g) popped popcorn. What is an example of carbohydrate counting? To calculate the grams of carbohydrates in this sample meal, follow the steps shown below. Sample meal 3 oz (85 g) chicken breast. ? cup or 4 oz (106 g) brown rice. cup or 3 oz (85 g) corn. 1 cup or 8 fl oz (237 mL) milk. 1 cup or 5 oz (150 g) strawberries with sugar-free whipped topping. Carbohydrate calculation 1.Identify the foods that contain carbohydrates: Rice. Trinity. Milk. Strawberries. 2.Calculate how many servings you have of each food: 2 servings rice. 1 serving corn. 1 serving milk. 1 serving strawberries. 3.Multiply each number of servings by 15 servings rice x 15 g = 30 g. 1 serving corn x 15 g = 15 g. 1 serving milk x 15 g = 15 g. 1 serving strawberries x 15 g = 15 g. 4.Add together all of the amounts to find the total grams of carbohydrates eaten: 30 g + 15 g + 15 g + 15 g = 75 g of carbohydrates total. What are tips for following this plan? Shopping Develop a meal plan and then make a shopping list. Buy fresh and frozen vegetables, fresh and frozen fruit, dairy, eggs, beans, lentils, and whole grains. Look at food labels. Choose foods that have more fiber and less sugar. Avoid processed foods and foods with added sugars. Meal planning Aim to have the same number of grams of carbohydrates at each meal and for each snack time. Plan to have regular, balanced meals and snacks. Where to find more information [place] [employer]: diabetes.org Centers for Disease Control and Prevention: cdc.gov Academy of Nutrition and Dietetics: eatright.org Association of Diabetes Care & Education Specialists: diabeteseducator.org Summary Carbohydrate counting is a method of keeping track of how many carbohydrates you eat. Eating carbohydrates increases the amount of sugar (glucose) in your blood. Counting how many carbohydrates you eat improves how well you manage your blood glucose. This helpsyou manage your diabetes. A dietitian can help you make a meal plan and calculate how many carbohydrates you should have at each meal and snack. This information is not intended to replace advice given to you by your health care provider. Make sure you discuss any questions you have with your health care provider. Document Revised: 12/07/2020 Document Reviewed: 12/07/2020 [employer] Patient Education 2023 [employer]. [facility] Javier 09-16-2025 NotePatient Education Endocrinology Carbohydrate Counting for Diabetes Mellitus, Adult Carbohydrate counting is a method of keeping track of how many carbohydrates you eat. Eating carbohydrates increases the amount of sugar (glucose) in the blood. Counting how many carbohydrates you eat improves how well you manage your blood glucose. This, in turn, helps you manage your diabetes. Carbohydrates are measured in grams (g) per serving. It is important to know how many carbohydrates(in grams or by serving size) you can have in each meal. This is different for every person. A dietitian can help you make a meal plan and calculate how many carbohydrates you should have at each meal and snack. What foods contain carbohydrates? Carbohydrates are found in the following foods: ??? Grains, such as breads and cereals. ??? Dried beans and soy products. ??? Starchy vegetables, such as potatoes, peas, and corn. ??? Fruit and fruit juices. ??? Milk and yogurt. ??? Sweets and snack foods, such as cake, cookies, candy, chips, and soft drinks. How do I count carbohydrates in foods? There are two ways to count carbohydrates in food. You can read food labels or learn standard serving sizes of foods. You can use either of these methods or a combination of both. Using the Nutrition Facts label The Nutrition Facts list is included on the labels of almost all packaged foods and beverages in the [place]. It includes: ??? The serving size. ??? Information about nutrients in each serving, including the grams of carbohydrate per serving. To use the Nutrition Facts, decide how many servings you will have. Then, multiply the number of servings by the number of carbohydrates per serving. The resulting number is the total grams of carbohydrates that you will be having. Learning the standard serving sizes of foods When you eat carbohydrate foods that are not packaged or do not include Nutrition Facts on the label, you need to measure the servings in order to count the grams of carbohydrates. ??? Measure the foods that you will eat with a food scale or measuring cup, if needed. ??? Decide how many standard-size servings you will eat. ??? Multiply the number of servings by 15. For foods that contain carbohydrates, one serving g of carbohydrates. ? For example, if you eat 2 cups or 10 oz (300 g) of strawberries, you will have eaten 2 servings and 30 g of carbohydrates (2 servings x 15 g = 30 g). ??? For foods that have more than one food mixed, such as soups and casseroles, you must count the carbohydrates in each food that is included. The following list contains standard serving sizes of common carbohydrate-rich foods. Each of theseservings has about 15 g of carbohydrates: ??? 1 slice of bread. ??? 1 six-inch (15 cm) tortilla. ? cup or 2 oz (53 g) cooked rice or pasta. ? cup or 3 oz (85 g) cooked or canned, drained and rinsed beans or lentils. ? cup or 3 oz (85 g) starchy vegetable, such as peas, corn, or squash. ? cup or 4 oz (120 g) hot cereal. ? cup or 3 oz (85 g) boiled or mashed potatoes, or ? or 3 oz (85 g) of a large baked potato. ? cup or 4 fl oz (118 mL) fruit juice. ??? 1 cup or 8 fl oz (237 mL) milk. ??? 1 small or 4 oz (106 g) apple. ? or 2 oz (63 g) of a medium banana. ??? 1 cup or 5 oz (150 g) strawberries. ??? 3 cups or 1 oz (28.3 g) popped popcorn. What is an example of carbohydrate counting? To calculate the grams of carbohydrates in this sample meal, follow the steps shown below. Sample meal ??? 3 oz (85 g) chicken breast. ? cup or 4 oz (106 g) brown rice. ? cup or 3 oz (85 g) corn. ??? 1 cup or 8 fl oz (237 mL) milk. ??? 1 cup or 5 oz (150 g) strawberries with sugar-free whipped topping. Carbohydrate calculation 1. Identify the foods that contain carbohydrates: ??? Rice. ??? Trinity. ??? Milk. ??? Strawberries. 2. Calculate how many servings you have of each food: ??? 2 servings rice. ??? 1 serving corn. ??? 1 serving milk. ??? 1 serving strawberries. 3. Multiply each number of servings by 15 g: ??? 2 servings rice x 15 g = 30 g. ??? 1 serving corn x 15 g = 15 g. ??? 1 serving milk x 15 g = 15 g. ??? 1 serving strawberries x 15 g = 15 g. 4. Add together all of the amounts to find the total grams of carbohydrates eaten: ??? 30 g + 15 g + 15 g + 15 g = 75 g of carbohydrates total. What are tips for following this plan? Shopping ??? Develop a meal plan and then make a shopping list. ??? Buy fresh and frozen vegetables, fresh and frozen fruit, dairy, eggs, beans, lentils, and wholegrains. ??? Look at food labels. Choose foods that have more fiber and less sugar. ??? Avoid processed foods and foods with added sugars. Meal planning ??? Aim to have the same number of grams of carbohydrates at each meal and for each snack time. ??? Plan to have regular, balanced meals and snacks. Where to find more (more content not included)...[facility] 08-02-2024 NotePatient Education Cardiovascular Hypertension, Adult High blood pressure (hypertension) is when the force of blood pumping through the arteries is too strong. The arteries are the blood vessels that carry blood from the heart throughout the body. Hypertension forces the heart to work harder to pump blood and may cause arteries to become narrow or stiff. Untreated or uncontrolled hypertension can lead to a heart attack, heart failure, a stroke, kidney disease, and other problems. A blood pressure reading consists of a higher number over a lower number. Ideally, your blood pressure should be below 120/80. The first ( top ) number is called the systolic pressure. It is a measure of the pressure in your arteries as your heart beats. The second ( bottom ) number is called the diastolic pressure. It is a measure of the pressure in your arteries as the heart relaxes. What are the causes? The exact cause of this condition is not known. There are some conditions that result in high bloodpressure. What increases the risk? Certain factors may make you more likely to develop high blood pressure. Some of these risk factorsare under your control, including: ??? Smoking. ??? Not getting enough exercise or physical activity. ??? Being overweight. ??? Having too much fat, sugar, calories, or salt (sodium) in your diet. ??? Drinking too much alcohol. Other risk factors include: ??? Having a personal history of heart disease, diabetes, high cholesterol, or kidney disease. ??? Stress. ??? Having a family history of high blood pressure and high cholesterol. ??? Having obstructive sleep apnea. ??? Age. The risk increases with age. What are the signs or symptoms? High blood pressure may not cause symptoms. Very high blood pressure (hypertensive crisis) may cause: ??? Headache. ??? Fast or irregular heartbeats (palpitations). ??? Shortness of breath. ??? Nosebleed. ??? Nausea and vomiting. ??? Vision changes. ??? Severe chest pain, dizziness, and seizures. How is this diagnosed? This condition is diagnosed by measuring your blood pressure while you are seated, with your arm resting on a flat surface, your legs uncrossed, and your feet flat on the floor. The cuff of the bloodpressure monitor will be placed directly against the skin of your upper arm at the level of your heart. Blood pressure should be measured at least twice using the same arm. Certain conditions can cause a difference in blood pressure between your right and left arms. If you have a high blood pressure reading during one visit or you have normal blood pressure with other risk factors, you may be asked to: ??? Return on a different day to have your blood pressure checked again. ??? Monitor your blood pressure at home for 1 week or longer. If you are diagnosed with hypertension, you may have other blood or imaging tests to help your health care provider understand your overall risk for other conditions. How is this treated? This condition is treated by making healthy lifestyle changes, such as eating healthy foods, exercising more, and reducing your alcohol intake. You may be referred for counseling on a healthy diet and physical activity. Your health care provider may prescribe medicine if lifestyle changes are not enough to get your blood pressure under control and if: ??? Your systolic blood pressure is above 130. ??? Your diastolic blood pressure is above 80. Your personal target blood pressure may vary depending on your medical conditions, your age, and other factors. Follow these instructions at home: Eating and drinking ??? Eat a diet that is high in fiber and potassium, and low in sodium, added sugar, and fat. An example of this eating plan is called the DASH diet. DASH stands for Dietary Approaches to Stop Hypertension. To eat this way: ? Eat plenty of fresh fruits and vegetables. Try to fill one half of your plate at each meal with fruits and vegetables. ? Eat whole grains, such as whole-wheat pasta, brown rice, or whole-grain bread. Fill about one fourth of your plate with whole grains. ? Eat or drink low-fat dairy products, such as skim milk or low-fat yogurt. ? Avoid fatty cuts of meat, processed or cured meats, and poultry with skin. Fill about one fourth of your plate with lean proteins, such as fish, chicken without skin, beans, eggs, or tofu. ? Avoid pre-made and processed foods. These tend to be higher in sodium, added sugar, and fat. ??? Reduce your daily sodium intake. Many people with hypertension should eat less than 1,500 mg ofsodium a day. ??? Do not drink alcohol if: ? Your health care provider tells you not to drink. ? You are , may be , or are planning to become . ??? If you drink alcohol: ? Limit how much you have to: ? 0?1 drink a day for women. ? 0?2 drinks a day for men. ? Know how much alcohol is in your drink. In the [place] one drink equals one 12 oz bottle (more content not included)...[facility]01-17-2025 Hospital Discharge instructions Patient Education 06/05/2024 11:35:21 Dietary Guidelines to Help Prevent Kidney Stones Dietary Guidelines to Help Prevent Kidney Stones Kidney stones are deposits of minerals and salts that form inside your kidneys. Your risk of developing kidney stones may be greater depending on your diet, your lifestyle, the medicines you take, and whether you have certain medical conditions. Most people can lower their risks of developing kidney stones by following these dietary guidelines. Your dietitian may give you more specific instructions depending on your overall health and the type of kidney stones you tend to develop. What are tips for following this plan? Reading food labels Choose foods with no salt added or low-salt labels. Limit your salt (sodium) intake to less than 1,500 mg a day. Choose foods with calcium for each meal and snack. Try to eat about 300 mg of calcium at each meal.Foods that contain 200 500 mg of calcium a serving include: ?8 oz (237 mL) of milk, dphjdnm-bqgcvbmwjvks-kqamw milk, and calcium- fortifiedfruit juice. Calcium-fortified means that calcium has been added to these drinks. ?8 oz (237 mL) of kefir, yogurt, and soy yogurt. ?4 oz (114 g) of tofu. ?1 oz (28 g) of cheese. ?1 cup (150 g) of dried figs. ?1 cup (91 g) of cooked broccoli. ?One 3 oz (85 g) can of sardines or mackerel. Most people need 1,000 1,500 mg of calcium a day. Talk to your dietitian about how much calcium is recommended for you. Shopping Buy plenty of fresh fruits and vegetables. Most people do not need to avoid fruits and vegetables, even if these foods contain nutrients that may contribute to kidney stones. When shopping for convenience foods, choose: ?Whole pieces of fruit. ?Pre-made salads with dressing on the side. ?Low-fat fruit and yogurt smoothies. Avoid buying frozen meals or prepared deli foods. These can be high in sodium. Look for foods with live cultures, such as yogurt and kefir. Choose high-fiber grains, such as whole-wheat breads, oat bran, and wheat cereals. Cooking Do not add salt to food when cooking. Place a salt shaker on the table and allow each person to addtheir own salt to taste. Use vegetable protein, such as beans, textured vegetable protein (TVP), or tofu, instead of meat inpasta, casseroles, and soups. Meal planning Eat less salt, if told by your dietitian. To do this: ?Avoid eating processed or pre-made food. ?Avoid eating fast food. Eat less animal protein, including cheese, meat, poultry, or fish, if told by your dietitian. To dothis: ?Limit the number of times you have meat, poultry, fish, or cheese each week. Eat a diet free of meat at least 2 days a week. ?Eat only one serving each day of meat, poultry, fish, or seafood. ?When you prepare animal proteins, cut pieces into small portion sizes. For most meat and fish, oneserving is about the size of the palm of your hand. Eat at least five servings of fresh fruits and vegetables each day. To do this: ?Keep fruits and vegetables on hand for snacks. ?Eat one piece of fruit or a handful of berries with breakfast. ?Have a salad and fruit at lunch. ?Have two kinds of vegetables at dinner. You may be told to limit foods that are high in a substance called oxalate. These include: ?Spinach (cooked), rhubarb, beets, sweet potatoes, and [place] chard. ?Peanuts. ?Potato chips, turk[place] fries, and baked potatoes with skin on. ?Nuts and nut products. ?Chocolate. If you regularly take a diuretic medicine, make sure to eat at least 1 or 2 servings of fruits or vegetables that are high in potassium each day. These include: ?Avocado. ?Banana. ?Arapahoe, prune, carrot, or tomato juice. ?Baked potato. ?Cabbage. ?Beans and split peas. Lifestyle Drink enough fluid to keep your urine pale yellow. This is the most important thing you can do. Spread your fluid intake throughout the day. If you drink alcohol: ?Limit how much you have to: ?0 1 drink a day for women who are not . ?0 2 drinks a day for men. ?Know how much alcohol is in your drink. In the [place] one drink equals one 12 oz bottle of beer (355 mL), one 5 oz glass of wine (148 mL), or one 1 oz glass of hard liquor (44 mL). Lose weight if told by your health care provider. Work with your dietitian to find an eating plan and weight loss strategies that work best for you. General information Talk to your health care provider and dietitian about taking daily supplements. Depending on your health and the cause of your kidney stones, you may be told: ?Do not take high-dose supplements of vitamin C (1,000 mg a day or more). ?To take a calcium supplement. ?To take a daily probiotic supplement. ?To take other supplements such as magnesium, fish oil, or vitamin B6. Take cjyk-wdq-bwqwmng and prescription medicines only as told by your health care provider. These include supplements. What foods should I limit? Limit your intake of the following foods, or eat them as told by your dietitian. Vegetables Spinach. Rhubarb. Beets. Canned vegetables. Pickles. Olives. Baked potatoes with skin. Grains Wheat bran. Baked goods. Salted crackers. Cereals high in sugar. Meats and other proteins Nuts. Nut butters. Large portions of meat, poultry, or fish. Salted, precooked, or cured meats, such as sausages, meat loaves, and hot dogs. Dairy Cheeses. Beverages Regular soft drinks. Regular vegetable juice. Seasonings and condiments Seasoning blends with salt. Salad dressings. Soy sauce. Ketchup. Barbecue sauce. Other foods Canned soups. Canned pasta sauce. Casseroles. Pizza. Lasagna. Frozen meals. Potato chips. Malaysian fries. The items listed above may not be a complete list of foods and beverages you should limit. Contact a dietitian for more information. What foods should I avoid? Talk to your dietitian about specific foods you should avoid based on the type of kidney stones youhave and your overall health. Fruits Grapefruit. The item listed above may not be a complete list of foods and beverages you should avoid. Contact adietitian for more information. Summary Kidney stones are deposits of minerals and salts that form inside your kidneys. You can lower your risk of kidney stones by making changes to your diet. The most important thing you can do is drink enough fluid. Drink enough fluid to keep your urine pale yellow. Talk to your dietitian about how much calcium you should have each day, and eat less salt and animal protein as told by your dietitian. This information is not intended to replace advice given to you by your health care provider. Make sure you discuss any questions you have with your health care provider. Document Revised: 08/16/2022 Document Reviewed: 08/16/2022 Elsevier Patient Education 2023 [employer] Follow Up Care 04/29/2023 17:11:21 With:SHMUEL LOZANO, Mi Morel, URL Address: [address] [place] [address] [place] [address]- When: Unknown [facility] 01-17-2025 NotePatient Education Nephrology Dietary Guidelines to Help Prevent Kidney Stones Kidney stones are deposits of minerals and salts that form inside your kidneys. Your risk of developing kidney stones may be greater depending on your diet, your lifestyle, the medicines you take, and whether you have certain medical conditions. Most people can lower their risks of developing kidney stones by following these dietary guidelines. Your dietitian may give you more specific instructions depending on your overall health and the type of kidney stones you tend to develop. What are tips for following this plan? Reading food labels ??? Choose foods with no salt added or low-salt labels. Limit your salt (sodium) intake to lessthan 1,500 mg a day. ??? Choose foods with calcium for each meal and snack. Try to eat about 300 mg of calcium at each meal. Foods that contain 200?500 mg of calcium a serving include: ? 8 oz (237 mL) of milk, aconzhj-cqgkneszbhgs-pcbcu milk, and calcium- fortifiedfruit juice. Calcium-fortified means that calcium has been added to these drinks. ? 8 oz (237 mL) of kefir, yogurt, and soy yogurt. ? 4 oz (114 g) of tofu. ? 1 oz (28 g) of cheese. ? 1 cup (150 g) of dried figs. ? 1 cup (91 g) of cooked broccoli. ? One 3 oz (85 g) can of sardines or mackerel. Most people need 1,000?1,500 mg of calcium a day. Talk to your dietitian about how much calcium is recommended for you. Shopping ??? Buy plenty of fresh fruits and vegetables. Most people do not need to avoid fruits and vegetables, even if these foods contain nutrients that may contribute to kidney stones. ??? When shopping for convenience foods, choose: ? Whole pieces of fruit. ? Pre-made salads with dressing on the side. ? Low-fat fruit and yogurt smoothies. ??? Avoid buying frozen meals or prepared deli foods. These can be high in sodium. ??? Look for foods with live cultures, such as yogurt and kefir. ??? Choose high-fiber grains, such as whole-wheat breads, oat bran, and wheat cereals. Cooking ??? Do not add salt to food when cooking. Place a salt shaker on the table and allow each person toadd their own salt to taste. ??? Use vegetable protein, such as beans, textured vegetable protein (TVP), or tofu, instead of meat in pasta, casseroles, and soups. Meal planning ??? Eat less salt, if told by your dietitian. To do this: ? Avoid eating processed or pre-made food. ? Avoid eating fast food. ??? Eat less animal protein, including cheese, meat, poultry, or fish, if told by your dietitian. To do this: ? Limit the number of times you have meat, poultry, fish, or cheese each week. Eat a diet free of meat at least 2 days a week. ? Eat only one serving each day of meat, poultry, fish, or seafood. ? When you prepare animal proteins, cut pieces into small portion sizes. For most meat and fish, one serving is about the size of the palm of your hand. ??? Eat at least five servings of fresh fruits and vegetables each day. To do this: ? Keep fruits and vegetables on hand for snacks. ? Eat one piece of fruit or a handful of berries with breakfast. ? Have a salad and fruit at lunch. ? Have two kinds of vegetables at dinner. ??? You may be told to limit foods that are high in a substance called oxalate. These include: ? Spinach (cooked), rhubarb, beets, sweet potatoes, and Nigerien chard. ? Peanuts. ? Potato chips, turkmen fries, and baked potatoes with skin on. ? Nuts and nut products. ? Chocolate. ??? If you regularly take a diuretic medicine, make sure to eat at least 1 or 2 servings of fruits or vegetables that are high in potassium each day. These include: ? Avocado. ? Banana. ? Arapahoe, prune, carrot, or tomato juice. ? Baked potato. ? Cabbage. ? Beans and split peas. Lifestyle ??? Drink enough fluid to keep your urine pale yellow. This is the most important thing you can do.Spread your fluid intake throughout the day. ??? If you drink alcohol: ? Limit how much you have to: ? 0?1 drink a day for women who are not . ? 0?2 drinks a day for men. ? Know how much alcohol is in your drink. In the [place] one drink equals one 12 oz bottle of beer (355 mL), one 5 oz glass of wine (148 mL), or one 1? oz glass of hard liquor (44 mL). ??? Lose weight if told by your health care provider. Work with your dietitian to find an eating plan and weight loss strategies that work best for you. General information ??? Talk to your health care provider and dietitian about taking daily supplements. Depending on your health and the cause of your kidney stones, you may be told: ? Do not take high-dose supplements of vitamin C (1,000 mg a day or more). ? To take a calcium supplement. ? To take a daily probiotic supplement. ? To take other supplements such as magnesium, fish oil, or vitamin B6. ??? Take kwgy-gim-etubwte and prescription medicines only as told by your health (more content not included)...[facility]12-23-2024 Hospital Discharge instructions Patient Education 05/11/2024 14:32:05 Nonspecific Chest Pain, Adult Nonspecific Chest Pain, Adult Chest pain is an uncomfortable, tight, or painful feeling in the chest. The pain can feel like a crushing, aching, or squeezing pressure. A person can feel a burning or tingling sensation. Chest paincan also be felt in your back, neck, jaw, shoulder, or arm. This pain can be worse when you move, sneeze, or take a deep breath. Chest pain can be caused by a condition that is life-threatening. This must be treated right away. It can also be caused by something that is not life- threatening. If you have chest pain, it can be hard to know the difference, so it is important to get help right away to make sure that you do not have a serious condition. Some life-threatening causes of chest pain include: Heart attack. A tear in the body's main blood vessel (aortic dissection). Inflammation around your heart (pericarditis). A problem in the lungs, such as a blood clot (pulmonary embolism) or a collapsed lung (pneumothorax). Some non life-threatening causes of chest pain include: Heartburn. Anxiety or stress. Damage to the bones, muscles, and cartilage that make up your chest wall. Pneumonia or bronchitis. Shingles infection (varicella-zoster virus). Your chest pain may come and go. It may also be constant. Your health care provider will do tests and other studies to find the cause of your pain. Treatment will depend on the cause of your chest pain. Follow these instructions at home: Medicines Take njnp-mwa-nfysnqk and prescription medicines only as told by your health care provider. If you were prescribed an antibiotic medicine, take it as told by your health care provider. Do notstop taking the antibiotic even if you start to feel better. Activity Avoid any activities that cause chest pain. Do not lift anything that is heavier than 10 lb (4.5 kg), or the limit that you are told, until your health care provider says that it is safe. Rest as directed by your health care provider. Return to your normal activities only as told by your health care provider. Ask your health care provider what activities are safe for you. Lifestyle Do not use any products that contain nicotine or tobacco, such as cigarettes, e- cigarettes, and chewing tobacco. If you need help quitting, ask your health care provider. Do not drink alcohol. Make healthy lifestyle changes as recommended. These may include: ?Getting regular exercise. Ask your health care provider to suggest some exercises that are safe for you. ?Eating a heart-healthy diet. This includes plenty of fresh fruits and vegetables, whole grains, low-fat (lean) protein, and low-fat dairy products. A dietitian can help you find healthy eating options. ?Maintaining a healthy weight. ?Managing any other health conditions you may have, such as high blood pressure (hypertension) or diabetes. ?Reducing stress, such as with yoga or relaxation techniques. General instructions Pay attention to any changes in your symptoms. It is up to you to get the results of any tests that were done. Ask your health care provider, or the department that is doing the tests, when your results will be ready. Keep all follow-up visits as told by your health care provider. This is important. You may be asked to go for further testing if your chest pain does not go away. Contact a health care provider if: Your chest pain does not go away. You feel depressed. You have a fever. You notice changes in your symptoms or develop new symptoms. Get help right away if: Your chest pain gets worse. You have a cough that gets worse, or you cough up blood. You have severe pain in your abdomen. You faint. You have sudden, unexplained chest discomfort. You have sudden, unexplained discomfort in your arms, back, neck, or jaw. You have shortness of breath at any time. You suddenly start to sweat, or your skin gets clammy. You feel nausea or you vomit. You suddenly feel lightheaded or dizzy. You have severe weakness, or unexplained weakness or fatigue. Your heart begins to beat quickly, or it feels like it is skipping beats. These symptoms may represent a serious problem that is an emergency. Do not wait to see if the symptoms will go away. Get medical help right away. Call your local emergency services (911 in the [place] Do not drive yourself to the hospital. Summary Chest pain can be caused by a condition that is serious and requires urgent treatment. It may also be caused by something that is not life-threatening. Your health care provider may do lab tests and other studies to find the cause of your pain. Follow your health care provider's instructions on taking medicines, making lifestyle changes, and getting emergency treatment if symptoms become worse. Keep all follow-up visits as told by your health care provider. This includes visits for any further testing if your chest pain does not go away. This information is not intended to replace advice given to you by your health care provider. Make sure you discuss any questions you have with your health care provider. Document Revised: 03/21/2023 Document Reviewed: 03/21/2023 [employer] Patient Education 2023 [employer]. 05/11/2024 14:31:56 Hypertension, Adult Hypertension, Adult High blood pressure (hypertension) is when the force of blood pumping through the arteries is too strong. The arteries are the blood vessels that carry blood from the heart throughout the body. Hypertension forces the heart to work harder to pump blood and may cause arteries to become narrow or stiff. Untreated or uncontrolled hypertension can lead to a heart attack, heart failure, a stroke, kidney disease, and other problems. A blood pressure reading consists of a higher number over a lower number. Ideally, your blood pressure should be below 120/80. The first ( top ) number is called the systolic pressure. It is a measure of the pressure in your arteries as your heart beats. The second ( bottom ) number is called the diastolic pressure. It is a measure of the pressure in your arteries as the heart relaxes. What are the causes? The exact cause of this condition is not known. There are some conditions that result in high bloodpressure. What increases the risk? Certain factors may make you more likely to develop high blood pressure. Some of these risk factorsare under your control, including: Smoking. Not getting enough exercise or physical activity. Being overweight. Having too much fat, sugar, calories, or salt (sodium) in your diet. Drinking too much alcohol. Other risk factors include: Having a personal history of heart disease, diabetes, high cholesterol, or kidney disease. Stress. Having a family history of high blood pressure and high cholesterol. Having obstructive sleep apnea. Age. The risk increases with age. What are the signs or symptoms? High blood pressure may not cause symptoms. Very high blood pressure (hypertensive crisis) may cause: Headache. Fast or irregular heartbeats (palpitations). Shortness of breath. Nosebleed. Nausea and vomiting. Vision changes. Severe chest pain, dizziness, and seizures. How is this diagnosed? This condition is diagnosed by measuring your blood pressure while you are seated, with your arm resting on a flat surface, your legs uncrossed, and your feet flat on the floor. The cuff of the bloodpressure monitor will be placed directly against the skin of your upper arm at the level of your heart. Blood pressure should be measured at least twice using the same arm. Certain conditions can cause a difference in blood pressure between your right and left arms. If you have a high blood pressure reading during one visit or you have normal blood pressure with other risk factors, you may be asked to: Return on a different day to have your blood pressure checked again. Monitor your blood pressure at home for 1 week or longer. If you are diagnosed with hypertension, you may have other blood or imaging tests to help your health care provider understand your overall risk for other conditions. How is this treated? This condition is treated by making healthy lifestyle changes, such as eating healthy foods, exercising more, and reducing your alcohol intake. You may be referred for counseling on a healthy diet and physical activity. Your health care provider may prescribe medicine if lifestyle changes are not enough to get your blood pressure under control and if: Your systolic blood pressure is above 130. Your diastolic blood pressure is above 80. Your personal target blood pressure may vary depending on your medical conditions, your age, and other factors. Follow these instructions at home: Eating and drinking Eat a diet that is high in fiber and potassium, and low in sodium, added sugar, and fat. An exampleof this eating plan is called the DASH diet. DASH stands for Dietary Approaches to Stop Hypertension. To eat this way: ?Eat plenty of fresh fruits and vegetables. Try to fill one half of your plate at each meal with fruits and vegetables. ?Eat whole grains, such as whole-wheat pasta, brown rice, or whole-grain bread. Fill about one fourth of your plate with whole grains. ?Eat or drink low-fat dairy products, such as skim milk or low-fat yogurt. ?Avoid fatty cuts of meat, processed or cured meats, and poultry with skin. Fill about one fourth of your plate with lean proteins, such as fish, chicken without skin, beans, eggs, or tofu. ?Avoid pre-made and processed foods. These tend to be higher in sodium, added sugar, and fat. Reduce your daily sodium intake. Many people with hypertension should eat less than 1,500 mg of sodium a day. Do not drink alcohol if: ?Your health care provider tells you not to drink. ?You are , may be , or are planning to become . If you drink alcohol: ?Limit how much you have to: ?0 1 drink a day for women. ?0 2 drinks a day for men. ?Know how much alcohol is in your drink. In the [place] one drink equals one 12 oz bottle of beer (355 mL), one 5 oz glass of wine (148 mL), or one 1 oz glass of hard liquor (44 mL). Lifestyle Work with your health care provider to maintain a healthy body weight or to lose weight. Ask what an ideal weight is for you. Get at least 30 minutes of exercise that causes your heart to beat faster (aerobic exercise) most days of the week. Activities may include walking, swimming, or biking. Include exercise to strengthen your muscles (resistance exercise), such as Pilates or lifting weights, as part of your weekly exercise routine. Try to do these types of exercises for 30 minutes at least 3 days a week. Do not use any products that contain nicotine or tobacco. These products include cigarettes, chewing tobacco, and vaping devices, such as e-cigarettes. If you need help quitting, ask your health careprovider. Monitor your blood pressure at home as told by your health care provider. Keep all follow-up visits. This is important. Medicines Take rcvt-rnd-irlapoz and prescription medicines only as told by your health care provider. Follow directions carefully. Blood pressure medicines must be taken as prescribed. Do not skip doses of blood pressure medicine. Doing this puts you at risk for problems and can makethe medicine less effective. Ask your health care provider about side effects or reactions to medicines that you should watch for. Contact a health care provider if you: Think you are having a reaction to a medicine you are taking. Have headaches that keep coming back (recurring). Feel dizzy. Have swelling in your ankles. Have trouble with your vision. Get help right away if you: Develop a severe headache or confusion. Have unusual weakness or numbness. Feel faint. Have severe pain in your chest or abdomen. Vomit repeatedly. Have trouble breathing. These symptoms may be an emergency. Get help right away. Call 911. Do not wait to see if the symptoms will go away. Do not drive yourself to the hospital. Summary Hypertension is when the force of blood pumping through your arteries is too strong. If this condition is not controlled, it may put you at risk for serious complications. Your personal target blood pressure may vary depending on your medical conditions, your age, and other factors. For most people, a normal blood pressure is less than 120/80. Hypertension is treated with lifestyle changes, medicines, or a combination of both. Lifestyle changes include losing weight, eating a healthy, low-sodium diet, exercising more, and limiting alcohol. This information is not intended to replace advice given to you by your health care provider. Make sure you discuss any questions you have with your health care provider. Document Revised: 03/13/2022 Document Reviewed: 03/13/2022 [employer] Patient Education 2023 [employer]. Follow Up Care 05/11/2024 10:23:59 With:[employer], GENERIC Address:Unknown When: Unknown [facility] 12-23-2024 NotePatient Education Cardiovascular Hypertension, Adult High blood pressure (hypertension) is when the force of blood pumping through the arteries is too strong. The arteries are the blood vessels that carry blood from the heart throughout the body. Hypertension forces the heart to work harder to pump blood and may cause arteries to become narrow or stiff. Untreated or uncontrolled hypertension can lead to a heart attack, heart failure, a stroke, kidney disease, and other problems. A blood pressure reading consists of a higher number over a lower number. Ideally, your blood pressure should be below 120/80. The first ( top ) number is called the systolic pressure. It is a measure of the pressure in your arteries as your heart beats. The second ( bottom ) number is called the diastolic pressure. It is a measure of the pressure in your arteries as the heart relaxes. What are the causes? The exact cause of this condition is not known. There are some conditions that result in high bloodpressure. What increases the risk? Certain factors may make you more likely to develop high blood pressure. Some of these risk factorsare under your control, including: ??? Smoking. ??? Not getting enough exercise or physical activity. ??? Being overweight. ??? Having too much fat, sugar, calories, or salt (sodium) in your diet. ??? Drinking too much alcohol. Other risk factors include: ??? Having a personal history of heart disease, diabetes, high cholesterol, or kidney disease. ??? Stress. ??? Having a family history of high blood pressure and high cholesterol. ??? Having obstructive sleep apnea. ??? Age. The risk increases with age. What are the signs or symptoms? High blood pressure may not cause symptoms. Very high blood pressure (hypertensive crisis) may cause: ??? Headache. ??? Fast or irregular heartbeats (palpitations). ??? Shortness of breath. ??? Nosebleed. ??? Nausea and vomiting. ??? Vision changes. ??? Severe chest pain, dizziness, and seizures. How is this diagnosed? This condition is diagnosed by measuring your blood pressure while you are seated, with your arm resting on a flat surface, your legs uncrossed, and your feet flat on the floor. The cuff of the bloodpressure monitor will be placed directly against the skin of your upper arm at the level of your heart. Blood pressure should be measured at least twice using the same arm. Certain conditions can cause a difference in blood pressure between your right and left arms. If you have a high blood pressure reading during one visit or you have normal blood pressure with other risk factors, you may be asked to: ??? Return on a different day to have your blood pressure checked again. ??? Monitor your blood pressure at home for 1 week or longer. If you are diagnosed with hypertension, you may have other blood or imaging tests to help your health care provider understand your overall risk for other conditions. How is this treated? This condition is treated by making healthy lifestyle changes, such as eating healthy foods, exercising more, and reducing your alcohol intake. You may be referred for counseling on a healthy diet and physical activity. Your health care provider may prescribe medicine if lifestyle changes are not enough to get your blood pressure under control and if: ??? Your systolic blood pressure is above 130. ??? Your diastolic blood pressure is above 80. Your personal target blood pressure may vary depending on your medical conditions, your age, and other factors. Follow these instructions at home: Eating and drinking ??? Eat a diet that is high in fiber and potassium, and low in sodium, added sugar, and fat. An example of this eating plan is called the DASH diet. DASH stands for Dietary Approaches to Stop Hypertension. To eat this way: ? Eat plenty of fresh fruits and vegetables. Try to fill one half of your plate at each meal with fruits and vegetables. ? Eat whole grains, such as whole-wheat pasta, brown rice, or whole-grain bread. Fill about one fourth of your plate with whole grains. ? Eat or drink low-fat dairy products, such as skim milk or low-fat yogurt. ? Avoid fatty cuts of meat, processed or cured meats, and poultry with skin. Fill about one fourth of your plate with lean proteins, such as fish, chicken without skin, beans, eggs, or tofu. ? Avoid pre-made and processed foods. These tend to be higher in sodium, added sugar, and fat. ??? Reduce your daily sodium intake. Many people with hypertension should eat less than 1,500 mg ofsodium a day. ??? Do not drink alcohol if: ? Your health care provider tells you not to drink. ? You are , may be , or are planning to become . ??? If you drink alcohol: ? Limit how much you have to: ? 0?1 drink a day for women. ? 0?2 drinks a day for men. ? Know how much alcohol is in your drink. In the [place] one drink equals one 12 oz bottle (more content not included)...[facility]12-23-2024 Evaluation + Plan noteExtracted from:Title:ED NoteAuthor:Elmer BUSHAlonDate: 05/11/24 Patient left without being s een (Z53.21: Procedure and treatment not carried out due to patient leaving prior to being seen by health care provider) Orders: Basic Metabolic Panel CBC w/ Auto Diff ECG 12 Lead Adult eGFR Extra SST Tube PT & PTT Troponin 0 Hr. Troponin 1 Hr. XR Chest Single View Future Appointments Appointment Date:06/05/2024 10:15:00 AM Scheduled Provider:Mi MI MD Location:[facility] Appointment Type:URO Office Visit Appointment Date:08/03/2024 02:00:00 PM Scheduled Provider:Ajith SNIDER, GROUND CONTROL APPROACH TECHNICIAN-MINE PROMOTOR, Rosa [place] Location:[facility] Appointment Type: Open Appointment Date:02/02/2025 02:30:00 PM Scheduled Provider: Location:[facility] Appointment Type:FM Medicare Wellness Subsequent Future Scheduled Tests Laboratory* HgbA1c 02/03/24 * Microalbumin Level Urine 02/03/24 * Urine Microalbumin/Creatinine Ratio 02/03/24 * CBC w/ Auto Diff 02/03/24 * Comprehensive Metabolic Panel 02/03/24 * Lipid Panel 02/03/24 Radiology* XR Abdomen 1 View 04/02/24 * XR Abdomen 1 View 04/29/24 [facility] 12-18-2024 Hospital Discharge instructions Follow Up Care 05/06/2024 14:34:43 With:tG Haro MD, FAM Address: [address] [place] [phone] When: only if needed With:Gt Haro MD, FAM Address: [address] [place] [phone] When: only if needed [facility] 09-16-2024 Hospital Discharge instructions Patient Education 02/03/2024 15:53:23 Insomnia Insomnia Insomnia is a sleep disorder that makes it difficult to fall asleep or stay asleep. Insomnia can cause fatigue, low energy, difficulty concentrating, mood swings, and poor performance at work or school. There are three different ways to classify insomnia: Difficulty falling asleep. Difficulty staying asleep. Waking up too early in the morning. Any type of insomnia can be long-term (chronic) or short-term (acute). Both are common. Short-term insomnia usually lasts for 3 months or less. Chronic insomnia occurs at least three times a week forlonger than 3 months. What are the causes? Insomnia may be caused by another condition, situation, or substance, such as: Having certain mental health conditions, such as anxiety and depression. Using caffeine, alcohol, tobacco, or drugs. Having gastrointestinal conditions, such as gastroesophageal reflux disease (GERD). Having certain medical conditions. These include: ?Asthma. ?Alzheimer's disease. ?Stroke. ?Chronic pain. ?An overactive thyroid gland (hyperthyroidism). Other sleep disorders, such as restless legs syndrome and sleep apnea. Menopause. Sometimes, the cause of insomnia may not be known. What increases the risk? Risk factors for insomnia include: Gender. Females are affected more often than males. Age. Insomnia is more common as people get older. Stress and certain medical and mental health conditions. Lack of exercise. Having an irregular work schedule. This may include working night shifts and traveling between different time zones. What are the signs or symptoms? If you have insomnia, the main symptom is having trouble falling asleep or having trouble staying asleep. This may lead to other symptoms, such as: Feeling tired or having low energy. Feeling nervous about going to sleep. Not feeling rested in the morning. Having trouble concentrating. Feeling irritable, anxious, or depressed. How is this diagnosed? This condition may be diagnosed based on: Your symptoms and medical history. Your health care provider may ask about: ?Your sleep habits. ?Any medical conditions you have. ?Your mental health. A physical exam. How is this treated? Treatment for insomnia depends on the cause. Treatment may focus on treating an underlying condition that is causing the insomnia. Treatment may also include: Medicines to help you sleep. Counseling or therapy. Lifestyle adjustments to help you sleep better. Follow these instructions at home: Eating and drinking Limit or avoid alcohol, caffeinated beverages, and products that contain nicotine and tobacco, especially close to bedtime. These can disrupt your sleep. Do not eat a large meal or eat spicy foods right before bedtime. This can lead to digestive discomfort that can make it hard for you to sleep. Sleep habits Keep a sleep diary to help you and your health care provider figure out what could be causing your insomnia. Write down: ?When you sleep. ?When you wake up during the night. ?How well you sleep and how rested you feel the next day. ?Any side effects of medicines you are taking. ?What you eat and drink. Make your bedroom a dark, comfortable place where it is easy to fall asleep. ?Put up shades or blackout curtains to block light from outside. ?Use a white noise machine to block noise. ?Keep the temperature cool. Limit screen use before bedtime. This includes: ?Not watching TV. ?Not using your smartphone, tablet, or computer. Stick to a routine that includes going to bed and waking up at the same times every day and night. This can help you fall asleep faster. Consider making a quiet activity, such as reading, part of your nighttime routine. Try to avoid taking naps during the day so that you sleep better at night. Get out of bed if you are still awake after 15 minutes of trying to sleep. Keep the lights down, but try reading or doing a quiet activity. When you feel sleepy, go back to bed. General instructions Take [id number] and prescription medicines only as told by your health care provider. Exercise regularly as told by your health care provider. However, avoid exercising in the hours right before bedtime. Use relaxation techniques to manage stress. Ask your health care provider to suggest some techniques that may work well for you. These may include: ?Breathing exercises. ?Routines to release muscle tension. ?Visualizing peaceful scenes. Make sure that you drive carefully. Do not drive if you feel very sleepy. Keep all follow-up visits. This is important. Contact a health care provider if: You are tired throughout the day. You have trouble in your daily routine due to sleepiness. You continue to have sleep problems, or your sleep problems get worse. Get help right away if: You have thoughts about hurting yourself or someone else. Get help right away if you feel like you may hurt yourself or others, or have thoughts about takingyour own life. Go to your nearest emergency room or: Call 911. Call the National Suicide Prevention Lifeline at or 658. This is open 24 hours a day. Text the Crisis Text Line at 350936. Summary Insomnia is a sleep disorder that makes it difficult to fall asleep or stay asleep. Insomnia can be long-term (chronic) or short-term (acute). Treatment for insomnia depends on the cause. Treatment may focus on treating an underlying condition that is causing the insomnia. Keep a sleep diary to help you and your health care provider figure out what could be causing your insomnia. This information is not intended to replace advice given to you by your health care provider. Make sure you discuss any questions you have with your health care provider. Document Revised: 04/16/2022 Document Reviewed: 04/16/2022 [employer] Patient Education 2023 [employer]. 02/03/2024 15:53:21 Dyslipidemia Dyslipidemia Dyslipidemia is an imbalance of waxy, fat-like substances (lipids) in the blood. The body needs lipids in small amounts. Dyslipidemia often involves a high level of cholesterol or triglycerides, which are types of lipids. Common forms of dyslipidemia include: High levels of LDL cholesterol. LDL is the type of cholesterol that causes fatty deposits (plaques)to build up in the blood vessels that carry blood away from the heart (arteries). Low levels of HDL cholesterol. HDL cholesterol is the type of cholesterol that protects against heart disease. High levels of HDL remove the LDL buildup from arteries. High levels of triglycerides. Triglycerides are a fatty substance in the blood that is linked to a buildup of plaques in the arteries. What are the causes? There are two main types of dyslipidemia: primary and secondary. Primary dyslipidemia is caused by changes (mutations) in genes that are passed down through families (inherited). These mutations cause several types of dyslipidemia. Secondary dyslipidemia may be caused by various risk factors that can lead to the disease, such as lifestyle choices and certain medical conditions. What increases the risk? You are more likely to develop this condition if you are an older man or if you are a woman who hasgone through menopause. Other risk factors include: Having a family history of dyslipidemia. Taking certain medicines, including control pills, steroids, some diuretics, and beta-blockers. Eating a diet high in saturated fat. Smoking cigarettes or excessive alcohol intake. Having certain medical conditions such as diabetes, polycystic ovary syndrome (PCOS), kidney disease, liver disease, or hypothyroidism. Not exercising regularly. Being overweight or obese with too much belly fat. What are the signs or symptoms? In most cases, dyslipidemia does not usually cause any symptoms. In severe cases, very high lipid levels can cause: Fatty bumps under the skin (xanthomas). A white or escamilla ring around the black center (pupil) of the eye. Very high triglyceride levels can cause inflammation of the pancreas (pancreatitis). How is this diagnosed? Your health care provider may diagnose dyslipidemia based on a routine blood test (fasting blood test). Because most people do not have symptoms of the condition, this blood testing (lipid profile) is done on adults age 20 and older and is repeated every 4-6 years. This test checks: Total cholesterol. This measures the total amount of cholesterol in your blood, including LDL cholesterol, HDL cholesterol, and triglycerides. A healthy number is below 200 mg/dL (5.17 mmol/L). LDL cholesterol. The target number for LDL cholesterol is different for each person, depending on individual risk factors. A healthy number is usually below 100 mg/dL (2.59 mmol/L). Ask your health care provider what your LDL cholesterol should be. HDL cholesterol. An HDL level of 60 mg/dL (1.55 mmol/L) or higher is best because it helps to protect against heart disease. A number below 40 mg/dL (1.03 mmol/L) for men or below 50 mg/dL (1.29 mmol/L) for women increases the risk for heart disease. Triglycerides. A healthy triglyceride number is below 150 mg/dL (1.69 mmol/L). If your lipid profile is abnormal, your health care provider may do other blood tests. How is this treated? Treatment depends on the type of dyslipidemia that you have and your other risk factors for heart disease and stroke. Your health care provider will have a target range for your lipid levels based onthis information. Treatment for dyslipidemia starts with lifestyle changes, such as diet and exercise. Your health care provider may recommend that you: Get regular exercise. Make changes to your diet. Quit smoking if you smoke. Limit your alcohol intake. If diet changes and exercise do not help you reach your goals, your health care provider may also prescribe medicine to lower lipids. The most commonly prescribed type of medicine lowers your LDL cholesterol (statin drug). If you have a high triglyceride level, your provider may prescribe another type of drug (fibrate) or an omega-3 fish oil supplement, or both. Follow these instructions at home: Eating and drinking Follow instructions from your health care provider or dietitian about eating or drinking restrictions. Eat a healthy diet as told by your health care provider. This can help you reach and maintain a healthy weight, lower your LDL cholesterol, and raise your HDL cholesterol. This may include: ?Limiting your calories, if you are overweight. ?Eating more fruits, vegetables, whole grains, fish, and lean meats. ?Limiting saturated fat, trans fat, and cholesterol. Do not drink alcohol if: ?Your health care provider tells you not to drink. ?You are , may be , or are planning to become . If you drink alcohol: ?Limit how much you have to: ?0 1 drink a day for women. ? 0 2 drinks a day for men. ?Know how much alcohol is in your drink. In the [place] one drink equals one 12 oz bottle of beer (355 mL), one 5 oz glass of wine (148 mL), or one 1 oz glass of hard liquor (44 mL). Activity Get regular exercise. Start an exercise and strength training program as told by your health care provider. Ask your health care provider what activities are safe for you. Your health care provider may recommend: ?30 minutes of aerobic activity 4 6 days a week. Brisk walking is an example of aerobic activity. ?Strength training 2 days a week. General instructions Do not use any products that contain nicotine or tobacco. These products include cigarettes, chewing tobacco, and vaping devices, such as e-cigarettes. If you need help quitting, ask your health careprovider. Take kzvu-qpb-uwndhqb and prescription medicines only as told by your health care provider. This includes supplements. Keep all follow-up visits. This is important. Contact a health care provider if: You are having trouble sticking to your exercise or diet plan. You are struggling to quit smoking or to control your use of alcohol. Summary Dyslipidemia often involves a high level of cholesterol or triglycerides, which are types of lipids. Treatment depends on the type of dyslipidemia that you have and your other risk factors for heart disease and stroke. Treatment for dyslipidemia starts with lifestyle changes, such as diet and exercise. Your health care provider may prescribe medicine to lower lipids. This information is not intended to replace advice given to you by your health care provider. Make sure you discuss any questions you have with your health care provider. Document Revised: 12/07/2022 Document Reviewed: 07/10/2021 [employer] Patient Education 2023 [employer]. 02/03/2024 15:53:19 DASH Eating Plan DASH Eating Plan DASH stands for Dietary Approaches to Stop Hypertension. The DASH eating plan is a healthy eating plan that has been shown to: Lower high blood pressure (hypertension). Reduce your risk for type 2 diabetes, heart disease, and stroke. Help with weight loss. What are tips for following this plan? Reading food labels Check food labels for the amount of salt (sodium) per serving. Choose foods with less than 5 percent of the Daily Value (DV) of sodium. In general, foods with less than 300 milligrams (mg) of sodium per serving fit into this eating plan. To find whole grains, look for the word whole as the first word in the ingredient list. Shopping Buy products labeled as low-sodium or no salt added. Buy fresh foods. Avoid canned foods and pre-made or frozen meals. Cooking Try not to add salt when you cook. Use salt-free seasonings or herbs instead of table salt or sea salt. Check with your health care provider or pharmacist before using salt substitutes. Do not christina foods. Cook foods in healthy ways, such as baking, boiling, grilling, roasting, or broiling. Cook using oils that are good for your heart. These include olive, canola, avocado, soybean, and sunflower oil. Meal planning Eat a balanced diet. This should include: ?4 or more servings of fruits and 4 or more servings of vegetables each day. Try to fill half of your plate with fruits and vegetables. ?6 8 servings of whole grains each day. ?6 or less servings of lean meat, poultry, or fish each day. 1 oz is 1 serving. A 3 oz (85 g) serving of meat is about the same size as the palm of your hand. One egg is 1 oz (28 g). ?2 3 servings of low-fat dairy each day. One serving is 1 cup (237 mL). ?1 serving of nuts, seeds, or beans 5 times each week. ?2 3 servings of heart-healthy fats. Healthy fats called omega-3 fatty acids are found in foods such as walnuts, flaxseeds, fortified milks, and eggs. These fats are also found in cold-water fish, such as sardines, salmon, and mackerel. Limit how much you eat of: ?Canned or prepackaged foods. ?Food that is high in trans fat, such as fried foods. ?Food that is high in saturated fat, such as fatty meat. ?Desserts and other sweets, sugary drinks, and other foods with added sugar. ?Full-fat dairy products. Do not salt foods before eating. Do not eat more than 4 egg yolks a week. Try to eat at least 2 vegetarian meals a week. Eat more home-cooked food and less restaurant, buffet, and fast food. Lifestyle When eating at a restaurant, ask if your food can be made with less salt or no salt. If you drink alcohol: ?Limit how much you have to: ?0 1 drink a day if you are female. ?0 2 drinks a day if you are male. ?Know how much alcohol is in your drink. In the [place] one drink is one 12 oz bottle of beer (355 mL), one 5 oz glass of wine (148 mL), or one 1 oz glass of hard liquor (44 mL). General information Avoid eating more than 2,300 mg of salt a day. If you have hypertension, you may need to reduce your sodium intake to 1,500 mg a day. Work with your provider to stay at a healthy body weight or lose weight. Ask what the best weight range is for you. On most days of the week, get at least 30 minutes of exercise that causes your heart to beat faster. This may include walking, swimming, or biking. Work with your provider or dietitian to adjust your eating plan to meet your specific calorie needs. What foods should I eat? Fruits All fresh, dried, or frozen fruit. Canned fruits that are in their natural juice and do not have sugar added to them. Vegetables Fresh or frozen vegetables that are raw, steamed, roasted, or grilled. Low- sodium or reduced-sodiumtomato and vegetable juice. Low-sodium or reduced-sodium tomato sauce and tomato paste. Low-sodium or reduced-sodium canned vegetables. Grains Whole-grain or whole-wheat bread. Whole-grain or whole-wheat pasta. Brown rice. Oatmeal. Quinoa. Bulgur. Whole-grain and low-sodium cereals. Yasemin bread. Low- fat, low-sodium crackers. Whole-wheat flour tortillas. Meats and other proteins Skinless chicken or turkey. Ground chicken or turkey. Pork with fat trimmed off. Fish and seafood. Egg whites. Dried beans, peas, or lentils. Unsalted nuts, nut butters, and seeds. Unsalted canned beans. Lean cuts of beef with fat trimmed off. Low-sodium, lean precooked or cured meat, such as sausages or meat loaves. Dairy Low-fat (1%) or fat-free (skim) milk. Reduced-fat, low-fat, or fat-free cheeses. Nonfat, low-sodiumricotta or cottage cheese. Low-fat or nonfat yogurt. Low-fat, low-sodium cheese. Fats and oils Soft margarine without trans fats. Vegetable oil. Reduced-fat, low-fat, or light mayonnaise and salad dressings (reduced-sodium). Canola, safflower, olive, avocado, soybean, and sunflower oils. Avocado. Seasonings and condiments Herbs. Spices. Seasoning mixes without salt. Other foods Unsalted popcorn and pretzels. Fat-free sweets. The items listed above may not be all the foods and drinks you can have. Talk to a dietitian to learn more. What foods should I avoid? Fruits Canned fruit in a light or heavy syrup. Fried fruit. Fruit in cream or butter sauce. Vegetables Creamed or fried vegetables. Vegetables in a cheese sauce. Regular canned vegetables that are not marked as low-sodium or reduced-sodium. Regular canned tomato sauce and paste that are not marked as low-sodium or reduced-sodium. Regular tomato and vegetable juices that are not marked as low-sodium or reduced-sodium. Pickles. Olives. Grains Baked goods made with fat, such as croissants, muffins, or some breads. Dry pasta or rice meal packs. Meats and other proteins Fatty cuts of meat. Ribs. Fried meat. Lopez. Bologna, salami, and other precooked or cured meats, such as sausages or meat loaves, that are not lean and low in sodium. Fat from the back of a pig (fatback). Bratwurst. Salted nuts and seeds. Canned beans with added salt. Canned or smoked fish. Whole eggs or egg yolks. Chicken or turkey with skin. Dairy Whole or 2% milk, cream, and [id number]. Whole or full-fat cream cheese. Whole-fat or sweetened yogurt. Full-fat cheese. Nondairy creamers. Whipped toppings. Processed cheese and cheese spreads. Fats and oils Butter. Stick margarine. Lard. Shortening. Ghee. Lopez fat. Tropical oils, such as coconut, palm kernel, or palm oil. Seasonings and condiments Onion salt, garlic salt, seasoned salt, table salt, and sea salt. Worcestershire sauce. Tartar sauce. Barbecue sauce. Teriyaki sauce. Soy sauce, including reduced-sodium soy sauce. Steak sauce. Canned and packaged gravies. Fish sauce. Oyster sauce. Cocktail sauce. Store-bought horseradish. Ketchup.Mustard. Meat flavorings and tenderizers. Bouillon cubes. Hot sauces. Pre-made or packaged marinades. Pre-made or packaged taco seasonings. Relishes. Regular salad dressings. Other foods Salted popcorn and pretzels. The items listed above may not be all the foods and drinks you should avoid. Talk to a dietitian didier more. Where to find more information National Heart, Lung, and Blood [place] (NHLBI): nhlbi.nih.gov [place] [employer] (AHA): heart.org Academy of Nutrition and Dietetics: eatright.org National Kidney Foundation (NKF): kidney.org This information is not intended to replace advice given to you by your health care provider. Make sure you discuss any questions you have with your health care provider. Document Revised: 05/23/2023 Document Reviewed: 05/23/2023 [employer] Patient Education 2023 [employer]. 02/03/2024 15:53:17 Managing Depression, Adult Managing Depression, Adult Depression is a mental health condition that affects your thoughts, feelings, and actions. Being diagnosed with depression can bring you relief if you did not know why you have felt or behaved a certain way. It could also leave you feeling overwhelmed. Finding ways to manage your symptoms can help you feel more positive about your future. How to manage lifestyle changes Being depressed is difficult. Depression can increase the level of everyday stress. Stress can makedepression symptoms worse. You may believe your symptoms cannot be managed or will never improve. However, there are many things you can try to help manage your symptoms. There is hope. Managing stress Stress is your body's reaction to life changes and events, both good and bad. Stress can add to your feelings of depression. Learning to manage your stress can help lessen your feelings of depression. Try some of the following approaches to reducing your stress (stress reduction techniques): Listen to music that you enjoy and that inspires you. Try using a meditation bryan or take a meditation class. Develop a practice that helps you connect with your spiritual self. Walk in nature, pray, or go to a place of mormonism. Practice deep breathing. To do this, inhale slowly through your nose. Pause at the top of your inhale for a few seconds and then exhale slowly, letting yourself relax. Repeat this three or four times. Practice yoga to help relax and work your muscles. Choose a stress reduction technique that works for you. These techniques take time and practice to develop. Set aside 5 15 minutes a day to do them. Therapists can offer training in these techniques.Do these things to help manage stress: Keep a journal. Know your limits. Set healthy boundaries for yourself and others, such as saying no when you think something is too much. Pay attention to how you react to certain situations. You may not be able to control everything, but you can change your reaction. Add humor to your life by watching funny movies or shows. Make time for activities that you enjoy and that relax you. Spend less time using electronics, especially at night before bed. The light from screens can make your brain think it is time to get up rather than go to bed. Medicines Medicines, such as antidepressants, are often a part of treatment for depression. Talk with your pharmacist or health care provider about all the medicines, supplements, and herbal products that you take, their possible side effects, and what medicines and other products are safe to take together. Make sure to report any side effects you may have to your health care provider. Relationships Your health care provider may suggest family therapy, couples therapy, or individual therapy as part of your treatment. How to recognize changes Everyone responds differently to treatment for depression. As you recover from depression, you may start to: Have more interest in doing activities. Feel more hopeful. Have more energy. Eat a more regular amount of food. Have better mental focus. It is important to recognize if your depression is not getting better or is getting worse. The symptoms you had in the beginning may return, such as: Feeling tired. Eating too much or too little. Sleeping too much or too little. Feeling restless, agitated, or hopeless. Trouble focusing or making decisions. Having unexplained aches and pains. Feeling irritable, angry, or aggressive. If you or your family members notice these symptoms coming back, let your health care provider knowright away. Follow these instructions at home: Activity Try to get some form of exercise each day, such as walking. Try yoga, mindfulness, or other stress reduction techniques. Participate in group activities if you are able. Lifestyle Get enough sleep. Cut down on or stop using caffeine, tobacco, alcohol, and any other harmful substances. Eat a healthy diet that includes plenty of vegetables, fruits, whole grains, low-fat dairy products, and lean protein. Limit foods that are high in solid fats, added sugar, or salt (sodium). General instructions Take tnxf-gbd-waitnal and prescription medicines only as told by your health care provider. Keep all follow-up visits. It is important for your health care provider to check on your mood, behavior, and medicines. Your health care provider may need to make changes to your treatment. Where to find support Talking to others Friends and family members can be sources of support and guidance. Talk to trusted friends or family members about your condition. Explain your symptoms and let them know that you are working with a health care provider to treat your depression. Tell friends and family how they can help. Finances Find mental health providers that fit with your financial situation. Talk with your health care provider if you are worried about access to food, housing, or medicine. Call your insurance company to learn about your co-pays and prescription plan. Where to find more information You can find support in your area from: Anxiety and Depression Association of [place] (ADAA): adaa.org Mental Health [place]: mentalhealthamerica.net National [place] on Mental Illness: maricruz.org Contact a health care provider if: You stop taking your antidepressant medicines, and you have any of these symptoms: ?Nausea. ?Headache. ?Light-headedness. ?Chills and body aches. ?Not being able to sleep (insomnia). You or your friends and family think your depression is getting worse. Get help right away if: You have thoughts of hurting yourself or others. Get help right away if you feel like you may hurt yourself or others, or have thoughts about takingyour own life. Go to your nearest emergency room or: Call 911. Call the National Suicide Prevention Lifeline at or 456. This is open 24 hours a day. Text the Crisis Text Line at 234644. This information is not intended to replace advice given to you by your health care provider. Make sure you discuss any questions you have with your health care provider. Document Revised: 09/11/2022 Document Reviewed: 09/11/2022 [employer] Patient Education 2023 [employer] 02/03/2024 15:53:13 Multiple Sclerosis Multiple Sclerosis Multiple sclerosis (MS) is a disease of the brain, spinal cord, and optic nerves (central nervous system). It causes the body's disease-fighting system (immunesystem) to destroy the protective covering around nerves in the brain (myelin sheath). When this happens, signals (nerve impulses) going to and from the brain and spinal cord do not get sent properly or may not get sent at all. There are several types of MS: Relapsing remitting MS. This is the most common type. This causes sudden attacks of symptoms. Afteran attack, you may recover completely until the next attack, or some symptoms may remain permanently. Secondary progressive MS. This usually develops after the onset of relapsing remitting MS. Similar to relapsing remitting MS, this type also causes sudden attacks of symptoms. Attacks may be less frequent, but symptoms slowly get worse over time. Primary progressive MS. This causes symptoms that steadily progress over time. This type of MS doesnot cause sudden attacks of symptoms. The age of onset of MS varies, but it often develops between 20 and 40 years of age. MS is a lifelong (chronic) condition. There is no cure, but treatment can help slow down the progression of the disease. What are the causes? The cause of this condition is not known. What increases the risk? You are more likely to develop this condition if: You are a woman. You have a relative with MS. However, the condition is not passed from parent to child (inherited). You have a lack (deficiency) of vitamin D. You smoke. MS is more common in the [place] than in the [place]. What are the signs or symptoms? Relapsing remitting and secondary progressive MS cause symptoms to occur in episodes or attacks that may last weeks to months. There may be long periods between attacks in which there are almost no symptoms. Primary progressive MS causes symptoms to steadily progress after they develop. Symptoms of MS vary because of the many different ways it affects the central nervous system. The main symptoms include: Vision problems and eye pain. Numbness and weakness. Inability to move your arms, hands, feet, or legs (paralysis). Balance problems. Shaking that you cannot control (tremors). Sudden muscle tightening (spasms). Problems with thinking (cognitive changes). MS can also cause symptoms that are associated with the disease but are not always the direct result of an MS attack. They may include: Inability to control when you urinate or have bowel movements (incontinence). Headaches. Fatigue. Inability to tolerate heat. Emotional changes. Depression. Pain. How is this diagnosed? This condition is diagnosed based on: Your symptoms. A neurological exam. This involves checking your central nervous system function, such as nerve function, reflexes, and coordination. MRIs of the brain and spinal cord. Lab tests, including a lumbar puncture that tests the fluid that surrounds the brain and spinal cord (cerebrospinal fluid). Tests to measure the electrical activity of the brain in response to stimulation (evoked potentials). How is this treated? There is no cure for MS, but medicines can help decrease the number and frequency of attacks and help relieve nuisance symptoms. Treatment options may include: Medicines that: ?Reduce the frequency of attacks. These medicines may be given by injection, by mouth (orally), or through an IV. ?Reduce inflammation (steroids). These may provide short-term relief of symptoms. ?Help control pain, depression, fatigue, or incontinence. Nutritional counseling. Eating a healthy, balanced diet can help with symptoms. Taking vitamin D supplements, if you have a deficiency. Using devices to help you move around (assistive devices), such as braces, a cane, or a walker. Therapy, such as: ?Physical therapy to strengthen and stretch your muscles. ?Occupational therapy to help you with everyday tasks. ?Alternative or complementary treatments such as massage or acupuncture. Low-impact, mild exercises, such as swimming, walking, and yoga. Regular exercise can help alleviate symptoms and increase strength and balance. Follow these instructions at home: Medicines Take imls-ogv-rcnlyiz and prescription medicines only as told by your health care provider. Ask your health care provider if the medicine prescribed to you requires you to avoid driving or using machinery. Activity Use assistive devices as recommended by your physical therapist or your health care provider. Exercise as directed by your health care provider. Return to your normal activities as told by your health care provider. Ask your health care provider what activities are safe for you. General instructions Eating healthy can help manage MS symptoms. Reach out for support. Share your feelings with friends, family, or a support group. Keep all follow-up visits. This is important. Where to find more information National Multiple Sclerosis Society: www.nationalmssociety.org National [place] of Neurological Disorders and Stroke: www.ninds.nih.gov National Center for Complementary and Integrative Health: www.nccih.nih.gov Contact a health care provider if: You feel depressed. You develop new pain or numbness. You have tremors. You have problems with sexual function. Get help right away if: You develop paralysis. You develop numbness. You have problems with your bladder or bowel function. You develop double vision. You lose vision in one or both eyes. You develop suicidal thoughts. You develop severe confusion. Get help right away if you feel like you may hurt yourself or others, or have thoughts about takingyour own life. Go to your nearest emergency room or: Call 911. Call the National Suicide Prevention Lifeline at or 734. This is open 24 hours a day. Text the Crisis Text Line at 602045. Summary Multiple sclerosis (MS) is a disease of the central nervous system that causes the body's immune system to destroy the protective covering around nerves in the brain (myelin sheath). There are 3 types of MS: relapsing remitting, secondary progressive, and primary progressive. There is no cure for MS, but medicines can help decrease the number and frequency of attacks and help relieve nuisance symptoms. Treatment may also include physical or occupational therapy. If you develop numbness, paralysis, vision problems, or other neurological symptoms, get help rightaway. This information is not intended to replace advice given to you by your health care provider. Make sure you discuss any questions you have with your health care provider. Document Revised: 01/10/2022 Document Reviewed: 01/10/2022 [employer] Patient Education 2023 [employer]. 02/03/2024 15:53:01 Carbohydrate Counting for Diabetes Mellitus, Adult Carbohydrate Counting for Diabetes Mellitus, Adult Carbohydrate counting is a method of keeping track of how many carbohydrates you eat. Eating carbohydrates increases the amount of sugar (glucose) in the blood. Counting how many carbohydrates you eat improves how well you manage your blood glucose. This, in turn, helps you manage your diabetes. Carbohydrates are measured in grams (g) per serving. It is important to know how many carbohydrates(in grams or by serving size) you can have in each meal. This is different for every person. A dietitian can help you make a meal plan and calculate how many carbohydrates you should have at each meal and snack. What foods contain carbohydrates? Carbohydrates are found in the following foods: Grains, such as breads and cereals. Dried beans and soy products. Starchy vegetables, such as potatoes, peas, and corn. Fruit and fruit juices. Milk and yogurt. Sweets and snack foods, such as cake, cookies, candy, chips, and soft drinks. How do I count carbohydrates in foods? There are two ways to count carbohydrates in food. You can read food labels or learn standard serving sizes of foods. You can use either of these methods or a combination of both. Using the Nutrition Facts label The Nutrition Facts list is included on the labels of almost all packaged foods and beverages in the [place]. It includes: The serving size. Information about nutrients in each serving, including the grams of carbohydrate per serving. To use the Nutrition Facts, decide how many servings you will have. Then, multiply the number of servings by the number of carbohydrates per serving. The resulting number is the total grams of carbohydrates that you will be having. Learning the standard serving sizes of foods When you eat carbohydrate foods that are not packaged or do not include Nutrition Facts on the label, you need to measure the servings in order to count the grams of carbohydrates. Measure the foods that you will eat with a food scale or measuring cup, if needed. Decide how many standard-size servings you will eat. Multiply the number of servings by 15. For foods that contain carbohydrates, one serving equals 15 g of carbohydrates. ?For example, if you eat 2 cups or 10 oz (300 g) of strawberries, you will have eaten 2 servings and 30 g of carbohydrates (2 servings x 15 g = 30 g). For foods that have more than one food mixed, such as soups and casseroles, you must count the carbohydrates in each food that is included. The following list contains standard serving sizes of common carbohydrate-rich foods. Each of theseservings has about 15 g of carbohydrates: 1 slice of bread. 1 six-inch (15 cm) tortilla. ? cup or 2 oz (53 g) cooked rice or pasta. cup or 3 oz (85 g) cooked or canned, drained and rinsed beans or lentils. cup or 3 oz (85 g) starchy vegetable, such as peas, corn, or squash. cup or 4 oz (120 g) hot cereal. cup or 3 oz (85 g) boiled or mashed potatoes, or or 3 oz (85 g) of a large baked potato. cup or 4 fl oz (118 mL) fruit juice. 1 cup or 8 fl oz (237 mL) milk. 1 small or 4 oz (106 g) apple. or 2 oz (63 g) of a medium banana. 1 cup or 5 oz (150 g) strawberries. 3 cups or 1 oz (28.3 g) popped popcorn. What is an example of carbohydrate counting? To calculate the grams of carbohydrates in this sample meal, follow the steps shown below. Sample meal 3 oz (85 g) chicken breast. ? cup or 4 oz (106 g) brown rice. cup or 3 oz (85 g) corn. 1 cup or 8 fl oz (237 mL) milk. 1 cup or 5 oz (150 g) strawberries with sugar-free whipped topping. Carbohydrate calculation 1.Identify the foods that contain carbohydrates: Rice. Trinity. Milk. Strawberries. 2.Calculate how many servings you have of each food: 2 servings rice. 1 serving corn. 1 serving milk. 1 serving strawberries. 3.Multiply each number of servings by 15 servings rice x 15 g = 30 g. 1 serving corn x 15 g = 15 g. 1 serving milk x 15 g = 15 g. 1 serving strawberries x 15 g = 15 g. 4.Add together all of the amounts to find the total grams of carbohydrates eaten: 30 g + 15 g + 15 g + 15 g = 75 g of carbohydrates total. What are tips for following this plan? Shopping Develop a meal plan and then make a shopping list. Buy fresh and frozen vegetables, fresh and frozen fruit, dairy, eggs, beans, lentils, and whole grains. Look at food labels. Choose foods that have more fiber and less sugar. Avoid processed foods and foods with added sugars. Meal planning Aim to have the same number of grams of carbohydrates at each meal and for each snack time. Plan to have regular, balanced meals and snacks. Where to find more information [place] Diabetes Association: diabetes.org Centers for Disease Control and Prevention: cdc.gov Academy of Nutrition and Dietetics: eatright.org Association of Diabetes Care & Education Specialists: diabeteseducator.org Summary Carbohydrate counting is a method of keeping track of how many carbohydrates you eat. Eating carbohydrates increases the amount of sugar (glucose) in your blood. Counting how many carbohydrates you eat improves how well you manage your blood glucose. This helpsyou manage your diabetes. A dietitian can help you make a meal plan and calculate how many carbohydrates you should have at each meal and snack. This information is not intended to replace advice given to you by your health care provider. Make sure you discuss any questions you have with your health care provider. Document Revised: 12/07/2020 Document Reviewed: 12/07/2020 [employer] Patient Education 2023 [employer]. [facility] 09-15-2024 Hospital Discharge instructions Patient Education 02/02/2024 14:44:06 DASH Eating Plan DASH Eating Plan DASH stands for Dietary Approaches to Stop Hypertension. The DASH eating plan is a healthy eating plan that has been shown to: Lower high blood pressure (hypertension). Reduce your risk for type 2 diabetes, heart disease, and stroke. Help with weight loss. What are tips for following this plan? Reading food labels Check food labels for the amount of salt (sodium) per serving. Choose foods with less than 5 percent of the Daily Value (DV) of sodium. In general, foods with less than 300 milligrams (mg) of sodium per serving fit into this eating plan. To find whole grains, look for the word whole as the first word in the ingredient list. Shopping Buy products labeled as low-sodium or no salt added. Buy fresh foods. Avoid canned foods and pre-made or frozen meals. Cooking Try not to add salt when you cook. Use salt-free seasonings or herbs instead of table salt or sea salt. Check with your health care provider or pharmacist before using salt substitutes. Do not christina foods. Cook foods in healthy ways, such as baking, boiling, grilling, roasting, or broiling. Cook using oils that are good for your heart. These include olive, canola, avocado, soybean, and sunflower oil. Meal planning Eat a balanced diet. This should include: ?4 or more servings of fruits and 4 or more servings of vegetables each day. Try to fill half of your plate with fruits and vegetables. ?6 8 servings of whole grains each day. ?6 or less servings of lean meat, poultry, or fish each day. 1 oz is 1 serving. A 3 oz (85 g) serving of meat is about the same size as the palm of your hand. One egg is 1 oz (28 g). ?2 3 servings of low-fat dairy each day. One serving is 1 cup (237 mL). ?1 serving of nuts, seeds, or beans 5 times each week. ?2 3 servings of heart-healthy fats. Healthy fats called omega-3 fatty acids are found in foods such as walnuts, flaxseeds, fortified milks, and eggs. These fats are also found in cold-water fish, such as sardines, salmon, and mackerel. Limit how much you eat of: ?Canned or prepackaged foods. ?Food that is high in trans fat, such as fried foods. ?Food that is high in saturated fat, such as fatty meat. ?Desserts and other sweets, sugary drinks, and other foods with added sugar. ?Full-fat dairy products. Do not salt foods before eating. Do not eat more than 4 egg yolks a week. Try to eat at least 2 vegetarian meals a week. Eat more home-cooked food and less restaurant, buffet, and fast food. Lifestyle When eating at a restaurant, ask if your food can be made with less salt or no salt. If you drink alcohol: ?Limit how much you have to: ?0 1 drink a day if you are female. ?0 2 drinks a day if you are male. ?Know how much alcohol is in your drink. In the [place] one drink is one 12 oz bottle of beer (355 mL), one 5 oz glass of wine (148 mL), or one 1 oz glass of hard liquor (44 mL). General information Avoid eating more than 2,300 mg of salt a day. If you have hypertension, you may need to reduce your sodium intake to 1,500 mg a day. Work with your provider to stay at a healthy body weight or lose weight. Ask what the best weight range is for you. On most days of the week, get at least 30 minutes of exercise that causes your heart to beat faster. This may include walking, swimming, or biking. Work with your provider or dietitian to adjust your eating plan to meet your specific calorie needs. What foods should I eat? Fruits All fresh, dried, or frozen fruit. Canned fruits that are in their natural juice and do not have sugar added to them. Vegetables Fresh or frozen vegetables that are raw, steamed, roasted, or grilled. Low- sodium or reduced-sodiumtomato and vegetable juice. Low-sodium or reduced-sodium tomato sauce and tomato paste. Low-sodium or reduced-sodium canned vegetables. Grains Whole-grain or whole-wheat bread. Whole-grain or whole-wheat pasta. Brown rice. Oatmeal. Quinoa. Bulgur. Whole-grain and low-sodium cereals. Yasemin bread. Low- fat, low-sodium crackers. Whole-wheat flour tortillas. Meats and other proteins Skinless chicken or turkey. Ground chicken or turkey. Pork with fat trimmed off. Fish and seafood. Egg whites. Dried beans, peas, or lentils. Unsalted nuts, nut butters, and seeds. Unsalted canned beans. Lean cuts of beef with fat trimmed off. Low-sodium, lean precooked or cured meat, such as sausages or meat loaves. Dairy Low-fat (1%) or fat-free (skim) milk. Reduced-fat, low-fat, or fat-free cheeses. Nonfat, low-sodiumricotta or cottage cheese. Low-fat or nonfat yogurt. Low-fat, low-sodium cheese. Fats and oils Soft margarine without trans fats. Vegetable oil. Reduced-fat, low-fat, or light mayonnaise and salad dressings (reduced-sodium). Canola, safflower, olive, avocado, soybean, and sunflower oils. Avocado. Seasonings and condiments Herbs. Spices. Seasoning mixes without salt. Other foods Unsalted popcorn and pretzels. Fat-free sweets. The items listed above may not be all the foods and drinks you can have. Talk to a dietitian to learn more. What foods should I avoid? Fruits Canned fruit in a light or heavy syrup. Fried fruit. Fruit in cream or butter sauce. Vegetables Creamed or fried vegetables. Vegetables in a cheese sauce. Regular canned vegetables that are not marked as low-sodium or reduced-sodium. Regular canned tomato sauce and paste that are not marked as low-sodium or reduced-sodium. Regular tomato and vegetable juices that are not marked as low-sodium or reduced-sodium. Pickles. Olives. Grains Baked goods made with fat, such as croissants, muffins, or some breads. Dry pasta or rice meal packs. Meats and other proteins Fatty cuts of meat. Ribs. Fried meat. Lopez. Bologna, salami, and other precooked or cured meats, such as sausages or meat loaves, that are not lean and low in sodium. Fat from the back of a pig (fatback). Bratwurst. Salted nuts and seeds. Canned beans with added salt. Canned or smoked fish. Whole eggs or egg yolks. Chicken or turkey with skin. Dairy Whole or 2% milk, cream, and [id number]. Whole or full-fat cream cheese. Whole-fat or sweetened yogurt. Full-fat cheese. Nondairy creamers. Whipped toppings. Processed cheese and cheese spreads. Fats and oils Butter. Stick margarine. Lard. Shortening. Ghee. Lopez fat. Tropical oils, such as coconut, palm kernel, or palm oil. Seasonings and condiments Onion salt, garlic salt, seasoned salt, table salt, and sea salt. Worcestershire sauce. Tartar sauce. Barbecue sauce. Teriyaki sauce. Soy sauce, including reduced-sodium soy sauce. Steak sauce. Canned and packaged gravies. Fish sauce. Oyster sauce. Cocktail sauce. Store-bought horseradish. Ketchup.Mustard. Meat flavorings and tenderizers. Bouillon cubes. Hot sauces. Pre-made or packaged marinades. Pre-made or packaged taco seasonings. Relishes. Regular salad dressings. Other foods Salted popcorn and pretzels. The items listed above may not be all the foods and drinks you should avoid. Talk to a dietitian didier more. Where to find more information National Heart, Lung, and Blood [place] (NHLBI): nhlbi.nih.gov [place] Heart Association (AHA): heart.org Academy of Nutrition and Dietetics: eatright.org National Kidney Foundation (NKF): kidney.org This information is not intended to replace advice given to you by your health care provider. Make sure you discuss any questions you have with your health care provider. Document Revised: 05/23/2023 Document Reviewed: 05/23/2023 [employer] Patient Education 2023 [employer]. 02/02/2024 14:44:02 Type 2 Diabetes Mellitus, Self-Care, Adult Type 2 Diabetes Mellitus, Self-Care, Adult Caring for yourself after you have been diagnosed with type 2 diabetes (type 2 diabetes mellitus) means keeping your blood sugar (glucose) under control with a balance of: Nutrition. Exercise. Lifestyle changes. Medicines or insulin, if needed. Support from your team of health care providers and others. What are the risks? Having type 2 diabetes can put you at risk for other long-term (chronic) conditions, such as heart disease and kidney disease. Your health care provider may prescribe medicines to help prevent complications from diabetes. How to monitor your blood glucose Check your blood glucose every day or as often as told by your health care provider. Have your A1C (hemoglobin A1C) level checked two or more times a year, or as often as told by your health care provider. Your health care provider will set personalized treatment goals for you. Generally, the goal of treatment is to maintain the following blood glucose levels: ?Before meals: 80 130 mg/dL (4.4 7.2 mmol/L). ?After meals: below 180 mg/dL (10 mmol/L). ?A1C level: less than 7%. How to manage hyperglycemia and hypoglycemia Hyperglycemia symptoms Hyperglycemia, also called high blood glucose, occurs when blood glucose is too high. Make sure youknow the early signs of hyperglycemia, such as: Increased thirst. Hunger. Feeling very tired. Needing to urinate more often than usual. Blurry vision. Hypoglycemia symptoms Hypoglycemia, also called low blood glucose, occurs with a blood glucose level at or below 70 mg/dL(3.9 mmol/L). Diabetes medicines lower your blood glucose and can cause hypoglycemia. The risk for hypoglycemia increases during or after exercise, during sleep, during illness, and when skipping meals or not eating for a long time (fasting). It is important to know the symptoms of hypoglycemia and treat it right away. Always have a 18-irwovggmp-gyweuj carbohydrate snack with you to treat low blood glucose. Family members and close friends should also know the symptoms and understand how to treat hypoglycemia, in case you are not able to treat yourself. Symptoms may include: Hunger. Anxiety. Sweating and feeling clammy. Dizziness or feeling light-headed. Sleepiness. Increased heart rate. Irritability. Tingling or numbness around the mouth, lips, or tongue. Restless sleep. Severe hypoglycemia is when your blood glucose level is at or below 54 mg/dL (3 mmol/L). Severe hypoglycemia is an emergency. Do not wait to see if the symptoms will go away. Get medical help right away. Call your local emergency services (911 in the [place] Do not drive yourself to the hospital. If you have severe hypoglycemia and you cannot eat or drink, you may need glucagon. A family memberor close friend should learn how to check your blood glucose and how to give you glucagon. Ask yourhealth care provider if you need to have an emergency glucagon kit available. Follow these instructions at home: Medicines Take prescribed insulin or diabetes medicines as told by your health care provider. Do not run out of insulin or other diabetes medicines. Plan ahead so you always have these available. If you use insulin, adjust your dosage based on your physical activity and what foods you eat. Yourhealth care provider will tell you how to adjust your dosage. Take fmdp-afo-kpgdkst and prescription medicines only as told by your health care provider. Eating and drinking What you eat and drink affects your blood glucose and your insulin dosage. Making good choices helps to control your diabetes and prevent other health problems. A healthy meal plan includes eating lean proteins, complex carbohydrates, fresh fruits and vegetables, low-fat dairy products, and healthy fats. Make an appointment to see a registered dietitian to help you create an eating plan that is right for you. Make sure that you: Follow instructions from your health care provider about eating or drinking restrictions. Drink enough fluid to keep your urine pale yellow. Keep a record of the carbohydrates that you eat. Do this by reading food labels and learning the standard serving sizes of foods. Follow your sick-day plan whenever you cannot eat or drink as usual. Make this plan in advance withyour health care provider. Activity Stay active. Exercise regularly, as told by your health care provider. This may include: ?Stretching and doing strength exercises, such as yoga or weight lifting, two or more times a week. ?Doing 150 minutes or more of moderate-intensity or vigorous-intensity exercise each week. This could be brisk walking, biking, or water aerobics. ?Spread out your activity over 3 or more days of the week. ?Do not go more than 2 days in a row without doing some kind of physical activity. When you start a new exercise or activity, work with your health care provider to adjust your insulin, medicines, or food intake as needed. Lifestyle Do not use any products that contain nicotine or tobacco. These products include cigarettes, chewing tobacco, and vaping devices, such as e-cigarettes. If you need help quitting, ask your health careprovider. If you drink alcohol and your health care provider says that it is safe for you: ?Limit how much you have to: ?0 1 drink a day for women who are not . ?0 2 drinks a day for men. ?Know how much alcohol is in your drink. In the [place] one drink equals one 12 oz bottle of beer (355 mL), one 5 oz glass of wine (148 mL), or one 1 oz glass of hard liquor (44 mL). Learn to manage stress. If you need help with this, ask your health care provider. Take care of your body Keep your immunizations up to date. In addition to getting vaccinations as told by your health careprovider, it is recommended that you get vaccinated against the following illnesses: ?The flu (influenza). Get a flu shot every year. ?Pneumonia. ?Hepatitis B. Schedule an eye exam soon after your diagnosis, and then one time every year after that. Check your skin and feet every day for cuts, bruises, redness, blisters, or sores. Schedule a foot exam with your health care provider once every year. [place] your teeth and gums two times a day, and floss one or more times a day. Visit your dentist one or more times every 6 months. Maintain a healthy weight. General instructions Share your diabetes management plan with people in your workplace, school, and household. Carry a medical alert card or wear medical alert jewelry. Keep all follow-up visits. This is important. Questions to ask your health care provider Should I meet with a certified diabetes care and education program manager? Where can I find a support group for people with diabetes? Where to find more information For help and guidance and for more information about diabetes, please visit: [place] Diabetes Association (ADA): www.diabetes.org [place] Association [employer] Diabetes Care and Education Specialists (ADCES): www.diabeteseducator.org International Diabetes Federation (IDF): www.idf.org Summary Caring for yourself after you have been diagnosed with type 2 diabetes (type 2 diabetes mellitus) means keeping your blood sugar (glucose) under control with a balance of nutrition, exercise, lifestyle changes, and medicine. Check your blood glucose every day, as often as told by your health care provider. Having diabetes can put you at risk for other long-term (chronic) conditions, such as heart diseaseand kidney disease. Your health care provider may prescribe medicines to help prevent complicationsfrom diabetes. Share your diabetes management plan with people in your workplace, school, and household. Keep all follow-up visits. This is important. This information is not intended to replace advice given to you by your health care provider. Make sure you discuss any questions you have with your health care provider. Document Revised: 10/04/2021 Document Reviewed: 10/04/2021 [employer] Patient Education 2023 [employer]. 02/02/2024 14:44:02 Hypertension, Adult Hypertension, Adult High blood pressure (hypertension) is when the force of blood pumping through the arteries is too strong. The arteries are the blood vessels that carry blood from the heart throughout the body. Hypertension forces the heart to work harder to pump blood and may cause arteries to become narrow or stiff. Untreated or uncontrolled hypertension can lead to a heart attack, heart failure, a stroke, kidney disease, and other problems. A blood pressure reading consists of a higher number over a lower number. Ideally, your blood pressure should be below 120/80. The first ( top ) number is called the systolic pressure. It is a measure of the pressure in your arteries as your heart beats. The second ( bottom ) number is called the diastolic pressure. It is a measure of the pressure in your arteries as the heart relaxes. What are the causes? The exact cause of this condition is not known. There are some conditions that result in high bloodpressure. What increases the risk? Certain factors may make you more likely to develop high blood pressure. Some of these risk factorsare under your control, including: Smoking. Not getting enough exercise or physical activity. Being overweight. Having too much fat, sugar, calories, or salt (sodium) in your diet. Drinking too much alcohol. Other risk factors include: Having a personal history of heart disease, diabetes, high cholesterol, or kidney disease. Stress. Having a family history of high blood pressure and high cholesterol. Having obstructive sleep apnea. Age. The risk increases with age. What are the signs or symptoms? High blood pressure may not cause symptoms. Very high blood pressure (hypertensive crisis) may cause: Headache. Fast or irregular heartbeats (palpitations). Shortness of breath. Nosebleed. Nausea and vomiting. Vision changes. Severe chest pain, dizziness, and seizures. How is this diagnosed? This condition is diagnosed by measuring your blood pressure while you are seated, with your arm resting on a flat surface, your legs uncrossed, and your feet flat on the floor. The cuff of the bloodpressure monitor will be placed directly against the skin of your upper arm at the level of your heart. Blood pressure should be measured at least twice using the same arm. Certain conditions can cause a difference in blood pressure between your right and left arms. If you have a high blood pressure reading during one visit or you have normal blood pressure with other risk factors, you may be asked to: Return on a different day to have your blood pressure checked again. Monitor your blood pressure at home for 1 week or longer. If you are diagnosed with hypertension, you may have other blood or imaging tests to help your health care provider understand your overall risk for other conditions. How is this treated? This condition is treated by making healthy lifestyle changes, such as eating healthy foods, exercising more, and reducing your alcohol intake. You may be referred for counseling on a healthy diet and physical activity. Your health care provider may prescribe medicine if lifestyle changes are not enough to get your blood pressure under control and if: Your systolic blood pressure is above 130. Your diastolic blood pressure is above 80. Your personal target blood pressure may vary depending on your medical conditions, your age, and other factors. Follow these instructions at home: Eating and drinking Eat a diet that is high in fiber and potassium, and low in sodium, added sugar, and fat. An exampleof this eating plan is called the DASH diet. DASH stands for Dietary Approaches to Stop Hypertension. To eat this way: ?Eat plenty of fresh fruits and vegetables. Try to fill one half of your plate at each meal with fruits and vegetables. ?Eat whole grains, such as whole-wheat pasta, brown rice, or whole-grain bread. Fill about one fourth of your plate with whole grains. ?Eat or drink low-fat dairy products, such as skim milk or low-fat yogurt. ?Avoid fatty cuts of meat, processed or cured meats, and poultry with skin. Fill about one fourth of your plate with lean proteins, such as fish, chicken without skin, beans, eggs, or tofu. ?Avoid pre-made and processed foods. These tend to be higher in sodium, added sugar, and fat. Reduce your daily sodium intake. Many people with hypertension should eat less than 1,500 mg of sodium a day. Do not drink alcohol if: ?Your health care provider tells you not to drink. ?You are , may be , or are planning to become . If you drink alcohol: ?Limit how much you have to: ?0 1 drink a day for women. ?0 2 drinks a day for men. ?Know how much alcohol is in your drink. In the [place] one drink equals one 12 oz bottle of beer (355 mL), one 5 oz glass of wine (148 mL), or one 1 oz glass of hard liquor (44 mL). Lifestyle Work with your health care provider to maintain a healthy body weight or to lose weight. Ask what an ideal weight is for you. Get at least 30 minutes of exercise that causes your heart to beat faster (aerobic exercise) most days of the week. Activities may include walking, swimming, or biking. Include exercise to strengthen your muscles (resistance exercise), such as Pilates or lifting weights, as part of your weekly exercise routine. Try to do these types of exercises for 30 minutes at least 3 days a week. Do not use any products that contain nicotine or tobacco. These products include cigarettes, chewing tobacco, and vaping devices, such as e-cigarettes. If you need help quitting, ask your health careprovider. Monitor your blood pressure at home as told by your health care provider. Keep all follow-up visits. This is important. Medicines Take cfiq-sgq-bwzliyu and prescription medicines only as told by your health care provider. Follow directions carefully. Blood pressure medicines must be taken as prescribed. Do not skip doses of blood pressure medicine. Doing this puts you at risk for problems and can makethe medicine less effective. Ask your health care provider about side effects or reactions to medicines that you should watch for. Contact a health care provider if you: Think you are having a reaction to a medicine you are taking. Have headaches that keep coming back (recurring). Feel dizzy. Have swelling in your ankles. Have trouble with your vision. Get help right away if you: Develop a severe headache or confusion. Have unusual weakness or numbness. Feel faint. Have severe pain in your chest or abdomen. Vomit repeatedly. Have trouble breathing. These symptoms may be an emergency. Get help right away. Call 911. Do not wait to see if the symptoms will go away. Do not drive yourself to the hospital. Summary Hypertension is when the force of blood pumping through your arteries is too strong. If this condition is not controlled, it may put you at risk for serious complications. Your personal target blood pressure may vary depending on your medical conditions, your age, and other factors. For most people, a normal blood pressure is less than 120/80. Hypertension is treated with lifestyle changes, medicines, or a combination of both. Lifestyle changes include losing weight, eating a healthy, low-sodium diet, exercising more, and limiting alcohol. This information is not intended to replace advice given to you by your health care provider. Make sure you discuss any questions you have with your health care provider. Document Revised: 03/13/2022 Document Reviewed: 03/13/2022 [employer] Patient Education 2023 [employer]. 02/02/2024 14:44:01 High Cholesterol High Cholesterol High cholesterol is a condition in which the blood has high levels of a white, waxy substance similar to fat (cholesterol). The liver makes all the cholesterol that the body needs. The human body needs small amounts of cholesterol to help build cells. A person gets extra or excess cholesterol from the food that he or she eats. The blood carries cholesterol from the liver to the rest of the body. If you have high cholesterol,deposits (plaques) may build up on the logan of your arteries. Arteries are the blood vessels that carry blood away from your heart. These plaques make the arteries narrow and stiff. Cholesterol plaques increase your risk for heart attack and stroke. Work with your health care provider to keep your cholesterol levels in a healthy range. What increases the risk? The following factors may make you more likely to develop this condition: Eating foods that are high in animal fat (saturated fat) or cholesterol. Being overweight. Not getting enough exercise. A family history of high cholesterol (familial hypercholesterolemia). Use of tobacco products. Having diabetes. What are the signs or symptoms? In most cases, high cholesterol does not usually cause any symptoms. In severe cases, very high cholesterol levels can cause: Fatty bumps under the skin (xanthomas). A white or escamilla ring around the black center (pupil) of the eye. How is this diagnosed? This condition may be diagnosed based on the results of a blood test. If you are older than 20 years of age, your health care provider may check your cholesterol levels every 4 6 years. You may be checked more often if you have high cholesterol or other risk factors for heart disease. The blood test for cholesterol measures: Bad cholesterol, or LDL cholesterol. This is the main type of cholesterol that causes heart disease. The desired level is less than 100 mg/dL (2.59 mmol/L). Good cholesterol, or HDL cholesterol. HDL helps protect against heart disease by cleaning the arteries and carrying the LDL to the liver for processing. The desired level for HDL is 60 mg/dL (1.55 mmol/L) or higher. Triglycerides. These are fats that your body can store or burn for energy. The desired level is less than 150 mg/dL (1.69 mmol/L). Total cholesterol. This measures the total amount of cholesterol in your blood and includes LDL, HDL, and triglycerides. The desired level is less than 200 mg/dL (5.17 mmol/L). How is this treated? Treatment for high cholesterol starts with lifestyle changes, such as diet and exercise. Diet changes. You may be asked to eat foods that have more fiber and less saturated fats or added sugar. Lifestyle changes. These may include regular exercise, maintaining a healthy weight, and quitting use of tobacco products. Medicines. These are given when diet and lifestyle changes have not worked. You may be prescribed astatin medicine to help lower your cholesterol levels. Follow these instructions at home: Eating and drinking Eat a healthy, balanced diet. This diet includes: ? Daily servings of a variety of fresh, frozen, or canned fruits and vegetables. ?Daily servings of whole grain foods that are rich in fiber. ?Foods that are low in saturated fats and trans fats. These include poultry and fish without skin, lean cuts of meat, and low-fat dairy products. ?A variety of fish, especially oily fish that contain omega-3 fatty acids. Aim to eat fish at least2 times a week. Avoid foods and drinks that have added sugar. Use healthy cooking methods, such as roasting, grilling, broiling, baking, poaching, steaming, and stir-frying. Do not christina your food except for stir-frying. If you drink alcohol: ?Limit how much you have to: ?0 1 drink a day for women who are not . ?0 2 drinks a day for men. ?Know how much alcohol is in a drink. In the [place] one drink equals one 12 oz bottle of beer (355 mL), one 5 oz glass of wine (148 mL), or one 1 oz glass of hard liquor (44 mL). Lifestyle Get regular exercise. Aim to exercise for a total of 150 minutes a week. Increase your activity level by doing activities such as gardening, walking, and taking the stairs. Do not use any products that contain nicotine or tobacco. These products include cigarettes, chewing tobacco, and vaping devices, such as e-cigarettes. If you need help quitting, ask your health careprovider. General instructions Take jkqk-jgg-zcfcfnv and prescription medicines only as told by your health care provider. Keep all follow-up visits. This is important. Where to find more information [place] Heart Association: www.heart.org National Heart, Lung, and Blood [place]: www.nhlbi.nih.gov Contact a health care provider if: You have trouble achieving or maintaining a healthy diet or weight. You are starting an exercise program. You are unable to stop smoking. Get help right away if: You have chest pain. You have trouble breathing. You have discomfort or pain in your jaw, neck, back, shoulder, or arm. You have any symptoms of a stroke. BE FAST is an easy way to remember the main warning signs of astroke: ?B - Balance. Signs are dizziness, sudden trouble walking, or loss of balance. ?E - Eyes. Signs are trouble seeing or a sudden change in vision. ?F - Face. Signs are sudden weakness or numbness of the face, or the face or eyelid drooping on oneside. ?A - Arms. Signs are weakness or numbness in an arm. This happens suddenly and usually on one side of the body. ?S - Speech. Signs are sudden trouble speaking, slurred speech, or trouble understanding what people say. ?T - Time. Time to call emergency services. Write down what time symptoms started. You have other signs of a stroke, such as: ?A sudden, severe headache with no known cause. ?Nausea or vomiting. ?Seizure. These symptoms may represent a serious problem that is an emergency. Do not wait to see if the symptoms will go away. Get medical help right away. Call your local emergency services (911 in the [place] Do not drive yourself to the hospital. Summary Cholesterol plaques increase your risk for heart attack and stroke. Work with your health care provider to keep your cholesterol levels in a healthy range. Eat a healthy, balanced diet, get regular exercise, and maintain a healthy weight. Do not use any products that contain nicotine or tobacco. These products include cigarettes, chewing tobacco, and vaping devices, such as e-cigarettes. Get help right away if you have any symptoms of a stroke. This information is not intended to replace advice given to you by your health care provider. Make sure you discuss any questions you have with your health care provider. Document Revised: 12/07/2022 Document Reviewed: 07/10/2021 [employer] Patient Education 2023 [employer]. Follow Up Care 01/01/2024 11:00:42 With:Ajith SNIDER, GROUND CONTROL APPROACH TECHNICIAN-MINE PROMOTOR, Rosa [place] Address: [address] [place] [id number] When:Within 6 Month(s) Comments:chronic care [facility] Javier 12-11-2023 Hospital Discharge instructions Patient Education 04/29/2023 17:00:57 Dietary Guidelines to Help Prevent Kidney Stones Dietary Guidelines to Help Prevent Kidney Stones Kidney stones are deposits of minerals and salts that form inside your kidneys. Your risk of developing kidney stones may be greater depending on your diet, your lifestyle, the medicines you take, and whether you have certain medical conditions. Most people can lower their risks of developing kidney stones by following these dietary guidelines. Your dietitian may give you more specific instructions depending on your overall health and the type of kidney stones you tend to develop. What are tips for following this plan? Reading food labels Choose foods with no salt added or low-salt labels. Limit your salt (sodium) intake to less than 1,500 mg a day. Choose foods with calcium for each meal and snack. Try to eat about 300 mg of calcium at each meal.Foods that contain 200 500 mg of calcium a serving include: ?8 oz (237 mL) of milk, uoaedaq-qorszngnszyy-dvvyd milk, and calcium- fortifiedfruit juice. Calcium-fortified means that calcium has been added to these drinks. ?8 oz (237 mL) of kefir, yogurt, and soy yogurt. ?4 oz (114 g) of tofu. ?1 oz (28 g) of cheese. ?1 cup (150 g) of dried figs. ?1 cup (91 g) of cooked broccoli. ?One 3 oz (85 g) can of sardines or mackerel. Most people need 1,000 1,500 mg of calcium a day. Talk to your dietitian about how much calcium is recommended for you. Shopping Buy plenty of fresh fruits and vegetables. Most people do not need to avoid fruits and vegetables, even if these foods contain nutrients that may contribute to kidney stones. When shopping for convenience foods, choose: ?Whole pieces of fruit. ?Pre-made salads with dressing on the side. ?Low-fat fruit and yogurt smoothies. Avoid buying frozen meals or prepared deli foods. These can be high in sodium. Look for foods with live cultures, such as yogurt and kefir. Choose high-fiber grains, such as whole-wheat breads, oat bran, and wheat cereals. Cooking Do not add salt to food when cooking. Place a salt shaker on the table and allow each person to addtheir own salt to taste. Use vegetable protein, such as beans, textured vegetable protein (TVP), or tofu, instead of meat inpasta, casseroles, and soups. Meal planning Eat less salt, if told by your dietitian. To do this: ?Avoid eating processed or pre-made food. ?Avoid eating fast food. Eat less animal protein, including cheese, meat, poultry, or fish, if told by your dietitian. To dothis: ?Limit the number of times you have meat, poultry, fish, or cheese each week. Eat a diet free of meat at least 2 days a week. ?Eat only one serving each day of meat, poultry, fish, or seafood. ?When you prepare animal proteins, cut pieces into small portion sizes. For most meat and fish, oneserving is about the size of the palm of your hand. Eat at least five servings of fresh fruits and vegetables each day. To do this: ?Keep fruits and vegetables on hand for snacks. ?Eat one piece of fruit or a handful of berries with breakfast. ?Have a salad and fruit at lunch. ?Have two kinds of vegetables at dinner. You may be told to limit foods that are high in a substance called oxalate. These include: ?Spinach (cooked), rhubarb, beets, sweet potatoes, and Nigerien chard. ?Peanuts. ?Potato chips, turkmen fries, and baked potatoes with skin on. ?Nuts and nut products. ?Chocolate. If you regularly take a diuretic medicine, make sure to eat at least 1 or 2 servings of fruits or vegetables that are high in potassium each day. These include: ?Avocado. ?Banana. ?[place], prune, carrot, or tomato juice. ?Baked potato. ?Cabbage. ?Beans and split peas. Lifestyle Drink enough fluid to keep your urine pale yellow. This is the most important thing you can do. Spread your fluid intake throughout the day. If you drink alcohol: ?Limit how much you have to: ?0 1 drink a day for women who are not . ?0 2 drinks a day for men. ?Know how much alcohol is in your drink. In the [place] one drink equals one 12 oz bottle of beer (355 mL), one 5 oz glass of wine (148 mL), or one 1 oz glass of hard liquor (44 mL). Lose weight if told by your health care provider. Work with your dietitian to find an eating plan and weight loss strategies that work best for you. General information Talk to your health care provider and dietitian about taking daily supplements. Depending on your health and the cause of your kidney stones, you may be told: ?Do not take high-dose supplements of vitamin C (1,000 mg a day or more). ?To take a calcium supplement. ?To take a daily probiotic supplement. ?To take other supplements such as magnesium, fish oil, or vitamin B6. Take qclg-pkn-hjdrram and prescription medicines only as told by your health care provider. These include supplements. What foods should I limit? Limit your intake of the following foods, or eat them as told by your dietitian. Vegetables Spinach. Rhubarb. Beets. Canned vegetables. Pickles. Olives. Baked potatoes with skin. Grains Wheat bran. Baked goods. Salted crackers. Cereals high in sugar. Meats and other proteins Nuts. Nut butters. Large portions of meat, poultry, or fish. Salted, precooked, or cured meats, such as sausages, meat loaves, and hot dogs. Dairy Cheeses. Beverages Regular soft drinks. Regular vegetable juice. Seasonings and condiments Seasoning blends with salt. Salad dressings. Soy sauce. Ketchup. Barbecue sauce. Other foods Canned soups. Canned pasta sauce. Casseroles. Pizza. Lasagna. Frozen meals. Potato chips. Malaysian fries. The items listed above may not be a complete list of foods and beverages you should limit. Contact a dietitian for more information. What foods should I avoid? Talk to your dietitian about specific foods you should avoid based on the type of kidney stones youhave and your overall health. Fruits Grapefruit. The item listed above may not be a complete list of foods and beverages you should avoid. Contact adietitian for more information. Summary Kidney stones are deposits of minerals and salts that form inside your kidneys. You can lower your risk of kidney stones by making changes to your diet. The most important thing you can do is drink enough fluid. Drink enough fluid to keep your urine pale yellow. Talk to your dietitian about how much calcium you should have each day, and eat less salt and animal protein as told by your dietitian. This information is not intended to replace advice given to you by your health care provider. Make sure you discuss any questions you have with your health care provider. Document Revised: 08/16/2022 Document Reviewed: 08/16/2022 [employer] Patient Education 2022 [employer]. Follow Up Care 10/23/2022 12:09:35 With:SHMUEL LOZANO, Mi Morel, URL Address: [facility] [address], [place] [address]- When:Within 1 Year(s) Comments:carol/MARI [facility] 11-06-2023 Hospital Discharge instructions Patient Education 03/25/2023 18:34:53 Blood Glucose Monitoring, Adult Blood Glucose Monitoring, Adult Monitoring your blood sugar (glucose) is an important part of managing your diabetes. Blood glucosemonitoring involves checking your blood glucose as often as directed and keeping a log or record ofyour results over time. Checking your blood glucose regularly and keeping a blood glucose log can: Help you and your health care provider adjust your diabetes management plan as needed, including your medicines or insulin. Help you understand how food, exercise, illnesses, and medicines affect your blood glucose. Let you know what your blood glucose is at any time. You can quickly find out if you have low bloodglucose (hypoglycemia) or high blood glucose (hyperglycemia). Your health care provider will set individualized treatment goals for you. Your goals will be basedon your age, other medical conditions you have, and how you respond to diabetes treatment. Generally, the goal of treatment is to maintain the following blood glucose levels: Before meals (preprandial): 80 130 mg/dL (4.4 7.2 mmol/L). After meals (postprandial): below 180 mg/dL (10 mmol/L). A1C level: less than 7%. Supplies needed: Blood glucose meter. Test strips for your meter. Each meter has its own strips. You must use the strips that came with your meter. A needle to prick your finger (lancet). Do not use a lancet more than one time. A device that holds the lancet (lancing device). A journal or log book to write down your results. How to check your blood glucose Checking your blood glucose 1.Wash your hands for at least 20 seconds with soap and water. 2.Prick the side of your finger (not the tip) with the lancet. Do not use the same finger consecutively. 3.Gently rub the finger until a small drop of blood appears. 4.Follow instructions that come with your meter for inserting the test strip, applying blood to thestrip, and using your blood glucose meter. 5.Write down your result and any notes in your log. Using alternative sites Some meters allow you to use areas of your body other than your finger (alternative sites) to test your blood. The most common alternative sites are the forearm, the thigh, and the palm of your hand. Alternative sites may not be as accurate as the fingers because blood flow is slower in those areas. This means that the result you get may be delayed, and it may be different from the result that you would get from your finger. Use the finger only, and do not use alternative sites, if: You think you have hypoglycemia. You sometimes do not know that your blood glucose is getting low (hypoglycemia unawareness). General tips and recommendations Blood glucose log Every time you check your blood glucose, write down your result. Also write down any notes about things that may be affecting your blood glucose, such as your diet and exercise for the day. This information can help you and your health care provider: ?Look for patterns in your blood glucose over time. ?Adjust your diabetes management plan as needed. Check if your meter allows you to download your records to a computer or if there is an bryan for [employer]. Most glucose meters store a record of glucose readings in the meter. If you have type 1 diabetes: Check your blood glucose 4 or more times a day if you are on intensive insulin therapy with multiple daily injections (MDI) or if you are using an insulin pump. Check your blood glucose: ?Before every meal and snack. ?Before bedtime. Also check your blood glucose: ?If you have symptoms of hypoglycemia. ?After treating low blood glucose. ?Before doing activities that create a risk for injury, like driving or using machinery. ?Before and after exercise. ?Two hours after a meal. ?Occasionally between 2:00 a.m. and 3:00 a.m., as directed. You may need to check your blood glucose more often, 6 10 times per day, if: ?You have diabetes that is not well controlled. ?You are ill. ?You have a history of severe hypoglycemia. ?You have hypoglycemia unawareness. If you have type 2 diabetes: Check your blood glucose 2 or more times a day if you take insulin or other diabetes medicines. Check your blood glucose 4 or more times a day if you are on intensive insulin therapy. Occasionally, you may also need to check your glucose between 2:00 a.m. and 3:00 a.m., as directed. Also check your blood glucose: ?Before and after exercise. ?Before doing activities that create a risk for injury, like driving or using machinery. You may need to check your blood glucose more often if: ?Your medicine is being adjusted. ?Your diabetes is not well controlled. ?You are ill. General tips Make sure you always have your supplies with you. After you use a few boxes of test strips, adjust (calibrate) your blood glucose meter by following instructions that came with your meter. If you have questions or need help, all blood glucose meters have a 24-hour hotline phone number available that you can call. Also contact your health care provider with questions or concerns you mayhave. Where to find more information The [place] [employer]: www.diabetes.org The Association [employer] Education [employer]ists: www.diabeteseducator.org Contact a health care provider if: Your blood glucose is at or above 240 mg/dL (13.3 mmol/L) for 2 days in a row. You have been sick or have had a fever for 2 days or longer, and you are not getting better. You have any of the following problems for more than 6 hours: ?You cannot eat or drink. ?You have nausea or vomiting. ?You have diarrhea. Get help right away if: Your blood glucose is lower than 54 mg/dL (3 mmol/L). You become confused, or you have trouble thinking clearly. You have difficulty breathing. You have moderate or large ketone levels in your urine. These symptoms may represent a serious problem that is an emergency. Do not wait to see if the symptoms will go away. Get medical help right away. Call your local emergency services (471 in the [place] Do not drive yourself to the hospital. Summary Monitoring your blood glucose is an important part of managing your diabetes. Blood glucose monitoring involves checking your blood glucose as often as directed and keeping a log or record of your results over time. Your health care provider will set individualized treatment goals for you. Your goals will be basedon your age, other medical conditions you have, and how you respond to diabetes treatment. Every time you check your blood glucose, write down your result. Also, write down any notes about things that may be affecting your blood glucose, such as your diet and exercise for the day. This information is not intended to replace advice given to you by your health care provider. Make sure you discuss any questions you have with your health care provider. Document Revised: 02/01/2021 Document Reviewed: 02/01/2021 [employer] Patient Education 2022 [employer]. Follow Up Care 09/17/2022 18:54:39 With:ARMANDO LOZANO FAAFP, HERACLIO Nick Address: When: Unknown Comments:see provider 6mo [facility] Javier 11-02-2023 Hospital Discharge instructions Patient Education 03/21/2023 20:42:33 Syncope, Adult, Nlle-sp-Sxaw Syncope, Adult Syncope is when you pass out or faint for a short time. It is caused by a sudden decrease in blood flow to the brain. This can happen for many reasons. It can sometimes happen when seeing blood, getting a shot (injection), or having pain or strong emotions. Most causes of fainting are not dangerous, but in some cases it can be a sign of a serious medical problem. If you faint, get help right away. Call your local emergency services (911 in the [place] Follow these instructions at home: Watch for any changes in your symptoms. Take these actions to stay safe and help with your symptoms: Knowing when you may be about to faint Signs that you may be about to faint include: ?Feeling dizzy or light-headed. It may feel like the room is spinning. ?Feeling weak. ?Feeling like you may vomit (nauseous). ?Seeing spots or seeing all white or all black. ?Having cold, clammy skin. ?Feeling warm and sweaty. ?Hearing ringing in the ears. If you start to feel like you might faint, sit or lie down right away. If sitting, lower your head down between your legs. If lying down, raise (elevate) your feet above the level of your heart. ?Breathe deeply and steadily. Wait until all of the symptoms are gone. ?Have someone stay with you until you feel better. Medicines Take tyyt-lgo-tnzkboh and prescription medicines only as told by your doctor. If you are taking blood pressure or heart medicine, sit up and stand up slowly. Spend a few minutesgetting ready to sit and then stand. This can help you feel less dizzy. Lifestyle Do not drive, use machinery, or play sports until your doctor says it is okay. Do not drink alcohol. Do not smoke or use any products that contain nicotine or tobacco. If you need help quitting, ask your doctor. Avoid hot tubs and saunas. General instructions Talk with your doctor about your symptoms. You may need to have testing to help find the cause. Drink enough fluid to keep your pee (urine) pale yellow. Avoid standing for a long time. If you must stand for a long time, do movements such as: ?Moving your legs. ?Crossing your legs. ?Flexing and stretching your leg muscles. ?Squatting. Keep all follow-up visits. Contact a doctor if: You have episodes of near fainting. Get help right away if: You pass out or faint. You hit your head or are injured after fainting. You have any of these symptoms: ?Fast or uneven heartbeats (palpitations). ?Pain in your chest, belly, or back. ?Shortness of breath. You have jerky movements that you cannot control (seizure). You have a very bad headache. You are confused. You have problems with how you see (vision). You are very weak. You have trouble walking. You are bleeding from your mouth or your butt (rectum). You have black or tarry poop (stool). These symptoms may be an emergency. Get help right away. Call your local emergency services (911 int [place] Do not wait to see if the symptoms will go away. Do not drive yourself to the hospital. Summary Syncope is when you pass out or faint for a short time. It is caused by a sudden decrease in blood flow to the brain. Signs that you may be about to faint include feeling dizzy or light-headed, feeling like you may vomit, seeing all white or all black, or having cold, clammy skin. If you start to feel like you might faint, sit or lie down right away. Lower your head if sitting, or raise (elevate) your feet if lying down. Breathe deeply and steadily. Wait until all of the symptoms are gone. This information is not intended to replace advice given to you by your health care provider. Make sure you discuss any questions you have with your health care provider. Document Revised: 09/14/2021 Document Reviewed: 09/14/2021 [employer] Patient Education 2022 [employer]. 03/21/2023 20:42:33 Dehydration, Adult, Diag-kj-Thvs Dehydration, Adult Dehydration is condition in which there is not enough water or other fluids in the body. This happens when a person loses more fluids than he or she takes in. Important body parts cannot work right without the right amount of fluids. Any loss of fluids from the body can cause dehydration. Dehydration can be mild, worse, or very bad. It should be treated right away to keep it from getting very bad. What are the causes? This condition may be caused by: Conditions that cause loss of water or other fluids, such as: ?Watery poop (diarrhea). ?Vomiting. ?Sweating a lot. ?Peeing (urinating) a lot. Not drinking enough fluids, especially when you: ?Are ill. ?Are doing things that take a lot of energy to do. Other illnesses and conditions, such as fever or infection. Certain medicines, such as medicines that take extra fluid out of the body (diuretics). Lack of safe drinking water. Not being able to get enough water and food. What increases the risk? The following factors may make you more likely to develop this condition: Having a long-term (chronic) illness that has not been treated the right way, such as: ?Diabetes. ?Heart disease. ?Kidney disease. Being 65 years of age or older. Having a disability. Living in a place that is high above the ground or sea (high in altitude). The thinner, dried air causes more fluid loss. Doing exercises that put stress on your body for a long time. What are the signs or symptoms? Symptoms of dehydration depend on how bad it is. Mild or worse dehydration Thirst. Dry lips or dry mouth. Feeling dizzy or light-headed, especially when you stand up from sitting. Muscle cramps. Your body making: ?Dark pee (urine). Pee may be the color of tea. ?Less pee than normal. ?Less tears than normal. Headache. Very bad dehydration Changes in skin. Skin may: ?Be cold to the touch (clammy). ?Be blotchy or pale. ?Not go back to normal right after you lightly pinch it and let it go. Little or no tears, pee, or sweat. Changes in vital signs, such as: ?Fast breathing. ?Low blood pressure. ?Weak pulse. ?Pulse that is more than 100 beats a minute when you are sitting still. Other changes, such as: ?Feeling very thirsty. ?Eyes that look hollow (sunken). ?Cold hands and feet. ?Being mixed up (confused). ?Being very tired (lethargic) or having trouble waking from sleep. ?Short-term weight loss. ?Loss of consciousness. How is this treated? Treatment for this condition depends on how bad it is. Treatment should start right away. Do not wait until your condition gets very bad. Very bad dehydration is an emergency. You will need to go to a hospital. Mild or worse dehydration can be treated at home. You may be asked to: ?Drink more fluids. ?Drink an oral rehydration solution (ORS). This drink helps get the right amounts of fluids and salts and minerals in the blood (electrolytes). Very bad dehydration can be treated: ?With fluids through an IV tube. ?By getting normal levels of salts and minerals in your blood. This is often done by giving salts and minerals through a tube. The tube is passed through your nose and into your stomach. ?By treating the root cause. Follow these instructions at home: Oral rehydration solution If told by your doctor, drink an ORS: Make an ORS. Use instructions on the package. Start by drinking small amounts, about cup (120 mL) every 5 10 minutes. Slowly drink more until you have had the amount that your doctor said to have. Eating and drinking Drink enough clear fluid to keep your pee pale yellow. If you were told to drink an ORS, finish theORS first. Then, start slowly drinking other clear fluids. Drink fluids such as: ?Water. Do not drink only water. Doing that can make the salt (sodium) level in your body get too low. ?Water from ice chips you suck on. ?Fruit juice that you have added water to (diluted). ?Low-calorie sports drinks. Eat foods that have the right amounts of salts and minerals, such as: ?Bananas. ?Oranges. ?Potatoes. ?Tomatoes. ?Spinach. Do not drink alcohol. Avoid: ?Drinks that have a lot of sugar. These include: ?High-calorie sports drinks. ?Fruit juice that you did not add water to. ?Soda. ?Caffeine. ?Foods that are greasy or have a lot of fat or sugar. General instructions Take ewck-ueb-ezvtcks and prescription medicines only as told by your doctor. Do not take salt tablets. Doing that can make the salt level in your body get too high. Return to your normal activities as told by your doctor. Ask your doctor what activities are safe for you. Keep all follow-up visits as told by your doctor. This is important. Contact a doctor if: You have pain in your belly (abdomen) and the pain: ?Gets worse. ?Stays in one place. You have a rash. You have a stiff neck. You get angry or annoyed (irritable) more easily than normal. You are more tired or have a harder time waking than normal. You feel: ?Weak or dizzy. ?Very thirsty. Get help right away if you have: Any symptoms of very bad dehydration. Symptoms of vomiting, such as: ?You cannot eat or drink without vomiting. ?Your vomiting gets worse or does not go away. ?Your vomit has blood or green stuff in it. Symptoms that get worse with treatment. A fever. A very bad headache. Problems with peeing or pooping (having a bowel movement), such as: ?Watery poop that gets worse or does not go away. ?Blood in your poop (stool). This may cause poop to look black and tarry. ?Not peeing in 6 8 hours. ?Peeing only a small amount of very dark pee in 6 8 hours. Trouble breathing. These symptoms may be an emergency. Do not wait to see if the symptoms will go away. Get medical help right away. Call your local emergency services (911 in the [place] Do not drive yourself to the hospital. Summary Dehydration is a condition in which there is not enough water or other fluids in the body. This happens when a person loses more fluids than he or she takes in. Treatment for this condition depends on how bad it is. Treatment should be started right away. Do not wait until your condition gets very bad. Drink enough clear fluid to keep your pee pale yellow. If you were told to drink an oral rehydration solution (ORS), finish the ORS first. Then, start slowly drinking other clear fluids. Take wqwp-qsk-fuinpon and prescription medicines only as told by your doctor. Get help right away if you have any symptoms of very bad dehydration. This information is not intended to replace advice given to you by your health care provider. Make sure you discuss any questions you have with your health care provider. Document Revised: 12/17/2019 Document Reviewed: 12/17/2019 [employer] Patient Education 2022 [employer]. Follow Up Care 03/21/2023 16:14:02 With:Stacie ROBERTS Address: [address] [place] [address]- Business (1) When:03/24/2023 20:30:09 Comments:You can use the Zofran every 6 hours as needed for nausea and vomiting. Please plenty of fluids to rehydrate yourself. Follow-up with your primary care doctor next 2 to 3 days for further evaluation management. Please return to the ED for any new or worsening symptoms. [facility]11-02-2023 Hospital Discharge instructions Patient Education 03/21/2023 14:37:43 Form - Blood Pressure Record Sheet Blood Pressure Record Sheet To take your blood pressure, you will need a blood pressure machine. You may be prescribed one, or you can buy a blood pressure machine (blood pressure monitor) at your clinic, drug store, or online.When choosing one, look for these features: An automatic monitor that has an arm cuff. A cuff that wraps snugly, but not too tightly, around your upper arm. You should be able to fit only one finger between your arm and the cuff. A device that stores blood pressure reading results. Do not choose a monitor that measures your blood pressure from your wrist or finger. Follow your health care provider's instructions for how to take your blood pressure. To use this form: Get one reading in the morning (a.m.) before you take any medicines. Get one reading in the evening (p.m.) before supper. Take at least two readings with each blood pressure check. This makes sure the results are correct.Wait 1 2 minutes between measurements. Write down the results in the spaces on this form. Repeat this once a week, or as told by your health care provider. Make a follow-up appointment with your health care provider to discuss the results. Blood pressure log Date: a.m. (1st reading) (2nd reading) p.m. (1st reading) (2nd reading) Date: a.m. (1st reading) (2nd reading) p.m. (1st reading) (2nd reading) Date: a.m. (1st reading) (2nd reading) p.m. (1st reading) (2nd reading) Date: a.m. (1st reading) (2nd reading) p.m. (1st reading) (2nd reading) Date: a.m. (1st reading) (2nd reading) p.m. (1st reading) (2nd reading) This information is not intended to replace advice given to you by your health care provider. Make sure you discuss any questions you have with your health care provider. Document Revised: 01/18/2022 Document Reviewed: 01/18/2022 Elsevier Patient Education 2022 [employer] Follow Up Care 03/21/2023 09:48:23 With:ARMANDO LOZANO FAAFP, HERACLIO Nick Address: When: Unknown Comments:Son to transport to ED, Return as otherwise scheduled [facility] 11-02-2023 Evaluation + Plan noteExtracted from:Title: ED NoteAuthor:Alon Payne DODate:03/21/23 Acute dehydration (E86.0: De hydration) Syncope (R55: Syncope and collapse) Orders: Sodium Chloride 0.9% intravenous solution 1,000 mL, 1,000 mL, IV, 999 mL/hr, STAT, Start date 03/21/23 18:07:00 EDT, 1 hour(s), Total volume (mL): 1,000, 61.6 kg, 1.64, m2 Sodium Chloride 0.9% intravenous solution 1,000 mL, 1,000 mL, IV, 999 mL/hr, STAT, Start date 03/21/23 17:07:00 EDT, 1 hour(s), Total volume (mL): 1,000, 61.6 kg, 1.64, m2 Automated Diff Basic Metabolic Panel CBC w/ Auto Diff CT Head or Brain w/o Contrast CT Spine Cervical w/o Contrast ECG 12 Lead Adult ED Cardiac Monitoring eGFR Hepatic Function Panel Oxygen Saturation Oxygen Therapy PT & PTT Rapid COVID Antigen ([facility]) Saline Lock Insert Troponin 0 Hr. Troponin 3 Hr. Troponin 6 Hr. Troponin 9 Hr. UA With Cult Reflex XR Chest Single View Addendum by Angelo Moses DO on March 21, 2023 20:30:52 EDT Patient signed out to me pending reevaluation after second liter of IV fluids. On reevaluation of the second liter she does feel improved stable is able to ambulate around the department without difficulty or dizziness. She is comfortable with discharge home. They are given a prescription for Zofran for home. They are to follow-up with her primary care doctor in the next 2 to 3 days. They are to return to the ED for any new or worsening symptoms. Future Appointments Appointment Date:03/25/2023 06:20:00 PM Scheduled Provider:Stacie ROBERTS MD, FAAFP [facility] Open Appointment Date:04/29/2023 03:15:00 PM Scheduled Provider:Mi MI MD Location:[facility] C[facility] Frances Appointment Type:URO Office Visit [facility]10-30-2023 Hospital Discharge instructions Patient Education 03/18/2023 12:54:06 Rapid Strep Test Rapid Strep Test Why am I having this test? A rapid strep test is used to check for strep throat. Strep throat is a bacterial infection caused by the bacteria Streptococcus pyogenes. A rapid strep test is the quickest way to check if these bacteria are causing your sore throat. You may have this test if: You have throat pain or neck swelling and tenderness. You have a fever. You have a red throat with yellow or white spots. You experience loss of appetite. You have trouble breathing or painful swallowing. You have a rash. You are dehydrated. The test can be done at your health care provider's office. Results are usually ready in about 20 minutes. What is being tested? This test checks for the presence of the Streptococcus pyogenes bacteria. What kind of sample is taken? This test requires a sample of fluid from the back of your throat and tonsils. Your health care provider may hold down your tongue with a tongue depressor and use a swab to collect the sample. Your health care provider may collect a second sample at the same time. The second sample may be used for a throat culture. In a culture test, the sample is combined with a substance that encourages bacteria to grow. It takes longer to get the results of the throat culture test, but they are more accurate. A culture test can confirm the results from a rapid strep test, or it may show that the results were wrong. How are the results reported? Your test results will be reported as either positive or negative for the bacteria that cause strepthroat. What do the results mean? Talk with your health care provider about what your results mean. In some cases, your health care provider may do more testing to confirm the results. If the result of your rapid strep test is negative, it means that: It is likely that you do not have strep throat. A virus may be causing your sore throat. If the result of your rapid strep test is positive, it means that: It is likely that you do have strep throat. You may have to take antibiotic medicine. Talk with your health care provider about what your results mean. Your health care provider may do a throat culture to confirm the results of the rapid strep test. The throat culture can also identify the different strains of bacteria that are present. Questions to ask your health care provider Ask your health care provider, or the department that is doing the test: When will my results be ready? How will I get my results? What are my treatment options? What other tests do I need? What are my next steps? Summary A rapid strep test is used to check for strep throat. Strep throat is a bacterial infection caused by the bacteria Streptococcus pyogenes. A rapid strep test is the quickest way to check if these bacteria are causing your sore throat. The test can be done at your health care provider's office. Results are usually ready in about 20 minutes. This test requires a sample of fluid from the back of your throat and tonsils. Your health care provider may hold down your tongue with a tongue depressor and use a swab to collect the sample. Your test results will be reported as either positive or negative for the bacteria that cause strepthroat. This information is not intended to replace advice given to you by your health care provider. Make sure you discuss any questions you have with your health care provider. Document Revised: 08/29/2021 Document Reviewed: 08/29/2021 [employer] Patient Education 2022 [employer]. 03/18/2023 12:54:04 Pharyngitis Pharyngitis Pharyngitis is inflammation of the throat (pharynx). It is a very common cause of sore throat. Pharyngitis can be caused by a bacteria, but it is usually caused by a virus. Most cases of pharyngitis get better on their own without treatment. What are the causes? This condition may be caused by: Infection by viruses (viral). Viral pharyngitis spreads easily from person to person (is contagious) through coughing, sneezing, and sharing of personal items or utensils such as cups, forks, spoons,and toothbrushes. Infection by bacteria (bacterial). Bacterial pharyngitis may be spread by touching the nose or faceafter coming in contact with the bacteria, or through close contact, such as kissing. Allergies. Allergies can cause buildup of mucus in the throat (post-nasal drip), leading to inflammation and irritation. Allergies can also cause blocked nasal passages, forcing breathing through themouth, which dries and irritates the throat. What increases the risk? You are more likely to develop this condition if: You are 5 24 years old. You are exposed to crowded environments such as daycare, school, or dormitory living. You live in a cold climate. You have a weakened disease-fighting (immune) system. What are the signs or symptoms? Symptoms of this condition vary by the cause. Common symptoms of this condition include: Sore throat. Fatigue. Low-grade fever. Stuffy nose (nasal congestion) and cough. Headache. Other symptoms may include: Glands in the neck (lymph nodes) that are swollen. Skin rashes. Plaque-like film on the throat or tonsils. This is often a symptom of bacterial pharyngitis. Vomiting. Red, itchy eyes (conjunctivitis). Loss of appetite. Joint pain and muscle aches. Enlarged tonsils. How is this diagnosed? This condition may be diagnosed based on your medical history and a physical exam. Your health careprovider will ask you questions about your illness and your symptoms. A swab of your throat may be done to check for bacteria (rapid strep test). Other lab tests may also be done, depending on the suspected cause, but these are rare. How is this treated? Many times, treatment is not needed for this condition. Pharyngitis usually gets better in 3 4 dayswithout treatment. Bacterial pharyngitis may be treated with antibiotic medicines. Follow these instructions at home: Medicines Take nqep-jej-axirqnn and prescription medicines only as told by your health care provider. If you were prescribed an antibiotic medicine, take it as told by your health care provider. Do notstop taking the antibiotic even if you start to feel better. Use throat sprays to soothe your throat as told by your health care provider. Children can get pharyngitis. Do not give your child aspirin because of the association with August'ssyndrome. Managing pain To help with pain, try: Sipping warm liquids, such as broth, herbal tea, or warm water. Eating or drinking cold or frozen liquids, such as frozen ice pops. Gargling with a mixture of salt and water 3 4 times a day or as needed. To make salt water, completely dissolve 1 tsp (3 6 g) of salt in 1 cup (237 mL) of warm water. Sucking on hard candy or throat lozenges. Putting a cool-mist humidifier in your bedroom at night to moisten the air. Sitting in the bathroom with the door closed for 5 10 minutes while you run hot water in the shower. General instructions Do not use any products that contain nicotine or tobacco. These products include cigarettes, chewing tobacco, and vaping devices, such as e-cigarettes. If you need help quitting, ask your health careprovider. Rest as told by your health care provider. Drink enough fluid to keep your urine pale yellow. How is this prevented? To help prevent becoming infected or spreading infection: Wash your hands often with soap and water for at least 20 seconds. If soap and water are not available, use hand winding lathe operator. Do not touch your eyes, nose, or mouth with unwashed hands, and wash hands after touching these areas. Do not share cups or eating utensils. Avoid close contact with people who are sick. Contact a health care provider if: You have large, tender lumps in your neck. You have a rash. You cough up green, yellow-brown, or bloody mucus. Get help right away if: Your neck becomes stiff. You drool or are unable to swallow liquids. You cannot drink or take medicines without vomiting. You have severe pain that does not go away, even after you take medicine. You have trouble breathing, and it is not caused by a stuffy nose. You have new pain and swelling in your joints such as the knees, ankles, wrists, or elbows. These symptoms may represent a serious problem that is an emergency. Do not wait to see if the symptoms will go away. Get medical help right away. Call your local emergency services (911 in the [place] Do not drive yourself to the hospital. Summary Pharyngitis is redness, pain, and swelling (inflammation) of the throat (pharynx). While pharyngitis can be caused by a bacteria, the most common causes are viral. Most cases of pharyngitis get better on their own without treatment. Bacterial pharyngitis is treated with antibiotic medicines. This information is not intended to replace advice given to you by your health care provider. Make sure you discuss any questions you have with your health care provider. Document Revised: 08/02/2021 Document Reviewed: 08/02/2021 [employer] Patient Education 2022 [employer]. 03/18/2023 12:54:00 Upper Respiratory Infection, Adult Upper Respiratory Infection, Adult An upper respiratory infection (URI) is a common viral infection of the nose, throat, and upper airpassages that lead to the lungs. The most common type of URI is the common cold. URIs usually get better on their own, without medical treatment. What are the causes? A URI is caused by a virus. You may catch a virus by: Breathing in droplets from an infected person's cough or sneeze. Touching something that has been exposed to the virus (is contaminated) and then touching your mouth, nose, or eyes. What increases the risk? You are more likely to get a URI if: You are very young or very old. You have close contact with others, such as at work, school, or a health care facility. You smoke. You have long-term (chronic) heart or lung disease. You have a weakened disease-fighting system (immune system). You have nasal allergies or asthma. You are experiencing a lot of stress. You have poor nutrition. What are the signs or symptoms? A URI usually involves some of the following symptoms: Runny or stuffy (congested) nose. Cough. Sneezing. Sore throat. Headache. Fatigue. Fever. Loss of appetite. Pain in your forehead, behind your eyes, and over your cheekbones (sinus pain). Muscle aches. Redness or irritation of the eyes. Pressure in the ears or face. How is this diagnosed? This condition may be diagnosed based on your medical history and symptoms, and a physical exam. Your health care provider may use a swab to take a mucus sample from your nose (nasal swab). This sample can be tested to determine what virus is causing the illness. How is this treated? URIs usually get better on their own within 7 10 days. Medicines cannot cure URIs, but your health care provider may recommend certain medicines to help relieve symptoms, such as: Hjbs-lnf-oultlmc cold medicines. Cough suppressants. Coughing is a type of defense against infection that helps to clear the respiratory system, so take these medicines only as recommended by your health care provider. Fever-reducing medicines. Follow these instructions at home: Activity Rest as needed. If you have a fever, stay home from work or school until your fever is gone or until your health care provider says your URI cannot spread to other people (is no longer contagious). Your health care provider may have you wear a face mask to prevent your infection from spreading. Relieving symptoms Gargle with a mixture of salt and water 3 4 times a day or as needed. To make salt water, completely dissolve 1 tsp (3 6 g) of salt in 1 cup (237 mL) of warm water. Use a cool-mist humidifier to add moisture to the air. This can help you breathe more easily. Eating and drinking Drink enough fluid to keep your urine pale yellow. Eat soups and other clear broths. General instructions Take dple-kpr-ptutiuc and prescription medicines only as told by your health care provider. These include cold medicines, fever reducers, and cough suppressants. Do not use any products that contain nicotine or tobacco. These products include cigarettes, chewing tobacco, and vaping devices, such as e-cigarettes. If you need help quitting, ask your health careprovider. Stay away from secondhand smoke. Stay up to date on all immunizations, including the yearly (annual) flu vaccine. Keep all follow-up visits. This is important. How to prevent the spread of infection to others URIs can be contagious. To prevent the infection from spreading: Wash your hands with soap and water for at least 20 seconds. If soap and water are not available, use hand winding lathe operator. Avoid touching your mouth, face, eyes, or nose. Cough or sneeze into a tissue or your sleeve or elbow instead of into your hand or into the air. Contact a health care provider if: You are getting worse instead of better. You have a fever or chills. Your mucus is brown or red. You have yellow or brown discharge coming from your nose. You have pain in your face, especially when you bend forward. You have swollen neck glands. You have pain while swallowing. You have white areas in the back of your throat. Get help right away if: You have shortness of breath that gets worse. You have severe or persistent: ?Headache. ?Ear pain. ?Sinus pain. ?Chest pain. You have chronic lung disease along with any of the following: ?Making high-pitched whistling sounds when you breathe, most often when you breathe out (wheezing). ?Prolonged cough (more than 14 days). ?Coughing up blood. ?A change in your usual mucus. You have a stiff neck. You have changes in your: ?Vision. ?Hearing. ?Thinking. ?Mood. These symptoms may be an emergency. Get help right away. Call 911. Do not wait to see if the symptoms will go away. Do not drive yourself to the hospital. Summary An upper respiratory infection (URI) is a common infection of the nose, throat, and upper air passages that lead to the lungs. A URI is caused by a virus. URIs usually get better on their own within 7 10 days. Medicines cannot cure URIs, but your health care provider may recommend certain medicines to help relieve symptoms. This information is not intended to replace advice given to you by your health care provider. Make sure you discuss any questions you have with your health care provider. Document Revised: 12/06/2021 Document Reviewed: 12/06/2021 [employer] Patient Education 2022 [employer]. [facility] 06-06-2023 Hospital Discharge instructions Patient Education 10/23/2022 17:36:24 Kidney Stones, Wjxs-rd-Ztlm Kidney Stones Kidney stones are rock-like masses that form inside of the kidneys. Kidneys are organs that make pee (urine). A kidney stone may move into other parts of the urinary tract, including: The tubes that connect the kidneys to the bladder (ureters). The bladder. The tube that carries urine out of the body (urethra). Kidney stones can cause very bad pain and can block the flow of pee. The stone usually leaves your body (passes) through your pee. You may need to have a doctor take out the stone. What are the causes? Kidney stones may be caused by: A condition in which certain glands make too much parathyroid hormone (primary hyperparathyroidism). A buildup of a type of crystals in the bladder made of a chemical called uric acid. The body makes uric acid when you eat certain foods. Narrowing (stricture) of one or both of the ureters. A kidney blockage that you were born with. Past surgery on the kidney or the ureters, such as gastric bypass surgery. What increases the risk? You are more likely to develop this condition if: You have had a kidney stone in the past. You have a family history of kidney stones. You do not drink enough water. You eat a diet that is high in protein, salt (sodium), or sugar. You are overweight or very overweight (obese). What are the signs or symptoms? Symptoms of a kidney stone may include: Pain in the side of the belly, right below the ribs (flank pain). Pain usually spreads (radiates) to the groin. Needing to pee often or right away (urgently). Pain when going pee (urinating). Blood in your pee (hematuria). Feeling like you may vomit (nauseous). Vomiting. Fever and chills. How is this treated? Treatment depends on the size, location, and makeup of the kidney stones. The stones will often pass out of the body through peeing. You may need to: Drink more fluid to help pass the stone. In some cases, you may be given fluids through an IV tube put into one of your veins at the hospital. Take medicine for pain. Make changes in your diet to help keep kidney stones from coming back. Sometimes, medical procedures are needed to remove a kidney stone. This may involve: A procedure to break up kidney stones using a beam of light (laser) or shock waves. Surgery to remove the kidney stones. Follow these instructions at home: Medicines Take zwny-auq-tirsbzw and prescription medicines only as told by your doctor. Ask your doctor if the medicine prescribed to you requires you to avoid driving or using heavy machinery. Eating and drinking Drink enough fluid to keep your pee pale yellow. You may be told to drink at least 8 10 glasses of water each day. This will help you pass the stone. If told by your doctor, change your diet. This may include: ?Limiting how much salt you eat. ?Eating more fruits and vegetables. ?Limiting how much meat, poultry, fish, and eggs you eat. Follow instructions from your doctor about eating or drinking restrictions. General instructions Collect pee samples as told by your doctor. You may need to collect a pee sample: ?24 hours after a stone comes out. ?8 12 weeks after a stone comes out, and every 6 12 months after that. Strain your pee every time you pee (urinate), for as long as told. Use the strainer that your doctor recommends. Do not throw out the stone. Keep it so that it can be tested by your doctor. Keep all follow-up visits as told by your doctor. This is important. You may need follow-up tests. How is this prevented? To prevent another kidney stone: Drink enough fluid to keep your pee pale yellow. This is the best way to prevent kidney stones. Eat healthy foods. Avoid certain foods as told by your doctor. You may be told to eat less protein. Stay at a healthy weight. Where to find more information National Kidney Foundation (NKF): www.kidney.org [facility] ([facility]): www.urologyhealth.org Contact a doctor if: You have pain that gets worse or does not get better with medicine. Get help right away if: You have a fever or chills. You get very bad pain. You get new pain in your belly (abdomen). You pass out (faint). You cannot pee. Summary Kidney stones are rock-like masses that form inside of the kidneys. Kidney stones can cause very bad pain and can block the flow of pee. The stones will often pass out of the body through peeing. Drink enough fluid to keep your pee pale yellow. This information is not intended to replace advice given to you by your health care provider. Make sure you discuss any questions you have with your health care provider. Document Revised: 01/08/2022 Document Reviewed: 01/08/2022 [employer] Patient Education 2022 [employer]. Follow Up Care 05/29/2022 13:25:51 With:SHMUEL LOZANO, Mi Morel, DENIZL Address: [facility] [address] , [place] [address]- When:6 months [facility] 03-20-2023 Hospital Discharge instructions Follow Up Care 08/06/2022 10:14:44 With:Reena Whalen PA-C Address: [address] [place] [phone] When: only if needed [facility] 01-10-2023 Hospital Discharge instructions Patient Education 05/29/2022 13:11:00 EU - Cystoscopy with Stent Removal Discharge Instructions (CUSTOM) Cystoscopy with Stent Removal Voiding after the procedure: there may be some pain, burning, urgency, frequency and blood tinged urine following the procedure. These symptoms usually resolve within 2-5 days. Drink the amount of fluid it takes to keep the urine pink to yellow or clear in color. Drinking enough water and fluids will help to ease any discomfort after your procedure. If you are having problems that seem out of the ordinary, please call. If unable to contact your physician and you feel it is an emergency, go to the nearest emergency room or call 911 Diet you may resume your normal diet. Activity you may resume your normal activities Call if you have a fever over 100 degrees. Follow Up Care 05/22/2022 09:50:00 With:Mi MI Address: [facility] [address] [place] [address]- Business (1) When:08/27/2022 13:08:26 Comments:with a metabolic mcdonald [facility]12-15-2022 NoteOPERATIVE NOTE OPERATION DATE: 05/03/2022 PREOPERATIVE DIAGNOSIS: Left renal calculi. POSTOPERATIVE DIAGNOSIS: Left renal calculi. PROCEDURE: 1. Cystoscopy. 2. Left rigid ureteral dilation. 3. Left ureteroscopy. 4. Left pyeloscopy. 5. Holmium laser lithotripsy of multiple left renal calculi. 6. Stone basket extraction. 7. Placement of 6-Malaysian variable length left ureteral stent. ANESTHESIA: General by LMA. COMPLICATIONS: None. INDICATIONS: Alison Ferrell is a 61-year-old lady who has a few left renal calculi which are refractory to ESWL. She now presents for definitive left ureteroscopy, pyeloscopy, laser lithotripsy and possible stent placement. She has signed an informed consent for these procedures after the risks were explained to her. PROCEDURE: Patient was brought to the operating room and placed on the operating room table in the supine position. SCDs were placed on her lower extremities and turned on and functioning during the entire case. Timeout was done by all parties in the room. We all agreed upon the patient's identification and the planned procedures for this patient. General anesthesia was then administered via LMA. She was then repositioned into the modified dorsolithotomy position. All pressure points were satisfactorily padded. Genitalia were sterilely prepped and draped in the usual fashion. I started by passing a 22-Malaysian Olympus cystoscope per urethra and into the bladder. Villanueva endoscopy in the bladder showed no evidence of any tumors or stones. I then used fluoroscopy and I could clearly see a few fairly large stones right at the renal pelvis on the left. I then passed a Glidewire through the scope and cannulated the left ureter, and was able to get the wire up the ureter and into the kidney. I then used an 8 and 10-Malaysian rigid dilator to dilate the distal ureter. The scope was then removed. I then passed a Navigator 04/01 ureteral access sheath over the wire and into the bladder and up the left ureter. This easily went up to the L5 position. The wire and stylette were then removed. I then passed an Olympus flexible ureteroscope through the access sheath and into ureter and ascended up the ureter and then into the kidney. Right in the renal pelvis were these two rather large stones. I then passed a 200 angstrom holmium laser fiber through the scope and made contact with the stone. Laser lithotripsy on the dusting mode was then initiated. I started at 10 figueroa and then increased to a maximum of 15 fig[address]ero[address] Excellent fragmentation took place with literal dusting of the majority of these stones. There was also another stone within the mid pole calyx, and I similarly dusted that. There were some pieces remaining. I then used a Zero-Tip Nitinol basket and engaged pieces and extracted them down and out. These were sent for stone analysis. After lasering for nearly an hour, visibility became a bit less than optimal due to some minor bleeding. I then elected to stop. While using fluoroscopy one last time, I could not see any evidence of any solid stone remaining. Endoscopically, all I could see was dust and gravel. The scope was then removed. Glidewire wire was passed up the sheath and into the kidney and then the sheath was removed. I then backloaded the cystoscope over the wire and passed it into the bladder. I then slid a 6-Malaysian variable length left ureteral stent over the wire, up to the kidney. The wire was removed and there were good curls in the kidney and in the bladder. The bladder was drained of its contents and the scope was then removed. She was then transferred to a gurwilmore bed and wheeled to PACU in stable condition.[id number] Discharge instructions Patient Education 04/16/2022 09:08:37 Urinary Tract Infection, Adult Urinary Tract Infection, Adult A urinary tract infection (UTI) is an infection of any part of the urinary tract. The urinary tractincludes the kidneys, ureters, bladder, and urethra. These organs make, store, and get rid of urinein the body. Your health care provider may use other names to describe the infection. An upper UTI affects the ureters and kidneys (pyelonephritis). A lower UTI affects the bladder (cystitis) and urethra (urethritis). What are the causes? Most urinary tract infections are caused by bacteria in your genital area, around the entrance to your urinary tract (urethra). These bacteria grow and cause inflammation of your urinary tract. What increases the risk? You are more likely to develop this condition if: You have a urinary catheter that stays in place (indwelling). You are not able to control when you urinate or have a bowel movement (you have incontinence). You are female and you: ?Use a spermicide or diaphragm for control. ?Have low estrogen levels. ?Are . You have certain genes that increase your risk (genetics). You are sexually active. You take antibiotic medicines. You have a condition that causes your flow of urine to slow down, such as: ?An enlarged prostate, if you are male. ?Blockage in your urethra (stricture). ?A kidney stone. ?A nerve condition that affects your bladder control (neurogenic bladder). ?Not getting enough to drink, or not urinating often. You have certain medical conditions, such as: ?Diabetes. ?A weak disease-fighting system (immunesystem). ?Sickle cell disease. ?Gout. ?Spinal cord injury. What are the signs or symptoms? Symptoms of this condition include: Needing to urinate right away (urgently). Frequent urination or passing small amounts of urine frequently. Pain or burning with urination. Blood in the urine. Urine that smells bad or unusual. Trouble urinating. Cloudy urine. Vaginal discharge, if you are female. Pain in the abdomen or the lower back. You may also have: Vomiting or a decreased appetite. Confusion. Irritability or tiredness. A fever. Diarrhea. The first symptom in older adults may be confusion. In some cases, they may not have any symptoms until the infection has worsened. How is this diagnosed? This condition is diagnosed based on your medical history and a physical exam. You may also have other tests, including: Urine tests. Blood tests. Tests for sexually transmitted infections (STIs). If you have had more than one UTI, a cystoscopy or imaging studies may be done to determine the cause of the infections. How is this treated? Treatment for this condition includes: Antibiotic medicine. Lbkn-ghe-dvlerav medicines to treat discomfort. Drinking enough water to stay hydrated. If you have frequent infections or have other conditions such as a kidney stone, you may need to see a health care provider who specializes in the urinary tract (urologist). In rare cases, urinary tract infections can cause sepsis. Sepsis is a life- threatening condition that occurs when the body responds to an infection. Sepsis is treated in the hospital with IV antibiotics, fluids, and other medicines. Follow these instructions at home: Medicines Take gldv-ybr-kbhiozs and prescription medicines only as told by your health care provider. If you were prescribed an antibiotic medicine, take it as told by your health care provider. Do notstop using the antibiotic even if you start to feel better. General instructions Make sure you: ?Empty your bladder often and completely. Do not hold urine for long periods of time. ?Empty your bladder after sex. ?Wipe from front to back after a bowel movement if you are female. Use each tissue one time when you wipe. Drink enough fluid to keep your urine pale yellow. Keep all follow-up visits as told by your health care provider. This is important. Contact a health care provider if: Your symptoms do not get better after 1 2 days. Your symptoms go away and then return. Get help right away if you have: Severe pain in your back or your lower abdomen. A fever. Nausea or vomiting. Summary A urinary tract infection (UTI) is an infection of any part of the urinary tract, which includes the kidneys, ureters, bladder, and urethra. Most urinary tract infections are caused by bacteria in your genital area, around the entrance to your urinary tract (urethra). Treatment for this condition often includes antibiotic medicines. If you were prescribed an antibiotic medicine, take it as told by your health care provider. Do notstop using the antibiotic even if you start to feel better. Keep all follow-up visits as told by your health care provider. This is important. This information is not intended to replace advice given to you by your health care provider. Make sure you discuss any questions you have with your health care provider. Document Released: 02/13/2006 Document Revised: 04/23/2019 Document Reviewed: 11/13/2018 Parallels Patient Education 2019 [employer]. Follow Up Care 04/16/2022 08:52:49 With:Ajith SNIDER, GROUND CONTROL APPROACH TECHNICIAN-MINE PROMOTOR, Rosa York Address: [address] [place] [phone] When: only if needed [facility] Javier 06-03-2022 Hospital Discharge instructions Patient Education 10/20/2021 11:25:24 Kidney Stones, Dlke-sb-Tydb Kidney Stones Kidney stones are rock-like masses that form inside of the kidneys. Kidneys are organs that make pee (urine). A kidney stone may move into other parts of the urinary tract, including: The tubes that connect the kidneys to the bladder (ureters). The bladder. The tube that carries urine out of the body (urethra). Kidney stones can cause very bad pain and can block the flow of pee. The stone usually leaves your body (passes) through your pee. You may need to have a doctor take out the stone. What are the causes? Kidney stones may be caused by: A condition in which certain glands make too much parathyroid hormone (primary hyperparathyroidism). A buildup of a type of crystals in the bladder made of a chemical called uric acid. The body makes uric acid when you eat certain foods. Narrowing (stricture) of one or both of the ureters. A kidney blockage that you were born with. Past surgery on the kidney or the ureters, such as gastric bypass surgery. What increases the risk? You are more likely to develop this condition if: You have had a kidney stone in the past. You have a family history of kidney stones. You do not drink enough water. You eat a diet that is high in protein, salt (sodium), or sugar. You are overweight or very overweight (obese). What are the signs or symptoms? Symptoms of a kidney stone may include: Pain in the side of the belly, right below the ribs (flank pain). Pain usually spreads (radiates) to the groin. Needing to pee often or right away (urgently). Pain when going pee (urinating). Blood in your pee (hematuria). Feeling like you may vomit (nauseous). Vomiting. Fever and chills. How is this treated? Treatment depends on the size, location, and makeup of the kidney stones. The stones will often pass out of the body through peeing. You may need to: Drink more fluid to help pass the stone. In some cases, you may be given fluids through an IV tube put into one of your veins at the hospital. Take medicine for pain. Make changes in your diet to help keep kidney stones from coming back. Sometimes, medical procedures are needed to remove a kidney stone. This may involve: A procedure to break up kidney stones using a beam of light (laser) or shock waves. Surgery to remove the kidney stones. Follow these instructions at home: Medicines Take hjjp-idw-sxoefon and prescription medicines only as told by your doctor. Ask your doctor if the medicine prescribed to you requires you to avoid driving or using heavy machinery. Eating and drinking Drink enough fluid to keep your pee pale yellow. You may be told to drink at least 8 10 glasses of water each day. This will help you pass the stone. If told by your doctor, change your diet. This may include: ?Limiting how much salt you eat. ?Eating more fruits and vegetables. ?Limiting how much meat, poultry, fish, and eggs you eat. Follow instructions from your doctor about eating or drinking restrictions. General instructions Collect pee samples as told by your doctor. You may need to collect a pee sample: ?24 hours after a stone comes out. ?8 12 weeks after a stone comes out, and every 6 12 months after that. Strain your pee every time you pee (urinate), for as long as told. Use the strainer that your doctor recommends. Do not throw out the stone. Keep it so that it can be tested by your doctor. Keep all follow-up visits as told by your doctor. This is important. You may need follow-up tests. How is this prevented? To prevent another kidney stone: Drink enough fluid to keep your pee pale yellow. This is the best way to prevent kidney stones. Eat healthy foods. Avoid certain foods as told by your doctor. You may be told to eat less protein. Stay at a healthy weight. Where to find more information National Kidney Foundation (NKF): www.kidney.org [facility] (UCF): www.urologyhealth.org Contact a doctor if: You have pain that gets worse or does not get better with medicine. Get help right away if: You have a fever or chills. You get very bad pain. You get new pain in your belly (abdomen). You pass out (faint). You cannot pee. Summary Kidney stones are rock-like masses that form inside of the kidneys. Kidney stones can cause very bad pain and can block the flow of pee. The stones will often pass out of the body through peeing. Drink enough fluid to keep your pee pale yellow. This information is not intended to replace advice given to you by your health care provider. Make sure you discuss any questions you have with your health care provider. Document Released: 10/22/2008 Document Revised: 09/22/2019 Document Reviewed: 09/22/2019 [employer]allels Patient Education 2019 [employer]. Follow Up Care 09/18/2021 14:01:56 With:SHMUEL LOZANO, Mi Morel, URL Address: [facility] [address] [place] [address]- When: Unknown [facility] 05-02-2022 Hospital Discharge instructions Patient Education 09/18/2021 17:19:49 Retroperitoneal Bleeding Retroperitoneal Bleeding Retroperitoneal bleeding happens when the blood vessels behind your abdomen bleed into the space between your abdomen and your back (retroperitoneal space). This space contains: Your kidneys. The glands that are on top of your kidneys (adrenal glands). The tubes that drain urine from your kidneys (ureters). The large blood vessel that carries blood to your lower body (aorta). Some parts of your digestive tract. The bleeding can be slow or fast. Bleeding into the retroperitoneal space is a rare but life-threatening condition. Get help right away for any signs of retroperitoneal bleeding. What are the causes? This condition may be caused by: Injury (trauma) to your pelvic area, abdomen, or back. Surgery or procedures in the retroperitoneal space. Other causes include: Tumors. Swelling through a weakened wall of a blood vessel (aneurysm). This can rupture and cause bleeding. Ovarian cysts. Bleeding from your spleen. Inflammation of the pancreas (pancreatitis). Sometimes, the cause is not known (idiopathic). What increases the risk? Retroperitoneal bleeding is more likely to develop in people: Who take medicines to prevent blood clots (anticoagulants). Have a blood clotting disorder. Who have high blood pressure. Who are on a machine that cleans blood because the kidneys have failed (dialysis). What are the signs or symptoms? Signs and symptoms usually occur suddenly and include: Pain in the abdomen, back, groin or side (flank). Pain when pressing on the abdomen, back, or flank. Bruising in the abdomen, side or back. Pain, numbness or tingling in your leg (neuropathy). Blood in the urine. Dizziness or lightheadedness from low blood pressure. Rapid heartbeat (tachycardia). Very low blood pressure, which can cause shock. Symptoms of shock include: ?Fainting. ?Trouble breathing. ?Cold, clammy skin. How is this diagnosed? This condition may be diagnosed based on your symptoms and your medical history. It is important tofind the cause of the bleeding. Your health care provider will do a physical exam. You may also have other tests, including: X-rays of the abdomen to check for signs of bleeding or aneurysm. Blood tests to check for low blood counts (anemia) or blood loss. Imaging studies, such as: ?CT scan. You may have dye injected into a blood vessel to help locate the source of the bleeding (CT angiography). ?Ultrasound. ?MRI. How is this treated? The goal of treatment is to stop the bleeding. Treatment may include: Giving you fluids through an IV to get your blood pressure back into a normal range. Medicines or blood products to reverse anticoagulant medicines, if you take them. Giving you blood from a donor (transfusion). Observation to see if the bleeding stops on its own. Blocking the bleeding with a small plug (embolization). This is done by placing a long tube (catheter) through your blood vessel and into the site of the bleeding. Doing exploratory surgery to find the bleeding and stop it. This may be done using an operating scope (laparoscopy) or as an open surgery (laparotomy). Follow these instructions at home: Activity Rest as told by your health care provider. Do not participate in any activity that takes a lot of effort until your health care provider says that it is safe. Do not lift anything that is heavier than 10 lb (4.5 kg), or the limit that you are told, until your health care provider says that it is safe. General instructions Take rgrl-lib-gjnkwbh and prescription medicines only as told by your health care provider. Do not use any products that contain nicotine or tobacco, such as cigarettes and e-cigarettes. These may delay healing after an injury. If you need help quitting, ask your health care provider. Follow instructions from your health care provider about eating or drinking restrictions. Keep all follow-up visits as told by your health care provider. This is important. Contact a health care provider if you have: Get help right away if you have: A fever. New or worsening pain in your abdomen, back, or side (flank). Chest pain. Difficulty breathing. Dizziness or passing out. Summary Retroperitoneal bleeding happens when the blood vessels behind your abdomen bleed into the space between your abdomen and your back (retroperitoneal space). Symptoms of this condition may include pain in the abdomen, back, or side, dizziness or light-headedness, a rapid heart rate, blood in the urine, or low blood pressure. The goal of treatment is to stop the bleeding. Rest as told by your health care provider. Do not lift anything that is heavier than 10 lb (4.5 kg), or the limit that you are told, until your health care provider says that it is safe. This information is not intended to replace advice given to you by your health care provider. Make sure you discuss any questions you have with your health care provider. Document Released: 07/26/2005 Document Revised: 06/12/2018 Document Reviewed: 06/12/2018 [employer] Patient Education 2020 [employer]. Follow Up Care 05/15/2021 17:17:59 With:ARMANDO LOZANO FAAFP, HERACLIO Nick Address: When: Unknown Comments:see karrie [facility] Javier 05-02-2022 Hospital Discharge instructions Patient Education 09/18/2021 13:46:06 Lithotripsy Lithotripsy Lithotripsy is a treatment that can sometimes help eliminate kidney stones and the pain that they cause. A form of lithotripsy, also known as extracorporeal shock wave lithotripsy, is a nonsurgical procedure that crushes a kidney stone with shock waves. These shock waves pass through your body and focus on the kidney stone. They cause the kidney stone to break up while it is still in the urinary tract. This makes it easier for the smaller pieces of stone to pass in the urine. Tell a health care provider about: Any allergies you have. All medicines you are taking, including vitamins, herbs, eye drops, creams, and zkls-ucj-tolfwsz medicines. Any blood disorders you have. Any surgeries you have had. Any medical conditions you have. Whether you are or may be . Any problems you or family members have had with anesthetic medicines. What are the risks? Generally, this is a safe procedure. However, problems may occur, including: Infection. Bleeding of the kidney. Bruising of the kidney or skin. Scarring of the kidney, which can lead to: ?Increased blood pressure. ?Poor kidney function. ?Return (recurrence) of kidney stones. Damage to other structures or organs, such as the liver, colon, spleen, or pancreas. Blockage (obstruction) of the the tube that carries urine from the kidney to the bladder (ureter). Failure of the kidney stone to break into pieces (fragments). What happens before the procedure? Staying hydrated Follow instructions from your health care provider about hydration, which may include: Up to 2 hours before the procedure you may continue to drink clear liquids, such as water, clear fruit juice, black coffee, and plain tea. Eating and drinking restrictions Follow instructions from your health care provider about eating and drinking, which may include: 8 hours before the procedure stop eating heavy meals or foods such as meat, fried foods, or fatty foods. 6 hours before the procedure stop eating light meals or foods, such as toast or cereal. 6 hours before the procedure stop drinking milk or drinks that contain milk. 2 hours before the procedure stop drinking clear liquids. General instructions Plan to have someone take you home from the hospital or clinic. Ask your health care provider about: ?Changing or stopping your regular medicines. This is especially important if you are taking diabetes medicines or blood thinners. ?Taking medicines such as aspirin and ibuprofen. These medicines and other NSAIDs can thin your blood. Do not take these medicines for 7 days before your procedure if your health care provider instructs you not to. You may have tests, such as: ?Blood tests. ?Urine tests. ?Imaging tests, such as a CT scan. What happens during the procedure? To lower your risk of infection: ?Your health care team will wash or sanitize their hands. ?Your skin will be washed with soap. An IV tube will be inserted into one of your veins. This tube will give you fluids and medicines. You will be given one or more of the following: ?A medicine to help you relax (sedative). ?A medicine to make you fall asleep (general anesthetic). A water-filled cushion may be placed behind your kidney or on your abdomen. In some cases you may be placed in a tub of lukewarm water. Your body will be positioned in a way that makes it easy to target the kidney stone. A flexible tube with holes in it (stent) may be placed in the ureter. This will help keep urine flowing from the kidney if the fragments of the stone have been blocking the ureter. An X-ray or ultrasound exam will be done to locate your stone. Shock waves will be aimed at the stone. If you are awake, you may feel a tapping sensation as the shock waves pass through your body. The procedure may vary among health care providers and hospitals. What happens after the procedure? You may have an X-ray to see whether the procedure was able to break up the kidney stone and how much of the stone has passed. If large stone fragments remain after treatment, you may need to have a second procedure at a later time. Your blood pressure, heart rate, breathing rate, and blood oxygen level will be monitored until themedicines you were given have worn off. You may be given antibiotics or pain medicine as needed. If a stent was placed in your ureter during surgery, it may stay in place for a few weeks. You may need strain your urine to collect pieces of the kidney stone for testing. You will need to drink plenty of water. Do not drive for 24 hours if you were given a sedative. Summary Lithotripsy is a treatment that can sometimes help eliminate kidney stones and the pain that they cause. A form of lithotripsy, also known as extracorporeal shock wave lithotripsy, is a nonsurgical procedure that crushes a kidney stone with shock waves. Generally, this is a safe procedure. However, problems may occur, including damage to the kidney orother organs, infection, or obstruction of the tube that carries urine from the kidney to the bladder (ureter). When you go home, you will need to drink plenty of water. You may be asked to strain your urine to collect pieces of the kidney stone for testing. This information is not intended to replace advice given to you by your health care provider. Make sure you discuss any questions you have with your health care provider. Document Released: 05/03/2001 Document Revised: 08/17/2019 Document Reviewed: 03/27/2017 [employer] Patient Education 2019 [employer]. 09/18/2021 13:46:05 Kidney Stones, Bloo-oy-Ysff Kidney Stones Kidney stones are rock-like masses that form inside of the kidneys. Kidneys are organs that make pee (urine). A kidney stone may move into other parts of the urinary tract, including: The tubes that connect the kidneys to the bladder (ureters). The bladder. The tube that carries urine out of the body (urethra). Kidney stones can cause very bad pain and can block the flow of pee. The stone usually leaves your body (passes) through your pee. You may need to have a doctor take out the stone. What are the causes? Kidney stones may be caused by: A condition in which certain glands make too much parathyroid hormone (primary hyperparathyroidism). A buildup of a type of crystals in the bladder made of a chemical called uric acid. The body makes uric acid when you eat certain foods. Narrowing (stricture) of one or both of the ureters. A kidney blockage that you were born with. Past surgery on the kidney or the ureters, such as gastric bypass surgery. What increases the risk? You are more likely to develop this condition if: You have had a kidney stone in the past. You have a family history of kidney stones. You do not drink enough water. You eat a diet that is high in protein, salt (sodium), or sugar. You are overweight or very overweight (obese). What are the signs or symptoms? Symptoms of a kidney stone may include: Pain in the side of the belly, right below the ribs (flank pain). Pain usually spreads (radiates) to the groin. Needing to pee often or right away (urgently). Pain when going pee (urinating). Blood in your pee (hematuria). Feeling like you may vomit (nauseous). Vomiting. Fever and chills. How is this treated? Treatment depends on the size, location, and makeup of the kidney stones. The stones will often pass out of the body through peeing. You may need to: Drink more fluid to help pass the stone. In some cases, you may be given fluids through an IV tube put into one of your veins at the hospital. Take medicine for pain. Make changes in your diet to help keep kidney stones from coming back. Sometimes, medical procedures are needed to remove a kidney stone. This may involve: A procedure to break up kidney stones using a beam of light (laser) or shock waves. Surgery to remove the kidney stones. Follow these instructions at home: Medicines Take [id number] and prescription medicines only as told by your doctor. Ask your doctor if the medicine prescribed to you requires you to avoid driving or using heavy machinery. Eating and drinking Drink enough fluid to keep your pee pale yellow. You may be told to drink at least 8 10 glasses of water each day. This will help you pass the stone. If told by your doctor, change your diet. This may include: ?Limiting how much salt you eat. ?Eating more fruits and vegetables. ?Limiting how much meat, poultry, fish, and eggs you eat. Follow instructions from your doctor about eating or drinking restrictions. General instructions Collect pee samples as told by your doctor. You may need to collect a pee sample: ?24 hours after a stone comes out. ?8 12 weeks after a stone comes out, and every 6 12 months after that. Strain your pee every time you pee (urinate), for as long as told. Use the strainer that your doctor recommends. Do not throw out the stone. Keep it so that it can be tested by your doctor. Keep all follow-up visits as told by your doctor. This is important. You may need follow-up tests. How is this prevented? To prevent another kidney stone: Drink enough fluid to keep your pee pale yellow. This is the best way to prevent kidney stones. Eat healthy foods. Avoid certain foods as told by your doctor. You may be told to eat less protein. Stay at a healthy weight. Where to find more information National Kidney Foundation (NKF): www.kidney.org [facility] [employer] [facility] (UCF): www.urologyhealth.org Contact a doctor if: You have pain that gets worse or does not get better with medicine. Get help right away if: You have a fever or chills. You get very bad pain. You get new pain in your belly (abdomen). You pass out (faint). You cannot pee. Summary Kidney stones are rock-like masses that form inside of the kidneys. Kidney stones can cause very bad pain and can block the flow of pee. The stones will often pass out of the body through peeing. Drink enough fluid to keep your pee pale yellow. This information is not intended to replace advice given to you by your health care provider. Make sure you discuss any questions you have with your health care provider. Document Released: 10/22/2008 Document Revised: 09/22/2019 Document Reviewed: 09/22/2019 [employer] Patient Education 2020 [employer]. 09/18/2021 13:46:03 Dietary Guidelines to Help Prevent Kidney Stones Dietary Guidelines to Help Prevent Kidney Stones Kidney stones are deposits of minerals and salts that form inside your kidneys. Your risk of developing kidney stones may be greater depending on your diet, your lifestyle, the medicines you take, and whether you have certain medical conditions. Most people can reduce their chances of developing kidney stones by following the instructions below. Depending on your overall health and the type of kidney stones you tend to develop, your dietitian may give you more specific instructions. What are tips for following this plan? Reading food labels Choose foods with no salt added or low-salt labels. Limit your sodium intake to less than 1500 mg per day. Choose foods with calcium for each meal and snack. Try to eat about 300 mg of calcium at each meal.Foods that contain 200 500 mg of calcium per serving include: ?8 oz (237 ml) of milk, fortified nondairy milk, and fortified fruit juice. ?8 oz (237 ml) of kefir, yogurt, and soy yogurt. ?4 oz (118 ml) of tofu. ?1 oz of cheese. ?1 cup (300 g) of dried figs. ?1 cup (91 g) of cooked broccoli. ?1 3 oz can of sardines or mackerel. Most people need 1000 to 1500 mg of calcium each day. Talk to your dietitian about how much calciumis recommended for you. Shopping Buy plenty of fresh fruits and vegetables. Most people do not need to avoid fruits and vegetables, even if they contain nutrients that may contribute to kidney stones. When shopping for convenience foods, choose: ?Whole pieces of fruit. ?Premade salads with dressing on the side. ?Low-fat fruit and yogurt smoothies. Avoid buying frozen meals or prepared deli foods. Look for foods with live cultures, such as yogurt and kefir. Cooking Do not add salt to food when cooking. Place a salt shaker on the table and allow each person to addhis or her own salt to taste. Use vegetable protein, such as beans, textured vegetable protein (TVP), or tofu instead of meat in pasta, casseroles, and soups. Meal planning Eat less salt, if told by your dietitian. To do this: ?Avoid eating processed or premade food. ?Avoid eating fast food. Eat less animal protein, including cheese, meat, poultry, or fish, if told by your dietitian. To dothis: ?Limit the number of times you have meat, poultry, fish, or cheese each week. Eat a diet free of meat at least 2 days a week. ?Eat only one serving each day of meat, poultry, fish, or seafood. ?When you prepare animal protein, cut pieces into small portion sizes. For most meat and fish, one serving is about the size of one deck of cards. Eat at least 5 servings of fresh fruits and vegetables each day. To do this: ?Keep fruits and vegetables on hand for snacks. ?Eat 1 piece of fruit or a handful of berries with breakfast. ?Have a salad and fruit at lunch. ?Have two kinds of vegetables at dinner. Limit foods that are high in a substance called oxalate. These include: ?Spinach. ?Rhubarb. ?Beets. ?Potato chips and turkmen fries. ?Nuts. If you regularly take a diuretic medicine, make sure to eat at least 1 2 fruits or vegetables high in potassium each day. These include: ?Avocado. ?Banana. ?[place]ahoe, prune, carrot, or tomato juice. ?Baked potato. ?Cabbage. ?Beans and split peas. General instructions Drink enough fluid to keep your urine clear or pale yellow. This is the most important thing you can do. Talk to your health care provider and dietitian about taking daily supplements. Depending on your health and the cause of your kidney stones, you may be advised: ?Not to take supplements with vitamin C. ?To take a calcium supplement. ?To take a daily probiotic supplement. ?To take other supplements such as magnesium, fish oil, or vitamin B6. Take all medicines and supplements as told by your health care provider. Limit alcohol intake to no more than 1 drink a day for non women and 2 drinks a day for men. One drink equals 12 oz of beer, 5 oz of wine, or 1 oz of hard liquor. Lose weight if told by your health care provider. Work with your dietitian to find strategies and an eating plan that works best for you. What foods are not recommended? Limit your intake of the following foods, or as told by your dietitian. Talk to your dietitian about specific foods you should avoid based on the type of kidney stones and your overall health. Grains Breads. Bagels. Rolls. Baked goods. Salted crackers. Cereal. Pasta. Vegetables Spinach. Rhubarb. Beets. Canned vegetables. Pickles. Olives. Meats and other protein foods Nuts. Nut butters. Large portions of meat, poultry, or fish. Salted or cured meats. Deli meats. Hotdogs. Sausages. Dairy Cheese. Beverages Regular soft drinks. Regular vegetable juice. Seasonings and other foods Seasoning blends with salt. Salad dressings. Canned soups. Soy sauce. Ketchup. Barbecue sauce. Canned pasta sauce. Casseroles. Pizza. Lasagna. Frozen meals. Potato chips. Malaysian fries. Summary You can reduce your risk of kidney stones by making changes to your diet. The most important thing you can do is drink enough fluid. You should drink enough fluid to keep your urine clear or pale yellow. Ask your health care provider or dietitian how much protein from animal sources you should eat eachday, and also how much salt and calcium you should have each day. This information is not intended to replace advice given to you by your health care provider. Make sure you discuss any questions you have with your health care provider. Document Released: 08/31/2011 Document Revised: 08/26/2019 Document Reviewed: 04/16/2017 [employer] Patient Education 2020 [employer] Follow Up Care 09/13/2021 10:49:38 With:SHMUEL LOZANO, Mi Morel, URL Address: [facility] [address] , [place] [address]- When: Unknown [facility] 04-27-2022 Evaluation + Plan noteExtracted from:Title: APSO NoteAuthor:Jennyfer KINGSTON-BC, aMgo Morales.Date:09/13/21 3. Acute respiratory failure with hypoxemia (J96.01: Acute respiratory failure with hypoxia) Acute hypoxic respiratory failure Likely secondary to shallow inspiration and atelectasis in setting of flank/abdominal pain post lithotripsy and RP hematoma/bleed History of CARMEL and CPAP use as outpatient without home oxygen dependency There is a mild degree of fluid overload given recent IV fluid resuscitation and blood transfusions. -Strongly encourage incentive spirometry with pulmonary hygiene. -Continue with ambulation as tolerated. -Maintain saturation >90%, wean oxygen as tolerated. Will not likely need oxygen at discharge, but may complete desaturation study prior to discharge if needed. She does follow with Dr. Stratton in [place] for Pulmonology, please have her follow up as needed if concerns are persistent. -Desaturation study was completed, she will require oxygen at discharge. They intend to discharge her today, this is okay from pulmonary perspective. 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 -Had good positive response with diuretics, renal function has remained stable. -Please continue with CPAP at night, may use own home machine for patient comfort. -Oxygenation is improving, currently wearing 2L NC. Based on how she does over the next 24 hours, may be weaned from oxygen. Plan for d/c today based on oxygen delivery to home. Addendum by Jeremi Sigala MD on September 13, 2021 16:07:52 EDT I have reviewed the patient's record, results and I agree with the nurse practitioner's documentation, assessment and plan Extracted from:Title:Discharge NoteAuthor:Chico BRADSHAW MD PDate:09/13/21 1. Hematoma of left kidney (S37.012A: Minor contusion of left kidney, initial encounter) Ordered: acetaminophen-hydrocodone, 1 tab(s), Oral, q6hr for pain, 15 tab(s), Refill(s) 0, [facility], 160, cm, 09/08/21 6:25:00 EDT, Height/Length Dosing, 69.8, kg, 09/08/21 6:25:00 EDT, Weight Dosing 2. Retroperitoneal bleeding (R58: Hemorrhage, not elsewhere classified) Ordered: acetaminophen-hydrocodone, 1 tab(s), Oral, q6hr for pain, 15 tab(s), Refill(s) 0, [facility] 1985, 160, cm, 09/08/21 6:25:00 EDT, Height/Length Dosing, 69.8, kg, 09/08/21 6:25:00 EDT, Weight Dosing 3. Acute respiratory failure with hypoxemia (J96.01: Acute respiratory failure with hypoxia) 4. Paresthesias/numbness (R20.9: Unspecified disturbances of skin sensation) 5. Dysphagia, (R13.10: Dysphagia, unspecified)Dysphagia 6. Flank pain (R10.9: Unspecified abdominal pain) 7. Hypertension (I10: Essential (primary) hypertension) 8. Diabetes (E11.9: Type 2 diabetes mellitus without complications) 9. DVT prophylaxis (Z29.9: Encounter for prophylactic measures, unspecified) Orders: lidocaine topical, 1 patch(es), TransDermal, Daily, 30 EA, Refill(s) 0, [facility] 1985, 160,cm, 09/08/21 6:25:00 EDT, Height/Length Dosing, 69.8, kg, 09/08/21 6:25:00 EDT, Weight Dosing potassium chloride + Generic Diluent 100 mL, 20 mEq = 100 mL, Soln-IV, IV Piggyback, q2hr for 2 dose(s), Stop date 09/12/21 13:10:00 EDT, Routine, Start date 09/12/21 9:11:00 EDT, 50 mL/hr, Infuse over 2 hour(s) Sodium Chloride 0.9% intravenous solution 500 mL, 500 mL, IV, 20 mL/hr, Other (see comment), Routine, Start date 09/12/21 10:14:00 EDT, 25 hour(s), Total volume (mL): 500, 69.8 kg, 1.76, m2 Automated Diff Basic Metabolic Panel CBC w/ Auto Diff Communication Order Communication Order Communication Order Communication Order Diabetic/Calorie Control Diet Discharge with Home Health eGFR Elevate Head of Bed Magnesium Level Oxygen Desaturation Study Discharge Status: Improved Discharge Instructions Given: To patient Discharge disposition: Home health care Prescriptions reviewed with Patient >30 min in discharge time Prescriptions atorvastatin 40 mg Tab, 40 mg= 1 tab(s), Oral, Bedtime, 1 refills betamethasone dipropionate topical 0.05% cream, 1 bryan, Topical, BID DULoxetine 30 mg Cap-EC, 30 mg= 1 cap(s), Oral, Daily, 1 refills DULoxetine 60 mg Cap-EC, 60 mg= 1 cap(s), Oral, Daily, 1 refills estradiol 0.1 mg/g vaginal cream, 1 gm, Vaginal, MonFri, 3 refills, Still taking, not as prescribed: Pt states she is using this but not as directed. Only once in a while gabapentin 100 mg Cap, 200 mg= 2 cap(s), Oral, BID hydrochlorothiazide 25 mg oral tablet, 12.5 mg= 0.5 tab(s), Oral, Daily, 1 refills lidocaine Top 5% film Patch, 1 patch(es), TransDermal, Daily lisinopril 40 mg Tab, 0.5 tab, Oral, Daily, 1 refills meclizine 12.5 mg Tab, 12.5 mg= 1 tab(s), Oral, TID, PRN metformin 1000 mg Tab, 1000 mg= 1 tab(s), Oral, Daily, 1 refills nadolol 20 mg Tab, 10 mg= 0.5 tab(s), Oral, Bedtime, 1 refills Gaastra 325 mg-5 mg oral tablet, 1 tab(s), Oral, q6hr, PRN potassium CITRATE 10 mEq ER Tab, 20 mEq= 2 tab(s), Oral, BID Home Albuterol (Eqv-ProAir HFA) 90 mcg/inh inhalation aerosol, 2 puff(s), Inhalation, Daily Copaxone 40 mg/mL subcutaneous solution, 40 mg, SubCutaneous, MonWedFri, Not taking omeprazole 20 mg Cap-DR, 20 mg= 1 cap(s), Oral, Daily Symbicort 80/4.5 inhalation aerosol with adapter, 2 puff(s), Inhalation, BID, PRN With When Contact Information Mi MI Within 1 to 2 weeks [facility] [address], [place] [address]- Business (1) Additional Instructions: Cristopher SHAW Within [address] [place] [address] Business (1) Additional Instructions: Stacie ROBERTS Within 7 to 10 days [id number] [place] [id number] [facility] (1) Additional Instructions: Call for followup appointment Call physician if symptoms worsen Home Oxygen Use, Adult Extracted from:Title:Post-anesthesia - GeneralAuthor:Migel Dailey Jr., DO Date:09/12/21 Plan Transfer/ Discharge: Condition stable. Extracted from:Title:APSO NoteAuthor:Mago BarrosoDate:09/12/21 3. Acute respiratory failure with hypoxemia (J96.01: Acute respiratory failure with hypoxia) Acute hypoxic respiratory failure Likely secondary to shallow inspiration and atelectasis in setting of flank/abdominal pain post lithotripsy and RP hematoma/bleed History of CARMEL and CPAP use as outpatient without home oxygen dependency There is a mild degree of fluid overload given recent IV fluid resuscitation and blood transfusions. -Strongly encourage incentive spirometry with pulmonary hygiene. -Continue with ambulation as tolerated. -Maintain saturation >90%, wean oxygen as tolerated. Will not likely need oxygen at discharge, but may complete desaturation study prior to discharge if needed. She does follow with Dr. Stratton in [place] for Pulmonology, please have her follow up as needed if concerns are persistent. -Will benefit from diuretics, monitor closely alongside of renal function -Please continue with CPAP at night, may use own home machine for patient comfort. -Oxygenation is improving, currently wearing 2L NC. Based on how she does over the next 24 hours, may be weaned from oxygen. Potential plan for d/c tomorrow based on morning labs and how she feels post EGD with dilation of esophageal narrowing. Extracted from:Title:Dysphagia *Author:PAULINO LOZANO, [facility]Date:09/12/21 Impression and Plan 60 years old white female with history of Schatzki ring, recent left renal nephrolithiasis status post lithotripsy, complicated with retroperitoneal bleed, reports recurrent dysphagia mainly to solids, had a history of chest pain which was last dilated in 2019, no melena hematochezia hematemesis orodynophagia, will proceed with EGD Extracted from:Title:Pre-anesthesia - EndoscopyAuthor:Migel Dailey Jr., DO Date:09/12/21 Plan [place] [employer]esthesi[employer] (ASA) physical status classification: Class III. Anesthetic Preoperative Plan Anesthesia: General. . Anesthetic plan, risks, benefits, and alternatives discussed with the patient and/or family. Patient verbalized understanding. Extracted from:Title:APSO NoteAuthor:Chico BRADSHAW MD PDate:09/12/21 60-year-old female with past medical history of hypertension, diabetes, MS, history of kidney stones, history of asthma presented to emergency department due to flank pain after lithotripsy. Patient was found to have 10 cm acute left subcapsular hematoma. 1. Hematoma of left kidney (S37.012A: Minor contusion of left kidney, initial encounter) Hemoglobin is stable Resolving bleed Case discussed with Dr. Mi Follow-up with him as outpatient Okay to move around and cleared from urological standpoint Received 2 units of packed RBC Ordered: [facility] Care/Day High 35 Minutes 94111 2. Retroperitoneal bleeding (R58: Hemorrhage, not elsewhere classified) Secondary to above Resolved Ordered: [facility] Care/Day High 35 Minutes [id number] 3. Acute respiratory failure with hypoxemia (J96.01: Acute respiratory failure with hypoxia) On 2 L nasal cannula Pulmonary consult is noted and appreciated Replete potassium today Wean O2 as tolerated Desaturation study tomorrow Incentive spirometry and flutter valve Negative procalcitonin level No need for antibiotics at this point Ordered: [facility] Care/Day High 35 Minutes [id number] 4. Paresthesias/numbness (R20.9: Unspecified disturbances of skin sensation) Resolved 5. Dysphagia (R13.10: Dysphagia, unspecified) Was reporting food getting stuck yesterday. Speech and swallow evaluated patient Plan for modified barium swallow at 930 GI consulted for possible EGD 6. Flank pain (R10.9: Unspecified abdominal pain) Pain control Lidoderm patch Gaastra as needed 7. Hypertension (I10: Essential (primary) hypertension) Hydrochlorothiazide, lisinopril Blood pressure is a lot better than it was yesterday 8. Diabetes (E11.9: Type 2 diabetes mellitus without complications) Accu-Chek with sliding scale insulin 9. DVT prophylaxis (Z29.9: Encounter for prophylactic measures, unspecified) SCDs Orders: albuterol-ipratropium, 3 mL, Soln-Inh, Inhalation, QID PRN Shortness of breath or wheezing, Routine, Start date 09/11/21 10:04:00 EDT potassium chloride + Generic Diluent 100 mL, 20 mEq = 100 mL, Soln-IV, IV Piggyback, q2hr for 2 dose(s), Stop date 09/12/21 13:10:00 EDT, Routine, Start date 09/12/21 9:11:00 EDT, 50 mL/hr, Infuse over 2 hour(s) trazodone, 50 mg = 1 tab(s), Tab, Oral, Bedtime, Routine, Start date 09/12/21 21:00:00 EDT, 09/12/21 9:26:00 EDT Add on Test Automated Diff Basic Metabolic Panel Basic Metabolic Panel CBC w/ Auto Diff CBC w/ Auto Diff eGFR Flutter Valve Incentive Spirometry Magnesium Level Magnesium Level Occupational Therapy Evaluate Patient, Develop a Plan of Care and Implement Plan Oxygen - Wean Oxygen Desaturation Study Physical Therapy Additional Tx Physical Therapy Evaluate Patient, Develop a Plan of Care and Implement Plan Procalcitonin Referral to [facility] Speech Language Pathology Swallow Eval; Evaluate Pt, Develop a Plan of Care & Implement Plan Plan discussed with patient at bedside This report was transcribed using voice recognition software. Every effort was made to ensure accuracy, however, inadvertently computerized hotel superintendent mistakes may be present. Chico Bradshaw Hospitalist Extracted from:Title:APSO NoteAuthor:Chico BRADSHAW MD PDate:09/11/21 60-year-old female with past medical history of hypertension, diabetes, MS, history of kidney stones, history of asthma presented to emergency department due to flank pain after lithotripsy. Patient was found to have 10 cm acute left subcapsular hematoma. 1. Hematoma of left kidney (S37.012A: Minor contusion of left kidney, initial encounter) Hemoglobin is stable Resolving bleed Case discussed with Dr. Mi Follow-up with him as outpatient Okay to move around and cleared from urological standpoint Received 2 units of packed RBC 2. Retroperitoneal bleeding (R58: Hemorrhage, not elsewhere classified) Secondary to above Resolved 3. Acute respiratory failure with hypoxemia (J96.01: Acute respiratory failure with hypoxia) Try to wean down O2 as tolerated Chest x-ray results are reviewed for atelectasis versus infiltrate in the both lung bases minimal infiltration of the right lung base lateral to the hilum. Breathing treatment Incentive spirometry, flutter valve Wean O2 as tolerated Given Lasix IV 20 mg once daily 4. Paresthesias/numbness (R20.9: Unspecified disturbances of skin sensation) Resolved 5. Flank pain (R10.9: Unspecified abdominal pain) Improving Pain control Lidocaine patch 6. Hypertension (I10: Essential (primary) hypertension) Blood pressure is elevated Restart lisinopril, hydrochlorothiazide Monitor renal function 7. Diabetes (E11.9: Type 2 diabetes mellitus without complications) Accu-Chek with sliding scale insulin 8. DVT prophylaxis (Z29.9: Encounter for prophylactic measures, unspecified) SCDs Orders: albuterol-ipratropium, 3 mL, Soln-Inh, Inhalation, QID PRN Shortness of breath or wheezing, Routine, Start date 09/11/21 10:04:00 EDT duloxetine, 60 mg = 1 cap(s), Cap-DR, Oral, Bedtime for 30 day(s), Stop date 10/11/21 20:59:00 EDT,Start date 09/11/21 21:00:00 EDT duloxetine, 30 mg = 1 cap(s), Cap-DR, Oral, Daily, Routine, Start date 09/11/21 9:00:00 EDT furosemide, 20 mg = 2 mL, Injection, IV Push, Once, Stop date 09/11/21 7:00:00 EDT, Routine, Start date 09/11/21 7:00:00 EDT, 09/11/21 6:56:00 EDT hydrochlorothiazide, 12.5 mg = 1 tab(s), Tab, Oral, Daily, Routine, Start date 09/11/21 9:00:00 EDT lisinopril, 40 mg = 2 tab(s), Tab, Oral, Daily, Routine, Start date 09/11/21 9:00:00 EDT, 09/11/21 8:31:00 EDT Consult to Gastroenterology Flutter Valve Incentive Spirometry NPO Diet Occupational Therapy Evaluate Patient, Develop a Plan of Care and Implement Plan Oxygen - Wean Physical Therapy Evaluate Patient, Develop a Plan of Care and Implement Plan Speech Language Pathology Swallow Eval; Evaluate Pt, Develop a Plan of Care & Implement Plan Plan discussed with patient and daughter at bedside This report was transcribed using voice recognition software. Every effort was made to ensure accuracy, however, inadvertently computerized hotel superintendent mistakes may be present. [facility] Extracted from:Title:Consult NoteAuthor:Jennyfer AGACNP-BC, Mago Morales.Date:09/11/21 Acute hypoxic respiratory fa ilure Likely secondary to shallow inspiration and atelectasis in setting of flank/abdominal pain post lithotripsy and RP hematoma/bleed History of CARMEL and CPAP use as outpatient without home oxygen dependency There is a mild degree of fluid overload given recent IV fluid resuscitation and blood transfusions. -Strongly encourage incentive spirometry with pulmonary hygiene. -Will benefit from diuretics, monitor closely alongside of renal function -Please continue with CPAP at night, may use own home machine for patient comfort. Thank you for the consult we will continue to follow Extracted from:Title:Urology Progress NoteAuthor:Mi MI MD, RDate: 09/10/21 Impression and Plan Impression: #1. Left renal hematoma and retroperitoneal bleed; for the last 3 blood draws the hemoglobin has been stable. The most recent is at 11.0. It seems as though her bleeding has stopped. She is hemodynamically stable. Plan: #1. At this point, I would space out her H&H checks to every 12-24 hours. I still strongly recommend Toradol for her daily management of headaches and discomfort. The benefits far outweigh any potential theoretical risks. Once her blood pressure is controlled and she gets discharged from the hospital, follow-up with me will be in 3 to 4 weeks at which time we will repeat a CT scan to evaluate reabsorption process of her left renal hematoma. Extracted from:Title:Urology Progress NoteAuthor:Mi MI MD RDate: 09/09/21 Impression and Plan Impression: #1. Her left renal subcapsular/retroperitoneal hematoma is still oozing a bit. Her hemoglobin has trickled down to 7.4. She is getting her second unit of packed red blood cells transfusedat this time. Her vitals have remained perfectly stable. I believe her mild flank pain and headachewere better treated with the Toradol. The minute potential anticoagulation effect pales in compariso n to the significant overall analgesic effect of the Toradol in this clinical situation. 2. Mild leukocytosis of uncertain etiology. Plan: #1. Continue conservative care and transfuse as needed. We will continue checking her H&Hon the 6-hour interval for another 24 hours. #2. I would reconsider utilizing Toradol #3. I would start a gram of Rocephin daily. Extracted from:Title:Urology Consult NoteAuthor:SHMUEL LOZANO, Mi RDate:09/08/21 Impression and Plan Impression: #1. This lady has a post lithotripsy renal hematoma and retroperitoneal bleeding. Her vitals remained stable. She is in no need of transfusion at this point. 2. She has stone fragments in the base of the kidney and one 4 mm fragment at the UPJ which is nonobstructing. Plan: #1. She needs to be on strict bedrest. She needs to keep her SCDs on until she is able to ambulate in the halls. 2. We need to continue checking her hemoglobin every 6 hours. We should transfuse 2 units if her hemoglobin gets below 8 or if she becomes clinically symptomatic from a low hemoglobin. 3. We should give scheduled Toradol every 6 hours so as to help minimize narcotic intake. We shouldhave her start Gaastra 5/325 in between the Toradol doses if any other pain meds are needed in lieu of Dilaudid or morphine. 4. We can give her clear liquids and advance her diet as tolerated. 5. Once her hemoglobin stabilizes, we can then slowly liberate her activity. 6. We will need to repeat her CT scan as an outpatient in about 3 to 4 weeks. Over 30 minutes of clinical time was spent talking with the ER doctor, the hospitalist, the patientand her family, reviewing her chart and CT scan and examining the patient. Thank you for letting me take part in her care. I will follow along during her hospitalization. Extracted from:Title:Admission H & PAuthor:Brett LOZANO, AbeerDate:09/08/21 1. Hematoma of left kidney ( S37.012A: Minor contusion of left kidney, initial encounter) - CT Abdomen pelvis APROXIMATELY 10 CM ACUTE LEFT RENAL SUBCAPSULAR, WITH MILD TO MODERATE SURRODING RETROPERITONEAL HEMORRHAGE AND SMALL VOLUME ASCITES IN THE PELVIS. Small left PLEURAL EFFUSION ANDMODERATE PROBABLE DEPENDENT ATELECTASIS OF THE ISUALIZED LUNG BASES. LEFT LOWER POLE RENAL CALCULI -Urology consult, discussed over the phone with Dr. Mi, he will see the patient in the afternoon, will switch to Toradol as needed Continue to monitor vital signs, -H&H every 6 and type and screen , hemoglobin 10.9 on admission(was 13 last month), if less than 8 or clinically symptomatic -Telemetry, gentle hydration -Bedrest and SCDs I spoke with daughter and updated about the plan Urology consult 2. Retroperitoneal bleeding (R58: Hemorrhage, not elsewhere classified) See #1 3. Flank pain (R10.9: Unspecified abdominal pain) See #1 4. Hypertension (I10: Essential (primary) hypertension) Blood pressure medication on hold for now and reassess 5. Diabetes (E11.9: Type 2 diabetes mellitus without complications) Metformin on hold, sliding scale insulin Accu-Chek 6. DVT prophylaxis (Z29.9: Encounter for prophylactic measures, unspecified) SCDs Orders: albuterol, 2.5 mg = 3 mL, Soln-Inh, Inhalation, QID PRN Wheezing, Routine, Start date 09/08/21 14:13:00 EDT, 09/08/21 14:13:00 EDT atorvastatin, 40 mg = 1 tab(s), Tab, Oral, Bedtime, Routine, Start date 09/08/21 21:00:00 EDT, 09/08/21 14:13:00 EDT budesonide, 0.25 mg = 2 mL, Susp-Inh, NEB, BID PRN Wheezing, Routine, Start date 09/08/21 14:13:00 EDT, 09/08/21 14:13:00 EDT glucose, 40 mL, Soln-IV, IV Push, Once PRN Blood glucose, Routine, Start date 09/08/21 13:35:00 EDT insulin lispro, 0-10 Units, Injection-Insulin, SubCutaneous, QIDACHS, Routine, Start date 09/08/21 16:30:00 EDT morphine, 2 mg = 1 mL, Injection, IV Push, q4hr PRN Pain for 5 day(s), Stop date 09/13/21 10:59:00 EDT, Routine, Start date 09/08/21 11:00:00 EDT, 09/08/21 11:00:00 EDT ondansetron, 4 mg = 2 mL, Injection, IV Push, q6hr PRN Nausea, Routine, Start date 09/08/21 9:47:00EDT, 09/08/21 9:47:00 EDT pantoprazole, 40 mg = 1 tab(s), Tab-DR, Oral, Daily, Routine, Start date 09/09/21 9:00:00 EDT, 09/08/21 14:13:00 EDT Sodium Chloride 0.9% intravenous solution 1,000 mL, 1,000 mL, IV, 75 mL/hr, Routine, Start date 09/08/21 11:32:00 EDT, 13.3 hour(s), Total volume (mL): 1,000, 69.8 kg, 1.76, m2 Below the Knee Intermittent Pneumatic Compression Device Cardiac Monitoring Chest Pain, AMI Quality Measures Consult to Urology Evaluate Need For Continued Telemetry Hemoglobin and Hematocrit Hypoglycemia Protocol Responsive Patient Hypoglycemia Protocol Unresponsive Patient Intake and Output Notify Provider Vital Signs Notify Provider Vital Signs Oxygen Protocol Place in Status Pulse Oximetry Routine Capillary Glucose POC Vital Signs Weight This report was transcribed using voice recognition software , Every effort was made to ensure accuracy , however, inadvertently computerized hotel superintendent mistakes may be present . Addendum by Brett LOZANO, Abeer on September 09, 2021 13:58:26 EDT I spoke with Dr. Mi urologist over the phone and he recommended to start her on Toradol every 6hours beside to Gaastra in between doses Extracted from:Title:ED NoteAuthor:Sheri BUSH Flaquito KellyDate:09/08/21 Flank pain (R10.9: Unspecifi ed abdominal pain) Orders: ketorolac, 15 mg = 1 mL, Injection, IV Push, Once, Stop date 09/08/21 6:12:00 EDT, STAT, Start date09/08/21 6:12:00 EDT, 09/08/21 6:12:00 EDT ondansetron, 4 mg = 2 mL, Injection, IV Push, Once, Stop date 09/08/21 6:12:00 EDT, STAT, Start date 09/08/21 6:12:00 EDT, 09/08/21 6:12:00 EDT Sodium Chloride 0.9% intravenous solution, 500 mL, IV, Once, Stop date 09/08/21 6:12:00 EDT, STAT, Start date 09/08/21 6:12:00 EDT, 500 mL/hr, Infuse over 1, hour(s) Sodium Chloride 0.9% intravenous solution, Soln-IV, Misc, Once, Stop date 09/08/21 6:15:27 EDT, Physician Stop, 09/08/21 6:15:27 EDT Automated Diff Basic Metabolic Panel CBC w/ Auto Diff CT Abdomen/Pelvis w/o Contrast eGFR Hepatic Function Panel Lipase Level UA With Cult Reflex Addendum by Lon Kennedy M.D. on September 08, 2021 09:18:42 EDT The care of the patient was transitioned to [place] upon shift change to follow-up with CT results and final disposition. The patient has presented with increasing left flank pain. She had lithotripsy yesterday by Dr. Mi. The CT of the abdomen and pelvis shows subcapsular hematoma on the left kidneywith mild to moderate retroperitoneal bleed. Her hemoglobin has dropped to 10.9 from 13.1 a month ago. The case is discussed with Dr. Mi will recommend patient be admitted to the hospitalist services checking H&H every 6 hours and he will see the patient in the hospital. Her blood pressure was elevated. Hydralazine was given. The case is discussed with the hospitalist and the patient will be admitted to the hospitalist services. Future Appointments Appointment Date:09/18/2021 12:30:00 PM Scheduled Provider:Mi MI MD Location:[facility] Appointment Type:URO Office Visit Appointment Date:09/18/2021 04:40:00 PM Scheduled Provider:Stacie ROBERTS MD, FAAFP Location:[facility] Appointment Type: Open Appointment Date:09/22/2021 01:40:00 PM Scheduled Provider:Laxmi ALBA CNP Location:[facility] Appointment Type: Hospital Follow Up w/TCM Appointment Date:11/23/2021 03:00:00 PM Scheduled Provider:Cristopher SHAW MD Location:[facility] Appointment Type:BADH Follow Up Appointment Date:03/05/2022 10:45:00 AM Scheduled Provider:Mi MI MD [facility] Appointment Type:URO Office Visit [facility]04-27-2022 Hospital Discharge instructions Patient Education 09/13/2021 10:01:48 Home Oxygen Use, Adult Home Oxygen Use, Adult When a medical condition keeps you from getting enough oxygen, your health care provider may instruct you to take extra oxygen at home. Your health care provider will let you know: When to take oxygen. For how long to take oxygen. How quickly oxygen should be delivered (flow rate), in liters per minute (LPM or L/M). Home oxygen can be given through: A mask. A nasal cannula. This is a device or tube that goes in the nostrils. A transtracheal catheter. This is a small, flexible tube placed in the trachea. A tracheostomy. This is a surgically made opening in the trachea. These devices are connected with tubing to an oxygen source, such as: A tank. Tanks hold oxygen in gas form. They must be replaced when the oxygen is used up. A liquid oxygen device. This holds oxygen in liquid form. It must be replaced when the oxygen is used up. An oxygen concentrator machine. This filters oxygen in the room. It uses electricity, so you must have a backup cylinder of oxygen in case the power goes out. Supplies needed: To use oxygen, you will need: A mask, nasal cannula, transtracheal catheter, or tracheostomy. An oxygen tank, a liquid oxygen device, or an oxygen concentrator. The tape that your health care provider recommends (optional). If you use a transtracheal catheter and your prescribed flow rate is 1 LPM or greater, you will also need a humidifier. Risks and complications Fire. This can happen if the oxygen is exposed to a heat source, flame, or spark. Injury to skin. This can happen if liquid oxygen touches your skin. Organ damage. This can happen if you get too little oxygen. How to use oxygen Your health care provider or a student services representative from your neuropsychology medical consultant company will show you how touse your oxygen device. Follow her or his instructions. The instructions may look something like this: 1.Wash your hands. 2.If you use an oxygen concentrator, make sure it is plugged in. 3.Place one end of the tube into the port on the tank, device, or machine. 4.Place the mask over your nose and mouth. Or, place the nasal cannula and secure it with tape if instructed. If you use a tracheostomy or transtracheal catheter, connect it to the oxygen source as directed. 5.Make sure the liter-flow setting on the machine is at the level prescribed by your health care provider. 6.Turn on the machine or adjust the knob on the tank or device to the correct liter-flow setting. 7.When you are done, turn off and unplug the machine, or turn the knob to OFF. How to clean and care for the oxygen supplies Nasal cannula Clean it with a warm, wet cloth daily or as needed. Wash it with a liquid soap once a week. Rinse it thoroughly once or twice a week. Replace it every 2 4 weeks. If you have an infection, such as a cold or pneumonia, change the cannula when you get better. Mask Replace it every 2 4 weeks. If you have an infection, such as a cold or pneumonia, change the mask when you get better. Humidifier bottle Wash the bottle between each refill: ?Wash it with soap and warm water. ?Rinse it thoroughly. ?Disinfect it and its top. ?Air-dry it. Make sure it is dry before you refill it. Oxygen concentrator Clean the air filter at least twice a week according to directions from your home medical equipmentand service company. Wipe down the cabinet every day. To do this: ?Unplug the unit. ?Wipe down the cabinet with a damp cloth. ?Dry the cabinet. Other equipment Change any extra tubing every 1 3 months. Follow instructions from your health care provider about taking care of any other equipment. Safety tips Fire safety tips Keep your oxygen and oxygen supplies at least 5 ft away from sources of heat, flames, and jackson atall times. Do not allow smoking near your oxygen. Put up no smoking signs in your home. Avoid smoking areas when in public. Do not use materials that can burn (are flammable) while you use oxygen. When you go to a restaurant with portable oxygen, ask to be seated in the nonsmoking section. Keep a fire extinguisher close by. Let your fire department know that you have oxygen in your home. Test your home smoke detectors regularly. Traveling Secure your oxygen tank in the vehicle so that it does not move around. Follow instructions from your neuropsychology medical consultant company about how to safely secure your tank. Make sure you have enough oxygen for the amount of time you will be away from home. If you are planning air travel, contact the airline to find out if they allow the use of an approved portable oxygen concentrator. You may also need documents from your health care provider and neuropsychology medical consultant company before you travel. General safety tips If you use an oxygen cylinder, make sure it is in a stand or secured to an object that will not move (fixed object). If you use liquid oxygen, make sure its container is kept upright. If you use an oxygen concentrator: ?Tell your electric company. Make sure you are given priority service in the event that your power goes out. ?Avoid using extension cords, if possible. Follow these instructions at home: Use oxygen only as told by your health care provider. Do not use alcohol or other drugs that make you relax (sedating drugs) unless instructed. They can slow down your breathing rate and make it hard to get in enough oxygen. Know how and when to order a refill of oxygen. Always keep a spare tank of oxygen. Plan ahead for holidays when you may not be able to get a prescription filled. Use water-based lubricants on your lips or nostrils. Do not use oil-based products like petroleum jelly. To prevent skin irritation on your cheeks or behind your ears, tuck some gauze under the tubing. Contact a health care provider if: You get headaches often. You have shortness of breath. You have a lasting cough. You have anxiety. You are sleepy all the time. You develop an illness that affects your breathing. You cannot exercise at your regular level. You are restless. You have difficult or irregular breathing, and it is getting worse. You have a fever. You have persistent redness under your nose. Get help right away if: You are confused. You have blue lips or fingernails. You are struggling to breathe. Summary Your health care provider or a student services representative from your neuropsychology medical consultant company will show you how touse your oxygen device. Follow her or his instructions. If you use an oxygen concentrator, make sure it is plugged in. Make sure the liter-flow setting on the machine is at the level prescribed by your health care provider. Keep your oxygen and oxygen supplies at least 5 ft away from sources of heat, flames, and jackson atall times. This information is not intended to replace advice given to you by your health care provider. Make sure you discuss any questions you have with your health care provider. Document Released: 07/26/2004 Document Revised: 10/23/2018 Document Reviewed: 11/27/2016 [employer] Patient Education 2020 [employer]. Follow Up Care 09/08/2021 06:07:29 With:Mi MI Address: [facility] [address] [place] [address]- Business (1) When:09/18/2021 12:30:00 With:Cristopher SHAW Address: [address] [place] [address]. [address] [place] [address] Business (1) When:11/23/2021 15:00:00 With:Stacie ROBERTS Address: [address] [place] [id number]- Business (1) When:09/22/2021 13:40:00 Comments:Call physician if symptoms worsen [facility]ments Appointment Date:10/20/2021 11:00:00 AM Scheduled Provider:Mi MI MD Location:[facility] Appointment Type:URO Office Visit Appointment Date:11/23/2021 03:00:00 PM Scheduled Provider:Cristopher SHAW MD Location:[facility] Appointment Type:[facility] Follow Up Appointment Date:01/08/2022 04:40:00 PM Scheduled Provider:ARMANDO REILLYStacie Location:[facility] Appointment Type:FM Open Appointment Date:03/05/2022 10:45:00 AM Scheduled Provider:Mi MI MD Location:[facility] Appointment Type:URO Office Visit Future Scheduled Tests Laboratory* BUN 09/18/21 * Creatinine 09/18/21 * Electrolyte Panel 09/18/21 * CBC w/ Auto Diff 09/18/21 Radiology* CT Abdomen/Pelvis w/ Contrast 09/18/21 [facility] Evaluation + Plan note Future Appointments Appointment Date:10/10/2021 04:00:00 PM Scheduled Provider: Location:.[facility] Appointment Type:CT Abdomen/Pelvis Combo () Appointment Date:10/20/2021 11:00:00 AM Scheduled Provider:Mi MI MD Location:[facility] Appointment Type:URO Office Visit Appointment Date:11/23/2021 03:00:00 PM Scheduled Provider:Cristopher SHAW MD Location:[facility] Appointment Type:BAD Follow Up Appointment Date:01/08/2022 04:40:00 PM Scheduled Provider:Stacie ROBERTS MD, FAAFP [facility] Open Appointment Date:03/05/2022 10:45:00 AM Scheduled Provider:Mi MI MD [facility] Appointment Type:URO Office Visit Future Scheduled Tests Radiology* CT Abdomen/Pelvis w/ Contrast [facility]10/[facility] App[facility]ments Appointment Date:10/14/2021 10:00:00 AM Scheduled Provider: [facility] Type:CT Abdomen/Pelvis Combo () Appointment Date:10/20/2021 11:00:00 AM Scheduled Provider:Mi MI MD [facility] Type:URO Office Visit Appointment Date:11/23/2021 03:00:00 PM Scheduled Provider:Cristopher SHAW MD Location:[facility] Appointment Type:BAD Follow Up Appointment Date:01/08/2022 04:40:00 PM Scheduled Provider:Stacie ROBERTS MD, FAAFP [facility] Type:FM Open Appointment Date:03/05/2022 10:45:00 AM Scheduled Provider:Mi MI MD [facility] Appointment Type:URO Office Visit Future Scheduled Tests Radiology* CT Abdomen/Pelvis w/ Contrast [facility]14[facility] App[facility]ments Appointment Date:11/23/2021 03:00:00 PM Scheduled Provider:Cristopher SHAW MD Location:[facility] Appointment Type:BAD Follow Up Appointment Date:01/08/2022 04:40:00 PM Scheduled Provider:Stacie ROBERTS MD, FAAFP [facility]FM Open Appointment Date:03/05/2022 10:45:00 AM Scheduled Provider:Mi MI MD [facility] Appointment Type:URO Office Visit Appointment Date:04/06/2022 08:00:00 AM Scheduled Provider: Location:[facility] Appointment Type:US Abdominal/Pelvis (FT) Appointment Date:04/06/2022 08:30:00 AM Scheduled Provider: Location:.XRAY Appointment Type:XR Abdomen (FT) Appointment Date:04/23/2022 02:15:00 PM Scheduled Provider:Mi MI MD Location:[facility] Appointment Type:URO Office Visit Future Scheduled Tests Radiology* XR Abdomen 1 View 04/06/22 * US Renal 04/06/22 [facility] evaluation + Plan note Future Appointments Appointment Date:01/08/2022 04:40:00 PM Scheduled Provider:Stacie ROBETRS MD, FAAFP Location:[facility] Appointment Type:FM Open Appointment Date:03/05/2022 10:45:00 AM Scheduled Provider:Mi MI MD Location:[facility] Appointment Type:URO Office Visit Appointment Date:04/06/2022 08:00:00 AM Scheduled Provider: Location:.[facility]TRASOUND Appointment Type:US Abdominal/Pelvis (FT) Appointment Date:04/06/2022 08:30:00 AM Scheduled Provider: Location:.XRAY Appointment Type:XR Abdomen (FT) Appointment Date:04/23/2022 02:15:00 PM Scheduled Provider:Mi MI MD Location[facility] Appointment Type:URO Office Visit Future Scheduled Tests Radiology* XR Abdomen 1 View 04/06/22 * US Renal 04/06/22 [facility] evaluation + Plan note Future Appointments Appointment Date:03/05/2022 10:45:00 AM Scheduled Provider:Mi MI MD Location:[facility] Appointment Type:URO Office Visit Appointment Date:04/06/2022 08:00:00 AM Scheduled Provider: Location:.[facility]TRASOUND Appointment Type:US Abdominal/Pelvis (FT) Appointment Date:04/06/2022 08:30:00 AM Scheduled Provider: Location:.XRAY Appointment Type:XR Abdomen (FT) Appointment Date:04/23/2022 02:15:00 PM Scheduled Provider:Mi MI MD Location:[facility] Appointment Type:URO Office Visit Future Scheduled Tests Radiology* XR Abdomen 1 View 04/06/22 * US Renal 04/06/22 [facility] [place] Evaluation + Plan note Future Appointments Appointment Date:04/23/2022 02:15:00 PM Scheduled Provider:Mi MI MD [facility] Appointment Type:URO Office Visit Appointment Date:04/28/2022 08:30:00 AM Scheduled Provider: [facility] Type:MA Screen (FT) Appointment Date:09/17/2022 06:20:00 PM Scheduled Provider:Stacie ROBERTS MD, FAAFP Location:[facility] Appointment Type:FM Open Future Scheduled Tests Radiology* MA Mamm Screen w/CAD if perf and 3D Frederic [facility] App[facility] Appointment Date:04/23/2022 02:15:00 PM Scheduled Provider:Mi MI MD Location[facility] Appointment Type:URO Office Visit Appointment Date:04/28/2022 08:30:00 AM Scheduled Provider: [facility] App[facility] Type:MA Screen () Appointment Date:09/17/2022 06:20:00 PM Scheduled Provider:Stacie ROBERTS MD, FAAFP Location:[facility] Appointment Type: Open Diagnostic Tests Pending * Urine Culture 04/16/22 Future Scheduled Tests Radiology* MA Mamm Screen w/CAD if perf and 3D Frederic [facility] App[facility]ments Appointment Date:09/17/2022 06:20:00 PM Scheduled Provider:Stacie ROBERTS MD, FAAFP Location:[facility]: [facility] Future Appointments Appointment Date:09/10/2022 02:30:00 PM Scheduled Provider:Mi MI MD [facility] Appointment Type:URO Office Visit Appointment Date:09/17/2022 06:20:00 PM Scheduled Provider:Stacie ROBERTS MD, FAAFP Location:[facility] Type: [facility] Future Appointments Appointment Date:09/10/2022 02:30:00 PM Scheduled Provider:Mi MI MD Location:[facility] Appointment Type:URO Office Visit Appointment Date:09/17/2022 06:20:00 PM Scheduled Provider:Stacie ROBERTS MD, FAAFP Location:[facility] Appointment Type:FM Open Diagnostic Tests Pending * PTH Intact [facility]29/22 [facility] App[facility]ments Appointment Date:09/10/2022 02:30:00 PM Scheduled Provider:Mi MI MD Location:[facility] Appointment Type:URO Office Visit Appointment Date:09/17/2022 06:20:00 PM Scheduled Provider:Stacie ROBERTS MD, FAAFP Location:[facility] Appointment Type:FM Open Diagnostic Tests Pending * Calcium Level 24 Hour Urine 06/04/22 * Oxalate 24 Hour Urine 06/04/22 * Citrate Level 24 Hour Urine 06/04/22 * Uric Acid 24 Hour Urine 06/04/22 * Phosphorus Level 24 Hour Urine 06/04/22 * Magnesium Level 24 Hour Urine 06/04/22 [facility] Future Appointments Appointment Date:10/23/2022 03:00:00 PM Scheduled Provider:MESHA RIVERA PA-C Location[facility] Appointment Type:URO Office Visit Appointment Date:03/25/2023 06:20:00 PM Scheduled Provider:Stacie ROBERTS MD, FAAFP Location:[facility] Appointment Type:FM [facility] Future Appointments Appointment Date:03/25/2023 06:20:00 PM Scheduled Provider:Stacie ROBERTS MD, FAAFP Location:[facility] Appointment Type:FM Open Appointment Date:04/29/2023 03:15:00 PM Scheduled Provider:Mi MI MD Location[facility] Appointment Type:URO Office Visit Diagnostic Tests Pending * Electrolyte Panel 10/23/22 [facility] evaluation + Plan note Future Appointments Appointment Date:03/25/2023 06:20:00 PM Scheduled Provider:Stacie ROBERTS MD, FAAFP Location:[facility] Appointment Type:FM Open Appointment Date:04/29/2023 03:15:00 PM Scheduled Provider:Mi MI MD Location[facility] Appointment Type:URO [facility] Future Appointments Appointment Date:03/25/2023 06:20:00 PM Scheduled Provider:Stacie ROBERTS MD, FAAFP [facility]: Open Appointment Date:04/29/2023 03:15:00 PM Scheduled Provider:Mi MI MD Location:[facility] Appointment Type:URO Office Visit Diagnostic Tests Pending * Group A Strep by PCR [facility]/18/23 [facility] Future Appointments Appointment Date:04/29/2023 03:15:00 PM Scheduled Provider:Mi MI MD Location:[facility] Appointment Type:URO Office Visit Future Scheduled Tests Laboratory* HgbA1c 03/25/23 * Basic Metabolic Panel 03/25/23 * CBC w/ Indices 03/25/23 * Ferritin 03/25/23 * Folate Level 03/25/23 * Lipid Panel 03/25/23 * Vitamin B12 Level 03/25/23 [facility] [place] Evaluation + Plan note Future Appointments Appointment Date:05/01/2024 08:45:00 AM Scheduled Provider:Mi MI MD Location:[facility] Appointment Type:URO Office Visit Future Scheduled Tests Radiology* XR Abdomen 1 View 04/29/24 [facility] evaluation + Plan note Future Appointments Appointment Date:05/01/2024 08:45:00 AM Scheduled Provider:Mi MI MD Location:[facility] Appointment Type:URO Office Visit Appointment Date:08/03/2024 02:00:00 PM Scheduled Provider:Ajith SNIDER, GROUND CONTROL APPROACH TECHNICIAN-Rosa DEL CASTILLO Location:[facility] Appointment Type:FM Open Appointment Date:02/02/2025 02:30:00 PM Scheduled Provider: Location:[facility] Appointment Type:FM Medicare Wellness Subsequent Future Scheduled Tests Laboratory* HgbA1c 02/03/24 * Microalbumin Level Urine 02/03/24 * Urine Microalbumin/Creatinine Ratio 02/03/24 * CBC w/ Auto Diff 02/03/24 * Comprehensive Metabolic Panel 02/03/24 * Lipid Panel 02/03/24 Radiology* XR Abdomen 1 View 04/29/24 [facility] Evaluation + Plan note Future Appointments Appointment Date:02/13/2024 12:15:00 PM Scheduled Provider: Location:.[facility] Appointment Type:MA Screen () Appointment Date:02/13/2024 01:00:00 PM Scheduled Provider: [facility] Type:BD Bone Density () Appointment Date:05/01/2024 08:45:00 AM Scheduled Provider:Mi MI MD Location[facility] Appointment Type:URO Office Visit Appointment Date:08/03/2024 02:00:00 PM Scheduled Provider:PROSPER Malagon Tammy L. Location:[facility] Appointment Type: Open Appointment Date:02/02/2025 02:30:00 PM Scheduled Provider: Location:[facility] Appointment Type:FM Medicare Wellness Subsequent Future Scheduled Tests Laboratory* HgbA1c 02/03/24 * Microalbumin Level Urine 02/03/24 * Urine Microalbumin/Creatinine Ratio 02/03/24 * CBC w/ Auto Diff 02/03/24 * Comprehensive Metabolic Panel 02/03/24 * Lipid Panel 02/03/24 Radiology* XR Abdomen 1 View 04/29/24 * BD Bone Density DEXA 02/13/24 * MA Mamm Screen w/CAD if perf and 3D Frederic 02/13/24 [facility] [place] Evaluation + Plan note Future Appointments Appointment Date:06/05/2024 10:15:00 AM Scheduled Provider:Mi MI MD [facility] Appointment Type:URO Office Visit Appointment Date:08/03/2024 02:00:00 PM Scheduled Provider:PROSPER Malagon Tammy L. Location:[facility] Appointment Type: Open Appointment Date:02/02/2025 02:30:00 PM Scheduled Provider: Location:[facility] Appointment Type: Medicare Wellness Subsequent Future Scheduled Tests Laboratory* HgbA1c 02/03/24 * Microalbumin Level Urine 02/03/24 * Urine Microalbumin/Creatinine Ratio 02/03/24 * CBC w/ Auto Diff 02/03/24 * Comprehensive Metabolic Panel 02/03/24 * Lipid Panel 02/03/24 Radiology* XR Abdomen 1 View 04/02/24 * XR Abdomen 1 View 04/29/24 [facility] [place] Evaluation + Plan note Future Appointments Appointment Date:08/03/2024 02:00:00 PM Scheduled Provider:PROSPER Malagon Tammy L. Location:[facility] Appointment Type: Open Appointment Date:02/02/2025 02:30:00 PM Scheduled Provider: Location:[facility] Appointment Type: Medicare Wellness Subsequent Appointment Date:06/11/2025 09:45:00 AM Scheduled Provider:Mi MI MD Location[facility] Appointment Type:URO Office Visit Future Scheduled Tests Laboratory* HgbA1c 02/03/24 * Microalbumin Level Urine 02/03/24 * Urine Microalbumin/Creatinine Ratio 02/03/24 * CBC w/ Auto Diff 02/03/24 * Comprehensive Metabolic Panel 02/03/24 * Lipid Panel 02/03/24 Radiology* XR Abdomen 1 View 04/02/24 * XR Abdomen 1 View 06/05/24 * XR Abdomen 1 View 04/19/25 * XR Abdomen 1 View 04/29/24 [facility] evaluation + Plan note Future Appointments Appointment Date:08/03/2024 02:00:00 PM Scheduled Provider:PROSPER Malagon Tammy L. Location:[facility] Appointment Type: Open Appointment Date:02/02/2025 02:30:00 PM Scheduled Provider: Location:[facility] Appointment Type: Medicare Wellness Subsequent Appointment Date:06/11/2025 09:45:00 AM Scheduled Provider:Mi MI MD Location:[facility] Appointment Type:URO Office Visit Diagnostic Tests Pending * PTH Intact 07/28/24 Future Scheduled Tests Laboratory* HgbA1c 9/16/24 * Microalbumin Level Urine 02/03/24 * Urine Microalbumin/Creatinine Ratio 02/03/24 * CBC w/ Auto Diff 02/03/24 * Comprehensive Metabolic Panel 02/03/24 * Lipid Panel 02/03/24 Radiology* XR Abdomen 1 View 04/02/24 * XR Abdomen 1 View 04/19/25 * XR Abdomen 1 View 04/29/24 [facility] Evaluation + Plan note Future Appointments Appointment Date:02/02/2025 02:30:00 PM Scheduled Provider: Location:[facility] Appointment Type: Medicare Wellness Subsequent Appointment Date:02/09/2025 09:40:00 AM Scheduled Provider:Sam ROBERTS MD Location:[facility] Appointment Type: Open Appointment Date:06/11/2025 09:45:00 AM Scheduled Provider:Mi MI MD [facility] Appointment Type:URO Office Visit Future Scheduled Tests Radiology* XR Abdomen 1 View 04/02/24 * XR Abdomen 1 View 04/19/25 * XR Abdomen 1 View 04/29/24 [facility] Evaluation + Plan note Future Appointments Appointment Date:02/09/2025 09:40:00 AM Scheduled Provider:Sam ROBERTS MD Location:[facility] Appointment Type: Open Appointment Date:06/11/2025 09:45:00 AM Scheduled Provider:Mi MI MD [facility] Appointment Type:URO Office Visit Appointment Date:02/02/2026 02:30:00 PM Scheduled Provider: Location:[facility] Appointment Type: Medicare Wellness Subsequent Future Scheduled Tests Radiology* XR Abdomen 1 View 04/02/24 * XR Abdomen 1 View 04/19/25 * XR Abdomen 1 View 04/29/24 [facility] [place] Evaluation + Plan note Future Appointments Appointment Date:02/15/2025 11:20:00 AM Scheduled Provider:Sam ROBERTS MD Location:[facility] Appointment Type: Open Appointment Date:06/11/2025 09:45:00 AM Scheduled Provider:Mi MI MD Location[facility] Appointment Type:URO Office Visit Appointment Date:02/02/2026 02:30:00 PM Scheduled Provider: Location:[facility] Appointment Type: Medicare Wellness Subsequent Future Scheduled Tests Laboratory* HCV Antibody RFX to Quant PCR 02/06/25 * Basic Metabolic Panel 02/06/25 * Lipid Panel 02/06/25 Radiology* XR Abdomen 1 View 04/19/25 * MA Mamm Screen w/CAD if perf and 3D Frederic 02/06/25 [facility] [place] Evaluation + Plan note Future Appointments Appointment Date:06/11/2025 09:45:00 AM Scheduled Provider:Mi MI MD Location:[facility] Appointment Type:URO Office Visit Appointment Date:02/02/2026 02:30:00 PM Scheduled Provider: Location:[facility] Appointment Type: Medicare Wellness Subsequent Future Scheduled Tests Laboratory* HgbA1c 02/15/25 * HCV Antibody RFX to Quant PCR 02/06/25 * Basic Metabolic Panel 02/06/25 * Lipid Panel 02/06/25 Radiology* XR Abdomen 1 View 04/19/25 * MA Mamm Screen w/CAD if perf and 3D Frederic 02/06/25 [facility] [place] Evaluation noteNo assessment information available [facility] Work Phone: Hospital course Narrative No data available for this section [facility] No data available for this section [facility] No data available for this section [facility] Assessments Diagnosis Personal history of digestive disease Personal history of unspecified digestive disease Diverticulosis of large intestine without diverticulitis Diverticulosis of colon (without mention of hemorrhage) Advance Directives No Advanced Directives Records FoundDocuments on File TypeDate RecordedPatient RepresentativeExplanationAdvance Directives and Living WillPower of Junior Project Manager Advance Directive Response Recorded Date/ Time Advance Directives No March 04, 2017 1:08pm Summary Purpose Family History No Family History Records Found Relationship Condition Age at Onset Recorded Date/T beverley sister Type 2 diabetes mellitus Unknown FibromyalgiaUnknownbrotherMalignant neoplasm of lungUnknownfatherType 2 diabetes mellitusUnknownCoronary artery diseaseUnknownNot SpecifiedType 2 diabetes mellitusUnknownHypertensionUnknownsisterDisorder of thyroidUnknown Chief Complaint and Reason for Visit Chief Complaint g35 g35 Additional Source Comments Reason for Visit (unrecogniz ed section and content) StatusReasonSpecialtyDiagnoses / ProceduresReferred By ContactReferred To ContactClosedRadiology Diagnoses Dysphagia, unspecified Diverticulosis of large intestine without perforation or abscess without bleeding Personal history of other diseases of the digestive system Procedures HC CT ABD/PELVIS W W/O CONTRAST HC CT ABD W&W/O CONT Cristopher Shaw MD [address] [place] [address] INFORMATION SOURCE (unrecogn ized section and content) DATE CREATED AUTHOR 06/23/2019 [facility] DATE CREATED AUTHOR AUTHOR'S ORGANIZ ATION 01/19/2022 [facility] DATE CREATED AUTHOR AUTHOR'S ORGANIZ ATION 05/12/2022 [facility] DATE CREATED AUTHOR AUTHOR'S ORGANIZ ATION 05/13/2024 [facility] DATE CREATED AUTHOR AUTHOR'S ORGANIZ ATION 05/14/2024 [facility] DATE CREATED AUTHOR AUTHOR'S ORGANIZ ATION 07/31/2024 [facility] DATE CREATED AUTHOR AUTHOR'S ORGANIZ ATION 08/02/2024 [facility] DATE CREATED AUTHOR AUTHOR'S ORGANIZ ATION 08/03/2024 [facility] DATE CREATED AUTHOR AUTHOR'S ORGANIZ ATION 08/07/2024 [facility] DATE CREATED AUTHOR AUTHOR'S ORGANIZ ATION 08/16/2024 [facility] DATE CREATED AUTHOR AUTHOR'S ORGANIZ ATION 02/04/2025 [facility] DATE CREATED AUTHOR AUTHOR'S ORGANIZ ATION 02/11/2025 [facility] DATE CREATED AUTHOR AUTHOR'S ORGANIZ ATION 02/20/2025 [facility] Care Team (unrecognized sect ion and content) Team Status: Inactive Member Role Status Dates Stacie Roberts MD Primary Care Provider Active [facility]CAS [facility] ProviderActive Team Status: Active Member Role Status Dates Stacie Roberts MD Primary Care Provider Active Goals (unrecognized section and content) Goals may be documented in a n alternate section FOR RECORDS PERTAINING TO PATIENTS WHO ARE OR HAVE BEEN ENROLLED IN A CHEMICAL DEPENDENCY/SUBSTANCEABUSE PROGRAM, SOME INFORMATION MAY BE OMITTED. This clinical summary was aggregated from multiple sources. Caution should be exercised in using it in the provision of clinical care. This summary normalizes information from multiple sources, and as a consequence, information in this document may materially change the coding, format and clinical context of patient data. In addition, data may be omitted in some cases. CLINICAL DECISIONS SHOULD BE BASED ON THE PRIMARY CLINICAL RECORDS. [employer] provides no warranty or guarantee of the accuracy or completeness of information in this document.
[2025-04-07 16:02] VITALS: BP 190/90
[2025-04-07 16:24] LABS: Hematocrit 38.8 % (36.0-48.0); Hemoglobin 12.7 g/dL (12.0-16.0); Immature Granulocytes Abs Auto 0.03 10^3/uL (0.00-0.03); Immature Granulocytes Pct Auto 0.4 % (0.0-0.5); Lymphocytes Absolute Auto 2.2 10^3/uL (1.2-3.8); Mean Corpuscular HGB Conc 32.7 g/dL (29.9-35.2); Mean Corpuscular Hemoglobin 30.3 pg (26.7-34.0); Mean Corpuscular Volume 92.6 fL (81.0-99.0); Platelet Count 307 10^3/uL (150-450); Red Blood Count 4.19 10^6/uL (4.20-5.40); White Blood Count 7.7 10^3/uL (4.0-11.0)
[2025-04-07 16:28] LABS: Anion Gap 8.7; Blood Urea Nitrogen 18.0 mg/dL (7.0-18.0); Calcium 9.3 mg/dL (8.5-10.1); Carbon Dioxide 31.2 mmol/L (21.0-32.0); Chloride 104 mmol/L (98-107); Estimated GFR (African America >60 (>=60 mL/min/1.73m^2); Estimated GFR (Non-African Ame 54 (>=60 mL/min/1.73m^2); Glucose 111 mg/dL (74-106); Potassium 3.9 mmol/L (3.5-5.1); Sodium 140 mmol/L (136-145)
--- NOTE | 2025-04-07 16:50 | PC.NURSE ---
assisted pt to bathroom at this time, urine sample collected
[2025-04-07 16:51] LABS: Glucose Urine UA NEGATIVE (NEGATIVE)
[2025-04-07 17:04] LABS: Cast Seen? NONE SEEN #/LPF (NONE SEEN); Crystals Seen? None Seen #/HPF (None Seen)
[2025-04-07 17:05] LABS: Urine Culture Indicated YES-FRMC
== END 2025-04-07 17:29 | disposition home or self-care (01) ==
PROVIDERS: Emergency Provider Emergency Medicine
DX: F41.8 Other specified anxiety disorders (principal); R41.82 Altered mental status, unspecified; Z63.4 Disappearance and death of family member
CPT/HCPCS: 36415; 70450; 71045; 80048; 81001; 85025; 87086; 93005; 99285